=== PATIENT | female | born 1965 | race Caucasian/White ===

== ENCOUNTER 2020-02-19 13:17 | Outpatient (REF) | payer MEDICARE, MEDICAID, SELFPAY ==
--- NOTE | 2020-02-19 13:35 | XR_ITS ---
EXAMINATION: XR knee standing BI CLINICAL INFORMATION: Reason for Exam M17.0 - Bilateral primary osteoarthritis of knee COMPARISON: None available at the time of this dictation. TECHNIQUE: Bilateral frontal standing. FINDINGS: BONES: No fracture or dislocation is present. JOINTS: Narrowing of joint spaces and developed osteophytes from the edges of articular surfaces suggest degenerative osteoarthritis. SOFT TISSUE: Normal XR/XR knee standing BI IMPRESSION: Mild to moderate DJD medial more than lateral compartments right more than left knee.
== END 2020-02-19 13:18 | disposition home or self-care (01) ==
LOC: HO.XRAY 13:17
PROVIDERS: PCP Internal Medicine; Referring Provider Internal Medicine; Visit Provider Orthopaedic Surgery
DX: M17.0 Bilateral primary osteoarthritis of knee (principal); F17.210 Nicotine dependence, cigarettes, uncomplicated
CPT/HCPCS: 20610; 73565; 99212; J1100

== ENCOUNTER → 2020-02-24 16:02 | Outpatient (BNVA) | payer MEDICARE, MEDICAID, SELFPAY | PROVIDERS: PCP Internal Medicine; Visit Provider Surgery | DX: Z85.3 Personal history of malignant neoplasm of breast (principal); Z92.21 Personal history of antineoplastic chemotherapy; Z92.3 Personal history of irradiation | CPT/HCPCS: 99212 ==

== ENCOUNTER 2020-02-25 13:09 | Outpatient (REF) | payer MEDICARE, MEDICAID, SELFPAY ==
--- NOTE | 2020-02-25 13:15 | MM_ITS ---
EXAMINATION: MM DIAGNOSTIC DIGITAL BREAST TOMOSYNTHESIS, BILATERAL CLINICAL INFORMATION: Left lumpectomy for breast cancer 2013. Probable benign calcifications left breast 3:00 to 4:00 position mid depth for follow-up. Due for yearly. COMPARISON: Mammography: 02/19/2019, 08/15/2018, 02/13/2018 (diagnostic, BI-RADS 3), 01/11/2017 TECHNIQUE: Digital breast tomosynthesis is performed in both the craniocaudal and mediolateral oblique views along with computer-aided detection (CAD). Synthesized 2D images are generated from the tomosynthesis. Additional magnification left CC and magnification left ML views are obtained. FINDINGS: There are scattered areas of fibroglandular density (ACR BI-RADS breast composition Category b). There are post therapy changes on the left with stable scarring central inferior medial breast. There is no developing density or interval mass or architectural abnormality on either side. Biopsy clip marker again noted mid upper outer left breast. There are scattered bilateral benign round and rim calcifications. The small coalescing calcifications for follow-up left breast are unremarkable and benign. Results are provided to the patient at time of visit by the technologist. MM/MM tomosynthesis diagnostic BI IMPRESSION: 1. No mammographic evidence of malignancy. 2. Postsurgical changes left breast. Calcifications for follow-up are benign. ASSESSMENT: BI-RADS 2: Benign RECOMMENDATION: Routine annual mammography screening. This patient's information was entered into a reminder system with a target due date for their next mammogram.
== END 2020-02-25 13:10 | disposition home or self-care (01) ==
LOC: HO.MAMMO 13:09
PROVIDERS: Visit Provider Surgery Plastic and Reconstructive Surgery
DX: R92.1 Mammographic calcification found on diagnostic imaging of breast (principal)
CPT/HCPCS: 77062; 77066

== ENCOUNTER 2020-04-26 11:00 | Outpatient (REF) | payer MEDICARE, MEDICAID, SELFPAY ==
--- NOTE | 2020-04-26 11:06 | XR_ITS ---
EXAMINATION: XR BILATERAL HIPS WITH AP PELVIS CLINICAL INFORMATION: Fall, trauma, pain COMPARISON: CT abdomen and pelvis 05/07/2019. TECHNIQUE: AP view of the pelvis is performed. Each hip is imaged in AP and frog-lateral projections. There are a total of 5 views. FINDINGS: The pelvis has orthopedic hardware lateral aspect left iliac wing with plates and screws. The hardware appears intact. There is no acute or healing fracture or destructive process. The SI joints and pubis show no diastases. The right hip shows no fracture or dislocation. There is no joint narrowing or erosive change. Incidental bone island again noted in the mid posterior right femoral neck. The left hip shows no fracture or dislocation. There is no joint narrowing or erosive change. A few corticated ossicles are again noted at the posterior superior left acetabular rim possibly sequela from prior injury. XR/XR hip BI w PEL1V IMPRESSION: 1. No fracture or dislocation. 2. Old orthopedic hardware left iliac wing.
== END 2020-04-26 11:01 | disposition home or self-care (01) ==
LOC: HO.XRAY 11:00
PROVIDERS: PCP Physician Assistant; Visit Provider Internal Medicine
DX: M54.5 Low back pain (principal); Z91.81 History of falling
CPT/HCPCS: 73521

== ENCOUNTER 2020-05-02 22:41 | Emergency (ER) | payer MEDICARE, MEDICAID, SELFPAY ==
[2020-05-02 23:32] VITALS: BP 135/85; PULSE 76; RESP 16; TEMP 36.6; O2SAT 100; BMI 24.5
--- NOTE | 2020-05-02 23:33 | ED.ALLEREA ---
HPI - Allergic Reaction General Chief complaint: Skin/Abscess/Foreign Body Stated complaint: Rash Time Seen by Provider: 05/02/20 23:32 Source: patient Mode of arrival: ambulatory Limitations: no limitations History of Present Illness HPI narrative: Patient noticed burning pain on the left side of back 2 weeks ago and for last 1 week noticed erythematous rash in a dermatomal pattern with itching and pain. No history of shingles in the past no fever or cough or shortness of breath Related Data Home Medications Medication Instructions Recorded Confirmed atorvastatin 40 mg tablet mg PO 02/18/20 04/26/20 escitalopram oxalate 10 mg tablet mg PO 02/18/20 04/26/20 gabapentin 300 mg capsule mg PO DAILY cap 04/26/20 04/26/20 lorazepam 1 mg tablet 1 mg PO BID-TID PRN tab 04/26/20 omeprazole 20 mg capsule,delayed mg PO DAILY cap 04/26/20 04/26/20 release quetiapine 100 mg tablet mg PO DAILY tab 04/26/20 04/26/20 Previous Rx's Medication Instructions Recorded meclizine 25 mg tablet 25 mg PO TID 30 Days #90 tab 02/11/20 cholecalciferol (vitamin D3) 50 50 mcg PO DAILY 90 Days #90 cap 02/18/20 mcg (2,000 unit) capsule hydrocortisone 2.5 % topical cream [address] BID-QID PRN #30 g 02/18/20 with perineal applicator oxycodone 5 mg capsule 5 mg PO DAILY PRN #5 cap 04/26/20 diphenhydramine HCl [Benadryl] 25 mg PO Q6H PRN #20 cap 05/02/20 gabapentin [Neurontin] 100 mg PO TID #30 cap 05/02/20 valacyclovir [Valtrex] 1,000 mg PO TID #21 tab 05/02/20 Allergies Allergy/AdvReac Type Severity Reaction Status Date / Time No Known Allergies Allergy Verified 02/24/20 16:11 [No Known Allergies*] Review of Systems Review of Systems: Yes all other systems are reviewed and are negative [facility] Past Medical History Medical History Bilateral primary osteoarthritis of knee History of left breast cancer History of suicide attempt Surgical History History of hip surgery History of lumpectomy of left breast History of open reduction and internal fixation (ORIF) procedure History of tonsillectomy History of ventral hernia repair Family History Family History Father Diabetes Hypertension Mother Breast cancer Maternal Aunt Uterine cancer Social History Social History Alcohol intake: never Smoking Status: Current every day smoker Tobacco Type: Cigarette Cigarettes Per Day: 12 Use of substances other than those prescribed or required for medical reasons: No Advance Directives: No Advance Directives Information Provided: No Physical Exam Vital Signs: Vital Signs: Last Vital Signs Temp 97.8 F 05/02/20 23:32 Pulse 76 05/02/20 23:32 Resp 16 05/02/20 23:32 BP 135/85 05/02/20 23:32 Pulse Ox 100 05/02/20 23:32 Body Mass Index 24.5 Const: General: healthy appearing, comfortable and no acute distress HENMT: Head: Yes normal to inspection Eyes: General: appearance normal, both eyes and all related structures Neck: Neck: Yes normal visual inspection Chest: Chest palpation & inspection: normal inspection of the chest Resp: Effort & Inspection: normal respiratory effort Auscultation: clear to auscultation bilaterally Cardio: Rhythm: regular rhythm Heart sounds: S1 normal heart sound present and S2 normal heart sound present GI: Inspection: Yes normal to inspection Palpation (GI): Soft to palpation and nontender Skin: Other: Erythematous with ruptured vesicular rash noticed in dermatomal pattern on the left flank area Full body images: 1. Ruptured vesicles erythematous rash Neuro: General: patient oriented x3 Discharge Plan Discharge Clinical Impression: Shingles Qualifiers: Herpes zoster complications: without complications Qualified Code(s): B02.9 - Zoster without complications Patient Disposition: Home, Self-Care Instructions: Shingles (ED) Additional Instructions: Take medication as prescribed. Keep social distancing and do not share towels or bed with anyone until heals completely. Report to the ER/PCP if not better Prescriptions: New valacyclovir [Valtrex] 1 gram tablet 1,000 mg PO TID Qty: 21 RF: 0 gabapentin [Neurontin] 100 mg capsule 100 mg PO TID Qty: 30 RF: 0 diphenhydramine HCl [Benadryl] 25 mg capsule 25 mg PO Q6H PRN (Reason: itching) Qty: 20 RF: 0 No Action meclizine 25 mg tablet 25 mg PO TID 30 Days Qty: 90 RF: 1 escitalopram oxalate 10 mg tablet PO RF: 0 atorvastatin 40 mg tablet PO RF: 0 cholecalciferol (vitamin D3) 50 mcg (2,000 unit) capsule 50 mcg PO DAILY 90 Days Qty: 90 RF: 1 hydrocortisone [Proctosol HC] 2.5 % cream with perineal applicator [address] BID-QID PRN (Reason: hemorrhoids) Qty: 30 RF: 1 gabapentin 300 mg capsule PO DAILY RF: 0 quetiapine 100 mg tablet PO DAILY RF: 0 omeprazole 20 mg capsule,delayed release(DR/EC) PO DAILY RF: 0 lorazepam 1 mg tablet 1 mg PO BID-TID PRNRF: 0 oxycodone 5 mg capsule 5 mg PO DAILY PRN (Reason: pain) Qty: 5 RF: 0 Stand Alone Forms: Work/School Release Interventions: ED Discharge Assessment Last Done: 05/03/20 01:15 Discharge Date/Time: 05/02/20 23:55
[2020-05-03] MEDS: Gabapentin 100 MG CAPSULE PO (00:01)
[2020-05-03] MEDS: diphenhydrAMINE HCL 25 MG TABLET 50 MG PO (00:01)
== END 2020-05-02 23:55 | disposition home or self-care (01) ==
PROVIDERS: Emergency Provider Internal Medicine; PCP Physician Assistant
DX: B02.9 Zoster without complications (principal); M54.5 Low back pain; Z79.899 Other long term (current) drug therapy; F17.210 Nicotine dependence, cigarettes, uncomplicated; Z71.6 Tobacco abuse counseling
CPT/HCPCS: 99284; Q0163

== ENCOUNTER 2020-05-03 08:56 | Outpatient (REF) | payer MEDICARE, MEDICAID, SELFPAY ==
[2020-05-03 10:33] LABS: Estimated Average Glucose 103 mg/dL; Hemoglobin A1c % 5.2 %
[2020-05-03 10:46] LABS: Alanine Aminotransferase 10 U/L (0-31); Albumin Level 4.5 g/dL (3.5-5.0); Alkaline Phosphatase 64 U/L (39-117); Anion Gap 11 (12-20); Aspartate Amino Transferase 15 U/L (5-31); Bilirubin Total 0.3 mg/dL (0.0-1.0); Blood Urea Nitrogen 13 mg/dL (9-16); Calcium 9.8 mg/dL (8.4-10.2); Carbon Dioxide 29 mmol/L (22-29); Chloride 104 mmol/L (96-108); Cholesterol 230 mg/dL; Estimated Glomerular Filt Rate > 60; Glucose Fasting 91 mg/dL (60-99); HDL Cholesterol 46 mg/dL; LDL Cholesterol Calculated 160 mg/dl; Potassium 4.2 mmol/l (3.3-5.1); Sodium 140 mmol/L (135-145); Total Protein 7.1 g/dL (6.5-8.0); Triglycerides 120 mg/dL
[2020-05-03 11:10] LABS: TSH reflex Free T4 1.78 mIU/mL (0.32-4.0)
[2020-05-03 17:07] LABS: Folate 17.7 ng/mL (> or = 4.0); Vitamin B12 293 pg/mL (200-900)
== END 2020-05-03 08:57 | disposition home or self-care (01) ==
LOC: HO.LAB 08:56
PROVIDERS: PCP Physician Assistant; Visit Provider Internal Medicine
DX: F33.1 Major depressive disorder, recurrent, moderate (principal); F41.1 Generalized anxiety disorder; E78.00 Pure hypercholesterolemia, unspecified; Z13.1 Encounter for screening for diabetes mellitus; Z13.29 Encounter for screening for other suspected endocrine disorder
CPT/HCPCS: 36415; 80053; 80061; 82607; 82746; 83036; 84443

== ENCOUNTER 2020-05-05 13:30 | Outpatient (REF) | payer MEDICARE, MEDICAID, SELFPAY ==
--- NOTE | 2020-05-05 13:33 | CT_ITS ---
EXAMINATION: CT ABDOMEN AND PELVIS WITH CONTRAST CLINICAL INFORMATION: Left lower quadrant pain COMPARISON: Previous CT scan of the abdomen and pelvis most recent April 2019 TECHNIQUE: Multidetector volumetric images were obtained from the superior aspect of the liver through the pubic symphysis following administration 85 mL of Omnipaque 350 intravenous contrast. Sagittal and coronal reformatted images were obtained on the technologist's workstation. Oral contrast: Yes This CT examination was performed using dose optimization techniques as appropriate, variously including the following: *Automated exposure control *Adjustment of mA and/or kV according to patient size (this includes techniques or standardized protocols for targeted exams where dose is matched to indication/reason for exam; i.e. extremities or head) *Use of iterative reconstruction technique DLP: 482 mGy-cm FINDINGS: LUNG BASES: The visualized lung bases are unremarkable. LIVER, GALLBLADDER, AND BILIARY TREE: The liver is slightly enlarged, right lobe measuring 20 cm in length. Contour and attenuation is normal. No focal liver lesion is seen. The gallbladder is contracted. There is no biliary duct dilatation. PANCREAS: Unremarkable. SPLEEN: Unremarkable. ADRENAL GLANDS: Unremarkable. KIDNEYS AND URETERS: The kidneys are normal in size, shape, and attenuation. No hydronephrosis, hydroureter, or calculi seen. No perinephric stranding. BLADDER: Unremarkable. GASTROINTESTINAL TRACT: The small and large bowel are unremarkable. The appendix is unremarkable. ABDOMINAL WALL: No significant hernia is appreciated. LYMPH NODES: Normal. VASCULAR: There is evidence of mild atherosclerotic disease. No aneurysm is seen. PELVIC VISCERA: Unremarkable. OSSEOUS STRUCTURES: There is ORIF of old left iliac crest fracture with plate and screws. There are mild degenerative changes of the lower thoracic spine. CT/CT abdomen pelvis w con IMPRESSION: No acute findings. Slightly enlarged liver. Contracted gallbladder.
[2020-05-05] MEDS: iohexoL 350 MG/ML 100 ML INFUS..BTL IV (16:05)
[2020-05-05] MEDS: Barium Sulfate Oral (Berry) 450 ML ORAL.SUSP 900 ML PO (16:06)
== END 2020-05-05 13:31 | disposition home or self-care (01) ==
LOC: HO.CT 13:30
PROVIDERS: PCP Physician Assistant; Visit Provider Internal Medicine
DX: R10.32 Left lower quadrant pain (principal)
CPT/HCPCS: 74177; Q9967

== ENCOUNTER → 2020-08-09 12:41 | Outpatient (BNVA) | payer OTHER, MEDICARE, SELFPAY | PROVIDERS: Visit Provider Orthopaedic Surgery | DX: M17.0 Bilateral primary osteoarthritis of knee (principal) | CPT/HCPCS: 20610; 99212; J1100 ==

== ENCOUNTER → 2020-09-02 15:22 | Outpatient (BNVA) | payer OTHER, SELFPAY | PROVIDERS: PCP Physician Assistant; Visit Provider Surgery | DX: R51.9 Headache, unspecified (principal); C50.312 Malignant neoplasm of lower-inner quadrant of left female breast; Z17.1 Estrogen receptor negative status [ER-]; M17.0 Bilateral primary osteoarthritis of knee; E78.00 Pure hypercholesterolemia, unspecified; F17.210 Nicotine dependence, cigarettes, uncomplicated; Z92.21 Personal history of antineoplastic chemotherapy; Z92.3 Personal history of irradiation | CPT/HCPCS: 99212 ==

== ENCOUNTER 2020-09-29 16:36 | Outpatient (REF) | payer OTHER, SELFPAY ==
[2020-09-29 17:51] LABS: MANUAL DIFF FLAG NO
[2020-09-29 17:52] LABS: Basophils Percent Auto 0.4 % (0-2); Eosinophils Absolute Auto 0.3 X10*3/uL (0.0-0.4); Eosinophils Percent Auto 4.3 % (0-4); Hematocrit 34.5 % (37-47); Hemoglobin 11.2 g/dl (12.0-16.0); Imm Gran Abs Auto 0.01 X10*3/uL (0.00-0.03); Imm Gran Pct Auto 0.1 % (0.0-0.4); Lymphocytes Absolute Auto 3.3 X10*3/uL (1.2-4.9); Lymphocytes Percent Auto 46.5 % (20-40); Mean Corpuscular HGB Conc 32.5 g/dl (31.0-35.0); Mean Corpuscular Volume 92.5 fL (80-98); Mean Platelet Volume 11.4 fL (9.4-12.3); Monocytes Absolute Auto 0.4 X10*3/uL (0.1-1.2); Neutrophils Absolute Auto 3.1 X10*3/uL (2.0-8.3); Neutrophils Percent Auto 42.7 % (45-73); Platelet Count 270 X10*3/uL (160-400); Red Blood Count 3.73 X10*6/uL (4.20-5.50); Red Cell Distribution Width 13.8 % (11.0-16.0); White Blood Count 7.2 X10*3/uL (4.8-10.8)
[2020-09-29 18:15] LABS: Alanine Aminotransferase 9 U/L (0-31); Albumin Level 4.3 g/dL (3.5-5.0); Alkaline Phosphatase 64 U/L (39-117); Anion Gap 12 (12-20); Aspartate Amino Transferase 13 U/L (5-31); Bilirubin Total 0.2 mg/dL (0.0-1.0); Blood Urea Nitrogen 12 mg/dL (9-16); Carbon Dioxide 26 mmol/L (22-29); Chloride 105 mmol/L (96-108); Cholesterol 257 mg/dL; Estimated Glomerular Filt Rate > 60; Glucose Fasting 96 mg/dL (60-99); HDL Cholesterol 43 mg/dL; LDL Cholesterol Calculated 169 mg/dl; Potassium 4.2 mmol/L (3.3-5.1); Sodium 139 mmol/L (135-145); Total Protein 6.7 g/dL (6.5-8.0); Triglycerides 225 mg/dL
[2020-09-29 18:35] LABS: TSH reflex Free T4 0.73 uIU/mL (0.32-4.0)
== END 2020-09-29 16:37 | disposition home or self-care (01) ==
LOC: HO.LAB 16:36
PROVIDERS: Internal Medicine; PCP Physician Assistant; Visit Provider Surgery
DX: R10.32 Left lower quadrant pain (principal); K62.5 Hemorrhage of anus and rectum; E78.00 Pure hypercholesterolemia, unspecified; Z13.29 Encounter for screening for other suspected endocrine disorder
CPT/HCPCS: 36415; 80048; 80053; 80061; 84443; 84520; 85025

== ENCOUNTER 2020-09-30 14:24 | Outpatient (REF) | payer OTHER, SELFPAY ==
--- NOTE | ~2020-09-30 | CT_ITS ---
EXAMINATION: CT HEAD WITH/WITHOUT CONTRAST CLINICAL INFORMATION: Headache. COMPARISON: 07/03/[address] scan[address] TECHNIQUE: Contiguous axial imaging was performed from the skull base to vertex before and after the administration of 85 mL of Omnipaque 350 intravenous contrast. Coronal and sagittal reformatted images were obtained. This CT examination was performed using dose optimization techniques as appropriate, variously including the following: *Automated exposure control *Adjustment of mA and/or kV according to patient size (this includes techniques or standardized protocols for targeted exams where dose is matched to indication/reason for exam; i.e. extremities or head) *Use of iterative reconstruction technique DLP: 1236 mGy-cm FINDINGS: There is mild widening of the cortical sulci are seen with frontal lobe predominance without significant change. The lateral ventricles are symmetrical. The third and fourth ventricles are in their normal midline position. The basilar and prepontine cisterns are unremarkable. There is no acute intra or extracerebral abnormality. There is no mass effect or midline shift. No contrast enhancing abnormalities are identified. Sections through the bony calvarium are unremarkable. The orbits are intact. The paranasal sinuses are clear. The mastoid air cells are clear. CT/CT head/brain wo/w con IMPRESSION: No acute intracranial pathology.
[2020-09-30 11:38] LABS: Glucose Urine UA NEG (NEG); Leukocyte Esterase Urine NEG (NEG); Nitrite Urine NEG (NEG); Urine Blood NEG (NEG); Urine Ketones NEG (NEG); Urine Protein NEG (NEG-TRACE)
[2020-09-30 11:59] LABS: Appearance Urine CLEAR; Color Urine YELLOW
[2020-09-30 12:39] LABS: RBC Urine 0 /HPF (0); Squamous Epithelial Cell Urine TRACE /LPF; WBC Urine 0 /HPF (0-4)
[2020-09-30] MEDS: iohexoL 350 MG/ML 100 ML INFUS..BTL IV (15:40)
== END 2020-09-30 14:25 | disposition home or self-care (01) ==
LOC: HO.CT 14:24
PROVIDERS: Internal Medicine; Visit Provider Surgery
DX: R51.9 Headache, unspecified (principal); R10.32 Left lower quadrant pain; C50.312 Malignant neoplasm of lower-inner quadrant of left female breast
CPT/HCPCS: 70470; 81001; Q9967

== ENCOUNTER 2021-03-23 13:08 | Outpatient (REF) | payer OTHER, SELFPAY ==
[2021-03-30 06:27] LABS: HPV mRNA E6/E7 rflx Not Detected (Not Detected)
== END 2021-03-23 13:09 | disposition home or self-care (01) ==
LOC: HO.LAB 13:08
PROVIDERS: PCP Physician Assistant; Visit Provider Obstetrics & Gynecology
DX: Z01.419 Encounter for gynecological examination (general) (routine) without abnormal findings (principal); Z11.51 Encounter for screening for human papillomavirus (HPV); M17.0 Bilateral primary osteoarthritis of knee; E78.00 Pure hypercholesterolemia, unspecified; F17.210 Nicotine dependence, cigarettes, uncomplicated; F41.9 Anxiety disorder, unspecified; Z83.3 Family history of diabetes mellitus; Z80.3 Family history of malignant neoplasm of breast; Z80.49 Family history of malignant neoplasm of other genital organs; Z79.891 Long term (current) use of opiate analgesic; Z79.899 Other long term (current) drug therapy
CPT/HCPCS: 87624; 88142

== ENCOUNTER → 2021-05-05 14:13 | Outpatient (BNVA) | payer OTHER, SELFPAY | PROVIDERS: PCP Physician Assistant; Visit Provider Orthopaedic Surgery | DX: M17.0 Bilateral primary osteoarthritis of knee (principal) | CPT/HCPCS: 20610; 99212; J1100 ==

== ENCOUNTER 2021-05-12 10:29 | Outpatient (REF) | payer OTHER, SELFPAY ==
--- NOTE | ~2021-05-12 | MM_ITS ---
EXAMINATION: MM SCREENING DIGITAL BREAST TOMOSYNTHESIS, BILATERAL CLINICAL INFORMATION: Screening. Asymptomatic. Status post left lumpectomy. COMPARISON: Mammography: February 17, 2020 and studies dating back to November 26, 2013 TECHNIQUE: Digital breast tomosynthesis is performed in both the craniocaudal and mediolateral oblique views along with computer-aided detection (CAD). Synthesized 2D images are generated from the tomosynthesis. FINDINGS: There are scattered areas of fibroglandular density (ACR BI-RADS breast composition Category b). There are no new significant masses, abnormal calcifications, or other abnormalities. Stable left breast postsurgical change again seen. MM/MM tomosynthesis screening BI IMPRESSION: There are no significant changes from prior study. ASSESSMENT: BI-RADS 2: Benign RECOMMENDATION: Routine annual mammography screening. This patient's information was entered into a reminder system with a target due date for their next mammogram.
== END 2021-05-12 10:30 | disposition home or self-care (01) ==
LOC: HO.MAMMO 10:29
PROVIDERS: Visit Provider Physician Assistant
DX: Z12.31 Encounter for screening mammogram for malignant neoplasm of breast (principal)
CPT/HCPCS: 77063; 77067

== ENCOUNTER → 2021-06-09 14:32 | Outpatient (BNVA) | payer OTHER, SELFPAY | PROVIDERS: PCP Physician Assistant; Referring Provider Physician Assistant; Visit Provider Surgery | DX: C50.312 Malignant neoplasm of lower-inner quadrant of left female breast (principal) | CPT/HCPCS: 99212 ==

== ENCOUNTER 2021-07-29 13:41 | Outpatient (REF) | payer OTHER, SELFPAY ==
--- NOTE | ~2021-07-29 | CT_ITS ---
EXAMINATION: CT CHEST SCREENING CLINICAL INFORMATION: Current smoker. 41 pack year history. COMPARISON: Previous chest x-ray most recent May [address] January 2015 TECHNIQUE: Multidetector volumetric CT imaging of the chest is performed without contrast using low dose technique. Additional 2D coronal and sagittal reformatted images and axial 3D maximum intensity projection (MIP) images are generated on the CT workstation. This CT examination was performed using dose optimization techniques as appropriate, variously including the following: *Automated exposure control *Adjustment of mA and/or kV according to patient size (this includes techniques or standardized protocols for targeted exams where dose is matched to indication/reason for exam; i.e. extremities or head) *Use of iterative reconstruction technique DLP: 53 mGy-cm FINDINGS: LUNGS: There is evidence of emphysema. There is a 2 mm calcified right upper lobe nodule axial image 176 series 5. This is stable from 2015 exam. There are increased peripheral interstitial markings in the left upper lobe. This may be related to previous chest wall radiation. The lungs are otherwise clear. No endobronchial or endotracheal lesion. MEDIASTINUM: The mediastinum is normal. PLEURA: There is no pleural effusion. No pleural mass or thickening. AXILLA: No axillary adenopathy. Increased density in the inferior left breast appears decreased from 2015 exam. UPPER ABDOMEN: Unremarkable OSSEOUS STRUCTURES: There are degenerative changes of the spine. CT/CT lung screening IMPRESSION: Emphysema. Stable 2 mm calcified right upper lobe nodule. Peripheral reticular markings in the left upper lobe, question related to chest wall radiation. ASSESSMENT: Lung-RADS category 2: Benign RECOMMENDATION: Annual low-dose chest CT follow-up recommended.
== END 2021-07-29 13:42 | disposition home or self-care (01) ==
LOC: HO.CT 13:41
PROVIDERS: PCP Physician Assistant; Visit Provider Physician Assistant Medical
DX: F17.210 Nicotine dependence, cigarettes, uncomplicated (principal); Z80.1 Family history of malignant neoplasm of trachea, bronchus and lung; Z85.3 Personal history of malignant neoplasm of breast
CPT/HCPCS: 71271; G0296

== ENCOUNTER 2021-09-13 20:44 | Emergency (ER) | payer OTHER, SELFPAY ==
--- NOTE | ~2021-09-13 | CT_ITS ---
EXAMINATION: CT HEAD WITHOUT CONTRAST CT CERVICAL SPINE WITHOUT CONTRAST CLINICAL INFORMATION: Fall. Syncope. COMPARISON: CT head from 09/30/2020. TECHNIQUE: Contiguous axial imaging was performed from the skull base to vertex without intravenous administration of contrast. Contiguous axial imaging was performed from the upper chest through the skull base without intravenous administration of contrast. Coronal and sagittal reformats were obtained at the acquisition workstation. This CT examination was performed using dose optimization techniques as appropriate, variously including the following: *Automated exposure control. *Adjustment of mA and/or kV according to patient size (this includes techniques or standardized protocols for targeted exams where dose is matched to indication/reason for exam; i.e. extremities or head). *Use of iterative reconstruction technique. DLP: 1082 mGy-cm FINDINGS: Head: There is no evidence of acute intracranial hemorrhage or edematous territorial infarction. There is no abnormal attenuation within the brain parenchyma. Stahl-white matter differentiation is preserved. The ventricles are normal in size and configuration. No evidence for obstructive hydrocephalus. No abnormal mass effect or midline shift. No extra-axial fluid collections. No acute soft tissue or osseous abnormalities. Mild mucosal thickening of the paranasal sinuses. Mild rightward nasal septal deviation. The mastoid air cells and middle ear cavities are clear. Cervical Spine: The atlantooccipital and atlantoaxial articulations remain well aligned. Straightening of the normal cervical lordosis. Otherwise, there is anatomic alignment of the vertebral bodies and posterior elements. No evidence of acute fracture or subluxation. The vertebral body heights are maintained. Moderate degenerative disc disease at C3-C4. Mild degenerative disc disease at C2-C3 and C4-C5. Facet and uncovertebral joint arthropathy leads to mild osseous encroachment on the neural foramina from C2-C4. There is no prevertebral soft tissue swelling. The thyroid gland and remaining cervical soft tissues are normal in appearance. The lung apices demonstrate no abnormalities. CT/CT cervical spine wo con IMPRESSION: 1. No evidence of acute intracranial hemorrhage or edematous territorial infarction. 2. No evidence of acute fracture or traumatic subluxation of the cervical spine. Mild multilevel degenerative spondyloarthropathy of the cervical spine.
[2021-09-13 20:52] VITALS: BP 105/60; BP 124/74; PULSE 66; PULSE 70; RESP 18; TEMP 36.8; O2SAT 97; O2SAT 98; BMI 25.8
--- NOTE | 2021-09-13 20:57 | ECG_ITS ---
Test Reason : SYNCOPE Blood Pressure : / mmHG Vent. Rate : 059 BPM Atrial Rate : 059 BPM P-R Int : 174 ms QRS Dur : 078 ms QT Int : 422 ms P-R-T Axes : 064 025 051 degrees QTc Int : 417 ms Sinus bradycardia Otherwise normal ECG When compared with ECG of 15-OCT-2017 23:23, No significant change was found Referred By: Patel Rdz Electronically Signed By:ALBERT HENRY
[2021-09-13 21:27] LABS: MANUAL DIFF FLAG NO
--- NOTE | 2021-09-13 21:27 | ED_ITS ---
HPI - Syncope General Chief Complaint: Syncope Stated Complaint: hypotension Time Seen by Provider: 09/13/21 21:27 Source: patient Mode of arrival: EMS History of Present Illness HPI narrative: 56-year-old female who presents with a syncopal episode via EMS. Patient describes that she suffers from low blood pressure at baseline and states her appetite has not been well over the past few days but otherwise denies any fever, chills, GI or symptoms. Patient describes that she started to feel like her blood pressure was low went to lie down on the couch while making toast but then when she got up to begin eating the toast she states she simply fell out and does not recall anything of the preceding events. She denies feeling nauseous/cool/clammy/sweaty upon awakening but states that she was unable to move and she had to lay there for a while until her son found her and called EMS. She reports initially on awakening that she had some right-sided chest discomfort that has since resolved, denies any abdominal pain. Related Data Home Medications Medication Instructions Recorded Confirmed omeprazole 20 mg capsule,delayed 20 mg PO DAILY cap 04/26/20 06/21/21 release gabapentin 300 mg capsule 300 mg PO NEEDED 05/25/20 06/21/21 escitalopram oxalate 20 mg tablet 20 mg PO DAILY 05/25/21 06/21/21 (Lexapro) quetiapine 100 mg tablet (Seroquel) 100 mg PO BEDTIME 05/25/21 06/21/21 Previous Rx's Medication Instructions Recorded meclizine 25 mg tablet 25 mg PO TID 30 Days #90 tab 02/11/20 cholecalciferol (vitamin D3) 50 50 mcg PO DAILY 90 Days #90 cap 02/18/20 mcg (2,000 unit) capsule bupropion HCl 150 mg tablet,12 hr 150 mg PO DAILY 30 Days #30 tab 12/07/20 sustained-release (Wellbutrin SR) atorvastatin 40 mg tablet 40 mg PO DAILY #90 cap 02/06/21 lorazepam 1 mg tablet 1 mg PO BID-TID 30 Days #90 tab 06/21/21 Allergies Allergy/AdvReac Type Severity Reaction Status Date / Time No Known Allergies Allergy Verified 09/13/21 20:58 [No Known Allergies*] Review of Systems Review of Systems: Pertinent positives and negatives as stated in HPI and 10 point review of systems is otherwise negative. PMFSH Past Medical History Source: nursing notes reviewed Medical History Bilateral primary osteoarthritis of knee JASSON (generalized anxiety disorder) GERD (gastroesophageal reflux disease) History of left breast cancer (~2013) History of suicide attempt HLD (hyperlipidemia) MDD (major depressive disorder) Migraine Osteopenia (~2015) Personal history of nicotine dependence Post herpetic neuralgia (~2020) Postmenopausal Surgical History History of colonoscopy History of esophagogastroduodenoscopy (EGD) History of hip surgery (~1990) History of lumpectomy of left breast (~2013) History of right knee surgery (~2006) History of thumb surgery (~2016) History of tonsillectomy History of tubal ligation History of ventral hernia repair (~2018) Family History Family History Father Diabetes Hypertension Mother Breast cancer Maternal Aunt Uterine cancer Social History Social History Household Members: Family Housing: House Are you a primary healthcare administration internship to a significant other at home: No Do you presently have visiting nurse or other home services: No Alcohol intake: never Patient Tobacco Use Status: Current everyday Tobacco user Tobacco use type: Cigarette Cigarettes Per Day: 10 Years Smoked: (onset 15, 1/2-3/4ppd x 41yrs, 25pyh) Smoked in Last 30 Days: Yes e-Cigarette/Vaping Use: Never Used Second Hand Smoke Exposure: Yes Use of substances other than those prescribed or required for medical reasons: No Substance Use Type: Marijuana Advance Directives: No Advance Directives Information Provided: No Patient : No service: No Current occupational status: disabled 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 GENERAL: Well developed, well nourished, in no acute distress. HEAD: Normocephalic/atraumatic EYES: PERRLA, EOMI EARS: Ext canals without abnormality, TMs non-bulging and non-erythematous NOSE: Nares patent bilateral OROPHARYNX: no oral lesions noted, posterior pharynx clear NECK: Supple, no adenopathy LUNGS: Normal breath sounds. No adventitious sounds or accessory muscle use. SpO2<97> CARDIOVASCULAR: Regular rate and rhythm without noted murmurs, no JVD or lower extremity edema. ABDOMEN: Soft, non-tender, non-distended with bowel sounds. MUSCULOSKELETAL: No tenderness, deformities, or effusions noted on gross inspection. EXTREMITIES: No cyanosis, clubbing or edema. SKIN: Inspection of the skin reveals no rashes NEUROLOGIC: Alert and oriented x 4. Strength and sensation to light touch were grossly intact x 4, no facial asymmetry, no pronator drift, cranial nerves 2-12 grossly intact. Course Course Course Narrative: 56-year-old female with history and clinical presentation suggestive of possible vasovagal episode or a combination of her underlying low blood pressure with low hydration state. Patient received 2 L IV fluids and will be worked up for any evidence of infection, anemia, arrhythmia. Orthostatics are positive on sitting to standing with a 10 point drop in blood pressure. Review of all investigations without acute findings to better explain patient's syncopal episode other than describing it as vasovagal likely secondary to underlying volume depletion. MDM - Syncope Lab Data Result diagrams: 09/13/21 21:11 09/13/21 23:22 Labs: Lab Results 09/13/21 09/13/21 09/13/21 Range/Units 21:11 21:11 21:11 WBC 8.5 (4.8-10.8) X10*3/uL RBC 3.81 L (4.20-5.50) X10*6/uL Hgb 11.2 L (12.0-16.0) g/dl Hct 34.2 L (37.0-47.0) % MCV 89.8 (80.0-98.0) fL MCH 29.4 (27.0-33.0) pg MCHC 32.7 (31.0-35.0) g/dl RDW 13.7 (11.0-16.0) % Plt Count 257 (160-400) X10*3/uL MPV 11.0 (9.4-12.3) fL Immature Gran % (Auto) 0.1 (0.0-0.4) % Neut % (Auto) 52.6 (45-73) % Lymph % (Auto) 36.5 (20-40) % [place] % (Auto) 7.3 (2-11) % Eos % (Auto) 3.0 (0-4) % Baso % (Auto) 0.5 (0-2) % Lymph # (Auto) 3.1 (1.2-4.9) X10*3/uL [place] # (Auto) 0.6 (0.1-1.2) X10*3/uL Eos # (Auto) 0.3 (0.0-0.4) X10*3/uL Baso # (Auto) 0.0 (0.0-0.2) X10*3/uL Abs Immat Gran (auto) 0.01 (0.00-0.03) X10*3/uL Absolute Neuts (auto) 4.5 (2.0-8.3) x10*3/uL Absolute Nucleated RBC 0.000 (0.0-0.012) X10*3/uL Nucleated RBC % (auto) 0.0 (0.0-0.2) /100WBC PT (9.9-13.0) SEC INR (0.9-1.1) D-Dimer High Sensitivty NG/ML Sodium 138 (135-145) mmol/L Potassium 3.4 (3.3-5.1) mmol/L Chloride 105 (96-108) mmol/L Carbon Dioxide 25 (22-29) mmol/L Anion Gap 11 L (12-20) BUN 11 (9-16) mg/dL Creatinine 1.04 (0.5-1.4) mg/dL Estim Creat Clear Calc 61.5 Estimated GFR 55 Random Glucose 113 (60-115) mg/dL Calcium 10.1 (8.4-10.2) mg/dL Total Bilirubin 0.3 (0.0-1.0) mg/dL Direct Bilirubin < 0.2 (0.0-0.5) mg/dL AST 10 (5-31) U/L ALT 8 (0-31) U/L Alkaline Phosphatase 63 (39-117) U/L Troponin I High Sens < 3.5 (<3.5-17.0) ng/L B-Natriuretic Peptide < 10 (<100) pg/mL Total Protein 6.5 (6.5-8.0) g/dL Albumin 3.8 (3.5-5.0) g/dL Lipase 33 (8-78) U/L Urine Color Urine Appearance Urine pH (5.0-8.0) Ur Specific [place] (1.005-1.025) Urine Protein (NEG-TRACE) MG/DL Urine Glucose (UA) (NEG) MG/DL Urine Ketones (NEG) MG/DL Urine Blood (NEG) Urine Nitrite (NEG) Ur Leukocyte Esterase (NEG) COVID-19 (JOHANNE) (Negative) COVID-19 Clin Com Influenza Type A (LESLIE) (Negative) Influenza Type B (LESLIE) (Negative) Influenza A & B Note 09/13/21 09/13/21 09/13/21 Range/Units 21:48 21:48 23:08 WBC (4.8-10.8) X10*3/uL RBC (4.20-5.50) X10*6/uL Hgb (12.0-16.0) g/dl Hct (37.0-47.0) % MCV (80.0-98.0) fL MCH (27.0-33.0) pg MCHC (31.0-35.0) g/dl RDW (11.0-16.0) % Plt Count (160-400) X10*3/uL MPV (9.4-12.3) fL Immature Gran % (Auto) (0.0-0.4) % Neut % (Auto) (45-73) % Lymph % (Auto) (20-40) % [place] % (Auto) (2-11) % Eos % (Auto) (0-4) % Baso % (Auto) (0-2) % Lymph # (Auto) (1.2-4.9) X10*3/uL [place] # (Auto) (0.1-1.2) X10*3/uL Eos # (Auto) (0.0-0.4) X10*3/uL Baso # (Auto) (0.0-0.2) X10*3/uL Abs Immat Gran (auto) (0.00-0.03) X10*3/uL Absolute Neuts (auto) (2.0-8.3) x10*3/uL Absolute Nucleated RBC (0.0-0.012) X10*3/uL Nucleated RBC % (auto) (0.0-0.2) /100WBC PT (9.9-13.0) SEC INR (0.9-1.1) D-Dimer High Sensitivty NG/ML Sodium (135-145) mmol/L Potassium (3.3-5.1) mmol/L Chloride (96-108) mmol/L Carbon Dioxide (22-29) mmol/L Anion Gap (12-20) BUN (9-16) mg/dL Creatinine (0.5-1.4) mg/dL Estim Creat Clear Calc Estimated GFR Random Glucose (60-115) mg/dL Calcium (8.4-10.2) mg/dL Total Bilirubin (0.0-1.0) mg/dL Direct Bilirubin (0.0-0.5) mg/dL AST (5-31) U/L ALT (0-31) U/L Alkaline Phosphatase (39-117) U/L Troponin I High Sens (<3.5-17.0) ng/L B-Natriuretic Peptide (<100) pg/mL Total Protein (6.5-8.0) g/dL Albumin (3.5-5.0) g/dL Lipase (8-78) U/L Urine Color YELLOW Urine Appearance CLEAR Urine pH 5.5 (5.0-8.0) Ur Specific [place] <= 1.005 (1.005-1.025) Urine Protein NEG (NEG-TRACE) MG/DL Urine Glucose (UA) NEG (NEG) MG/DL Urine Ketones NEG (NEG) MG/DL Urine Blood NEG (NEG) Urine Nitrite NEG (NEG) Ur Leukocyte Esterase NEG (NEG) COVID-19 (JOHANNE) Negative (Negative) COVID-19 Clin Com See Note Influenza Type A (LESLIE) Negative (Negative) Influenza Type B (LESLIE) Negative (Negative) Influenza A & B Note See Note 09/13/21 09/13/21 Range/Units 23:22 23:22 WBC (4.8-10.8) X10*3/uL RBC (4.20-5.50) X10*6/uL Hgb (12.0-16.0) g/dl Hct (37.0-47.0) % MCV (80.0-98.0) fL MCH (27.0-33.0) pg MCHC (31.0-35.0) g/dl RDW (11.0-16.0) % Plt Count (160-400) X10*3/uL MPV (9.4-12.3) fL Immature Gran % (Auto) (0.0-0.4) % Neut % (Auto) (45-73) % Lymph % (Auto) (20-40) % [place] % (Auto) (2-11) % Eos % (Auto) (0-4) % Baso % (Auto) (0-2) % Lymph # (Auto) (1.2-4.9) X10*3/uL [place] # (Auto) (0.1-1.2) X10*3/uL Eos # (Auto) (0.0-0.4) X10*3/uL Baso # (Auto) (0.0-0.2) X10*3/uL Abs Immat Gran (auto) (0.00-0.03) X10*3/uL Absolute Neuts (auto) (2.0-8.3) x10*3/uL Absolute Nucleated RBC (0.0-0.012) X10*3/uL Nucleated RBC % (auto) (0.0-0.2) /100WBC PT 11.6 (9.9-13.0) SEC INR 1.0 (0.9-1.1) D-Dimer High Sensitivty < 150 NG/ML Sodium 139 (135-145) mmol/L Potassium 4.5 D (3.3-5.1) mmol/L Chloride 108 (96-108) mmol/L Carbon Dioxide 23 (22-29) mmol/L Anion Gap 13 (12-20) BUN 12 (9-16) mg/dL Creatinine 0.98 (0.5-1.4) mg/dL Estim Creat Clear Calc 65.4 Estimated GFR 59 Random Glucose 105 (60-115) mg/dL Calcium 10.2 (8.4-10.2) mg/dL Total Bilirubin 0.3 (0.0-1.0) mg/dL Direct Bilirubin (0.0-0.5) mg/dL AST 14 (5-31) U/L ALT 9 (0-31) U/L Alkaline Phosphatase 65 (39-117) U/L Troponin I High Sens (<3.5-17.0) ng/L B-Natriuretic Peptide (<100) pg/mL Total Protein 7.0 (6.5-8.0) g/dL Albumin 4.0 (3.5-5.0) g/dL Lipase (8-78) U/L Urine Color Urine Appearance Urine pH (5.0-8.0) Ur Specific [place] (1.005-1.025) Urine Protein (NEG-TRACE) MG/DL Urine Glucose (UA) (NEG) MG/DL Urine Ketones (NEG) MG/DL Urine Blood (NEG) Urine Nitrite (NEG) Ur Leukocyte Esterase (NEG) COVID-19 (JOHANNE) (Negative) COVID-19 Clin Com Influenza Type A (LESLIE) (Negative) Influenza Type B (LESLIE) (Negative) Influenza A & B Note ECG Data Attestation: I personally reviewed and interpreted this ECG as follows: Prior ECG tracings: available for review Interpretation: Sinus bradycardia, HR-59, no STEMI, DE/QRS/QTC are within normal limits. Discharge Plan Discharge Clinical Impression: Vasovagal syncope Patient Disposition: Home, Self-Care Instructions: Syncope in Older Adults (ED) Additional Instructions: 1. Resume all home medications as prescribed. 2. Please increase your fluid hydration, especially with water and limit your coffee and soda consumption. 3. Follow-up with your primary care provider in the morning by calling the office. Return to the ER for worsening symptoms. Prescriptions: No Action meclizine 25 mg tablet 25 mg PO TID 30 Days Qty: 90 1RF bupropion HCl [Wellbutrin SR] 150 mg tablet sustained-release 12 hr 150 mg PO DAILY 30 Days Qty: 30 3RF atorvastatin 40 mg tablet 40 mg PO DAILY Qty: 90 2RF gabapentin 300 mg capsule 300 mg PO NEEDED 0RF Rx Instructions: Increased dose of gabapentin to 300mg TID due to post herpetic neuralgia quetiapine [Seroquel] 100 mg tablet 100 mg PO BEDTIME 0RF escitalopram oxalate [Lexapro] 20 mg tablet 20 mg PO DAILY 0RF cholecalciferol (vitamin D3) 50 mcg (2,000 unit) capsule 50 mcg PO DAILY 90 Days Qty: 90 1RF omeprazole 20 mg capsule,delayed release(DR/EC) 20 mg PO DAILY 0RF lorazepam 1 mg tablet 1 mg PO BID-TID 30 Days Qty: 90 3RF Referrals: Patel Rdz PA-C [Primary Care Provider] -
[2021-09-13 21:28] LABS: Basophils Percent Auto 0.5 % (0-2); Eosinophils Absolute Auto 0.3 X10*3/uL (0.0-0.4); Hematocrit 34.2 % (37.0-47.0); Hemoglobin 11.2 g/dl (12.0-16.0); Imm Gran Abs Auto 0.01 X10*3/uL (0.00-0.03); Imm Gran Pct Auto 0.1 % (0.0-0.4); Lymphocytes Absolute Auto 3.1 X10*3/uL (1.2-4.9); Lymphocytes Percent Auto 36.5 % (20-40); Mean Corpuscular HGB Conc 32.7 g/dl (31.0-35.0); Mean Corpuscular Hemoglobin 29.4 pg (27.0-33.0); Mean Corpuscular Volume 89.8 fL (80.0-98.0); Monocytes Absolute Auto 0.6 X10*3/uL (0.1-1.2); Monocytes Percent Auto 7.3 % (2-11); Neutrophils Absolute Auto 4.5 x10*3/uL (2.0-8.3); Neutrophils Percent Auto 52.6 % (45-73); Platelet Count 257 X10*3/uL (160-400); Red Blood Count 3.81 X10*6/uL (4.20-5.50); Red Cell Distribution Width 13.7 % (11.0-16.0); White Blood Count 8.5 X10*3/uL (4.8-10.8)
[2021-09-13 21:42] LABS: Anion Gap 11 (12-20); Blood Urea Nitrogen 11 mg/dL (9-16); Calcium 10.1 mg/dL (8.4-10.2); Carbon Dioxide 25 mmol/L (22-29); Chloride 105 mmol/L (96-108); Creatinine Clr Calc Pharmacy 61.5; Estimated Glomerular Filt Rate 55; Glucose Random 113 mg/dL (60-115); Potassium 3.4 mmol/L (3.3-5.1); Sodium 138 mmol/L (135-145)
[2021-09-13 22:09] LABS: COVID-19 Test Negative (Negative); IDNOW Serial# 16C4AD1C; Influenza A Negative (Negative); Influenza B2 Negative (Negative)
[2021-09-13 22:49] VITALS: BP 99/48; PULSE 56
[2021-09-13 22:53] VITALS: BP 107/60; PULSE 59
[2021-09-13 22:55] VITALS: BP 93/57; PULSE 69
[2021-09-13 23:03] VITALS: BP 107/60; PULSE 59; RESP 16; O2SAT 96
[2021-09-13 23:07] LABS: Alanine Aminotransferase 8 U/L (0-31); Albumin Level 3.8 g/dL (3.5-5.0); Alkaline Phosphatase 63 U/L (39-117); Aspartate Amino Transferase 10 U/L (5-31); Bilirubin Direct < 0.2 mg/dL (0.0-0.5); Bilirubin Total 0.3 mg/dL (0.0-1.0); Lipase 33 U/L (8-78); Total Protein 6.5 g/dL (6.5-8.0)
[2021-09-13 23:20] LABS: Appearance Urine CLEAR; Color Urine YELLOW; Glucose Urine UA NEG (NEG); Leukocyte Esterase Urine NEG (NEG); Nitrite Urine NEG (NEG); PH 5.5 (5.0-8.0); Specific Gravity - Urine <= 1.005 (1.005-1.025); Urine Blood NEG (NEG); Urine Ketones NEG (NEG); Urine Protein NEG (NEG-TRACE)
[2021-09-13 23:21] LABS: B Type Natriuretic Peptide < 10 pg/mL (<100); Troponin-I High Sensitivity < 3.5 ng/L (<3.5-17.0)
[2021-09-13] MEDS: 0.9 % Sodium Chloride 1,000 ML 999 ML IV (23:22)
[2021-09-13 23:55] LABS: Alanine Aminotransferase 9 U/L (0-31); Alkaline Phosphatase 65 U/L (39-117); Anion Gap 13 (12-20); Aspartate Amino Transferase 14 U/L (5-31); Bilirubin Total 0.3 mg/dL (0.0-1.0); Blood Urea Nitrogen 12 mg/dL (9-16); Calcium 10.2 mg/dL (8.4-10.2); Carbon Dioxide 23 mmol/L (22-29); Chloride 108 mmol/L (96-108); Creatinine Clr Calc Pharmacy 65.4; Estimated Glomerular Filt Rate 59; Glucose Random 105 mg/dL (60-115); Potassium 4.5 mmol/L (3.3-5.1); Sodium 139 mmol/L (135-145)
[2021-09-13 23:58] LABS: Prothrombin Time 11.6 SEC (9.9-13.0)
[2021-09-14] VITALS: BP 109/53; PULSE 69; RESP 19; TEMP 36.7; O2SAT 97
[2021-09-14 00:33] LABS: D Dimer High Sensitivity < 150 NG/ML
[2021-09-14 00:46] VITALS: BP 126/70; PULSE 57
[2021-09-14 00:47] VITALS: BP 108/54; PULSE 66
[2021-09-14 00:48] VITALS: BP 97/54; PULSE 55
== END 2021-09-14 01:58 | disposition home or self-care (01) ==
PROVIDERS: Emergency Provider Student in an Organized Health Care Education/Training Program; PCP Physician Assistant
DX: R55 Syncope and collapse (principal); R06.02 Shortness of breath; M54.2 Cervicalgia; F17.210 Nicotine dependence, cigarettes, uncomplicated; Z71.6 Tobacco abuse counseling; Z20.822 Contact with and (suspected) exposure to COVID-19; Z79.899 Other long term (current) drug therapy
CPT/HCPCS: 36415; 70450; 72125; 80048; 80053; 80076; 81003; 82248; 83690; 83880; 84484; 85025; 85379; 85610; 87502; 87635; 93005; 96360; 99284

== ENCOUNTER → 2021-12-26 13:08 | Outpatient (BNVA) | payer OTHER, SELFPAY | PROVIDERS: PCP Physician Assistant; Visit Provider Orthopaedic Surgery | DX: M17.0 Bilateral primary osteoarthritis of knee (principal) | CPT/HCPCS: 20610; 99212; J1100 ==

== ENCOUNTER → 2022-01-05 14:44 | Outpatient (BNVA) | payer OTHER, SELFPAY | PROVIDERS: PCP Physician Assistant; Visit Provider Surgery | DX: Z85.3 Personal history of malignant neoplasm of breast (principal); Z92.21 Personal history of antineoplastic chemotherapy; Z92.3 Personal history of irradiation | CPT/HCPCS: 99212 ==

== ENCOUNTER 2022-03-17 11:33 | Outpatient (REF) | payer OTHER, SELFPAY ==
--- NOTE | ~2022-03-17 | XR_ITS ---
EXAMINATION: XR cervical spine 3V CLINICAL INFORMATION: Pain COMPARISON: Cervical spine radiographs oral 20 05/19/2015 TECHNIQUE: 3 views of the cervical spine were obtained. FINDINGS: The cervical spine is visualized to the level of C6-C7 on the lateral view. Reversal of the usual cervical spine lordosis centered at C3-C4. Vertebral body heights are maintained. Mild degenerative disc disease at multiple levels, manifested by loss of disc space height and facet arthropathy progressed from prior. Lateral masses of C1 are well aligned on C2. Visualized portion of the dens is intact. No prevertebral soft tissue swelling. Calcifications in the soft tissues of the left neck may reflect carotid calcifications. XR/XR cervical spine 3V IMPRESSION: 1. Mild spondylosis of the cervical spine, as above detailed, progressed from prior. 2. Reversal of the usual cervical spine lordosis centered at C3-C4.
== END 2022-03-17 11:34 | disposition home or self-care (01) ==
LOC: HO.XRAY 11:33
PROVIDERS: PCP Physician Assistant; Visit Provider Physical Medicine & Rehabilitation
DX: M54.2 Cervicalgia (principal)
CPT/HCPCS: 72040

== ENCOUNTER 2022-06-11 17:22 | Emergency (ER) | payer OTHER, SELFPAY ==
--- NOTE | ~2022-06-11 | CT_ITS ---
EXAMINATION: CT CHEST, ABDOMEN AND PELVIS WITHOUT CONTRAST CLINICAL INFORMATION: Reason for Exam pain s/p fall COMPARISON: No pertinent prior studies are available for comparison. TECHNIQUE: Multidetector volumetric imaging was performed from the thoracic inlet through the pubic symphysis without IV contrast. Sagittal and coronal reformatted images were obtained on the technologist's workstation. This CT examination was performed using dose optimization techniques as appropriate, variously including the following: *Automated exposure control *Adjustment of mA and/or kV according to patient size (this includes techniques or standardized protocols for targeted exams where dose is matched to indication/reason for exam; i.e. extremities or head) *Use of iterative reconstruction technique DLP: 678 mGy-cm FINDINGS: CHEST: Lung: The lungs are clear without focal opacity or nodule. Mediastinum: The mediastinum is normal. The central vascular structures are unremarkable. No hilar or mediastinal lymphadenopathy. Pericardium/Pleura: No significant effusion. No pleural mass or thickening. Chest Wall/Axilla: Unremarkable ABDOMEN/PELVIS: Peritoneal Space: No significant free air or free fluid identified. Liver, Gallbladder, Biliary Tree: The liver is enlarged measuring 20.2 cm in greatest cephalocaudad dimension. Shape and attenuation are normal. No focal hepatic lesion or biliary ductal dilatation is present. The gallbladder is unremarkable with no evidence of radiopaque gallstones, gallbladder wall thickening, or obvious pericholecystic inflammatory changes. Pancreas: Unremarkable Spleen: Unremarkable Adrenal Glands: Unremarkable Kidneys and Ureters: The kidneys are normal in size, shape, and attenuation. Some parapelvic cysts may be present but there are no worrisome solid renal masses. No hydronephrosis, hydroureter, or calculi seen. No perinephric stranding. Bladder: Unremarkable Gastrointestinal Tract: The small and large bowel are unremarkable. The appendix is unremarkable. Abdominal Wall: No significant hernia is appreciated. Lymph Nodes: No retroperitoneal lymphadenopathy. Vascular: The aorta appears normal.. The IVC appears unremarkable. PELVIC VISCERA: Unremarkable OSSEUS STRUCTURES: There is evidence of prior trauma with plate and screw device seen in the left iliac bone. Some mild degenerative changes are seen in the lower thoracic spine. No acute fractures. CT/CT abdomen pelvis wo IV con IMPRESSION: 1. No evidence of a traumatic injury in the chest, abdomen or pelvis. 2. Old trauma left hemipelvis. 3. Incidental note made of hepatomegaly. Fleischner guidelines were followed.
--- NOTE | 2022-06-11 07:41 | ECG_ITS ---
Test Reason : CHEST PAIN Blood Pressure : / mmHG Vent. Rate : 065 BPM Atrial Rate : 065 BPM P-R Int : 162 ms QRS Dur : 074 ms QT Int : 380 ms P-R-T Axes : 058 000 045 degrees QTc Int : 395 ms Normal sinus rhythm Septal infarct , age undetermined Abnormal ECG When compared with ECG of 13-SEP-2021 21:25, Septal infarct is now Present Referred By: Kathia Bergman Electronically Signed By:Ramiro Cooper
[2022-06-11 17:46] VITALS: BP 133/75; PULSE 56; RESP 18; TEMP 36.6; O2SAT 100; BMI 26.9
--- NOTE | 2022-06-11 17:48 | ED_ITS ---
HPI - General Adult General Chief complaint: Back Pain/Injury Stated complaint: BACK PAIN, NO INJUIRY PER EMS Time Seen by Provider: 06/11/22 17:47 Source: patient and EMS Mode of arrival: EMS Limitations: no limitations History of Present Illness HPI narrative: Patient is a 57 year old assigned female at with a history of breast cancer presenting to the emergency department today with generalized back pain. Patient states that she fell 2 months ago and for the last 3 weeks she has had back pain. Patient states that the pain started after she twisted and it radiates across her entire back. Patient denies any dizziness, lightheadedness, abdominal pain, nausea, vomiting, fever, chills, blurry vision, double vision, loss of vision, chest pain, difficulty breathing, shortness of breath, night sweats, pain with urination, increased urinary frequency, increased urinary urgency, blood in her urine or stool, syncope or a near syncopal episode, bowel incontinence, bladder incontinence, bowel retention, bladder retention, or any other complaints at this time. Onset (ago): week(s) (3) Location: back Severity: mild Severity scale (1-10): 3 Relieving factors: none Exacerbating factors: none Associated symptoms: denies other symptoms Treatments prior to arrival: none Related Data Home Medications Medication Instructions Recorded Confirmed omeprazole 20 mg capsule,delayed 20 mg PO DAILY 04/26/20 01/06/22 release gabapentin 300 mg capsule 300 mg PO NEEDED 05/25/20 01/06/22 escitalopram oxalate 20 mg tablet 20 mg PO DAILY 05/25/21 01/06/22 (Lexapro) quetiapine 100 mg tablet (Seroquel) 100 mg PO BEDTIME 05/25/21 01/06/22 Previous Rx's Medication Instructions Recorded meclizine 25 mg tablet 25 mg PO TID 30 days #90 tabs 02/11/20 cholecalciferol (vitamin D3) 50 50 mcg PO DAILY 90 days #90 caps 02/18/20 mcg (2,000 unit) capsule hydrocortisone 1 % topical cream 1 appl topical TID PRN skin 09/19/21 (Anti-Itch (hydrocortisone)) irritation 90 days #454 grams varenicline 0.5 mg tablet 0.5 mg PO .COMPLEX 7 days #11 tabs 09/19/21 varenicline 0.5 mg tablet 0.5 mg PO DAILY 3 days #3 tabs 09/19/21 varenicline 1 mg tablet 1 mg PO BID 28 days #56 tabs 09/19/21 lorazepam 1 mg tablet 1 mg PO BID-TID 30 days #90 tabs 02/07/22 cyclobenzaprine 5 mg tablet 5 mg PO TID PRN back pain 7 days 06/11/22 #21 tabs Allergies Allergy/AdvReac Type Severity Reaction Status Date / Time No Known Allergies Allergy Verified 12/26/21 13:22 [No Known Allergies*] Review of Systems Constitutional: Constitutional: Reports no additional constitutional complaints, Denies chills, Denies fever(s) and Denies night sweats Eyes: Eyes: Reports no additional eye complaints, Denies blurry vision, Denies change in vision, Denies diplopia, Denies eye discharge, Denies loss of vision and Denies eye pain ENT: Denies dizziness Cardiovascular: Cardiovascular: Reports no additional cardiovascular complaints, Denies chest pain, Denies lightheadedness, Denies Loss of Consciousness and Denies dyspnea Respiratory: Respiratory: Reports no additional respiratory complaints and Denies dyspnea Gastrointestinal: Gastrointestinal: Reports no additional gastrointestinal complaints, Denies abdominal pain, Denies melena, Denies hematochezia, Denies change in bowel habits and Denies change in stool character Genitourinary: Genitourinary: Denies hematuria, Denies urinary frequency, Denies dysuria, Denies urinary incontinence, Denies urinary hesitancy and Denies urinary urgency Musculoskeletal: Musculoskeletal: Reports no additional musculoskeletal complaints, Reports back pain, Denies numbness and Denies tingling Neurologic: Denies dizziness, Denies loss of vision, Denies numbness and Denies tingling Psychiatric: Psychiatric: Reports no additional psychiatric complaints Endocrine: Endocrine: Reports no additional endocrine complaints Hematologic/Lymphatic: Hematologic/Lymphatic: Reports no additional hematologic/lymphatic complaints Allergic/Immunologic: Allergic/Immunologic: Reports no additional allergic/immunologic complaints PMFSH Past Medical History Attestation statement: The following information was validated with the patient. Source: old records reviewed and nursing notes reviewed Medical History Bilateral primary osteoarthritis of knee JASSON (generalized anxiety disorder) GERD (gastroesophageal reflux disease) History of left breast cancer (~2013) History of suicide attempt HLD (hyperlipidemia) MDD (major depressive disorder) Migraine Osteopenia (~2015) Personal history of nicotine dependence Post herpetic neuralgia (~2020) Postmenopausal Surgical History History of colonoscopy History of esophagogastroduodenoscopy (EGD) History of hip surgery (~1990) History of lumpectomy of left breast (~2013) History of right knee surgery (~2006) History of thumb surgery (~2016) History of tonsillectomy History of tubal ligation History of ventral hernia repair (~2018) Family History Family History Father Diabetes Hypertension Uterine cancer Mother Breast cancer Maternal Aunt Uterine cancer Social History Social History Household Members: Family Housing: House Are you a primary childcare attendant to a significant other at home: No Do you presently have visiting nurse or other home services: No Alcohol intake: never Patient Tobacco Use Status: Current everyday Tobacco user Tobacco use type: Cigarette Cigarettes Per Day: 10 Years Smoked: (onset 15, 1/2-3/4ppd x 41yrs, 25pyh) e-Cigarette/Vaping Use: Never Used Second Hand Smoke Exposure: Yes Substance Use Type: Marijuana Advance Directives: No Advance Directives Information Provided: Yes service: No Current occupational status: disabled 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-[employer] Current occupational exposures/hazards: No Cognitive needs: No Hearing needs: No Vision needs: No Physical Exam ED Vital Signs: Vital Signs - 24 hr 06/11/22 17:46 Temperature 97.8 F Pulse Rate 56 Respiratory Rate 18 Blood Pressure 133/75 Pulse Oximetry 100 Oxygen Delivery Method Room Air BMI result Body Mass Index 26.9 Const General: cooperative, no acute distress, alert and awake Nutritional Appearance: well nourished Orientation/consciousness: patient oriented x3 Limitations: no limitations HENMT Head: Yes normal to inspection and Yes atraumatic Ears: hearing grossly normal bilaterally and external ears normal General nose exam: Normal external nose present, no nasal discharge noted and no epistaxis Face and sinus: Yes normal facial exam, No abrasion and No laceration Mouth: Normal oral and palatal mucosa present, no drooling and no muffled voice Eyes General: appearance normal, both eyes and all related structures Periorbital: periorbital findings normal Eyelids: Yes eyelids normal Conjunctivae: conjunctivae normal Pupils: Equal, round and reactive pupils present EOM: EOMs intact bilaterally Neck Neck: Yes normal visual inspection, Yes full ROM and Yes no lymphadenopathy Chest Chest palpation & inspection: normal inspection of the chest Resp Effort & Inspection: normal respiratory effort and able to speak in complete sentences Auscultation: clear to auscultation bilaterally Cardio Rate: regular rate Rhythm: regular rhythm GI Inspection: Yes normal to inspection Palpation (GI): Soft to palpation, not firm, nontender and no guarding General: Yes no CVA tenderness Back/Spine/Pelvis Back: no CVA tenderness Cervical Spine: normal cervical lordosis and cervical ROM normal Thoracic/Lumbar Spine: thoracic and lumbar spine normal to inspection and thorac o-lumbar ROM normal Neuro General: patient oriented x3 and moves all extremities Cranial nerves: Yes Equal, round and reactive pupils present Cognition (Neuro): normal cognition Motor exam (neuro): 5/5 motor strength present throughout Sensory Exam: Normal double simultaneous stimulation for sensation Coordination: [id number] test normal Extrem General: Yes normal to inspection, Yes full ROM and Yes capillary refill normal Psych Appearance: grossly normal Mental Status: mental status grossly normal Affect: normal affect Attitude: cooperative Thought process: Normal thought process present Thought content: Normal thought content present Insight: Good insight present (Psych) Medications Administered Discontinued Medications Generic Name Dose Route Start Last Admin Trade Name Josephq PRN Reason Stop Dose Admin Cyclobenzaprine HCl 5 mg 06/11/22 18:34 06/11/22 18:43 Cyclobenzaprine Hcl 5 Mg Tablet PO 06/11/22 18:35 5 mg ONCE ONE Administration Ketorolac Tromethamine 15 mg 06/11/22 18:34 06/11/22 18:43 Ketorolac Tromethamine 15 Mg/Ml Vial IM 06/11/22 18:35 15 mg ONCE ONE Administration Medical Decision Making Medical Decision Making MDM Narrative: Patient is a 57 year old assigned female at with a history of breast cancer presenting to the emergency department today with back pain. Patient's physical exam was unremarkable. Patient's EKG was unremarkable. Patient's chest and abdomen/pelvis CTs showed no acute process. I explained my physical exam findings as well as all test results to the patient. I answered all questions asked by the patient. Patient received PO Flexeril and IM Toradol which she stated helped her pain significantly. I stressed the importance of the patient taking her medication as prescribed. I stressed the importance of the patient following up with her primary care provider. I stressed the importance of the patient returning to the emergency department immediately if her symptoms were to worsen or if she were to develop any dizziness, shortness of breath, difficulty breathing, chest pain, blurry vision, loss of vision, nausea, vomiting, abdominal pain, fever, chills, back pain, or any other complaints. Patient verbalized agreement and understanding with this treatment plan and discharge. Differential Diagnosis Differential Diagnoses: The differential diagnosis associated with the p resentation includes back pain Independent Interpretation I performed an independent interpretation of an: EKG Interpretation: Vent rate: 65bpm NM interval: 162ms QRS duration: 74ms QT/QTc-Baz: 380/395 P-R-T axes: 58 0 45 Normal sinus rhythm Septal infarct, age undetermined Abnormal ECG 06/11/2022 17:35:23 Radiology Impression Radiologist Impression: My interpretation is in agreement with the radiologist's impression of these imaging studies. EXAMINATION: CT CHEST, ABDOMEN AND PELVIS WITHOUT CONTRAST CLINICAL INFORMATION: Reason for Exam pain s/p fall COMPARISON: No pertinent prior studies are available for comparison. TECHNIQUE: Multidetector volumetric imaging was performed from the thoracic inlet through the pubic symphysis without IV contrast. Sagittal and coronal reformatted images were obtained on the technologist's workstation. This CT examination was performed using dose optimization techniques as appropriate, variously including the following: *Automated exposure control *Adjustment of mA and/or kV according to patient size (this includes techniques or standardized protocols for targeted exams where dose is matched to indication/reason for exam; i.e. extremities or head) *Use of iterative reconstruction technique DLP: 678 mGy-cm FINDINGS: CHEST: Lung: The lungs are clear without focal opacity or nodule. Mediastinum: The mediastinum is normal. The central vascular structures are unremarkable. No hilar or mediastinal lymphadenopathy. Pericardium/Pleura: No significant effusion. No pleural mass or thickening. Chest Wall/Axilla: Unremarkable ABDOMEN/PELVIS: Peritoneal Space: No significant free air or free fluid identified. Liver, Gallbladder, Biliary Tree: The liver is enlarged measuring 20.2 cm in greatest cephalocaudad dimension. Shape and attenuation are normal. No focal hepatic lesion or biliary ductal dilatation is present. The gallbladder is unremarkable with no evidence of radiopaque gallstones, gallbladder wall thickening, or obvious pericholecystic inflammatory changes. Pancreas: Unremarkable Spleen: Unremarkable Adrenal Glands: Unremarkable Kidneys and Ureters: The kidneys are normal in size, shape, and attenuation. Some parapelvic cysts may be present but there are no worrisome solid renal masses. No hydronephrosis, hydroureter, or calculi seen. No perinephric stranding. Bladder: Unremarkable Gastrointestinal Tract: The small and large bowel are unremarkable. The appendix is unremarkable. Abdominal Wall: No significant hernia is appreciated. Lymph Nodes: No retroperitoneal lymphadenopathy. Vascular: The aorta appears normal.. The IVC appears unremarkable. PELVIC VISCERA: Unremarkable OSSEUS STRUCTURES: There is evidence of prior trauma with plate and screw device seen in the left iliac bone. Some mild degenerative changes are seen in the lower thoracic spine. No acute fractures. CT/CT chest wo IV con IMPRESSION: 1.? No evidence of a traumatic injury in the chest, abdomen or pelvis. 2.? Old trauma left hemipelvis. 3.? Incidental note made of hepatomegaly. ? Fleischner guidelines were followed. Dictated By: Gabo Ureña MD Signed By: Electronically signed by Gabo Ureña MD 06/11/22 6722 Discharge Plan Discharge Clinical Impression: Back pain Patient Disposition: Home, Self-Care Instructions: Back Pain (ED) Additional Instructions: Follow up with your primary care provider. Return to the emergency department immediately if your symptoms worsen or if you develop any dizziness, shortness of breath, difficulty breathing, chest pain, blurry vision, loss of vision, nausea, vomiting, abdominal pain, fever, chills, back pain, or any other complaints. Prescriptions: New cyclobenzaprine 5 mg tablet 5 mg PO TID PRN (Reason: back pain) 7 Days Qty: 21 0RF No Action meclizine 25 mg tablet 25 mg PO TID 30 Days Qty: 90 1RF lorazepam 1 mg tablet 1 mg PO BID-TID 30 Days Qty: 90 3RF gabapentin 300 mg capsule 300 mg PO NEEDED Rx Instructions: Increased dose of gabapentin to 300mg TID due to post herpetic neuralgia quetiapine [Seroquel] 100 mg tablet 100 mg PO BEDTIME escitalopram oxalate [Lexapro] 20 mg tablet 20 mg PO DAILY cholecalciferol (vitamin D3) 50 mcg (2,000 unit) capsule 50 mcg PO DAILY 90 Days Qty: 90 1RF omeprazole 20 mg capsule,delayed release(DR/EC) 20 mg PO DAILY hydrocortisone [Anti-Itch (HC)] 1 % cream 1 appl topical TID PRN (Reason: skin irritation) 90 Days Qty: 454 0RF varenicline 0.5 mg tablet 0.5 mg PO .COMPLEX 7 Days Qty: 11 0RF Rx Instructions: 0.5 mg PO; Take 0.5 mg qd x 3 days, then 0.5 mg b.i.d. x4 days varenicline 0.5 mg tablet 0.5 mg PO DAILY 3 Days Qty: 3 0RF varenicline 1 mg tablet 1 mg PO BID 28 Days Qty: 56 3RF Referrals: Patel Rdz PA-C [Primary Care Provider] - Print Language: Japanese
[2022-06-11] MEDS: Ketorolac Tromethamine 15 MG/ML VIAL IM (18:43)
[2022-06-11] MEDS: Cyclobenzaprine HCl 5 MG TABLET PO (18:43)
== END 2022-06-11 19:08 | disposition home or self-care (01) ==
PROVIDERS: Emergency Provider Emergency Medicine; PCP Physician Assistant
DX: R07.89 Other chest pain (principal); M54.50 Low back pain, unspecified; M54.6 Pain in thoracic spine; F17.210 Nicotine dependence, cigarettes, uncomplicated; Z71.6 Tobacco abuse counseling; Z79.899 Other long term (current) drug therapy
CPT/HCPCS: 71250; 74176; 93005; 99283; J1885

== ENCOUNTER 2022-06-13 14:00 | Outpatient (REF) | payer OTHER, SELFPAY ==
--- NOTE | ~2022-06-13 | MM_ITS ---
EXAMINATION: MM SCREENING DIGITAL BREAST TOMOSYNTHESIS, BILATERAL CLINICAL INFORMATION: Screening. Asymptomatic. Left IDC status post lumpectomy 2013. COMPARISON: Mammography: 05/12/2021, 02/25/2020, 02/19/2019 TECHNIQUE: Digital breast tomosynthesis is performed in both the craniocaudal and mediolateral oblique views along with computer-aided detection (CAD). Synthesized 2D images are generated from the tomosynthesis. FINDINGS: There are scattered areas of fibroglandular density (ACR BI-RADS breast composition Category b). Post therapy changes left breast are similar to prior studies with mild reduced breast size and stable scarring lower inner quadrant. There is a biopsy clip marker outer left breast. Neither breast shows interval mass or architectural abnormality or abnormal calcifications. The axilla are unremarkable. No significant changes. MM/MM tomosynthesis screening BI IMPRESSION: -No mammographic evidence of malignancy. -Post therapy changes left breast. ASSESSMENT: BI-RADS 2: Benign RECOMMENDATION: Routine annual mammography screening. This patient's information was entered into a reminder system with a target due date for their next mammogram.
== END 2022-06-13 14:01 | disposition home or self-care (01) ==
LOC: HO.MAMMO 14:00
PROVIDERS: Visit Provider Physician Assistant
DX: Z12.31 Encounter for screening mammogram for malignant neoplasm of breast (principal)
CPT/HCPCS: 77063; 77067

== ENCOUNTER 2022-07-25 06:47 | Outpatient (REF) | payer OTHER, SELFPAY ==
--- NOTE | ~2022-07-25 | MR_ITS ---
EXAMINATION: MR THORACIC SPINE WITHOUT CONTRAST CLINICAL INFORMATION: Evaluate disc herniation. Right-sided nerve impingement. COMPARISON: CT chest abdomen and pelvis 04/10/2023. TECHNIQUE: MRI of the thoracic spine was obtained using routine sequences without contrast. FINDINGS: Alignment is normal. Vertebral body heights are preserved. No acute bone marrow signal changes. There is slight loss of intervertebral disc height and T2 signal intensity at multiple levels related to disc degeneration. There are a few shallow protrusions and/or bulging discs causing minimal indentation of the thecal sac. No canal or neuroforaminal compromise. No cord compression or abnormal intramedullary signal changes. Limited visualization of the intrathoracic anatomy reveals no abnormal finding. Specifically no paraspinal soft tissue mass or collection. MR/MR thoracic spine wo con IMPRESSION: There is disc degeneration at multiple levels within the thoracic spine. No canal or neuroforaminal compromise. No cord compression or abnormal intramedullary signal changes.
[2022-07-25 08:07] LABS: Hematocrit 40.5 % (37.0-47.0); Mean Corpuscular HGB Conc 32.1 g/dl (31.0-35.0); Mean Corpuscular Hemoglobin 29.3 pg (27.0-33.0); Mean Corpuscular Volume 91.2 fL (80.0-98.0); Mean Platelet Volume 11.2 fL (9.4-12.3); Platelet Count 295 X10*3/uL (160-400); Red Blood Count 4.44 X10*6/uL (4.20-5.50); Red Cell Distribution Width 13.8 % (11.0-16.0); White Blood Count 8.3 X10*3/uL (4.8-10.8)
[2022-07-25 09:35] LABS: Alanine Aminotransferase 6 U/L (0-31); Albumin Level 4.4 g/dL (3.5-5.0); Alkaline Phosphatase 65 U/L (39-117); Anion Gap 12 (12-20); Aspartate Amino Transferase 12 U/L (5-31); Bilirubin Total 0.4 mg/dL (0.0-1.0); Blood Urea Nitrogen 18 mg/dL (9-16); Calcium 10.6 mg/dL (8.4-10.2); Carbon Dioxide 28 mmol/L (22-29); Chloride 107 mmol/L (96-108); Cholesterol 307 mg/dL; Estimated Glomerular Filt Rate > 60; Glucose Fasting 95 mg/dL (60-99); HDL Cholesterol 51 mg/dL; LDL Cholesterol Calculated 239 mg/dl; Potassium 4.7 mmol/L (3.3-5.1); Sodium 142 mmol/L (135-145); Total Protein 6.9 g/dL (6.5-8.0); Triglycerides 88 mg/dL
== END 2022-07-25 06:48 | disposition home or self-care (01) ==
LOC: HO.MRI 06:47
PROVIDERS: Absent Provider Physician Assistant; PCP Physician Assistant; Visit Provider Physical Medicine & Rehabilitation
DX: E78.00 Pure hypercholesterolemia, unspecified (principal); M51.24 Other intervertebral disc displacement, thoracic region
CPT/HCPCS: 36415; 72146; 80053; 80061; 85027

== ENCOUNTER 2022-08-10 15:02 | Outpatient (REF) | payer OTHER, SELFPAY ==
--- NOTE | ~2022-08-10 | US_ITS ---
EXAMINATION: US EXTRACRANIAL CAROTID DUPLEX, BILATERAL CLINICAL INFORMATION: Left carotid bruit COMPARISON: None available. TECHNIQUE: Real-time ultrasound and Doppler techniques (integrating B-mode 2-D vascular images, Doppler spectral analysis and color-flow Doppler imaging) were utilized to interrogate the extracranial carotid arteries, the vertebral arteries and proximal subclavian arteries bilaterally. The degree of stenosis is determined by criteria similar to NASCET. FINDINGS: Right Side: 1. There is mild atherosclerotic plaque seen in the bifurcation/proximal ICA region. 2. The common carotid artery PSV proximally is 104 cm/s and distally 30 cm/s. 3. The proximal internal carotid artery velocities are 111 cm/s systolic and 30 cm/s diastolic. 4. The proximal external carotid artery PSV is 138 cm/s. 5. The vertebral artery shows antegrade flow. 6. The subclavian artery waveforms are normal. Left Side: 1. There is no atherosclerotic plaque seen in the bifurcation/proximal ICA region. 2. The common carotid artery PSV proximally is 97 cm/s and distally 134 cm/s. 3. The proximal internal carotid artery velocities are 109 cm/s systolic and 24 cm/s diastolic. 4. The proximal external carotid artery PSV is 86 cm/s. 5. The vertebral artery shows antegrade flow with biphasic morphology and sharp deceleration during peak systole. 6. The subclavian artery waveforms are normal. US/US carotid duplex BI IMPRESSION: 1. RIGHT: Minimal, non-hemodynamically significant stenosis of the proximal right internal carotid artery corresponding to a 0-49% stenosis by velocity criteria. 2. LEFT: Normal left internal carotid artery without atherosclerotic plaque or hemodynamically significant stenosis. 3. Left vertebral artery shows antegrade flow with biphasic morphology (bunny waveform sign), which can be seen in the setting of early subclavian steal phenomenon.
== END 2022-08-10 15:03 | disposition home or self-care (01) ==
LOC: HO.US 15:02
PROVIDERS: PCP Physician Assistant; Visit Provider Physician Assistant
DX: R09.89 Other specified symptoms and signs involving the circulatory and respiratory systems (principal)
CPT/HCPCS: 93880

== ENCOUNTER → 2022-09-28 13:36 | Outpatient (BNVA) | payer OTHER, SELFPAY | PROVIDERS: PCP Physician Assistant; Visit Provider Obstetrics & Gynecology ==

== ENCOUNTER 2022-10-30 10:40 | Emergency (ER) | payer MEDICARE, MEDICAID, SELFPAY ==
[2022-10-30 10:44] VITALS: BP 141/69; PULSE 78; RESP 18; TEMP 36.4; O2SAT 98; BMI 25.5
--- NOTE | 2022-10-30 14:09 | ED.GENADULT ---
HPI - General Adult General Chief complaint: General Medical Stated complaint: Sharp pain L shoulder Time Seen by Provider: 10/30/22 11:23 Source: patient and RN notes reviewed Mode of arrival: ambulatory Limitations: no limitations History of Present Illness HPI narrative: This is a 57-year-old female, with a past medical history of breast cancer, presenting to the emergency department with complaints of left shoulder pain x1 week. Patient denies any recent trauma, injury, heavy lifting or falls. Patient reports that the pain is left-sided and radiates into her left back. She states that she has a history of similar symptoms in the past. Denies any fevers, chills, dizziness, chest pain, palpitations, shortness of breath, abdominal pain, nausea, vomiting, or diarrhea. Denies any other complaints or concerns at this time. MD complaint: Left shoulder pain Onset (ago): week(s) Treatments prior to arrival: none Related Data Home Medications Medication Instructions Recorded Confirmed omeprazole 20 mg capsule,delayed 20 mg PO DAILY 04/26/20 08/16/22 release pregabalin 75 mg capsule 75 mg PO BID 07/19/22 08/16/22 Previous Rx's Medication Instructions Recorded cholecalciferol (vitamin D3) 50 50 mcg PO DAILY 90 days #90 caps 02/18/20 mcg (2,000 unit) capsule hydrocortisone 1 % topical cream 1 appl topical TID PRN skin 09/19/21 (Anti-Itch (hydrocortisone)) irritation 90 days #454 grams albuterol sulfate 90 mcg/actuation 1 inh inhalation QID shortness of 07/19/22 aerosol inhaler breath or wheezing 30 days #6.7 grams gabapentin 300 mg capsule 300 mg PO NEEDED 30 days #30 07/19/22 caps meclizine 25 mg tablet 25 mg PO TID 30 days #90 tabs 07/19/22 nicotine (polacrilex) 2 mg buccal 2 mg buccal Q8H PRN nicotine 07/19/22 lozenge cravings 15 days #81 ea atorvastatin 40 mg tablet 40 mg PO DAILY 90 days #90 tabs 07/25/22 aspirin 81 mg tablet,delayed 81 mg PO DAILY #90 tabs 08/15/22 release (Adult Aspirin Regimen) lorazepam 1 mg tablet 1 mg PO BID-TID 30 days #90 tabs 09/18/22 acetaminophen 325 mg capsule 650 mg PO Q6H PRN pain #30 caps 10/30/22 (Tylenol) cyclobenzaprine 5 mg tablet 5 mg PO TID PRN muscle spasm #20 10/30/22 tabs ibuprofen 600 mg tablet 600 mg PO TID PRN pain #30 tabs 10/30/22 quetiapine 100 mg tablet (Seroquel) 100 mg PO BEDTIME #90 tabs 10/30/22 Allergies Allergy/AdvReac Type Severity Reaction Status Date / Time No Known Allergies Allergy Verified 09/28/22 13:47 [No Known Allergies*] Review of Systems Review of Systems: Yes all other systems are reviewed and are negative Constitutional: Constitutional: Reports as per [facility] Past Medical History Medical History Bilateral primary osteoarthritis of knee JASSON (generalized anxiety disorder) GERD (gastroesophageal reflux disease) History of left breast cancer (~2013) History of suicide attempt HLD (hyperlipidemia) MDD (major depressive disorder) Migraine Osteopenia (~2015) Personal history of nicotine dependence Post herpetic neuralgia (~2020) Postmenopausal Surgical History History of colonoscopy History of esophagogastroduodenoscopy (EGD) History of hip surgery (~1990) History of lumpectomy of left breast (~2013) History of right knee surgery (~2006) History of thumb surgery (~2016) History of tonsillectomy History of tubal ligation History of ventral hernia repair (~2018) Family History Family History Father Diabetes Hypertension Uterine cancer Prostate cancer Mother Breast cancer Maternal Aunt Uterine cancer Family/Other Substance use disorder Social History Social History Household Members: Family Housing: House Are you a primary adult live in caregiver to a significant other at home: No Do you presently have visiting nurse or other home services: No Alcohol intake: never Patient Tobacco Use Status: Current everyday Tobacco user Tobacco use type: Cigarette Cigarettes Per Day: 12 Years Smoked: (onset 15, 1/2-3/4ppd x 41yrs, 25pyh) e-Cigarette/Vaping Use: Never Used Second Hand Smoke Exposure: Yes Substance Use Type: Marijuana Advance Directives: No Advance Directives Information Provided: No service: No Current occupational status: disabled 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 Current occupational exposures/hazards: No Cognitive needs: No Hearing needs: Yes Vision needs: Yes Physical Exam ED Vital Signs: Vital Signs - 24 hr 10/30/22 10:44 Temperature 97.6 F Pulse Rate 78 Respiratory Rate 18 Blood Pressure 141/69 H Pulse Oximetry 98 Oxygen Delivery Method Room Air BMI result Body Mass Index 25.5 Const General: cooperative, comfortable and no acute distress Orientation/consciousness: patient oriented x3 Limitations: no limitations HENMT Head: Yes normal to inspection, Yes normocephalic and Yes atraumatic Ears: hearing grossly normal bilaterally General nose exam: Normal external nose present Face and sinus: Yes normal facial exam Mouth: Normal oral and palatal mucosa present, oropharynx normal and moist mucous membranes Throat: Yes posterior oropharynx normal Eyes General: appearance normal, both eyes and all related structures Eyelids: Yes eyelids normal Conjunctivae: conjunctivae normal Sclerae: sclerae normal Pupils: Equal, round and reactive pupils present EOM: EOMs intact bilaterally Neck Neck: Yes normal visual inspection, Yes full ROM and Yes no lymphadenopathy Lymphatic: no lymphadenopathy noted Chest Chest palpation & inspection: normal inspection of the chest Resp Effort & Inspection: normal respiratory effort and able to speak in complete sentences Auscultation: clear to auscultation bilaterally, no crackles, no rales, no rhonchi and no wheezes Cardio Rate: regular rate Rhythm: regular rhythm Heart sounds: S1 normal heart sound present and S2 normal heart sound present GI Inspection: Yes normal to inspection Back/Spine/Pelvis Other: Tenderness to palpation along the left trapezius with palpable spasm Skin General skin exam: no rashes or lesions noted Trauma: no lacerations or abrasions Wounds: no wounds Neuro General: patient oriented x3 and moves all extremities Cranial nerves: Yes Equal, round and reactive pupils present Extrem Other: Left shoulder with no obvious bony deformity or swelling. Patient has tenderness palpation diffusely throughout left shoulder, worse over left AC joint. Patient is able to abduct left arm to about 100?. Negative lift-off test. Negative empty can General: Yes normal to inspection Right upper extremity: normal to inspection Left upper extremity: normal to inspection Right lower extremity: normal to inspection Left lower extremity: normal to inspection Medical Decision Making Medical Decision Making MDM Narrative: This is a 57-year-old female presenting to the emergency department with complaints of left shoulder pain x1 week. Patient reports that the pain worsens with moving her left shoulder. On examination, patient has tenderness palpation diffusely throughout left shoulder, pain with range of motion, as well as palpable left trapezius muscle spasm noted. Patient's symptoms consistent with musculoskeletal as well as arthritic changes which is seen on x-ray. Given prescription for muscle relaxants and ibuprofen Tylenol. Advised to follow-up with primary care physician as they may want to refer her to physical therapy. Patient understands and agrees with plan. Patient stable for discharge. Differential Diagnosis Differential Diagnoses: The differential diagnosis associated with the presentation includes Malignancy, left shoulder arthritis, dislocation, fracture Admission/Observation Consideration of admission/observation: Escalation of care including admission/observation considered Lab Data [facility] Lab Attestation statement: I reviewed the patient's lab results. Labs: Lab Results 10/30/22 10/30/22 Range/Units 12:22 12:23 Influenza Type A (PCR) NEGATIVE (Negative) Influenza Type B (PCR) NEGATIVE (Negative) RSV RNA Qual (PCR) NEGATIVE (Negative) SARS-CoV-2 RNA (RT-PCR) NEGATIVE (Negative) S. pyogenes GrpA LESLIE Negative (Negative) Independent Interpretation I performed an independent interpretation of an: Plain X-Ray Interpretation: EXAMINATION: XR SHOULDER, LEFT CLINICAL INFORMATION: Left shoulder pain.? COMPARISON: None available.? TECHNIQUE: Three views of the left shoulder. FINDINGS: Mild left acromioclavicular degenerative joint changes are seen. There is no acute fracture or dislocation. The left glenohumeral joint is unremarkable. The visualized left ribs are intact. The soft tissues are unremarkable.? XR/XR shoulder LT min 2V IMPRESSION: Mild left acromioclavicular degenerative joint changes. No acute fracture. ? Dictated By: Carlton Anderson MD Radiology Impression Discussion of test interpretation with radiology: I have reviewed the radiologist's reading. External Record Review External record reviewed: Inpatient record, Office record, Outpatient record, Prior outpatient labs, Prior outpatient radiology, Primary care record and Outside ED record Discharge Plan Discharge Clinical Impression: Acute pain of left shoulder, Trapezius muscle spasm Patient Disposition: Home, Self-Care Instructions: Muscle Spasm (ED), Shoulder Pain (ED) Additional Instructions: Your shoulder x-ray showed degenerative joint changes. This happens often over time as we age. Please take prescribed medication as directed. Please be aware that muscle relaxants can cause drowsiness, do not drink alcohol or drive while taking these medications. Alternate between Tylenol and Motrin as needed for pain. Please follow-up with your primary care physician as they may refer you to physical therapy. If any new or worsening symptoms occur please return for re-evaluation. Prescriptions: New cyclobenzaprine 5 mg tablet 5 mg PO TID PRN (Reason: muscle spasm) Qty: 20 0RF ibuprofen 600 mg tablet 600 mg PO TID PRN (Reason: pain) Qty: 30 0RF acetaminophen [Tylenol] 325 mg capsule 650 mg PO Q6H PRN (Reason: pain) Qty: 30 0RF No Action atorvastatin 40 mg tablet 40 mg PO DAILY 90 Days Qty: 90 1RF aspirin [Adult Aspirin Regimen] 81 mg tablet,delayed release (DR/EC) 81 mg PO DAILY Qty: 90 1RF lorazepam 1 mg tablet 1 mg PO BID-TID 30 Days Qty: 90 3RF quetiapine [Seroquel] 100 mg tablet 100 mg PO BEDTIME Qty: 90 0RF cholecalciferol (vitamin D3) 50 mcg (2,000 unit) capsule 50 mcg PO DAILY 90 Days Qty: 90 1RF omeprazole 20 mg capsule,delayed release(DR/EC) 20 mg PO DAILY hydrocortisone [Anti-Itch (HC)] 1 % cream 1 appl topical TID PRN (Reason: skin irritation) 90 Days Qty: 454 0RF pregabalin 75 mg capsule 75 mg PO BID albuterol sulfate 90 mcg/actuation HFA aerosol inhaler 1 inh inhalation QID 30 Days Qty: 6.7 3RF meclizine 25 mg tablet 25 mg PO TID 30 Days Qty: 90 1RF gabapentin 300 mg capsule 300 mg PO NEEDED 30 Days Qty: 30 0RF nicotine (polacrilex) 2 mg lozenge 2 mg buccal Q8H PRN (Reason: nicotine cravings) 15 Days Qty: 81 0RF Interventions: ED Discharge Assessment Last Done: 10/30/22 14:23 Discharge Date/Time: 10/30/22 14:24
== END 2022-10-30 14:24 | disposition home or self-care (01) ==
PROVIDERS: Emergency Provider Emergency Medicine Emergency Medical Services; PCP Physician Assistant
DX: M25.512 Pain in left shoulder (principal); M62.838 Other muscle spasm; Z20.822 Contact with and (suspected) exposure to COVID-19; Z20.828 Contact with and (suspected) exposure to other viral communicable diseases; E78.5 Hyperlipidemia, unspecified; F17.210 Nicotine dependence, cigarettes, uncomplicated; F12.90 Cannabis use, unspecified, uncomplicated; Z85.3 Personal history of malignant neoplasm of breast; Z79.899 Other long term (current) drug therapy
CPT/HCPCS: 0241U; 73030; 87651; 99282; 99283

== ENCOUNTER 2023-01-11 15:04 | Outpatient (AMB) | payer OTHER, SELFPAY ==
--- NOTE | 2023-01-11 15:11 | MHC.OFFVIS ---
Intake Vital Signs 01/11/23 15:18 Height 5 ft 6 in Weight 163 lb 4 oz BMI 26.3 BP 126/58 L Blood Pressure Location Lt brachial Position Sitting Pulse 91 Intake Visit Reasons: yearly breast exam Intake Note: Patient is seen in office for yearly breast exam. Patient c/o: denies any concerns regarding the breast Twisting Department End Finder Required: No Outer Diameter Grinder Tool: Outer Diameter Grinder Tool Present Accompanied by: Self / Same As Patient Allergies No Known Allergies [No Known Allergies*] Allergy (Verified 01/11/23 15:11) Medication List - Last Reconciled 01/11/23 by Dane Vila MD acetaminophen (Tylenol) 650 mg (2 x 325 mg) PO Q6H PRN albuterol sulfate 90 mcg/actuation 1 inh inhalation QID 30 days aspirin (Adult Aspirin Regimen) 81 mg PO DAILY atorvastatin 40 mg PO DAILY 90 days cholecalciferol (vitamin D3) 50 mcg PO DAILY 90 days cyclobenzaprine 5 mg PO TID PRN gabapentin 300 mg PO NEEDED 30 days hydrocortisone 1% (Anti-Itch (hydrocortisone)) 1 appl topical TID PRN 90 days ibuprofen 600 mg PO TID PRN lorazepam 1 mg PO BID-TID 30 days meclizine 25 mg PO TID 30 days omeprazole 20 mg PO DAILY pregabalin 75 mg PO BID HPI HPI Comments History of Present Illness Details 57-year-old female patient, former patient of Dr. Wheatley and Dr. Stahl, returning for follow-up breast cancer examination. She underwent left breast lumpectomy with axillary sentinel node biopsy on 12/17/2013 for a 1.5 cm poorly differentiated infiltrating ductal carcinoma, ER/[place] negative, HER2 [place] negative. [place] nodes were negative for metastatic disease. BRCA testing was negative for mutations and updated my risk genetic testing performed in September 2018 revealed no deleterious mutations. 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 She was evaluated by Dr. Arechiga and started on chemotherapy on 05/04/2014. She completed radiation therapy by 07/10/2014. Screening mammography on 07/11/2022 revealed no mammographic evidence of malignancy (BI-RADS 2). Routine annual screening mammography is recommended. She generally feels well and denies any new breast symptoms on either side. [facility] Medical History Personal history of nicotine dependence Osteopenia (~2015) Migraine Post herpetic neuralgia (~2020) GERD (gastroesophageal reflux disease) History of left breast cancer (~2013) Bilateral primary osteoarthritis of knee History of suicide attempt HLD (hyperlipidemia) Postmenopausal MDD (major depressive disorder) JASSON (generalized anxiety disorder) Surgical History History of esophagogastroduodenoscopy (EGD) History of colonoscopy History of thumb surgery (~2016) History of right knee surgery (~2006) History of tubal ligation History of ventral hernia repair (~2018) History of lumpectomy of left breast (~2013) History of hip surgery (~1990) History of tonsillectomy Family History Father Diabetes Hypertension Uterine cancer Prostate cancer Mother Breast cancer Maternal Aunt Uterine cancer Family/Other Substance use disorder Social History Household Members: Family Housing: House Are you a primary client care representative to a significant other at home: No Do you presently have visiting nurse or other home services: No Alcohol intake: never Patient Tobacco Use Status: Current everyday Tobacco user Tobacco use type: Cigarette Cigarettes Per Day: 12 Years Smoked: (onset 15, 1/2-3/4ppd x 41yrs, 25pyh) e-Cigarette/Vaping Use: Never Used Second Hand Smoke Exposure: Yes Substance Use Type: Marijuana service: No Current occupational status: disabled 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 Denies dizziness and Reports headache(s) Card Denies chest pain, Denies rapid heart rate, Denies palpitations and Denies slow heart rate Resp Denies chest congestion, Denies cough, Denies pain on inspiration and Denies wheezing GI Denies abdominal pain, Denies bloating, Denies change in stool character, Denies constipation, Denies diarrhea, Denies nausea, Denies vomiting and Denies hematemesis Denies nipple discharge Musc Denies back pain, Denies arthralgias, Denies joint swelling and Denies numbness Skin/Breast Denies breast swelling, Denies breast skin changes, Reports breast pain, Denies breast mass, Denies change in breast shape, Denies change in pigmentation, Denies nipple discharge, Denies erythema and Denies rash Neuro Denies dizziness, Reports headache(s) and Denies numbness Psych Denies anxiety and Denies depression Endo Denies palpitations Angel/Lymph Denies easy bleeding, Denies easy bruising and Denies lymphadenopathy Aller/Immun Denies wheezing Physical Exam Vital Signs: Last Vital Signs Pulse 91 01/11/23 15:18 BP 126/58 L 01/11/23 15:18 BMI result Body Mass Index 26.3 Const General: cooperative, comfortable and well developed Nutritional Appearance: well nourished Orientation/consciousness: patient oriented x3 Eyes Sclerae: sclerae normal EOM: EOMs intact bilaterally Neck Neck: Yes normal visual inspection Chest Other: Left breast: No skin change, no nipple retraction, no nipple discharge, no palpable mass, no enlarged lymph nodes. Right breast: No skin change, no nipple retraction, no nipple discharge, no palpable mass, no enlarged lymph nodes Resp Effort & Inspection: normal respiratory effort, no cough, no respiratory distress and no stridor Cardio Jugular venous distension: no JVD Skin General skin exam: dry skin Rashes: no rashes Neuro General: patient oriented x3 and no focal motor deficits Extrem General: Yes full ROM and Yes no clubbing, cyanosis or edema Assessment & Plan Assessment & Plan (1) Breast cancer of lower-inner quadrant of left female breast: Onset Date: ~2013 Comment: (Invasive Ductal Carcinoma -stage pT1cN0, ER/[place] & HER-2 neg - dx 2014 - s/p lumpectomy, chemo & radiation) Code(s): C50.312 - Malignant neoplasm of lower-inner quadrant of left female breast Plan: 57-year-old female patient returning for a follow-up breast examination after left breast lumpectomy and sentinel node biopsy for invasive ductal carcinoma diagnosed in 2013. Examination today reveals no suspicious findings in either breast. Her last mammogram of 06/13/2022 revealed no mammographic evidence of malignancy (BI-RADS 2). She will return in 12 months for follow-up breast examination. She is welcome to call sooner for any new concerns. Coding Level of Care Code Est Pt Level 3 (64816) Diagnoses Breast cancer of lower-inner quadrant of left female breast C50.312
[2023-01-11 15:18] VITALS: BP 126/58; PULSE 91; BMI 26.3
== END 2023-01-11 15:30 | disposition home or self-care (01) ==
PROVIDERS: Visit Provider Surgery
DX: Z85.3 Personal history of malignant neoplasm of breast (principal)
CPT/HCPCS: 99213

== ENCOUNTER → 2023-01-11 15:04 | Outpatient (BNVA) | payer OTHER, SELFPAY | PROVIDERS: Visit Provider Surgery | DX: C50.312 Malignant neoplasm of lower-inner quadrant of left female breast (principal); Z17.1 Estrogen receptor negative status [ER-] | CPT/HCPCS: 99212 ==

== ENCOUNTER 2023-01-12 07:16 | Outpatient (REF) | payer OTHER, SELFPAY ==
[2023-01-12 08:13] LABS: Hematocrit 36.6 % (37.0-47.0); Hemoglobin 11.8 g/dl (12.0-16.0); Mean Corpuscular HGB Conc 32.2 g/dl (31.0-35.0); Mean Corpuscular Hemoglobin 29.9 pg (27.0-33.0); Mean Corpuscular Volume 92.9 fL (80.0-98.0); Mean Platelet Volume 10.9 fL (9.4-12.3); Platelet Count 290 X10*3/uL (160-400); Red Blood Count 3.94 X10*6/uL (4.20-5.50); Red Cell Distribution Width 13.9 % (11.0-16.0); White Blood Count 8.9 X10*3/uL (4.8-10.8)
[2023-01-12 08:46] LABS: Alanine Aminotransferase 8 U/L (0-31); Albumin Level 4.3 g/dL (3.5-5.0); Alkaline Phosphatase 71 U/L (39-117); Anion Gap 11 (12-20); Aspartate Amino Transferase 12 U/L (5-31); Bilirubin Total 0.3 mg/dL (0.0-1.0); Blood Urea Nitrogen 12 mg/dL (9-16); Calcium 10.6 mg/dL (8.4-10.2); Carbon Dioxide 27 mmol/L (22-29); Chloride 107 mmol/L (96-108); Cholesterol 277 mg/dL (<200); Estimated Glomerular Filt Rate > 60; Glucose Fasting 100 mg/dL (60-99); HDL Cholesterol 44 mg/dL (>40); Iron 63 mcg/dL (30-160); LDL Cholesterol Calculated 205 mg/dL (<100); Percent Iron Saturation 22 % (15-50); Potassium 4.4 mmol/L (3.3-5.1); Sodium 141 mmol/L (135-145); Total Iron Binding Capacity 281 mcg/dL (228-428); Total Protein 7.2 g/dL (6.5-8.0); Triglycerides 142 mg/dL (<150); Unsaturated Iron Binding 218 ug/dL
== END 2023-01-12 07:17 | disposition home or self-care (01) ==
LOC: HO.LAB 07:16
PROVIDERS: PCP Physician Assistant; Visit Provider Physician Assistant
DX: D50.0 Iron deficiency anemia secondary to blood loss (chronic) (principal); E78.00 Pure hypercholesterolemia, unspecified
CPT/HCPCS: 36415; 80053; 80061; 83540; 85027

== ENCOUNTER 2023-01-23 10:06 | Outpatient (AMB) | payer OTHER, SELFPAY ==
[2023-01-23 10:09] VITALS: BP 110/70; BMI 26.3
--- NOTE | 2023-01-23 10:09 | MHC.PC.OV ---
Vital Signs 01/23/23 10:09 Height 5 ft 6 in Weight 163 lb 4 oz BMI 26.3 BP 110/70 Blood Pressure Location Rt brachial Position Sitting Intake Visit Reasons: 6 month f/u Intake Note: Pt is here for 6 months routine F/U. 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 Required: No Accompanied by: Self / Same As Patient Allergies nicotine lozenges Adverse Reaction (Mild, Uncoded 01/23/23 10:35) hiccups Medication List - Last Reconciled 01/23/23 by Patel Rdz PA-C acetaminophen (Tylenol) 650 mg (2 x 325 mg) PO Q6H PRN albuterol sulfate 90 mcg/actuation 1 inh inhalation QID 30 days aspirin (Adult Aspirin Regimen) 81 mg PO DAILY atorvastatin 80 mg PO DAILY cholecalciferol (vitamin D3) 50 mcg PO DAILY 90 days gabapentin 300 mg PO NEEDED 30 days hydrocortisone 1% (Anti-Itch (hydrocortisone)) 1 appl topical TID PRN 90 days ibuprofen 600 mg PO TID PRN lorazepam 1 mg PO BID-TID 30 days meclizine 25 mg PO TID 30 days omeprazole 20 mg PO DAILY pregabalin 75 mg PO BID Tobacco use date assessed: 07/19/22 Dental Screening Dental Screen Date: 01/23/23 Did you have a dental visit in the last 12 months?: No Did you have a dental problem in the last 6 months where you did not have access to dental care?: Yes Was dental information given to patient?: Yes HPI 6 month f/u HPI Details atient is a 57-year-old female here today for a follow-up visit.? Patient has a past medical history significant generalized anxiety disorder , hyperlipidemia , major depressive disorder GERD. Concerns--> reports having vericose viens she would like evaluated and removed. Also has been dealing with an issue with her balance. She reports whenever she walks she feels that she is leaning to 1 side. Of note has had CT of head and 2020 to without any intracranial pathology. She also reports at random times having. In the setting of having high cholesterol and being a smoker will send for cardiac stress test to evaluate cardiac ischemia on exertion. .. Anxiety : She reports she has been under lot of stress due to family issues, currently taking care of her father whom has dementia. She continues with the use of lorazepam t.i.d. p.r.n. and Lexapro.? She continues to decline my offers to his be referred to mental health therapy. .. Smoker:? Unfortunately started smoking again due to stress.. She reports she continues to smoke and has been smoking a little bit more due to her increased anxiety.? She has been on Wellbutrin though has not seemed to help her quit smoking. Has tried nicotine lozenges though gave her hiccups. Has gotten low-dose CT scan of chest showing a stable 2 mm pulmonary nodule.? Of note was found to have emphysema and informed patient of this.? . .. Hyperlipidemia:? Most recent fasting lipid panel showing elevated total cholesterol and LDL. We have recently increased her statin potency and will recheck lipid panel in the next 4 months. [facility] Medical History Personal history of nicotine dependence Osteopenia (~2015) Migraine Post herpetic neuralgia (~2020) GERD (gastroesophageal reflux disease) History of left breast cancer (~2013) Bilateral primary osteoarthritis of knee History of suicide attempt HLD (hyperlipidemia) Postmenopausal MDD (major depressive disorder) JASSON (generalized anxiety disorder) Surgical History History of esophagogastroduodenoscopy (EGD) History of colonoscopy History of thumb surgery (~2016) History of right knee surgery (~2006) History of tubal ligation History of ventral hernia repair (~2018) History of lumpectomy of left breast (~2013) History of hip surgery (~1990) History of tonsillectomy Family History Father Diabetes Hypertension Uterine cancer Prostate cancer Mother Breast cancer Maternal Aunt Uterine cancer Family/Other Substance use disorder Social History Household Members: Family Housing: House Are you a primary clinical care coordinator to a significant other at home: No Do you presently have visiting nurse or other home services: No Alcohol intake: never Patient Tobacco Use Status: Current everyday Tobacco user Tobacco use type: Cigarette Cigarettes Per Day: 12 Years Smoked: (onset 15, 1/2-3/4ppd x 41yrs, 25pyh) e-Cigarette/Vaping Use: Never Used Second Hand Smoke Exposure: Yes Substance Use Type: Marijuana service: No Current occupational status: disabled 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 Vickey Catalan, Gina Dawson, Henrique Curran and colleagues, with an educational shiv from [employer]. Review of Systems Const Denies headache(s) Eyes Denies loss of vision ENT Denies vertigo, Denies dizziness, Denies headache(s) and Denies sore throat Card Denies chest pain, Denies leg edema and Denies lightheadedness Resp Denies cough, Denies hemoptysis and Denies wheezing GI Denies abdominal pain, Denies melena, Denies constipation, Denies diarrhea and Denies vomiting Denies urinary frequency, Denies dysuria and Denies urinary urgency Musc Denies arthralgias, Denies joint swelling, Denies numbness and Denies tingling Neuro Denies Abnormal speech present, Denies behavioral changes, Denies vertigo, Denies dizziness, Denies headache(s), Denies loss of vision, Denies memory loss, Denies numbness and Denies tingling Psych Denies anxiety, Denies behavioral changes, Denies depression, Denies memory loss and Denies panic attacks Angel/Lymph Denies easy bleeding and Denies easy bruising Aller/Immun Denies wheezing Physical exam (Primary Care) Vital Signs: Last Vital Signs BP 110/70 01/23/23 10:09 BMI result Body Mass Index 26.3 Tobacco/Smoking Status: Tobacco use Status Tobacco use date assessed 07/19/22 01/23/23 10:09 Patient Tobacco Use Status Current everyday Tobacco 01/23/23 10:09 Tobacco use type Cigarette 01/23/23 10:09 e-Cigarette/Vaping Use Never Used 01/23/23 10:09 Thrive Assessment: Date of Thrive Assessment Date Thrive assessed 07/19/22 01/23/23 10:09 Const General: healthy appearing, no acute distress, alert and awake Nutritional Appearance: well nourished Orientation/consciousness: oriented to person, oriented to place and oriented to time HENMT Ears: TM's normal bilaterally General nose exam: Normal nasal mucous membranes and turbinates present Eyes Conjunctivae: conjunctivae normal Sclerae: sclerae normal Pupils: Equal, round and reactive pupils present Neck Neck: Yes no lymphadenopathy and Yes no JVD Thyroid: Thyroid normal Carotids: no bruits Resp Effort & Inspection: normal respiratory effort and not tachypneic Auscultation: no crackles, no rales, no rhonchi and no wheezes Cardio Rate: regular rate Rhythm: regular rhythm Heart sounds: no murmurs and normal S1 and S2 GI Palpation (GI): Soft to palpation, nontender, no hepatomegaly and no splenomegaly Auscultation: normal bowel sounds Skin General skin exam: no rashes or lesions noted and dry skin Neuro General: oriented to person, oriented to place and oriented to time Cranial nerves: Yes Equal, round and reactive pupils present Speech: No Abnormal speech present Gait exam (Neuro): Normal gait present Motor exam (neuro): no tremor noted Extrem Right upper extremity: full ROM Left upper extremity: full ROM Right lower extremity: full ROM; no edema Left lower extremity: full ROM; no edema Psych Mental Status: mental status grossly normal Speech and movement: Normal speech and movement present Affect: normal affect Attitude: cooperative Thought process: Normal thought process present Assessment and Plan Assessment & Plan (1) Tobacco dependency: Code(s): F17.200 - Nicotine dependence, unspecified, uncomplicated Plan: Patient does understand she needs to quit smoking , started smoking again due to stress. Has tried nicotine lozenges and Wellbutrin though were not effective in gave her side effects. She did have recent CT chest without any concerning nodules. A (2) JASSON (generalized anxiety disorder): Code(s): F41.1 - Generalized anxiety disorder Plan: Continues to suffer with increase anxiety due to family issues, taking care for father whom has dementia. She uses lorazepam on a daily basis. She is not interested in starting any SSRI therapy at this time. Offered cognitive behavioral therapy though she declines at this time. She is a mandaen woman and would like to work on getting closer to God. (3) HLD (hyperlipidemia): Code(s): E78.5 - Hyperlipidemia, unspecified Qualifiers: Hyperlipidemia type: pure hypercholesterolemia Qualified Code(s): E78.00 - Pure hypercholesterolemia, unspecified Plan: Patient's most recent lipid panel showing very elevated total cholesterol and LDL. Her statin therapy has been increased in potency will recheck lipid panel in 3 months. (4) Symptomatic varicose veins of both lower extremities: Code(s): I83.893 - Varicose veins of bilateral lower extremities with other complications (5) Chest pain at rest: Code(s): R07.9 - Chest pain, unspecified Plan: Reports having chest pain at random times and at rest. She recently started smoking due to stress/ (6) Balance disorder: Code(s): R26.89 - Other abnormalities of gait and mobility Plan: As per HPI patient reports feeling off balance while walking. Will likely benefit from vestibular therapy Orders: Orders TSH reflex Free T4 Today E78.00 - Pure hypercholesterolemia, unspecified PT Evaluation and Treatment Today R26.89 - Other abnormalities of gait and mobility CA stress test Today R07.9 - Chest pain, unspecified Lipid Panel Today E78.00 - Pure hypercholesterolemia, unspecified Comprehensive [place]. Panel Fast Today E78.00 - Pure hypercholesterolemia, unspecified Complete Blood Count no Diff Today E78.00 - Pure hypercholesterolemia, unspecified Referrals Vascular Surgery Referral I83.893 - Varicose veins of bilateral lower extremities with other complications Medications: Refilled albuterol sulfate 90 mcg/actuation 1 inh inhalation QID 30 days 6.7 grams 3RF shortness of breath or wheezing J43.2 - Centrilobular emphysema cholecalciferol (vitamin D3) 50 mcg PO DAILY 90 days 90 caps 1RF Z78.0 - Asymptomatic menopausal state gabapentin 300 mg PO NEEDED 30 days 30 caps 3RF M54.14 - Radiculopathy, thoracic region hydrocortisone 1% (Anti-Itch (hydrocortisone)) 1 appl topical TID 90 days PRN 454 grams 0RF skin irritation L20.84 - Intrinsic (allergic) eczema Coding Level of Care Code Est Pt Level 4 (47963) Diagnoses Tobacco dependency F17.200 JASSON (generalized anxiety disorder) F41.1 Pure hypercholesterolemia E78.00 Hyperlipidemia type: pure hypercholesterolemia Symptomatic varicose veins of both lower extremities I83.893 Chest pain at rest R07.9 Balance disorder R26.89
== END 2023-01-23 10:59 | disposition home or self-care (01) ==
PROVIDERS: Visit Provider Physician Assistant
DX: F17.200 Nicotine dependence, unspecified, uncomplicated (principal); F41.1 Generalized anxiety disorder; E78.00 Pure hypercholesterolemia, unspecified; I83.893 Varicose veins of bilateral lower extremities with other complications; R07.9 Chest pain, unspecified; R26.89 Other abnormalities of gait and mobility
CPT/HCPCS: 99214

== ENCOUNTER 2023-01-26 14:18 | Outpatient (REF) | payer OTHER, SELFPAY ==
--- NOTE | ~2023-01-26 | CT_ITS ---
EXAMINATION: CT CHEST SCREENING CLINICAL INFORMATION: Current smoker with 40 pack-year history of smoking COMPARISON: Previous CTs, most recent, TECHNIQUE: Multidetector volumetric CT imaging of the chest is performed without contrast using low dose technique. Additional 2D coronal and sagittal reformatted images and axial 3D maximum intensity projection (MIP) images are generated on the CT workstation. This CT examination was performed using dose optimization techniques as appropriate, variously including the following: *Automated exposure control *Adjustment of mA and/or kV according to patient size (this includes techniques or standardized protocols for targeted exams where dose is matched to indication/reason for exam; i.e. extremities or head) *Use of iterative reconstruction technique DLP: 678 mGy-cm FINDINGS: VP DIRECTOR OF CREATIVE STRATEGY: Clear lungs. Left iliac surgical hardware. LUNGS: Trachea and bronchi are patent. Mild paraseptal emphysema. Mild dependent atelectasis. Mild anterior subpleural reticular markings in the left upper lobe again seen, possibly related to previous chest wall radiation. No change 2 mm medial right upper lobe nodule, 6:164. MEDIASTINUM: Unremarkable thyroid. Nonspecific lymph nodes. No pathologic lymphadenopathy. Nonenlarged heart. No pericardial effusion. Atherosclerotic calcifications nonaneurysmal aorta. Nonenlarged pulmonary arteries. CORONARY ARTERY CALCIFICATION: None visualized on this study. PLEURA: There is no pleural effusion. No pleural mass or thickening. CHEST WALL/AXILLA: No lymphadenopathy. Stable left inferior breast density. UPPER ABDOMEN: Distended debris-filled stomach. Prominent liver with global hypodensity. OSSEOUS STRUCTURES: Degenerative changes. Likely benign right humeral bone island. No suspicious osseous lesions. CT/CT lung screening IMPRESSION: Stable 2 mm right upper lobe nodule. ASSESSMENT: Lung-RADS category 2: Benign RECOMMENDATION: Routine annual low-dose CT screening in 12 months.
== END 2023-01-26 14:19 | disposition home or self-care (01) ==
LOC: HO.CT 14:18
PROVIDERS: PCP Physician Assistant; Visit Provider Physician Assistant Medical
DX: Z12.2 Encounter for screening for malignant neoplasm of respiratory organs (principal); F17.210 Nicotine dependence, cigarettes, uncomplicated
CPT/HCPCS: 71271

== ENCOUNTER 2023-02-09 11:55 | Outpatient (REF) | payer OTHER, SELFPAY ==
--- NOTE | ~2023-02-09 | XR_ITS ---
EXAMINATION: XR BILATERAL KNEES CLINICAL INFORMATION: Bilateral knee pain. COMPARISON: 02/19/2020. TECHNIQUE: AP standing view of bilateral knees. AP and sunrise views of bilateral knees. FINDINGS: RIGHT KNEE: Mild medial joint space narrowing with small medial marginal osteophytes. No significant joint effusion. Tiny posterior patellar osteophytes. LEFT KNEE: Mild medial joint space narrowing with small medial marginal osteophytes. No significant joint effusion. Tiny posterior patellar osteophytes. XR/XR knee RT 2V IMPRESSION: Mild degenerative changes in the bilateral knees, right greater than left.
--- NOTE | ~2023-02-09 | XR_ITS ---
EXAMINATION: XR BILATERAL KNEES CLINICAL INFORMATION: Bilateral knee pain. COMPARISON: 02/19/2020. TECHNIQUE: AP standing view of bilateral knees. AP and sunrise views of bilateral knees. FINDINGS: RIGHT KNEE: Mild medial joint space narrowing with small medial marginal osteophytes. No significant joint effusion. Tiny posterior patellar osteophytes. LEFT KNEE: Mild medial joint space narrowing with small medial marginal osteophytes. No significant joint effusion. Tiny posterior patellar osteophytes. XR/XR knee standing BI IMPRESSION: Mild degenerative changes in the bilateral knees, right greater than left.
--- NOTE | ~2023-02-09 | XR_ITS ---
EXAMINATION: XR BILATERAL KNEES CLINICAL INFORMATION: Bilateral knee pain. COMPARISON: 02/19/2020. TECHNIQUE: AP standing view of bilateral knees. AP and sunrise views of bilateral knees. FINDINGS: RIGHT KNEE: Mild medial joint space narrowing with small medial marginal osteophytes. No significant joint effusion. Tiny posterior patellar osteophytes. LEFT KNEE: Mild medial joint space narrowing with small medial marginal osteophytes. No significant joint effusion. Tiny posterior patellar osteophytes. XR/XR knee LT 2V IMPRESSION: Mild degenerative changes in the bilateral knees, right greater than left.
== END 2023-02-09 11:56 | disposition home or self-care (01) ==
LOC: HO.HOSX 11:55
PROVIDERS: PCP Physician Assistant; Visit Provider Orthopaedic Surgery
DX: M17.0 Bilateral primary osteoarthritis of knee (principal)
CPT/HCPCS: 20610; 73560; 73565; 99212; J1100

== ENCOUNTER 2023-02-09 11:55 | Outpatient (AMB) | payer OTHER, SELFPAY ==
--- NOTE | 2023-02-09 12:14 | MHC.OFFVIS ---
Intake Intake Visit Reasons: ov-Bilateral primary osteoarthritis of knee Intake Note: Germaine is a 56 year old female who presents today with complaints of bilateral knee pain. Last Injections done bilaterally on 12/26/21. Patient reports that these injections have been helpful but she complains of severe pain Allergies nicotine lozenges Adverse Reaction (Mild, Uncoded 01/23/23 10:35) hiccups HPI ov-Bilateral primary osteoarthritis of knee HPI Details Germaine is a 58 year old woman with bilateral knee OA. She complains of pain with daily activity, primarily with use of stairs. She feels her pain localized to the front of her knees. She has a hx of good relief from steroid injections in the past. She is unsure if she wants to continue with injections or discuss surgery. [facility] Medical History Personal history of nicotine dependence Osteopenia (~2015) Migraine Post herpetic neuralgia (~2020) GERD (gastroesophageal reflux disease) History of left breast cancer (~2013) Bilateral primary osteoarthritis of knee History of suicide attempt HLD (hyperlipidemia) Postmenopausal MDD (major depressive disorder) JASSON (generalized anxiety disorder) Surgical History History of esophagogastroduodenoscopy (EGD) History of colonoscopy History of thumb surgery (~2016) History of right knee surgery (~2006) History of tubal ligation History of ventral hernia repair (~2018) History of lumpectomy of left breast (~2013) History of hip surgery (~1990) History of tonsillectomy Family History Father Diabetes Hypertension Uterine cancer Prostate cancer Mother Breast cancer Maternal Aunt Uterine cancer Family/Other Substance use disorder Social History Household Members: Family Housing: House Are you a primary director long term care to a significant other at home: No Do you presently have visiting nurse or other home services: No Alcohol intake: never Patient Tobacco Use Status: Current everyday Tobacco user Tobacco use type: Cigarette Cigarettes Per Day: 12 Years Smoked: (onset 15, 1/2-3/4ppd x 41yrs, 25pyh) e-Cigarette/Vaping Use: Never Used Second Hand Smoke Exposure: Yes Substance Use Type: Marijuana service: No Current occupational status: disabled 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 Current occupational exposures/hazards: No Cognitive needs: No Hearing needs: Yes Vision needs: Yes Female Reproductive History Menstrual Age of Menarche: 12 Review of Systems Const All systems reviewed & are unremarkable except as noted in HPI and below Physical Exam Const General: no acute distress, alert and awake Orientation/consciousness: patient oriented x3 HEENT Head: Yes normocephalic and Yes atraumatic Eyes EOM: EOMs intact bilaterally Resp Effort & Inspection: normal respiratory effort and able to speak in complete sentences Cardio Jugular venous distension: no JVD Skin General skin exam: turgor normal Rashes: no rashes Neuro General: patient oriented x3 Extrem Other: Bilateral Knees: TTP medial compartment bilateral knees Psych Appearance: grossly normal Affect: normal affect Attitude: cooperative Office Procedures Joint Injection/Drain Joint Injection/Drain Details: Injected 1 mL of Decadron and 3 mL 1% lidocaine and 3 mL of 0.25% Marcaine. Site was prepped using aseptic technique. Patient tolerated the procedure well. Primary Site: right knee Secondary Site: left knee Approach Used: anterolateral Coding - Large joint - Glenohumeral/Tronchanteric Bursa/Intraarticular Procedure code (CPT) selection complete Results Reviewed Results Reviewed: 02/09/23 12:30 BUPivacaine MPF 0.25 % [Sensorcaine-MPF 0.25% 10 ML] 10 ml .ROUTE .STK-MED ONE Lidocaine HCl 1 % [Xylocaine 1 %] 2 ml .ROUTE .STK-MED ONE Lidocaine HCl 2 % MPF [Xylocaine 2 % MPF] 5 ml .ROUTE .STK-MED ONE dexAMETHasone sod phosphate [Decadron] 4 mg .ROUTE .STK-MED ONE I personally reviewed relevant radiographs. Assessment & Plan Assessment & Plan (1) Bilateral primary osteoarthritis of knee: Comment: (s/p b/l injections 05/05/21) Code(s): M17.0 - Bilateral primary osteoarthritis of knee Plan: This is a 58 year old woman with known bilateral PF OA. She complains of pain primarily with using stairs, and has a hx of good relief of her symptoms from steroid injections. I discussed her diagnosis and treatment options, I think surgery is not warranted at this time as she is not particularly limited by pain except for using stairs, though she may benefit from a TKA in the future. I injected her bilateral knees today, which she tolerated well. She can follow up prn. Plan Scribed for Juaquin Plummer MD by Nikhil Lynch, manager of medical, on 02/09/23 at 12:35 PM, EST. Orders: Orders XR knee RT 2V 02/09/23 M25.569 - Pain in unspecified knee XR knee LT 2V 02/09/23 M25.562 - Pain in left knee XR knee standing BI 02/09/23 M25.561 - Pain in right knee, M25.562 - Pain in left knee Coding Level of Care Code Est Pt Level 3 (17897) Diagnoses Bilateral primary osteoarthritis of knee M17.0 CPT Codes Coding - 96817 Large joint: 65821 - Large joint ([id number]) Coding - Joint 7: 59580 - Glenohumeral/Tronchanteric Bursa/Intraarticular ([id number])
== END 2023-02-09 12:48 | disposition home or self-care (01) ==
PROVIDERS: PCP Physician Assistant; Visit Provider Orthopaedic Surgery
DX: M17.0 Bilateral primary osteoarthritis of knee (principal)
CPT/HCPCS: 20610; 99213

== ENCOUNTER → 2023-02-12 09:59 | Outpatient (REF) | payer OTHER, SELFPAY ==
--- NOTE | 2023-02-12 10:02 | CA_ITS ---
Acquisition Time: 2023-02-12 10:29:10 Total Exercise Time: 00:07:27 Test Indications: CP Medications: SEE H Protocol: KOJO Max HR: 148 BPM 91% of Pred: 162 BPM Max BP: 200/050 mmHG Max Work Load: 9.2 METS Exercise stress test exercise 7 min 27 sec of Kojo protocol achieving 92% MPHR, with 1/10 mid chest pressure at baseline, 3/10 mid chest pressure at peak, with moderate to severe SOB, with isolated PVCs, with max BP 200/50, without EKG changes. Chest pain returned to baseline , blood pressure, and breathing resolved with rest. Test reviewed with Dr. Mccartney. Referred By: Patel Rdz Overread By: Erinn Hollis
== END ==
LOC: HO.CARD 09:59
PROVIDERS: PCP Physician Assistant; Visit Provider Physician Assistant
DX: R07.9 Chest pain, unspecified (principal)
CPT/HCPCS: 93017

== ENCOUNTER → 2023-02-12 10:02 | Outpatient (BNV) | payer OTHER, SELFPAY | PROVIDERS: PCP Physician Assistant; Visit Provider Nurse Practitioner | DX: R07.89 Other chest pain (principal); R06.02 Shortness of breath | CPT/HCPCS: 93016; 93018 ==

== ENCOUNTER 2023-03-26 13:45 | Outpatient (RCR) | payer OTHER, SELFPAY ==
[2023-03-27 07:39] VITALS: BP 133/70
== END 2023-05-09 12:56 | disposition home or self-care (01) ==
LOC: HO.PT 13:45
PROVIDERS: PCP Physician Assistant; Visit Provider Orthopaedic Surgery
DX: R26.89 Other abnormalities of gait and mobility (principal)
CPT/HCPCS: 97161

== ENCOUNTER 2023-04-26 09:13 | Outpatient (REF) | payer OTHER, SELFPAY ==
[2023-04-26 09:35] LABS: Hematocrit 36.7 % (37.0-47.0); Hemoglobin 12.1 g/dl (12.0-16.0); Mean Corpuscular Hemoglobin 29.6 pg (27.0-33.0); Mean Corpuscular Volume 89.7 fL (80.0-98.0); Mean Platelet Volume 10.2 fL (9.4-12.3); Platelet Count 313 X10*3/uL (160-400); Red Blood Count 4.09 X10*6/uL (4.20-5.50); Red Cell Distribution Width 14.1 % (11.0-16.0); White Blood Count 9.9 X10*3/uL (4.8-10.8)
[2023-04-26 10:21] LABS: Alanine Aminotransferase 17 U/L (0-31); Albumin Level 4.3 g/dL (3.5-5.0); Alkaline Phosphatase 80 U/L (39-117); Anion Gap 13 (12-20); Aspartate Amino Transferase 15 U/L (5-31); Bilirubin Total 0.2 mg/dL (0.0-1.0); Blood Urea Nitrogen 12 mg/dL (9-16); Calcium 10.7 mg/dL (8.4-10.2); Carbon Dioxide 26 mmol/L (22-29); Chloride 106 mmol/L (96-108); Cholesterol 187 mg/dL (<200); Estimated Glomerular Filt Rate > 60; Glucose Fasting 103 mg/dL (60-99); HDL Cholesterol 38 mg/dL (>40); LDL Cholesterol Calculated 108 mg/dL (<100); Potassium 4.2 mmol/L (3.3-5.1); Sodium 141 mmol/L (135-145); Total Protein 7.3 g/dL (6.5-8.0); Triglycerides 205 mg/dL (<150)
== END 2023-04-26 09:14 | disposition home or self-care (01) ==
LOC: HO.LAB 09:13
PROVIDERS: PCP Physician Assistant; Visit Provider Physician Assistant
DX: E78.00 Pure hypercholesterolemia, unspecified (principal); M54.50 Low back pain, unspecified; Z91.81 History of falling
CPT/HCPCS: 36415; 73521; 80053; 80061; 84443; 85027

== ENCOUNTER 2023-04-26 09:43 | Outpatient (AMB) | payer OTHER, SELFPAY ==
[2023-04-26 09:46] VITALS: BP 98/60; PULSE 77; O2SAT 98; BMI 26.8
--- NOTE | 2023-04-26 09:46 | A.OFFPC_ITS ---
Vital Signs 04/26/23 09:46 Height 5 ft 6 in Weight 166 lb BMI 26.8 BP 98/60 Blood Pressure Location Rt brachial Position Sitting Pulse 77 Pulse Source Pulse Oximeter Pulse Oximetry (%) 98 Oxygen Delivery Method Room Air Intake Visit Reasons: 3 mth f/u Delivery Nurse Required: No Platen Builder Up: Not Required per policy Accompanied by: Self / Same As Patient Allergies nicotine lozenges Adverse Reaction (Mild, Uncoded 04/26/23 09:54) hiccups Medication List - Last Reconciled 04/26/23 by Patel Rdz PA-C acetaminophen (Tylenol) 650 mg (2 x 325 mg) PO Q6H PRN albuterol sulfate 90 mcg/actuation 1 inh inhalation QID 30 days aspirin (Adult Aspirin Regimen) 81 mg PO DAILY atorvastatin 80 mg PO DAILY betamethasone dipropionate 0.05% 1 appl topical DAILY PRN 30 days cholecalciferol (vitamin D3) 50 mcg PO DAILY 90 days hydrocortisone 1% (Anti-Itch (hydrocortisone)) 1 appl topical TID PRN 90 days ibuprofen 600 mg PO TID PRN lorazepam 1 mg PO BID-TID 30 days meclizine 25 mg PO TID 30 days omeprazole 20 mg PO DAILY pregabalin 50 mg PO BID Tobacco use date assessed: 07/19/22 Dental Screening Dental Screen Date: 04/26/23 Did you have a dental visit in the last 12 months?: No Did you have a dental problem in the last 6 months where you did not have access to dental care?: No Was dental information given to patient?: Patient has dentist HPI 3 mth f/u HPI Details Patient is a 58-year-old female here today for a follow-up visit.? Patient has a past medical history significant generalized anxiety disorder , hyperlipidemia , major depressive disorder GERD. Concerns--> has been followed by [facility] [place] for her thoracic spine pain. Has been started on Lyrica which has been helpful to reduce her pain. She also reports recently having bilateral hip and knee pain. She concerned about hardware in her left hip that was placed in 1989. Will send for x-rays to evaluate for worsening arthritis. She will follow-up with her orthopedic surgeon. .. Anxiety : She reports she has been under lot of stress due to family issues, currently taking care of her father whom has dementia. A son who gets caught up with drugs. She is very synagogue woman and prays a lot. She continues with the use of lorazepam t.i.d. p.r.n. and Lexapro.? She continues to decline my offers to his be referred to mental health therapy. .. Smoker:? Unfortunately started smoking again due to stress.. She reports she continues to smoke and has been smoking a little bit more due to her increased anxiety.? She has been on Wellbutrin though has not seemed to help her quit smoking. Has tried nicotine lozenges though gave her hiccups. Has gotten low-dose CT scan of chest showing a stable 2 mm pulmonary nodule.? Of note was found to have emphysema and informed patient of this.? . .. Hyperlipidemia:? Most recent fasting lipid panel showing elevated total cholesterol and LDL. We have recently increased her statin potency and will recheck lipid panel in the next 4 months. [facility] Medical History Personal history of nicotine dependence Osteopenia (~2015) Migraine Post herpetic neuralgia (~2020) GERD (gastroesophageal reflux disease) History of left breast cancer (~2013) Bilateral primary osteoarthritis of knee History of suicide attempt HLD (hyperlipidemia) Postmenopausal MDD (major depressive disorder) JASSON (generalized anxiety disorder) Surgical History History of esophagogastroduodenoscopy (EGD) History of colonoscopy History of thumb surgery (~2016) History of right knee surgery (~2006) History of tubal ligation History of ventral hernia repair (~2018) History of lumpectomy of left breast (~2013) History of hip surgery (~1990) History of tonsillectomy Family History Father Diabetes Hypertension Uterine cancer Prostate cancer Mother Breast cancer Maternal Aunt Uterine cancer Family/Other Substance use disorder Social History Household Members: Family Housing: House Are you a primary vp care management to a significant other at home: No Do you presently have visiting nurse or other home services: No Alcohol intake: never Patient Tobacco Use Status: Current everyday Tobacco user Tobacco use type: Cigarette Cigarettes Per Day: 12 Years Smoked: (onset 15, 1/2-3/4ppd x 41yrs, 25pyh) e-Cigarette/Vaping Use: Never Used Second Hand Smoke Exposure: Yes Substance Use Type: Marijuana service: No Current occupational status: disabled 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 Vickey Catalan, Gina Dawson, Henrique Curran and colleagues, with an educational shiv from [employer]. Review of Systems Const Denies headache(s) Eyes Denies loss of vision ENT Denies vertigo, Denies dizziness, Denies headache(s) and Denies sore throat Card Denies chest pain, Denies leg edema and Denies lightheadedness Resp Denies cough, Denies hemoptysis and Denies wheezing GI Denies abdominal pain, Denies melena, Denies constipation, Denies diarrhea and Denies vomiting Denies urinary frequency, Denies dysuria and Denies urinary urgency Musc Details: + bilateral hip in knee pain Reports back pain, Reports arthralgias, Denies joint swelling, Denies numbness and Denies tingling Neuro Denies Abnormal speech present, Denies behavioral changes, Denies vertigo, Denies dizziness, Denies headache(s), Denies loss of vision, Denies memory loss, Denies numbness and Denies tingling Psych Denies anxiety, Denies behavioral changes, Denies depression, Denies memory loss and Denies panic attacks Angel/Lymph Denies easy bleeding and Denies easy bruising Aller/Immun Denies wheezing Physical exam (Primary Care) Vital Signs: Last Vital Signs Pulse 77 04/26/23 09:46 BP 98/60 04/26/23 09:46 Pulse Ox 98 04/26/23 09:46 Oxygen Delivery Method Room Air 04/26/23 09:46 BMI result Body Mass Index 26.8 Tobacco/Smoking Status: Tobacco use Status Tobacco use date assessed 07/19/22 04/26/23 09:47 Patient Tobacco Use Status Current everyday Tobacco 04/26/23 09:47 Tobacco use type Cigarette 12/28/23 09:47 e-Cigarette/Vaping Use Never Used 04/26/23 09:47 Are you ready to quit: No Tobacco cessation counseling provided: Yes Items discussed: Nicotine replacement and QuitWorks Relapse Prevention: discussed the importance of a supportive environment, discussed negative mood or depression after quitting, weight gain after smoking is common and discussed dietary, exercise and/or lifestyle changes Number of minutes spent counselin CPT code: 62619 - 4-10 Minutes Thrive Assessment: Date of Thrive Assessment Date Thrive assessed 07/19/22 04/26/23 09:47 Const General: healthy appearing, no acute distress, alert and awake Nutritional Appearance: well nourished Orientation/consciousness: oriented to person, oriented to place and oriented to time HENMT Ears: TM's normal bilaterally General nose exam: Normal nasal mucous membranes and turbinates present Eyes Conjunctivae: conjunctivae normal Sclerae: sclerae normal Pupils: Equal, round and reactive pupils present Neck Neck: Yes no lymphadenopathy and Yes no JVD Thyroid: Thyroid normal Carotids: no bruits Resp Effort & Inspection: normal respiratory effort and not tachypneic Auscultation: no crackles, no rales, no rhonchi and no wheezes Cardio Rate: regular rate Rhythm: regular rhythm Heart sounds: no murmurs and normal S1 and S2 GI Palpation (GI): Soft to palpation, nontender, no hepatomegaly and no splenomegaly Auscultation: normal bowel sounds Skin General skin exam: no rashes or lesions noted and dry skin Neuro General: oriented to person, oriented to place and oriented to time Cranial nerves: Yes Equal, round and reactive pupils present Speech: No Abnormal speech present Gait exam (Neuro): Normal gait present Motor exam (neuro): no tremor noted Extrem Right upper extremity: full ROM Left upper extremity: full ROM Right lower extremity: full ROM; no edema Left lower extremity: full ROM; no edema Psych Mental Status: mental status grossly normal Speech and movement: Normal speech and movement present Affect: normal affect Attitude: cooperative Thought process: Normal thought process present Assessment and Plan Assessment & Plan (1) Tobacco dependency: Code(s): F17.200 - Nicotine dependence, unspecified, uncomplicated Plan: Patient does understand she needs to quit smoking , started smoking again due to stress. Has tried nicotine lozenges and Wellbutrin though were not effective in gave her side effects. She is willing to try nicotine patches She did have recent CT chest without with 2 mm right nodules. Will continue yearly follow-up (2) JASSON (generalized anxiety disorder): Code(s): F41.1 - Generalized anxiety disorder Plan: Continues to suffer with increase anxiety due to family issues, taking care for father whom has dementia. She uses lorazepam on a daily basis. She is not i nterested in starting any SSRI therapy at this time. Offered cognitive behavioral therapy though she declines at this time. She is a synagogue woman and would like to work on getting closer to God. (3) HLD (hyperlipidemia): Code(s): E78.5 - Hyperlipidemia, unspecified Qualifiers: Hyperlipidemia type: pure hypercholesterolemia Qualified Code(s): E78.00 - Pure hypercholesterolemia, unspecified Plan: She continues on high potency statin. Most recent lipid panel much improved. Will continue high potency statin at this time. Goal LDL to remain below 130 (4) Bilateral hip pain: Code(s): M25.551 - Pain in right hip; M25.552 - Pain in left hip Plan: Reports bilateral hip pain. Does have a left hip hardware repair in 1989. Will send for bilateral hip x-rays. She will follow-up with her orthopedic. Orders: Orders XR hip BI w [id number] Today M17.0 - Bilateral primary osteoarthritis of knee Medications: New nicotine 1 patch transdermal DAILY 14 days 14 ea 1RF F17.200 - Nicotine dependence, unspecified, uncomplicated nicotine 1 patch transdermal Q24H 14 days 14 ea 0RF F17.200 - Nicotine dependence, unspecified, uncomplicated Coding Level of Care Code Est Pt Level 4 (77212) Diagnoses Tobacco dependency F17.200 JASSON (generalized anxiety disorder) F41.1 Pure hypercholesterolemia E78.00 Hyperlipidemia type: pure hypercholesterolemia Bilateral hip pain M25.551; M25.552 Additional Codes Vital Signs *Quality* - CPT code: 58448 - 4-10 Minutes ([id number])
== END 2023-04-26 10:14 | disposition home or self-care (01) ==
PROVIDERS: PCP Physician Assistant; Visit Provider Physician Assistant
DX: F17.200 Nicotine dependence, unspecified, uncomplicated (principal); F41.1 Generalized anxiety disorder; E78.00 Pure hypercholesterolemia, unspecified; M25.551 Pain in right hip; M25.552 Pain in left hip
CPT/HCPCS: 99214; 99406

== ENCOUNTER 2023-07-09 13:48 | Outpatient (AMB) | payer OTHER, SELFPAY ==
--- NOTE | 2023-07-09 14:20 | A.OFFVIS_ITS ---
Intake Intake Visit Reasons: NewProb-Left hip pain Intake Note: Germaine is a 58 year old female who presents today for a new problem visit with complaints of left hip pain. Patient reports that she had a hip reconstruction in 1989, she has multiple screws in the hip . Surgery was done in [place]. She explains that her pain has started about 2 years ago and it has increased over time. She develops a limp afer walking for about 5-10 minutes due to pain. The leg does occasionally feel weak, but she denies any numbness. Allergies nicotine lozenges Adverse Reaction (Mild, Uncoded 04/26/23 09:54) hiccups HPI NewProb-Left hip pain HPI Details This is a 58 yo F who has a complaint of left hip pain. The pain is superior to the hip joint and lateral along the iliac spine and into the wing of the ilium. She denies groin pain. She is walking with a limp however and complains of pain and difficulty with daily activities. [facility] Medical History Personal history of nicotine dependence Osteopenia (~2015) Migraine Post herpetic neuralgia (~2020) GERD (gastroesophageal reflux disease) History of left breast cancer (~2013) Bilateral primary osteoarthritis of knee History of suicide attempt HLD (hyperlipidemia) Postmenopausal MDD (major depressive disorder) JASSON (generalized anxiety disorder) Surgical History History of esophagogastroduodenoscopy (EGD) History of colonoscopy History of thumb surgery (~2016) History of right knee surgery (~2006) History of tubal ligation History of ventral hernia repair (~2018) History of lumpectomy of left breast (~2013) History of hip surgery (~1990) History of tonsillectomy Family History Father Diabetes Hypertension Uterine cancer Prostate cancer Mother Breast cancer Maternal Aunt Uterine cancer Family/Other Substance use disorder Social History Household Members: Family Housing: House Are you a primary caretaker resort to a significant other at home: No Do you presently have visiting nurse or other home services: No Alcohol intake: never Patient Tobacco Use Status: Current everyday Tobacco user Tobacco use type: Cigarette Cigarettes Per Day: 12 Years Smoked: (onset 15, 1/2-3/4ppd x 41yrs, 25pyh) e-Cigarette/Vaping Use: Never Used Second Hand Smoke Exposure: Yes Substance Use Type: Marijuana service: No Current occupational status: disabled 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 Resp Other: No audible wheezing Effort & Inspection: normal respiratory effort Back/Spine/Pelvis Cervical Spine: normal cervical lordosis Skin General skin exam: no rashes or lesions noted Neuro General: no focal motor deficits Extrem Other: Left hip with full motion neg impingement ttp aloing the iliac wing Psych Appearance: grossly normal and well kempt Mental Status: mental status grossly normal Speech and movement: Normal speech and movement present Affect: normal affect Attitude: cooperative Results Reviewed Results Reviewed: I personally reviewed relevant radiographs. S/p ORIF iliac wing with no hardware complications. No hip OA Assessment & Plan Assessment & Plan (1) Fracture of iliac wing: Code(s): S32.309A - Unspecified fracture of unspecified ilium, initial encounter for closed fracture Plan: Iliac wing fracture s/p ORIF 20 years ago. No hip pathology I discussed PT with her with the goal of normalizing her gait mechanics. Not interested in formal PT at this time. Coding Level of Care Code Est Pt Level 3 (72444) Diagnoses Fracture of iliac wing S32.309A
== END 2023-07-09 15:11 | disposition home or self-care (01) ==
PROVIDERS: PCP Physician Assistant; Visit Provider Orthopaedic Surgery
DX: S32.302A Unspecified fracture of left ilium, initial encounter for closed fracture (principal)
CPT/HCPCS: 99213

== ENCOUNTER → 2023-07-09 13:48 | Outpatient (BNVA) | payer OTHER, SELFPAY | PROVIDERS: PCP Physician Assistant; Visit Provider Orthopaedic Surgery | DX: S32.309A Unspecified fracture of unspecified ilium, initial encounter for closed fracture (principal) | CPT/HCPCS: 99212 ==

== ENCOUNTER 2023-07-10 09:08 | Outpatient (REF) | payer OTHER, SELFPAY ==
--- NOTE | ~2023-07-10 | MM_ITS ---
EXAMINATION: MM SCREENING DIGITAL BREAST TOMOSYNTHESIS, BILATERAL CLINICAL INFORMATION: Screening. Asymptomatic. This patient is status post left breast cancer surgery in 2014. COMPARISON: Mammography: This study is compared with prior exams dating back to 2019. TECHNIQUE: Digital breast tomosynthesis is performed in both the craniocaudal and mediolateral oblique views along with computer-aided detection (CAD). Synthesized 2D images are generated from the tomosynthesis. FINDINGS: There are scattered areas of fibroglandular density (ACR BI-RADS breast composition Category b). There are no significant masses, abnormal calcifications, or other abnormalities. There are postsurgical changes at the inferior aspect of the left breast. There are few, benign, unchanged calcifications. There is a tissue marker in the upper outer quadrant of the left breast from prior benign percutaneous biopsy. MM/MM tomosynthesis screening BI IMPRESSION: No mammographic evidence of malignancy. ASSESSMENT: BI-RADS BI-RADS 2 - Benign Findings RECOMMENDATION: Routine annual mammography screening. 1 year F/U This examination should not preclude the clinical evaluation of a suspicious palpable abnormality. This patient's information was entered into a reminder system with a target due date for their next mammogram.
== END 2023-07-10 09:09 | disposition home or self-care (01) ==
LOC: HO.MAMMO 09:08
PROVIDERS: PCP Physician Assistant; Visit Provider Physician Assistant
DX: Z12.31 Encounter for screening mammogram for malignant neoplasm of breast (principal)
CPT/HCPCS: 77063; 77067

== ENCOUNTER → 2023-07-10 09:30 | Outpatient (BNV) | payer OTHER, SELFPAY | PROVIDERS: PCP Physician Assistant; Visit Provider Radiology Diagnostic Radiology | DX: Z12.31 Encounter for screening mammogram for malignant neoplasm of breast (principal) | CPT/HCPCS: 77063; 77067 ==

== ENCOUNTER 2023-07-23 14:07 | Outpatient (AMB) | payer OTHER, SELFPAY ==
--- NOTE | 2023-07-23 14:14 | MHC.OFFVIS ---
Intake Vital Signs 07/23/23 14:15 Height 5 ft 6 in Weight 166 lb BMI 26.8 Intake Visit Reasons: ov-Bilateral primary osteoarthritis of knee Intake Note: Germaine is a 58 year old female who presents today for a follow up of her bilateral knee OA. LAst injections done 02/09/23. Lsat visit note states think surgery is not warranted at this time as she is not particularly limited by pain except for using stairs, though she may benefit from a TKA in the future. The right knee is worse than the left. Last injections were only helpful for about 1.5 months. She explains that the pain in her knees is increasing but she still does not want to proceed with surgery. Allergies nicotine lozenges Adverse Reaction (Mild, Uncoded 07/23/23 14:14) hiccups HPI ov-Bilateral primary osteoarthritis of knee HPI Details Germaine is a 58 year old female who presents today for a follow up of her bilateral knee OA. Last injections done 02/09/23. She still has difficulty with stairs and with extended ambulation. She is trying to avoid surgery. Prior injections have been minimally helpful. [facility] Medical History Personal history of nicotine dependence Osteopenia (~2015) Migraine Post herpetic neuralgia (~2020) GERD (gastroesophageal reflux disease) History of left breast cancer (~2013) Bilateral primary osteoarthritis of knee History of suicide attempt HLD (hyperlipidemia) Postmenopausal MDD (major depressive disorder) JASSON (generalized anxiety disorder) Surgical History History of esophagogastroduodenoscopy (EGD) History of colonoscopy History of thumb surgery (~2016) History of right knee surgery (~2006) History of tubal ligation History of ventral hernia repair (~2018) History of lumpectomy of left breast (~2013) History of hip surgery (~1990) History of tonsillectomy Family History Father Diabetes Hypertension Uterine cancer Prostate cancer Mother Breast cancer Maternal Aunt Uterine cancer Family/Other Substance use disorder Social History Household Members: Family Housing: House Are you a primary administrator health care facility to a significant other at home: No Do you presently have visiting nurse or other home services: No Alcohol intake: never Patient Tobacco Use Status: Current everyday Tobacco user Tobacco use type: Cigarette Cigarettes Per Day: 12 Years Smoked: (onset 15, 1/2-3/4ppd x 41yrs, 25pyh) e-Cigarette/Vaping Use: Never Used Second Hand Smoke Exposure: Yes Substance Use Type: Marijuana service: No Current occupational status: disabled 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 Steroid injections have not been helpful. I recommend gel injections, Coding Level of Care Code Est Pt Level 3 (57660) Diagnoses Bilateral primary osteoarthritis of knee M17.0
[2023-07-23 14:15] VITALS: BMI 26.8
== END 2023-07-23 15:28 | disposition home or self-care (01) ==
PROVIDERS: PCP Physician Assistant; Visit Provider Orthopaedic Surgery
DX: M17.0 Bilateral primary osteoarthritis of knee (principal)
CPT/HCPCS: 99212

== ENCOUNTER → 2023-07-23 14:07 | Outpatient (BNVA) | payer OTHER, SELFPAY | PROVIDERS: PCP Physician Assistant; Visit Provider Orthopaedic Surgery | DX: M17.0 Bilateral primary osteoarthritis of knee (principal) | CPT/HCPCS: 99212 ==

== ENCOUNTER 2023-08-13 08:54 | Outpatient (AMB) | payer OTHER, SELFPAY ==
--- NOTE | 2023-08-13 08:57 | A.OFFPC_ITS ---
Vital Signs 08/13/23 08:59 Height 5 ft 6 in Weight 163 lb 6 oz BMI 26.4 BP 100/62 Blood Pressure Location Rt brachial Position Sitting Pulse 69 Pulse Source Pulse Oximeter Pulse Oximetry (%) 98 Oxygen Delivery Method Room Air Intake Visit Reasons: PE Intake Note: Patient is here today for a physical. 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 University Dean: Not Required per policy Accompanied by: Self / Same As Patient Allergies nicotine lozenges Adverse Reaction (Mild, Uncoded 08/13/23 09:18) hiccups Medication List - Last Reconciled 08/13/23 by Patel Rdz PA-C acetaminophen (Tylenol) 650 mg (2 x 325 mg) PO Q6H PRN albuterol sulfate 90 mcg/actuation 1 inh inhalation QID 30 days aspirin (Adult Aspirin Regimen) 81 mg PO DAILY atorvastatin 80 mg PO DAILY betamethasone dipropionate 0.05% 1 appl topical DAILY PRN 30 days cholecalciferol (vitamin D3) 50 mcg PO DAILY 90 days hydrocortisone 1% (Anti-Itch (hydrocortisone)) 1 appl topical TID PRN 90 days ibuprofen 600 mg PO TID PRN lorazepam 1 mg PO BID-TID 30 days meclizine 25 mg PO TID 30 days omeprazole 20 mg PO DAILY pregabalin 50 mg PO BID quetiapine (Seroquel) 100 mg PO DAILY 90 days Tobacco use date assessed: 08/13/23 Dental Screening Dental Screen Date: 08/13/23 Did you have a dental visit in the last 12 months?: No Did you have a dental problem in the last 6 months where you did not have access to dental care?: No Was dental information given to patient?: No HPI PE HPI Details Patient is a 59-year-old female here today for an annual physical.? Patient has a past medical history significant generalized anxiety disorder , hyperlipidemia , major depressive disorder GERD. Concerns--> Reports having intermittent episodes of nausea and vomiting. She reports the abdominal pain is generalized. She does report some left lower quadrant abdominal pain. She has had endoscopy/colonoscopy in 2016 which were normal. She continues to use omeprazole on a daily basis She is interested in getting another endoscopy and colonoscopy. Also she reports she has been having concerns about her short-term memory loss over the last 3 years. She attributes this to getting the COVID vaccine. She does not have any family history of Alzheimer's.. She would like MRI imaging of her brain evaluate for any intracranial pathology that could be causing her memory issues. .. Anxiety : She reports she has been under lot of stress due to family issues, having difficulty with sleep, currently taking care of her father whom has dementia. A son who gets caught up with drugs. She is very baptism woman and prays a lot. She continues with the use of lorazepam t.i.d. p.r.n. and Lexapro.? She continues to decline my offers to his be referred to mental health therapy. .. Smoker:? Unfortunately continues to smoke though much less. Reports having a few cigarettes per week.. She reports she continues to smoke and has been smoking a little bit more due to her increased anxiety.? She has been on Wellbutrin though has not seemed to help her quit smoking. Has tried nicotine lozenges though gave her hiccups. Of note was found to have emphysema and informed patient of this.? . .. Hyperlipidemia:? Most recent fasting lipid panel showing much improved total ch olesterol and LDL. We have recently increased her statin potency and will recheck lipid panel in the next 4 months. Mammogram: Done in June of 2023, BI-RADS 2 Colonoscopy: UTD with Colonoscopy 2015- Dr Horner gets done q 10 years Vaccines: Up-to-date with COVID vaccine, pneumonia vaccine and tetanus vaccine, Considering shingles vaccine Laboratory Tests 07/25/22 01/12/23 04/26/23 07:04 07:28 09:25 RBC 3.94 L 4.09 L Hgb 11.8 L 12.1 Fasting Glucose 103 H Cholesterol 307 277 H 187 LDL Cholesterol, C alc 239 205 H 108 H TSH 2.30 PFSH Medical History Personal history of nicotine dependence Osteopenia (~2015) Migraine Post herpetic neuralgia (~2020) GERD (gastroesophageal reflux disease) History of left breast cancer (~2013) Bilateral primary osteoarthritis of knee History of suicide attempt HLD (hyperlipidemia) Postmenopausal MDD (major depressive disorder) JASSON (generalized anxiety disorder) Surgical History History of esophagogastroduodenoscopy (EGD) History of colonoscopy History of thumb surgery (~2016) History of right knee surgery (~2006) History of tubal ligation History of ventral hernia repair (~2018) History of lumpectomy of left breast (~2013) History of hip surgery (~1990) History of tonsillectomy Family History Father Diabetes Hypertension Uterine cancer Prostate cancer Mother Breast cancer Maternal Aunt Uterine cancer Lung cancer Family/Other Substance use disorder Sister Uterine cancer Social History Household Members: Family Housing: House Are you a primary healthcare applications analyst to a significant other at home: No Do you presently have visiting nurse or other home services: No Alcohol intake: never Patient Tobacco Use Status: Current everyday Tobacco user Tobacco use type: Cigarette Cigarette Packs Per Day: 0.5 Cigarettes Per Day: 3 Years Smoked: (onset 15, 1/2-3/4ppd x 41yrs, 25pyh) e-Cigarette/Vaping Use: Never Used Second Hand Smoke Exposure: Yes Substance Use Type: Marijuana service: No Current occupational status: disabled 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 1. Little interest or pleasure in doing things: not at all 2. Feeling down, depressed, or hopeless: not at all 3. Trouble falling or staying asleep, or sleeping too much: not at all 4. Feeling tired or having little energy: not at all 5. Poor appetite or overeating: not at all 6. Feeling bad about yourself - or that you are a failure or have let yourself or your family down: not at all 7. Trouble concentrating on things, such as reading the newspaper or watching television: not at all 8. Moving or speaking so slowly that other people could have noticed. Or the opposite - being so fidgety or restless that you have been moving around a lot more than usual: not at all 9. Thoughts that you would be better off or of hurting yourself in some way: not at all Total score: 0 Depression Screening Interpretation: Negative Depression Screening Done: Yes 59152 - PHQ-9 Billing: Yes Source: Developed by Drs. Vickey Catalan, Henrique Pena and colleagues, with an educational shiv from [employer]. Thrive Questionnaire Date Thrive assessed: 08/13/23 I am a: Patient What is your living situation today?: I have a steady place to live Within the past 12 months, did the food you bought not last and you didn't have the money to get more?: Never true Within the past 12 months, did you worry whether your food would run out before you got money to buy more?: Never true Do you have trouble paying for medicines?: No Do you have trouble getting transportation to medical appointments?: No Do you have trouble paying your heating and electricity bill?: No Do you have trouble taking care of your child, family member or friend?: No Do you have trouble with day-to-day activities such as bathing, preparing meals, shopping, managing finances, etc.?: No Are you currently unemployed and looking for a job?: No Are you interested in more education?: No Currently or been in a relationship where the following occur: no concerns reported THRIVE Score: 0 AUDIT C Alcohol Use Questionnaire (AUDIT-C) 1. How often do you have a drink containing alcohol?: Never Total Score: 0 JASSON-7 AMB Questionnaire JASSON-7 Date JASSON - 7 assessed: 08/13/23 Feeling nervous, anxious, or on edge: 1 = Several days Not being able to stop or control worryin = Several days Worrying too much about different things: 1 = Several days Trouble relaxin = Several days Being so restless that it is hard to sit still: 0 = Not at all Becoming easily annoyed or irritable: 0 = Not at all Feeling afraid as if something awful might happen: 0 = Not at all Total JASSON-7 score (0-4 normal; 5-9 mild; 10-14 moderate; 15-21 severe): 4 Source: Developed by Gina Casanova Kurt Kroenke and colleagues, with an educational shiv from [employer]. JASSON-7 Assessment Billing JASSON-7 Assessment Tool: JASSON-7 Assessment 96860 Review of Systems Const Denies body aches, Denies chills, Denies excessive sweating, Denies fatigue, Denies fever(s) and Denies headache(s) Eyes Denies blurry vision ENT Denies dysphagia, Denies vertigo, Denies dizziness, Denies headache(s), Denies hearing loss and Denies tinnitus Card Denies chest pain, Denies chest pain with activity, Denies syncope, Denies irregular heart rhythm and Denies dyspnea Resp Denies chest congestion, Denies cough, Denies hemoptysis, Denies dyspnea and Denies wheezing GI Denies abdominal pain, Denies melena, Denies hematochezia, Denies coffee ground emesis, Denies dysphagia, Denies diarrhea, Denies nausea and Denies vomiting Denies urinary frequency, Denies dysuria, Denies urinary hesitancy and Denies urinary urgency Musc Denies arthralgias, Denies limited range of motion, Denies muscle cramps and Denies muscle weakness Skin/Breast Denies rash and Denies skin ulcer Neuro Denies Abnormal speech present, Denies confusion, Denies vertigo, Denies dizziness, Denies syncope, Denies headache(s), Denies memory loss and Denies seizure-like activity Psych Denies anxiety, Denies confusion, Denies depression, Denies memory loss, Denies panic attacks and Denies paranoia Endo Denies excessive sweating, Denies fatigue, Denies flushing, Denies polydipsia and Denies polyuria Aller/Immun Denies wheezing Physical exam (Primary Care) Vital Signs: Last Vital Signs Pulse 69 08/13/23 08:59 BP 100/62 08/13/23 08:59 Pulse Ox 98 08/13/23 08:59 Oxygen Delivery Method Room Air 08/13/23 08:59 BMI result Body Mass Index 26.4 Tobacco/Smoking Status: Tobacco use Status Tobacco use date assessed 08/13/23 08/13/23 09:04 Patient Tobacco Use Status Current everyday Tobacco 08/13/23 09:04 Tobacco use type Cigarette 08/13/23 09:04 e-Cigarette/Vaping Use Never Used 08/13/23 09:04 Are you ready to quit: Yes Tobacco cessation counseling provided: Yes Items discussed: Nicotine replacement and QuitWorks Relapse Prevention: discussed the importance of a supportive environment, discussed negative mood or depression after quitting, weight gain after smoking is common and discussed dietary, exercise and/or lifestyle changes Number of minutes spent counselin PHQ-9: PHQ-9 Score PHQ-9: Total score 0 08/13/23 13:57 Depression Screening Interpretation: Negative Thrive Assessment: Date of Thrive Assessment Date Thrive assessed 08/13/23 08/13/23 09:04 Currently or been in a relationship where the following occur: no concerns reported Const General: cooperative, comfortable, no acute distress, alert and awake; No confusion Orientation/consciousness: oriented to person, oriented to place, patient oriented x3 and No confusion HENMT Head: Yes normocephalic Ears: external ears normal and TM's normal bilaterally Face and sinus: No sinus tenderness Mouth: Normal oral and palatal mucosa present and tongue normal Teeth and gingiva: dentition normal and gingiva normal Throat: Yes posterior oropharynx normal, Yes tonsils normal and Yes uvula midline Eyes Conjunctivae: conjunctivae normal Sclerae: sclerae normal Pupils: Equal, round and reactive pupils present EOM: EOMs intact bilaterally Direct Ophthalmoscopy: No no photophobia Neck Neck: Yes no lymphadenopathy, No tender and Yes no JVD Thyroid: Thyroid normal Carotids: no bruits Chest Chest palpation & inspection: no tenderness Resp Effort & Inspection: normal respiratory effort, no audible wheezes, not labored and no stridor Auscultation: no crackles, no rales, no rhonchi and no wheezes Cardio Jugular venous distension: no JVD Rate: regular rate, not bradycardic and not tachycardic Rhythm: regular rhythm Bruits: no carotid bruits Peripheral pulses: Peripheral pulses 2+ throughout GI Inspection: Yes normal to inspection, No abdominal wall ecchymosis and No visible herniation Palpation (GI): Soft to palpation, nontender, no guarding, not rigid and No hepatosplenomegaly present Auscultation: normoactive bowel sounds General: Yes no CVA tenderness Back/Spine/Pelvis Back: no CVA tenderness and No back tenderness Cervical Spine: cervical ROM normal Thoracic/Lumbar Spine: thoracic and lumbar spine normal to inspection, straight leg raise negative bilaterally, No thoraco-lumbar ROM limited and No lumbar spinal tenderness Skin Lesions: no lesions Rashes: no rashes Wounds: no wounds Neuro General: oriented to person, oriented to place, patient oriented x3, CN's II-XI intact bilaterally and No confusion Cranial nerves: Yes Equal, round and reactive pupils present and Yes Normal accommodation reflex present Cognition (Neuro): normal cognition Speech: No Abnormal speech present Gait exam (Neuro): Normal gait present Motor exam (neuro): 5/5 motor strength present throughout Extrem Right upper extremity: full ROM; no cyanosis Left upper extremity: full ROM; no cyanosis Right lower extremity: no edema Left lower extremity: no edema Psych Appearance: grossly normal Mental Status: mental status grossly normal Affect: normal affect Attitude: cooperative Thought process: Normal thought process present Assessment and Plan Assessment & Plan (1) Annual physical exam: Code(s): Z00.00 - Encounter for general adult medical examination without abnormal findings (2) Tobacco dependency: Code(s): F17.200 - Nicotine dependence, unspecified, uncomplicated Plan: Patient does understand she needs to quit smoking , she has smoking a lot less. . Has tried nicotine lozenges and Wellbutrin though were not effective in gave her side effects. She did have recent CT chest without with 2 mm right nodules. Will continue yearly follow-up (3) JASSON (generalized anxiety disorder): Code(s): F41.1 - Generalized anxiety disorder Plan: Continues to suffer with increase anxiety due to family issues, taking care for father whom has dementia. She uses lorazepam on a daily basis. She is not interested in starting any SSRI therapy at this time. Offered cognitive behavioral therapy though she declines at this time. She is a baptism woman and would like to work on getting closer to God. (4) HLD (hyperlipidemia): Code(s): E78.5 - Hyperlipidemia, unspecified Qualifiers: Hyperlipidemia type: pure hypercholesterolemia Qualified Code(s): E78.00 - Pure hypercholesterolemia, unspecified Plan: She continues on high potency statin. Most recent lipid panel much improved. Will continue high potency statin at this time. Goal LDL to remain below 130 (5) Abdominal pain: Code(s): R10.9 - Unspecified abdominal pain Qualifiers: Abdominal location: generalized Qualified Code(s): R10.84 - Generalized abdominal pain Plan: Unclear what is causing patient's intermittent abdominal pain and episodes of emesis. Will send for ultrasound of abdomen (6) Breast cancer of lower-inner quadrant of left female breast: Onset Date: ~2013 Comment: (Invasive Ductal Carcinoma -stage pT1cN0, ER/TX & HER-2 neg - dx 2014 - s/p lumpectomy, chemo & radiation) Code(s): C50.312 - Malignant neoplasm of lower-inner quadrant of left female breast Qualifiers: Estrogen receptor status: unspecified Qualified Code(s): C50.312 - Malignant neoplasm of lower-inner quadrant of left female breast Plan: in remission for many years now. Most recent mammogram normal. Was Followed by Oncologist. (7) Spider veins of both lower extremities: Code(s): I83.93 - Asymptomatic varicose veins of bilateral lower extremities Plan: She reports she is bothered by spider veins in her lower extremities She would like to see a vascular surgeon for evaluation of possible removal of the spider angiomas. (8) Memory impairment: Code(s): R41.3 - Other amnesia Plan: Reports having memory issues since the COVID vaccine. She attributes this to getting COVID vaccines. Of note she does take benzodiazepines on a daily basis though feels it is not due to this as a side effect Orders: Orders Lipid Panel 08/13/23 E78.00 - Pure hypercholesterolemia, unspecified Complete Blood Count no Diff 08/13/23 E78.00 - Pure hypercholesterolemia, unspecified US abdomen complete 08/13/23 R10.84 - Generalized abdominal pain MR head/brain wo con 08/13/23 R41.3 - Other amnesia Comprehensive [place]. Panel Fast 08/13/23 E78.00 - Pure hypercholesterolemia, unspecified Referrals Vascular Surgery Referral I83.93 - Asymptomatic varicose veins of bilateral lower extremities Patient Instructions: Goals: Continue to control hyperlipidemia, LDL below 130, controlling anxiety,stop smoking Barriers: Continues to speak with mental health therapist, cigarette availability and uncontrolled anxiety Coding Level of Care Code Est Pt Prev Care 40-64y(22922) Diagnoses Annual physical exam Z00.00 Tobacco dependency F17.200 JASSON (generalized anxiety disorder) F41.1 Pure hypercholesterolemia E78.00 Hyperlipidemia type: pure hypercholesterolemia Generalized abdominal pain R10.84 Abdominal location: generalized Malignant neoplasm of lower-inner quadrant of left female breast, unspecified estrogen receptor status C50.312 Estrogen receptor status: unspecified Spider veins of both lower extremities I83.93 Memory impairment R41.3 Additional Codes JASSON-7 Assessment Billing - JASSON-7 Assessment Tool: JASSON-7 Assessment 23391 ([id number])
[2023-08-13 08:59] VITALS: BP 100/62; PULSE 69; O2SAT 98; BMI 26.4
== END 2023-08-13 09:45 | disposition home or self-care (01) ==
PROVIDERS: PCP Physician Assistant; Visit Provider Physician Assistant
DX: Z00.00 Encounter for general adult medical examination without abnormal findings (principal); C50.312 Malignant neoplasm of lower-inner quadrant of left female breast; F41.1 Generalized anxiety disorder; E78.00 Pure hypercholesterolemia, unspecified; R10.84 Generalized abdominal pain; I83.93 Asymptomatic varicose veins of bilateral lower extremities; R41.3 Other amnesia
CPT/HCPCS: 99396

== ENCOUNTER 2023-08-22 08:02 | Outpatient (REF) | payer OTHER, SELFPAY ==
--- NOTE | ~2023-08-22 | US_ITS ---
EXAMINATION: US ABDOMEN COMPLETE CLINICAL INFORMATION: Generalized abdominal pain. COMPARISON: CT abdomen and pelvis 07/09/2022. X-ray abdomen 12/24/2019. X-ray KUB 03/11/2019. TECHNIQUE: Real-time imaging of the abdominal viscera. FINDINGS: PANCREAS: The visualized portions of the pancreas are unremarkable but a large portion of the gland is obscured by bowel gas. ABDOMINAL AORTA: The proximal, mid, and distal segments are normal in caliber. INFERIOR VENA CAVA: Visualized portions are normal. LIVER: The liver is mildly enlarged measuring over 17 cm in greatest length. On the prior CT scan, more accurate measurements could be obtained, and the liver measured 20.7 cm at that point in time. The liver contour is normal. There is diffuse increased liver parenchymal echogenicity, consistent with hepatic steatosis. No focal hepatic lesion. There is no intrahepatic biliary duct dilatation seen. GALLBLADDER: Normal. The gallbladder is physiologically distended without evidence of stones, sludge, polyps, wall thickening or pericholecystic fluid. COMMON BILE DUCT: Normal in caliber measuring 0.4 cm in diameter. RIGHT KIDNEY: Normal. No hydronephrosis. No renal calculi or focal parenchymal lesions. The kidney measures 10.4 cm in maximum dimension. LEFT KIDNEY: Normal. No hydronephrosis. No renal calculi or focal parenchymal lesions. The kidney measures 10.8 cm in maximum dimension. SPLEEN: Normal. The spleen measures 8.8 cm in maximum dimension. FREE FLUID: None. US/US abdomen complete IMPRESSION: Enlarged fatty liver.
== END 2023-08-22 08:03 | disposition home or self-care (01) ==
LOC: HO.US 08:02
PROVIDERS: PCP Physician Assistant; Visit Provider Physician Assistant
DX: R10.84 Generalized abdominal pain (principal)
CPT/HCPCS: 76700

== ENCOUNTER 2023-08-30 14:10 | Outpatient (REF) | payer OTHER, SELFPAY ==
--- NOTE | ~2023-08-30 | XR_ITS ---
EXAMINATION: XR LUMBOSACRAL SPINE WITH OBLIQUES CLINICAL INFORMATION: Left low back pain. COMPARISON: Hip and pelvis 04/26/2023. TECHNIQUE: 5 views of the lumbar spine. FINDINGS: Mild levoscoliosis of the lumbar spine. Mild degenerative changes of the bilateral sacroiliac joints. Facet arthritis in the flb-bh-atoat lumbar spine. Degenerative changes in the imaged lower thoracic spine. Inferior endplate concavity along the anterior aspect of the lower thoracic vertebral body. Moderate multilevel lumbar spondylosis with multilevel loss of disc space height. Redemonstration of surgical hardware incompletely imaged overlying the left iliac wing, better characterized on prior exam. XR/XR lumbar spine 4V min IMPRESSION: 1. Moderate multilevel lumbar spondylosis with multilevel loss of disc space height. 2. Facet arthritis in the [id number]-jn-frimv lumbar spine.
== END 2023-08-30 14:11 | disposition home or self-care (01) ==
LOC: HO.XRAY 14:10
PROVIDERS: PCP Physician Assistant; Visit Provider Nurse Practitioner Family
DX: M47.812 Spondylosis without myelopathy or radiculopathy, cervical region (principal)
CPT/HCPCS: 72110

== ENCOUNTER 2023-09-14 10:20 | Outpatient (AMB) | payer OTHER, SELFPAY ==
[2023-09-14 10:28] VITALS: BMI 26.3
--- NOTE | 2023-09-14 10:28 | MHC.OFFVIS ---
Vital Signs 09/14/23 10:28 Height 5 ft 6 in Weight 163 lb BMI 26.3 Intake Visit Reasons: Bilateral Knee Durolane Intake Note: Germaine is a 58 year old female who presents today for bilateral knee Durolane Allergies nicotine lozenges Adverse Reaction (Mild, Uncoded 08/13/23 09:18) hiccups HPI HPI Bilateral Knee Durolane: Details: Germaine is a 58 year old female who presents today for bilateral knee Durolane PFSH Medical History Personal history of nicotine dependence Osteopenia (~2015) Migraine Post herpetic neuralgia (~2020) GERD (gastroesophageal reflux disease) History of left breast cancer (~2013) Bilateral primary osteoarthritis of knee History of suicide attempt HLD (hyperlipidemia) Postmenopausal MDD (major depressive disorder) JASSON (generalized anxiety disorder) Surgical History History of esophagogastroduodenoscopy (EGD) History of colonoscopy History of thumb surgery (~2016) History of right knee surgery (~2006) History of tubal ligation History of ventral hernia repair (~2018) History of lumpectomy of left breast (~2013) History of hip surgery (~1990) History of tonsillectomy Family History Father Diabetes Hypertension Uterine cancer Prostate cancer Mother Breast cancer Maternal Aunt Uterine cancer Lung cancer Family/Other Substance use disorder Sister Uterine cancer Social History Household Members: Family Housing: House Are you a primary manager primary care to a significant other at home: No Do you presently have visiting nurse or other home services: No Alcohol intake: never Patient Tobacco Use Status: Current everyday Tobacco user Tobacco use type: Cigarette Cigarette Packs Per Day: 0.5 Cigarettes Per Day: 3 Years Smoked: (onset 15, 1/2-3/4ppd x 41yrs, 25pyh) e-Cigarette/Vaping Use: Never Used Second Hand Smoke Exposure: Yes Substance Use Type: Marijuana service: No Current occupational status: disabled 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 Site was prepped using aseptic technique. Patient tolerated the procedure well. Primary Site: right knee Secondary Site: left knee Approach Used: anterolateral Coding - Large joint - Glenohumeral/Tronchanteric Bursa/Intraarticular Procedure code (CPT) selection complete Assessment & Plan Assessment & Plan (1) Bilateral primary osteoarthritis of knee: Comment: (s/p b/l injections 05/05/21) Code(s): M17.0 - Bilateral primary osteoarthritis of knee Category: Medical Plan: Durolane injections performed without difficulty. May follow-up in 3 months. Plan I injected bilateral knees with Durolane Orders: Referrals Pain Management Referral M25.551 - Pain in right hip, M25.552 - Pain in left hip Coding Level of Care Code Est Pt Level 2 (29028) Diagnoses Bilateral primary osteoarthritis of knee M17.0 CPT Codes Coding - Large joint: 36741 - Large joint ([id number]) Coding - Joint 7: 15498 - Glenohumeral/Tronchanteric Bursa/Intraarticular ([id number])
== END 2023-09-14 10:54 | disposition home or self-care (01) ==
PROVIDERS: PCP Physician Assistant; Visit Provider Orthopaedic Surgery
DX: M17.0 Bilateral primary osteoarthritis of knee (principal)
CPT/HCPCS: 20610

== ENCOUNTER → 2023-09-14 10:20 | Outpatient (BNVA) | payer OTHER, SELFPAY | PROVIDERS: PCP Physician Assistant; Visit Provider Orthopaedic Surgery | DX: M17.0 Bilateral primary osteoarthritis of knee (principal) | CPT/HCPCS: 20610; J7318 ==

== ENCOUNTER 2023-09-28 10:03 | Outpatient (AMB) | payer OTHER, SELFPAY ==
--- NOTE | 2023-09-28 10:11 | MHC.OFFVIS ---
Vital Signs 09/28/23 10:15 Height 5 ft 6 in Weight 162 lb 8 oz BMI 26.2 BP 117/66 Blood Pressure Location Rt brachial Position Sitting Pulse 77 Pulse Source Pulse Oximeter Pulse Oximetry (%) 99 Oxygen Delivery Method Room Air Intake Visit Reasons: bilateral hip pain Intake Note: Pain today 0/10 Analytics Consultant Required: No Accompanied by: Self / Same As Patient Allergies nicotine lozenges Adverse Reaction (Mild, Uncoded 08/13/23 09:18) hiccups HPI HPI bilateral hip pain: Details: Patient is a pleasant 58 years old with prior history of iliac wing fracture with h/o ORIF with hip reconstruction and multiple screws in 1989 in [place], presents today to discuss treatments for left hip pain and low back pain. Denies any recent trauma, injury or falls. She is currently undergoing physical therapy for back pain which was initiated at [facility]. Reports history of back injections in 2011 and left hip cortisone injections with good results. Left lateral hip pain is reproduced with walking or weight bearing. Reports limping after walking more than 15 minutes. Patient reports groin pain with internal and external hip rotations and also mild left sacroiliac joint pain. Pain affects her daily functioning and mobility. She denies any significant pain with sitting or resting. Denies any fever, abdominal pain, weakness, foot drop, numbness, bladder or bowel dysfunction or saddle anesthesia. Location: Left hip radiates down left leg Duration: Chronic pain for many years Characteristics of symptom or complaint: Sharp, aching, shooting, stabbing, tingling, sore Aggravating or associated factors: Walking, weight bearing, movements Relieving factors: Laying down, rest, pregabalin, NSAIDs, activity modifications Treatment: Injections, PT, h/o left hip reconstruction in 1989 [facility] Medical History (Updated 09/28/23 @ 15:23 by GREYSON Phillips) Personal history of nicotine dependence Osteopenia (~2015) Migraine Post herpetic neuralgia (~2020) GERD (gastroesophageal reflux disease) History of left breast cancer (~2013) Bilateral primary osteoarthritis of knee History of suicide attempt HLD (hyperlipidemia) Postmenopausal MDD (major depressive disorder) JASSON (generalized anxiety disorder) Surgical History (Updated 09/28/23 @ 10:36 by GREYSON Phillips) History of esophagogastroduodenoscopy (EGD) History of colonoscopy History of thumb surgery (~2016) History of right knee surgery (~2006) History of tubal ligation History of ventral hernia repair (~2018) History of lumpectomy of left breast (~2013) History of hip surgery (~1990) History of tonsillectomy Family History Father Diabetes Hypertension Uterine cancer Prostate cancer Mother Breast cancer Maternal Aunt Uterine cancer Lung cancer Family/Other Substance use disorder Sister Uterine cancer Social History Household Members: Family Housing: House Are you a primary healthcare receptionist to a significant other at home: No Do you presently have visiting nurse or other home services: No Alcohol intake: never Patient Tobacco Use Status: Current everyday Tobacco user Tobacco use type: Cigarette Cigarette Packs Per Day: 0.5 Cigarettes Per Day: 3 Years Smoked: (onset 15, 1/2-3/4ppd x 41yrs, 25pyh) e-Cigarette/Vaping Use: Never Used Second Hand Smoke Exposure: Yes Substance Use Type: Marijuana service: No Current occupational status: disabled 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 Alert and oriented. Mood and affect appropriate. Follows and participates in conversation appropriately. Respiratory effort is unlabored. No cough. Able to transition from sit to stand unassisted. Ambulates with bilaterally normal heel strike and toe off, occasionally feels LLE weakness w/o numbness. Back/Spine/Pelvis Other: Partially limited lumbar ROM due to pain, worse with extension. Facet loading positive bilaterally. Straight leg raise negative bilaterally. ?Strength 5/5 right and 4/5 left hip flexion bilaterally. EDUARD test reproduces left lateral hip and lower back pain. Mild TTP in the projection left SIJ and left lateral iliac spine. DTR intact and symmetric, no clonus. Left groin pain with I/E hip rotations. Cervical Spine: cervical ROM normal, No cervical muscular tenderness and No Cervical spine tenderness Thoracic/Lumbar Spine: thoracic and lumbar spine normal to inspection, No Thoracic/lumbar spine scar(s), Lasegue's sign negative, straight leg raise negative bilaterally, pain with thoraco-lumbar ROM, paraspinal muscle tenderness, thoraco-lumbar ROM limited, No thoracic spinal tenderness and lumbar spinal tenderness (L3-S1) Pelvis: buttock tenderness on the left Sacroiliac joints: on the right nontender and on the left tender to palpation Results Reviewed Results Reviewed: XR BILATERAL HIPS WITH AP PELVIS 04/26/23 CLINICAL INFORMATION: Reason for Exam M17.0 - Bilateral primary osteoarthritis of hip COMPARISON: Hip and pelvis radiographs 04/26/2020 TECHNIQUE: 2 views of each hip and one view of the pelvis. FINDINGS: No acute fracture or dislocation. Status post plate and screw fixation of the left iliac wing. No evidence of hardware fracture or complication. Mild osteoarthritis of the bilateral hips with small osteophytes. Ossific foci adjacent to the left hip and iliac bone unchanged from prior may reflect sequelae of heterotopic ossification or remote prior trauma. Sacroiliac joint spaces are maintained. Findings are overall unchanged from prior. Calcified phleboliths in the pelvis. IMPRESSION: 1. Status post plate and screw fixation of the left iliac wing. No evidence of hardware fracture or complication. 2. Mild osteoarthritis of the bilateral hips with small osteophytes. 3. Ossific foci adjacent to the left hip and iliac bone unchanged from prior may reflect sequelae of heterotopic ossification or remote prior trauma. XR LUMBOSACRAL SPINE WITH OBLIQUES 08/30/23 CLINICAL INFORMATION: Left low back pain. COMPARISON: Hip and pelvis 04/26/2023. FINDINGS: Mild levoscoliosis of the lumbar spine. Mild degenerative changes of the bilateral sacroiliac joints. Facet arthritis in the [id number] lumbar spine. Degenerative changes in the imaged lower thoracic spine. Inferior endplate concavity along the anterior aspect of the lower thoracic vertebral body. Moderate multilevel lumbar spondylosis with multilevel loss of disc space height. Redemonstration of surgical hardware incompletely imaged overlying the left iliac wing, better characterized on prior exam. IMPRESSION: 1. Moderate multilevel lumbar spondylosis with multilevel loss of disc space height. 2. Facet arthritis in the [id number] lumbar spine. Assessment & Plan Assessment & Plan (1) History of hip surgery: Onset Date: ~1990 Comment: (Left Hip ORIF/reconstruction [jumped from 3rd story] - 1990) Code(s): Z98.890 - Other specified postprocedural states Category: Surgical (2) History of hip surgery: Onset Date: ~1990 Comment: (Left Hip ORIF/reconstruction [jumped from 3rd story] - 1990) Code(s): Z98.890 - Other specified postprocedural states Category: Surgical (3) Left hip pain: Code(s): M25.552 - Pain in left hip Category: Medical (4) Sacroiliac joint pain: Code(s): M53.3 - Sacrococcygeal disorders, not elsewhere classified Category: Medical (5) Lumbosacral spondylosis: Code(s): M47.817 - Spondylosis without myelopathy or radiculopathy, lumbosacral region Category: Medical Plan Schedule Left intra-articular hip steroid injection with local and fluoroscopy. Expectations, risks and benefits were reviewed. Patient is aware she will be contacted to schedule this procedure. Continue physical therapy for lower back pain, will start PT for left hip subsequently after therapeutic injection. All questions were answered and the patient is in agreement of plan. Follow-up after injections and sooner as needed. Orders: Orders PT Evaluation and Treatment 09/28/23 M25.552 - Pain in left hip, M47.817 - Spondylosis without myelopathy or radiculopathy, lumbosacral region, M53.3 - Sacrococcygeal disorders, not elsewhere classified, Z98.890 - Other specified postprocedural states Coding Level of Care Code New Pt Level 4 (50150) Diagnoses History of hip surgery Z98.890 Left hip pain M25.552 Sacroiliac joint pain M53.3 Lumbosacral spondylosis M47.817
[2023-09-28 10:15] VITALS: BP 117/66; PULSE 77; O2SAT 99; BMI 26.2
== END 2023-09-28 10:43 | disposition home or self-care (01) ==
PROVIDERS: PCP Physician Assistant; Visit Provider Nurse Practitioner Family
DX: Z98.890 Other specified postprocedural states (principal); M25.552 Pain in left hip; M53.3 Sacrococcygeal disorders, not elsewhere classified; M47.817 Spondylosis without myelopathy or radiculopathy, lumbosacral region
CPT/HCPCS: 99204

== ENCOUNTER → 2023-09-28 10:03 | Outpatient (BNVA) | payer OTHER, SELFPAY | PROVIDERS: PCP Physician Assistant; Visit Provider Nurse Practitioner Family | DX: M25.552 Pain in left hip (principal); M53.3 Sacrococcygeal disorders, not elsewhere classified; M47.817 Spondylosis without myelopathy or radiculopathy, lumbosacral region; Z98.890 Other specified postprocedural states | CPT/HCPCS: 99202 ==

== ENCOUNTER 2023-10-02 09:38 | Outpatient (AMB) | payer OTHER, SELFPAY ==
[2023-10-02 09:46] VITALS: BP 124/76; BMI 26.0
--- NOTE | 2023-10-02 09:46 | A.OFFVIS_ITS ---
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 No complaints. Last Pap/HPV was negative in 03/20 Last Mammogram was BI-RADS 2 in 07/21 Last Colonoscopy was in 2015, the recommendation was to repeat in 10 years [facility] Medical History Personal history of nicotine dependence Osteopenia (~2015) Migraine Post herpetic neuralgia (~2020) GERD (gastroesophageal reflux disease) History of left breast cancer (~2013) Bilateral primary osteoarthritis of knee History of suicide attempt HLD (hyperlipidemia) Postmenopausal MDD (major depressive disorder) JASSON (generalized anxiety disorder) Surgical History History of esophagogastroduodenoscopy (EGD) History of colonoscopy History of thumb surgery (~2016) History of right knee surgery (~2006) History of tubal ligation History of ventral hernia repair (~2018) History of lumpectomy of left breast (~2013) History of hip surgery (~1990) History of tonsillectomy Family History Father Diabetes Hypertension Uterine cancer Prostate cancer Mother Breast cancer Maternal Aunt Uterine cancer Lung cancer Family/Other Substance use disorder Sister Uterine cancer Social History Household Members: Family Housing: House Are you a primary insurance healthcare consultant to a significant other at home: No Do you presently have visiting nurse or other home services: No Alcohol intake: never Patient Tobacco Use Status: Current everyday Tobacco user Tobacco use type: Cigarette Cigarette Packs Per Day: 0.5 Cigarettes Per Day: 3 Years Smoked: (onset 15, 1/2-3/4ppd x 41yrs, 25pyh) e-Cigarette/Vaping Use: Never Used Second Hand Smoke Exposure: Yes Substance Use Type: Marijuana service: No Current occupational status: disabled 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 Current occupational exposures/hazards: No Cognitive needs: No Hearing needs: Yes Vision needs: Yes Female Reproductive History Menstrual Age of Menarche: 12 control method: permanent sterilization Total pregnancies: 8 Full term: 4 Number of Living Children: 4 Ab induced: 3 Ab spontaneous: 1 Date of last pap smear: 03/28/21 Date of Mammogram: 07/10/23 Review of Systems Const All systems reviewed & are unremarkable except as noted in HPI and below Card Reports as per HPI Resp Reports as per HPI GI Reports as per HPI and Reports no additional complaints Reports as per HPI Physical Exam Vital Signs: BMI result Body Mass Index 26.0 Const General: cooperative, healthy appearing and comfortable Chest Chest palpation & inspection: normal inspection of the chest and normal palpation of entire chest wall Breast/axilla inspection: normal inspection of the breasts and normal inspection of the axillae Breast/axilla palpation: normal palpation of the breasts, normal palpation of the axillae and no axillary lymphadenopathy Resp Effort & Inspection: normal respiratory effort Auscultation: clear to auscultation bilaterally Percussion: percussion normal Cardio Palpation: normal PMI Rate: regular rate Rhythm: regular rhythm Heart sounds: no murmurs and no rubs Peripheral pulses: Peripheral pulses 2+ throughout GI Inspection: Yes normal to inspection Palpation (GI): Soft to palpation, nontender, no guarding, not rigid and No hepatosplenomegaly present Percussion: Yes normal to percussion Auscultation: normal bowel sounds Rectal Exam - Female: deferred General: Yes bladder normal to palpation External Female Exam: No lesion Speculum Exam - Vagina: normal appearance of the vagina, normal palpation, normal vaginal discharge and not erythematous Speculum Exam - Cervix: normal appearance of the cervix and normal palpation Bimanual exam- vagina & uterus: normal bimanual exam, normal palpation, uterine size normal, bladder normal to palpation, consistency normal and normal palpation Bimanual Exam- Adnexa, other: normal adnexae, no masses and no tenderness Assessment & Plan Assessment & Plan (1) Well woman exam: Code(s): Z01.419 - Encounter for gynecological examination (general) (routine) without abnormal findings Category: Medical Plan: Co testing not indicated the see. Counseled the patient about the recommended dietary allowance of 1200 mg of Calcium & 600 IU of vitamin D. Instructions given the patient to schedule next screen Mammogram in 07/22. The patient was instructed to perform monthly self-breast exams and schedule annual exam in a year. All questions answered and the patient verbalized understanding. Coding Level of Care Code Est Pt Prev Care 40-64y(44442) Diagnoses Well woman exam Z01.419
== END 2023-10-02 10:09 | disposition home or self-care (01) ==
PROVIDERS: PCP Physician Assistant; Visit Provider Obstetrics & Gynecology
DX: Z01.419 Encounter for gynecological examination (general) (routine) without abnormal findings (principal)
CPT/HCPCS: 99396

== ENCOUNTER → 2023-10-02 09:38 | Outpatient (BNVA) | payer OTHER, SELFPAY | PROVIDERS: PCP Physician Assistant; Visit Provider Obstetrics & Gynecology ==

== ENCOUNTER 2023-10-17 10:00 | Outpatient (RCR) | payer OTHER, SELFPAY | END 2023-10-26 09:38 | disposition home or self-care (01) | LOC: HO.PT 10:00 | PROVIDERS: PCP Physician Assistant; Visit Provider Nurse Practitioner Family | DX: M47.812 Spondylosis without myelopathy or radiculopathy, cervical region (principal) | CPT/HCPCS: 97110; 97162 ==

== ENCOUNTER 2023-11-06 06:16 | Outpatient (REF) | payer OTHER, SELFPAY ==
--- NOTE | ~2023-11-06 | FL_ITS ---
EXAMINATION: XR FLUOROSCOPY WITH IMAGES CLINICAL INFORMATION: Left hip pain. COMPARISON: None available. TECHNIQUE: Fluoroscopy Supervised By: Dr. Jakub Escalante. Fluoroscopy Time: 0.2 minutes. Cumulative Dose: 5.18 mGy. DAP: 0.0824 Gycm2. Images: 3. FINDINGS: Intraoperative fluoroscopy and spot films were performed during a procedure in the OR. Spinal needle seen overlying the left hip joint with intra-articular contrast present. Please correlate with Dr. Escalante's report for complete details. FL/FL guidance in treatment room IMPRESSION: Intraoperative fluoroscopy and spot films were obtained. Please see Dr. Escalante's report for complete details.
== END 2023-11-06 06:17 | disposition home or self-care (01) ==
LOC: CF 06:16
PROVIDERS: Visit Provider Anesthesiology
DX: M25.552 Pain in left hip (principal); M53.3 Sacrococcygeal disorders, not elsewhere classified; M47.817 Spondylosis without myelopathy or radiculopathy, lumbosacral region; Z98.890 Other specified postprocedural states
CPT/HCPCS: 20610; J2795; J3301; Q9967

== ENCOUNTER 2023-11-06 13:35 | Outpatient (AMB) | payer OTHER, SELFPAY ==
--- NOTE | 2023-11-06 14:08 | MHC.OFFVIS ---
Vital Signs 11/06/23 14:17 11/06/23 14:18 Height 5 ft 6 in 5 ft 6 in Weight 160 lb 160 lb BMI 25.8 25.8 BP 108/62 119/67 Blood Pressure Location Lt brachial Lt brachial Position Sitting Sitting Respiration 16 16 Pulse 61 59 Pulse Source Pulse Oximeter Pulse Oximeter Pulse Oximetry (%) 97 100 Oxygen Delivery Method Room Air Room Air Comment pre-op post-op Intake Visit Reasons: LEFT INTRA-ARTICULAR HIP INJECTION Allergies nicotine lozenges Adverse Reaction (Mild, Uncoded 10/02/23 09:54) hiccups PFSH Medical History Personal history of nicotine dependence Osteopenia (~2015) Migraine Post herpetic neuralgia (~2020) GERD (gastroesophageal reflux disease) History of left breast cancer (~2013) Bilateral primary osteoarthritis of knee History of suicide attempt HLD (hyperlipidemia) Postmenopausal MDD (major depressive disorder) JASSON (generalized anxiety disorder) Surgical History History of esophagogastroduodenoscopy (EGD) History of colonoscopy History of thumb surgery (~2016) History of right knee surgery (~2006) History of tubal ligation History of ventral hernia repair (~2018) History of lumpectomy of left breast (~2013) History of hip surgery (~1990) History of tonsillectomy Family History Father Diabetes Hypertension Uterine cancer Prostate cancer Mother Breast cancer Maternal Aunt Uterine cancer Lung cancer Family/Other Substance use disorder Sister Uterine cancer Social History Household Members: Family Housing: House Are you a primary customer care professional to a significant other at home: No Do you presently have visiting nurse or other home services: No Alcohol intake: never Patient Tobacco Use Status: Current everyday Tobacco user Tobacco use type: Cigarette Cigarette Packs Per Day: 0.5 Cigarettes Per Day: 3 Years Smoked: (onset 15, 1/2-3/4ppd x 41yrs, 25pyh) e-Cigarette/Vaping Use: Never Used Second Hand Smoke Exposure: Yes Substance Use Type: Marijuana service: No Current occupational status: disabled 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 Current occupational exposures/hazards: No Cognitive needs: No Hearing needs: Yes Vision needs: Yes Female Reproductive History Menstrual Age of Menarche: 12 Physical Exam Vital Signs: Last Vital Signs Pulse 59 11/06/23 14:18 Resp 16 11/06/23 14:18 BP 119/67 11/06/23 14:18 Pulse Ox 100 11/06/23 14:18 Oxygen Delivery Method Room Air 11/06/23 14:18 BMI result Body Mass Index 25.8 Assessment & Plan Assessment & Plan (1) History of hip surgery: Onset Date: ~1990 Comment: (Left Hip ORIF/reconstruction [jumped from 3rd story] - 1990) Code(s): Z98.890 - Other specified postprocedural states Category: Surgical (2) History of hip surgery: Onset Date: Comment: (Left Hip ORIF/reconstruction [jumped from 3rd story] - 1990) Code(s): Z98.890 - Other specified postprocedural states Category: Surgical (3) Left hip pain: Code(s): M25.552 - Pain in left hip Category: Medical (4) Sacroiliac joint pain: Code(s): M53.3 - Sacrococcygeal disorders, not elsewhere classified Category: Medical (5) Lumbosacral spondylosis: Code(s): M47.817 - Spondylosis without myelopathy or radiculopathy, lumbosacral region Category: Medical Plan Left intra-articular hip steroid injection. Informed consent was explained to the patient. All questions were explained and? answered.? The patient was taken inside the operating room where she was positioned RIGHT lateral decubitus on the operating table.? Time-out was performed delineating correct site, side, the nature of the procedure, patient's allergy, preoperative antibiotic if needed.? All operating room staff was participating in OR time-out procedure.? The patient stated her name. Non dependent LEFT hip was prepped with ChloraPrep and draped with sterile towels.? The C-arm was brought over the operating field and the picture of bilateral hip joints were obtained on the screen. The hardware in the left pelvic iliac wing was noted, there were no obvious connections in the hardware and the left hip joint.? The left hip joint was chosen as the target for the injection.? The trochanter position was noted on the screen.? The projection of the trochanter to the skin was noted, the direction of the femoral neck was noted.? The skin was anesthetized using 2% lidocaine at the trochanter area.? 22 gauge 5 in needle was inserted through the skin and advanced to the hip joint silhouette on anterior posterior view.? When needle entered the joint the injection of the contrast was performed demonstrating intra-articular spread of the contrast.? After that 5 cc of ropivacaine 0.5% mixed with 40 mg of Kenalog was injected into the area.? The needle was removed sterile dressing was applied. The patient tolerated procedure well. Orders: Orders FL guidance in treatment room 11/06/23 M25.552 - Pain in left hip Coding Level of Care Code Procedure Only Diagnoses History of hip surgery Z98.890 Left hip pain M25.552 Sacroiliac joint pain M53.3 Lumbosacral spondylosis M47.817
[2023-11-06 14:17] VITALS: BP 108/62; PULSE 61; RESP 16; O2SAT 97; BMI 25.8
[2023-11-06 14:18] VITALS: BP 119/67; PULSE 59; RESP 16; O2SAT 100; BMI 25.8
== END 2023-11-06 14:25 | disposition home or self-care (01) ==
LOC: HO.PMCPRC 13:35
PROVIDERS: PCP Physician Assistant; Visit Provider Anesthesiology
DX: M25.552 Pain in left hip (principal); Z98.890 Other specified postprocedural states; M53.3 Sacrococcygeal disorders, not elsewhere classified; M47.817 Spondylosis without myelopathy or radiculopathy, lumbosacral region
CPT/HCPCS: 20610; 77002

== ENCOUNTER 2023-11-14 12:29 | Outpatient (REF) | payer OTHER, SELFPAY ==
--- NOTE | ~2023-11-14 | MR_ITS ---
EXAMINATION: MR BRAIN WITHOUT CONTRAST CLINICAL INFORMATION: Amnesia, worsening memory deficits COMPARISON: MRI brain 09/06/2015 TECHNIQUE: MRI of the brain was obtained using routine sequences without contrast. FINDINGS: Mildly motion degraded examination, particularly the coronal T2-weighted FLAIR sequence. No acute infarct. No acute intracranial hemorrhage or extra-axial fluid collection. The ventricles and sulci are normal in size and configuration without significant volume loss or hydrocephalus. Stable nonspecific 6 mm ovoid T2 FLAIR hyperintense focus in the left juarez radiata oriented orthogonally to the left lateral ventricle. No new signal abnormality. No mass lesion, mass effect, or herniation pattern. Normal intracranial arterial and dural venous sinus flow voids. Normal appearance of the midline structures. The orbits are grossly unremarkable. The paranasal sinuses and mastoids are well aerated. Normal marrow signal. MR/MR head/brain wo con IMPRESSION: No acute intracranial abnormality. No significant parenchymal volume loss. Stable nonspecific 6 mm ovoid T2 FLAIR hyperintense focus in the left juarez radiata oriented orthogonally to the left lateral ventricle.
== END 2023-11-14 12:30 | disposition home or self-care (01) ==
LOC: HO.MRI 12:29
PROVIDERS: PCP Physician Assistant; Visit Provider Physician Assistant
DX: R41.3 Other amnesia (principal)
CPT/HCPCS: 70551

== ENCOUNTER 2023-12-06 11:36 | Outpatient (AMB) | payer OTHER, SELFPAY ==
--- NOTE | 2023-12-06 11:38 | A.OFFVIS_ITS ---
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 Escalante. Patient reports 100% ongoing left hip pain relief since procedure with significant improvement in her daily activities and functioning, mobility and better sleep. Patient denies any untoward effects status post steroidal injection. She continues to endorse pain in the left lateral aspect of iliac spine and into the wing of the ilium with 10-15 minutes of walking. Denies any groin pain today. She also reports axial low back pain which has been minimal at this time but would like to address it in the near future. Denies any recent cough, cold, infection, fever, any significant changes in her medical history, medications or recent hospitalizations. Past Procedures: 11/06/23: Left intra-articular hip steroid injection-100% ongoing pain relief PRIOR: Patient is a pleasant 58 years old with prior history of iliac wing fracture with h/o ORIF with hip reconstruction and multiple screws [place] 1989 [place], presents today to discuss treatments for left hip pain and low back pain. Denies any recent trauma, injury or falls. She is currently undergoing physical therapy for back pain which was initiated at [facility]. Reports history of back injections in 2011 and left hip cortisone injections with good results. Left lateral hip pain is reproduced with walking or weight bearing. Reports limping after walking more than 15 minutes. Patient reports groin pain with internal and external hip rotations and also mild left sacroiliac joint pain. Pain affects her daily functioning and mobility. She denies any significant pain with sitting or resting. Denies any fever, abdominal pain, weakness, foot drop, numbness, bladder or bowel dysfunction or saddle anesthesia. Location: Left hip radiates down left leg Duration: Chronic pain for many years Characteristics of symptom or complaint: Sharp, aching, shooting, stabbing, tingling, sore Aggravating or associated factors: Walking, weight bearing, movements Relieving factors: Laying down, rest, pregabalin, NSAIDs, activity modifications Treatment: Injections, PT, h/o left hip reconstruction in 1989 [facility] Medical History History of left breast cancer (~2013) HLD (hyperlipidemia) GERD (gastroesophageal reflux disease) Nicotine dependence, cigarettes, uncomplicated Osteopenia (~2015) Postmenopausal Migraine Post herpetic neuralgia (~2020) Bilateral primary osteoarthritis of knee History of suicide attempt MDD (major depressive disorder) JASSON (generalized anxiety disorder) Surgical History History of lumpectomy of left breast (~2013) History of hip surgery (~1990) History of right knee surgery (~2006) History of ventral hernia repair (~2018) History of thumb surgery (~2016) History of tubal ligation History of tonsillectomy History of colonoscopy History of esophagogastroduodenoscopy (EGD) Family History Father Diabetes Hypertension Uterine cancer Prostate cancer Mother Breast cancer Maternal Aunt Uterine cancer Lung cancer Family/Other Substance use disorder Sister Uterine cancer Social History Household Members: Family Housing: House Are you a primary child care to a significant other at home: No Do you presently have visiting nurse or other home services: No Alcohol intake: never Patient Tobacco Use Status: Current everyday Tobacco user Tobacco use type: Cigarette Cigarette Packs Per Day: 0.5 Cigarettes Per Day: 3 Years Smoked: (onset 15, 1/2-3/4ppd x 41yrs, 25pyh) e-Cigarette/Vaping Use: Never Used Second Hand Smoke Exposure: Yes Substance Use Type: Marijuana service: No Current occupational status: disabled 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 Alert and oriented. Mood and affect appropriate. Follows and participates in conversation appropriately. Respiratory effort is unlabored. No cough. Able to transition from sit to stand unassisted. Ambulates with bilaterally normal heel strike and toe off. General: Yes no CVA tenderness Back/Spine/Pelvis Other: TTP lateral aspect of iliac spine and into the wing of the ilium Back: no CVA tenderness Cervical Spine: cervical ROM normal and No Cervical spine tenderness Thoracic/Lumbar Spine: thoracic and lumbar spine normal to inspection, Lasegue's sign negative, straight leg raise negative bilaterally, pain with thoraco-lumbar ROM (+facet loading bilaterally, right>left), No thoracic spinal tenderness and lumbar spinal tenderness (L4-S1) Sacroiliac joints: bilaterally tender to palpation (right>left) Results Reviewed Results Reviewed: XR BILATERAL HIPS WITH AP PELVIS 04/26/23 CLINICAL INFORMATION: Reason for Exam M17.0 - Bilateral primary osteoarthritis of hip COMPARISON: Hip and pelvis radiographs 04/26/2020 TECHNIQUE: 2 views of each hip and one view of the pelvis. FINDINGS: No acute fracture or dislocation. Status post plate and screw fixation of the left iliac wing. No evidence of hardware fracture or complication. Mild osteoarthritis of the bilateral hips with small osteophytes. Ossific foci adjacent to the left hip and iliac bone unchanged from prior may reflect sequelae of heterotopic ossification or remote prior trauma. Sacroiliac joint spaces are maintained. Findings are overall unchanged from prior. Calcified phleboliths in the pelvis. IMPRESSION: 1. Status post plate and screw fixation of the left iliac wing. No evidence of hardware fracture or complication. 2. Mild osteoarthritis of the bilateral hips with small osteophytes. 3. Ossific foci adjacent to the left hip and iliac bone unchanged from prior may reflect sequelae of heterotopic ossification or remote prior trauma. XR LUMBOSACRAL SPINE WITH OBLIQUES 08/30/23 CLINICAL INFORMATION: Left low back pain. COMPARISON: Hip and pelvis 04/26/2023. FINDINGS: Mild levoscoliosis of the lumbar spine. Mild degenerative changes of the bilateral sacroiliac joints. Facet arthritis in the [id number] lumbar spine. Degenerative changes in the imaged lower thoracic spine. Inferior endplate concavity along the anterior aspect of the lower thoracic vertebral body. Moderate multilevel lumbar spondylosis with multilevel loss of disc space height. Redemonstration of surgical hardware incompletely imaged overlying the left iliac wing, better characterized on prior exam. IMPRESSION: 1. Moderate multilevel lumbar spondylosis with multilevel loss of disc space height. 2. Facet arthritis in the [id number] lumbar spine. Assessment & Plan Assessment & Plan (1) History of hip surgery: Onset Date: ~1990 Comment: (Left Hip ORIF/reconstruction [jumped from 3rd story] - 1990) Code(s): Z98.890 - Other specified postprocedural states Category: Surgical (2) History of hip surgery: Onset Date: ~1990 Comment: (Left Hip ORIF/reconstruction [jumped from 3rd story] - 1990) Code(s): Z98.890 - Other specified postprocedural states Category: Surgical (3) Left hip pain: Code(s): M25.552 - Pain in left hip Category: Medical (4) Sacroiliac joint pain: Code(s): M53.3 - Sacrococcygeal disorders, not elsewhere classified Category: Medical (5) Lumbosacral spondylosis: Code(s): M47.817 - Spondylosis without myelopathy or radiculopathy, lumbosacral region Category: Medical Plan Patient is one month status post left intra-articular steroid hip injection with 100% pain relief in the lateral left hip and groin with improvement in her ADLs, functioning, sleep and social interactions. She will inform our office when her pain returns to baseline. Patient continues to endorse mild TTP and aching pain with ambulation in the left ilium wing and projection of hardware. Most recent hip imaging showed no evidence of hardware fracture or complication. We also reviewed interventional treatments for axial low back pain. Patient is currently in physical therapy for lower back pain and will start PT for left hip subsequently. She would like to address low back pain after PT. All questions were answered and the patient is in agreement of plan. Follow-up as needed. Coding Level of Care Code Est Pt Level 3 (47249) Diagnoses History of hip surgery Z98.890 Left hip pain M25.552 Sacroiliac joint pain M53.3 Lumbosacral spondylosis M47.817
[2023-12-06 11:42] VITALS: BP 134/75; PULSE 69; O2SAT 100; BMI 25.8
== END 2023-12-06 12:00 | disposition home or self-care (01) ==
PROVIDERS: PCP Physician Assistant; Visit Provider Nurse Practitioner Family
DX: Z98.890 Other specified postprocedural states (principal); M25.552 Pain in left hip; M53.3 Sacrococcygeal disorders, not elsewhere classified; M47.817 Spondylosis without myelopathy or radiculopathy, lumbosacral region
CPT/HCPCS: 99213

== ENCOUNTER → 2023-12-06 11:36 | Outpatient (BNVA) | payer OTHER, SELFPAY | PROVIDERS: PCP Physician Assistant; Visit Provider Nurse Practitioner Family | DX: M25.552 Pain in left hip (principal); M53.3 Sacrococcygeal disorders, not elsewhere classified; M47.817 Spondylosis without myelopathy or radiculopathy, lumbosacral region; Z98.890 Other specified postprocedural states | CPT/HCPCS: 99212 ==

== ENCOUNTER 2024-01-08 10:02 | Outpatient (AMB) | payer OTHER, SELFPAY ==
--- NOTE | 2024-01-08 10:15 | MHC.PC.OV ---
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 Accompanied by: Grand Child Allergies nicotine lozenges Adverse Reaction (Mild, Uncoded 01/08/24 10:46) hiccups Medication List - Last Reconciled 01/08/24 by Patel Rdz PA-C acetaminophen (Tylenol) 650 mg (2 x 325 mg) PO Q6H PRN albuterol sulfate 90 mcg/actuation 1 inh inhalation QID 30 days aspirin (Adult Aspirin Regimen) 81 mg PO DAILY atorvastatin 80 mg PO DAILY betamethasone dipropionate 0.05% 1 appl topical DAILY PRN 30 days cholecalciferol (vitamin D3) 50 mcg PO DAILY 90 days hydrocortisone 1% (Anti-Itch (hydrocortisone)) 1 appl topical TID PRN 90 days ibuprofen 600 mg PO TID PRN lorazepam 1 mg PO BID-TID 30 days meclizine 25 mg PO TID 30 days omeprazole 20 mg PO DAILY pregabalin 50 mg PO BID quetiapine (Seroquel) 100 mg PO DAILY 90 days Tobacco use date assessed: 08/13/23 Dental Screening Dental Screen Date: 08/13/23 HPI Rsch from 01/29/24 /[facility] HPI Details Patient is a 58-year-old female here today for an annual physical.? Patient has a past medical history significant generalized anxiety disorder , hyperlipidemia , major depressive disorder GERD. Concerns--> patient reports getting COVID a few weeks ago when does long-term side effects from the infection. She reports 1 of the side effects his right upper trapezius/shoulder blade pain that becomes severe at times especially while lying down in bed.. She denies any acute trauma to her right shoulder. Also Reports having intermittent episodes of nausea and vomiting. She reports the abdominal pain is generalized. She does report some left lower quadrant abdominal pain. She has had endoscopy/colonoscopy in 2016 which were normal. She continues to use omeprazole on a daily basis She is interested in getting another endoscopy and colonoscopy and will reach out to her mine car mechanic. . Memory impairment: Has undergone a brain MRI without any significant intracranial pathology. We did discuss possibility of her memory issues being secondary to medications as he takes his Lyrica and chronic use lorazepam daily. .. Anxiety : She reports she has been under lot of stress due to family issues, having difficulty with sleep, currently taking care of her father whom has dementia. A son who gets caught up with drugs. She is very protestant woman and prays a lot. She continues with the use of lorazepam t.i.d. p.r.n. and Lexapro.? She continues to decline my offers to his be referred to mental health therapy. .. Smoker:? Unfortunately continues to smoke though much less. Reports having a few cigarettes per week.. She reports she continues to smoke and has been smoking a little bit more due to her increased anxiety.? She has been on Wellbutrin though has not seemed to help her quit smoking. Has tried nicotine lozenges though gave her hiccups. Of note was found to have emphysema and informed patient of this.? . .. Hyperlipidemia:? Most recent fasting lipid panel showing much improved total cholesterol and LDL. We have recently increased her statin potency and will recheck lipid panel in the next 4 months. [facility] Medical History History of left breast cancer (~2013) HLD (hyperlipidemia) GERD (gastroesophageal reflux disease) Nicotine dependence, cigarettes, uncomplicated Osteopenia (~2015) Postmenopausal Migraine Post herpetic neuralgia (~2020) Bilateral primary osteoarthritis of knee History of suicide attempt MDD (major depressive disorder) JASSON (generalized anxiety disorder) Surgical History History of lumpectomy of left breast (~2013) History of hip surgery (~1990) History of right knee surgery (~2006) History of ventral hernia repair (~2018) History of thumb surgery (~2016) History of tubal ligation History of tonsillectomy History of colonoscopy History of esophagogastroduodenoscopy (EGD) Family History Father Diabetes Hypertension Uterine cancer Prostate cancer Mother Breast cancer Maternal Aunt Uterine cancer Lung cancer Family/Other Substance use disorder Sister Uterine cancer Social History Household Members: Family Housing: House Are you a primary dog daycare provider to a significant other at home: No Do you presently have visiting nurse or other home services: No Alcohol intake: never Patient Tobacco Use Status: Current everyday Tobacco user Tobacco use type: Cigarette Cigarette Packs Per Day: 0.5 Cigarettes Per Day: 3 Years Smoked: (onset 15, 1/2-3/4ppd x 41yrs, 25pyh) Packs Per Year: 0 Packs per year/per ci.00 e-Cigarette/Vaping Use: Never Used Second Hand Smoke Exposure: Yes Substance Use Type: Marijuana service: No Current occupational status: disabled 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 Vickey Catalan, Gina Dawson, Henrique Curran and colleagues, with an educational shiv from [employer]. Review of Systems Const Denies headache(s) Eyes Denies loss of vision ENT Denies vertigo, Denies dizziness, Denies headache(s) and Denies sore throat Card Denies chest pain, Denies leg edema and Denies lightheadedness Resp Denies cough, Denies hemoptysis and Denies wheezing GI Denies abdominal pain, Denies melena, Denies constipation, Denies diarrhea and Denies vomiting Denies urinary frequency, Denies dysuria and Denies urinary urgency Musc Denies arthralgias, Denies joint swelling, Denies numbness and Denies tingling Neuro Denies Abnormal speech present, Denies behavioral changes, Denies vertigo, Denies dizziness, Denies headache(s), Denies loss of vision, Denies memory loss, Denies numbness and Denies tingling Psych Denies anxiety, Denies behavioral changes, Denies depression, Denies memory loss and Denies panic attacks Angel/Lymph Denies easy bleeding and Denies easy bruising Aller/Immun Denies wheezing Physical exam (Primary Care) Vital Signs: Last Vital Signs Pulse 80 01/08/24 10:31 BP 118/70 01/08/24 10:31 Pulse Ox 97 01/08/24 10:31 Oxygen Delivery Method Room Air 01/08/24 10:31 BMI result Body Mass Index 24.7 Tobacco/Smoking Status: Tobacco use Status Tobacco use date assessed 08/13/23 01/08/24 10:15 Patient Tobacco Use Status Current everyday Tobacco 01/08/24 10:15 Tobacco use type Cigarette 01/08/24 10:15 e-Cigarette/Vaping Use Never Used 01/08/24 10:15 Thrive Assessment: Date of Thrive Assessment Date Thrive assessed 08/13/23 01/08/24 10:15 Const General: healthy appearing, no acute distress, alert and awake Nutritional Appearance: well nourished Orientation/consciousness: oriented to person, oriented to place and oriented to time HENMT Ears: TM's normal bilaterally General nose exam: Normal nasal mucous membranes and turbinates present Eyes Conjunctivae: conjunctivae normal Sclerae: sclerae normal Pupils: Equal, round and reactive pupils present Neck Neck: Yes no lymphadenopathy and Yes no JVD Thyroid: Thyroid normal Carotids: no bruits Resp Effort & Inspection: normal respiratory effort and not tachypneic Auscultation: no crackles, no rales, no rhonchi and no wheezes Cardio Rate: regular rate Rhythm: regular rhythm Heart sounds: no murmurs and normal S1 and S2 GI Palpation (GI): Soft to palpation, nontender, no hepatomegaly and no splenomegaly Auscultation: normal bowel sounds Skin General skin exam: no rashes or lesions noted and dry skin Neuro General: oriented to person, oriented to place and oriented to time Cranial nerves: Yes Equal, round and reactive pupils present Speech: No Abnormal speech present Gait exam (Neuro): Normal gait present Motor exam (neuro): no tremor noted Extrem Right upper extremity: full ROM Left upper extremity: full ROM Right lower extremity: full ROM; no edema Left lower extremity: full ROM; no edema Psych Mental Status: mental status grossly normal Speech and movement: Normal speech and movement present Affect: normal affect Attitude: cooperative Thought process: Normal thought process present Assessment and Plan Assessment & Plan (1) Pain of right scapula: Code(s): M89.8X1 - Other specified disorders of bone, shoulder Plan: Patient reports a few week history of right trapezius/shoulder blade pain since she has had COVID. Will send for x-ray of the area. Will supply patient with lidocaine patch and short-term script the pain medication as she reports the pain is severe at times. (2) Tobacco dependency: Code(s): F17.200 - Nicotine dependence, unspecified, uncomplicated Plan: Patient does understand she needs to quit smoking , she has smoking a lot less. . Has tried nicotine lozenges and Wellbutrin though were not effective in gave her side effects. She did have recent CT chest without with 2 mm right nodules. Will continue yearly follow-up (3) JASSON (generalized anxiety disorder): Code(s): F41.1 - Generalized anxiety disorder Plan: Continues to suffer with increase anxiety due to family issues, taking care for father whom has dementia. She uses lorazepam on a daily basis. She is not interested in starting any SSRI therapy at this time. Offered cognitive behavioral therapy though she declines at this time. She is a protestant woman and would like to work on getting closer to God. (4) HLD (hyperlipidemia): Code(s): E78.5 - Hyperlipidemia, unspecified Qualifiers: Hyperlipidemia type: pure hypercholesterolemia Qualified Code(s): E78.00 - Pure hypercholesterolemia, unspecified Plan: She continues on high potency statin. Most recent lipid panel much improved. Will continue high potency statin at this time. Goal LDL to remain below 130 (5) Memory impairment: Code(s): R41.3 - Other amnesia Plan: Recent MRI brain without any acute abnormalities. Of note she does take benzodiazepines on a daily basis though feels it is not due to this as a side effect (6) SOB (shortness of breath): Code(s): R06.02 - Shortness of breath Plan: Will send for chest x-ray Orders: Orders XR scapula RT Today M89.8X1 - Other specified disorders of bone, shoulder XR chest 2V Today R06.02 - Shortness of breath Medications: New oxycodone Partial Fill upon patient request. 5 mg PO BID PRN 6 tabs 0RF pain 3 days M89.8X1 - Other specified disorders of bone, shoulder lidocaine 5% leave on most painful area for up to 12 hrs 1 patch topical DAILY 30 ea 0RF 30 days M89.8X1 - Other specified disorders of bone, shoulder Coding Level of Care Code Est Pt Level 4 (30432) Diagnoses Pain of right scapula M89.8X1 Tobacco dependency F17.200 JASSON (generalized anxiety disorder) F41.1 Pure hypercholesterolemia E78.00 Hyperlipidemia type: pure hypercholesterolemia Memory impairment R41.3 SOB (shortness of breath) R06.02
[2024-01-08 10:31] VITALS: BP 118/70; PULSE 80; O2SAT 97; BMI 24.7
== END 2024-01-08 11:07 | disposition home or self-care (01) ==
PROVIDERS: PCP Physician Assistant; Visit Provider Physician Assistant
DX: M89.8X1 Other specified disorders of bone, shoulder (principal); F17.200 Nicotine dependence, unspecified, uncomplicated; F41.1 Generalized anxiety disorder; E78.00 Pure hypercholesterolemia, unspecified; R41.3 Other amnesia; R06.02 Shortness of breath
CPT/HCPCS: 99214

== ENCOUNTER 2024-01-08 15:56 | Outpatient (REF) | payer OTHER, SELFPAY ==
--- NOTE | ~2024-01-08 | XR_ITS ---
EXAMINATION: XR SCAPULA, RIGHT CLINICAL INFORMATION: Pain in the right shoulder times multiple days. COMPARISON: None available. TECHNIQUE: AP and scapular Y views of the right scapula. FINDINGS: Scapula is intact. No fractures. Alignment is normal. There is mild acromioclavicular osteoarthritis. Soft tissues are normal. Glenohumeral joint is unremarkable. XR/XR scapula RT IMPRESSION: No acute fracture or malalignment. Mild acromioclavicular osteoarthritis. Electronically signed by: Jose Franks MD 01/22/2024 06:28 PM EDT
--- NOTE | ~2024-01-08 | XR_ITS ---
EXAMINATION: XR CHEST, 2 VIEWS CLINICAL INFORMATION: Shortness of breath. COMPARISON: 06/16/2018 TECHNIQUE: PA and lateral views of the chest were obtained. FINDINGS: Patchy opacities are present in the left lower lobe, favored to correspond to atelectasis. No pneumothorax or pleural effusion. Cardiac and mediastinal contours are normal. Pulmonary vasculature is unremarkable. Bones are osteopenic. Degenerative disc disease in the thoracolumbar spine. XR/XR chest 2V IMPRESSION: Patchy left lower lobe opacities, favored to correspond to atelectasis. Aspiration or early pneumonia are also possible. Electronically signed by: Jose Franks MD 01/22/2024 06:27 PM EDT RP
== END 2024-01-08 15:57 | disposition home or self-care (01) ==
LOC: HO.XRAY 15:56
PROVIDERS: PCP Physician Assistant; Visit Provider Physician Assistant
DX: R06.02 Shortness of breath (principal); M89.8X1 Other specified disorders of bone, shoulder
CPT/HCPCS: 71046; 73010

== ENCOUNTER 2024-01-10 08:51 | Outpatient (REF) | payer OTHER, SELFPAY ==
[2024-01-10 09:19] LABS: Hematocrit 37.1 % (37.0-47.0); Hemoglobin 12.2 g/dl (12.0-16.0); Mean Corpuscular HGB Conc 32.9 g/dl (31.0-35.0); Mean Corpuscular Hemoglobin 29.5 pg (27.0-33.0); Mean Corpuscular Volume 89.6 fL (80.0-98.0); Mean Platelet Volume 9.9 fL (9.4-12.3); Platelet Count 330 X10*3/uL (160-400); Red Blood Count 4.14 X10*6/uL (4.20-5.50); Red Cell Distribution Width 13.7 % (11.0-16.0); White Blood Count 5.4 X10*3/uL (4.8-10.8)
[2024-01-10 09:49] LABS: Alanine Aminotransferase 9 U/L (0-31); Albumin Level 4.4 g/dL (3.5-5.0); Alkaline Phosphatase 66 U/L (39-117); Anion Gap 11 (12-20); Aspartate Amino Transferase 13 U/L (5-31); Bilirubin Total 0.5 mg/dL (0.0-1.0); Blood Urea Nitrogen 13 mg/dL (9-16); Carbon Dioxide 28 mmol/L (22-29); Chloride 105 mmol/L (96-108); Cholesterol 280 mg/dL (<200); Estimated Glomerular Filt Rate > 60; Glucose Fasting 92 mg/dL (60-99); HDL Cholesterol 43 mg/dL (>40); LDL Cholesterol Calculated 212 mg/dL (<100); Potassium 4.4 mmol/L (3.3-5.1); Sodium 140 mmol/L (135-145); Total Protein 7.3 g/dL (6.5-8.0); Triglycerides 129 mg/dL (<150)
== END 2024-01-10 08:52 | disposition home or self-care (01) ==
LOC: HO.LAB 08:51
PROVIDERS: PCP Physician Assistant; Visit Provider Physician Assistant
DX: E78.00 Pure hypercholesterolemia, unspecified (principal)
CPT/HCPCS: 36415; 80053; 80061; 85027

== ENCOUNTER 2024-01-29 10:48 | Outpatient (REF) | payer OTHER, SELFPAY ==
--- NOTE | ~2024-01-29 | CT_ITS ---
EXAMINATION: CT LOW-DOSE SCREENING CHEST WITHOUT CONTRAST CLINICAL INFORMATION: Nicotine dependence, cigarettes, uncomplicated. The patient is a current smoker with a 43 pack-year history of smoking. COMPARISON: Multiple prior CT scans of the chest, the most recent of which is dated 01/26/2023 and the most remote of which is dated 02/07/2015. TECHNIQUE: Multidetector volumetric CT imaging of the chest is performed on a Siemens SOMATOM Definition scanner without contrast using low dose technique. Additional 2D coronal and sagittal reformatted images and axial 3D maximum intensity projection (MIP) images are generated on the CT workstation. This CT examination was performed using dose optimization techniques as appropriate, variously including the following: *Automated exposure control *Adjustment of mA and/or kV according to patient size (this includes techniques or standardized protocols for targeted exams where dose is matched to indication/reason for exam; i.e. extremities or head) *Use of iterative reconstruction technique TOTAL EXAM DLP: 42 mGy-cm. CTDIvol: 1.37 mGy. FINDINGS: PULMONARY NODULES: No suspicious pulmonary nodules.The right upper lobe medial 2 mm nodule is a calcified granuloma (5:155). LUNGS: Lungs bilaterally symmetrically expanded. Mild emphysematous changes are present along with bronchial thickening. No effusion or pneumothorax. Central airways patent. MEDIASTINUM: No mediastinal, hilar or axillary adenopathy or free fluid collection. CORONARY ARTERY CALCIFICATION: None visualized on this study. THYROID GLAND: Unremarkable to the extent seen. CARDIOVASCULAR STRUCTURES: Aortic and heart size normal. No pericardial effusion. CHEST WALL/AXILLA: Unremarkable. UPPER ABDOMEN: Included portions of the solid organs in the upper abdomen unremarkable on noncontrast imaging. OSSEOUS STRUCTURES: No suspicious focal findings. CT/CT lung screening IMPRESSION: No findings seen to suggest malignancy. ASSESSMENT: 1. Lung-RADS Category 1: Negative. There are no nodules or there are definitely benign nodules. N/A 2. Lung-RADS Category S: Negative. There are no clinically significant or potentially clinically significant findings not related to the lungs requiring urgent additional evaluation. RECOMMENDATION: Continued routine annual low-dose CT lung screening in 1 year is recommended. An order for CT CHEST LOW DOSE CANCER SCREENING ([id number]) can be placed. Electronically signed by: Gabo Ureña MD 03/15/2024 07:12 PM JANU[facility] ROLLINS
== END 2024-01-29 10:49 | disposition home or self-care (01) ==
LOC: HO.CT 10:48
PROVIDERS: PCP Physician Assistant; Visit Provider Physician Assistant Medical
DX: Z12.2 Encounter for screening for malignant neoplasm of respiratory organs (principal); F17.210 Nicotine dependence, cigarettes, uncomplicated
CPT/HCPCS: 71271

== ENCOUNTER 2024-02-01 11:33 | Outpatient (AMB) | payer OTHER, SELFPAY ==
--- NOTE | 2024-02-01 11:35 | MHC.OFFVIS ---
Vital Signs 02/01/24 11:41 Height 5 ft 6 in Weight 159 lb 4 oz BMI 25.7 BP 133/65 Blood Pressure Location Lt brachial Pulse 72 Intake Visit Reasons: yearly breast exam Intake Note: Patient is seen in office for yearly breast exam. 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: No Allergies nicotine lozenges Adverse Reaction (Mild, Uncoded 02/01/24 11:40) hiccups Medication List - Last Reconciled 02/01/24 by Dane Vila MD acetaminophen (Tylenol) 650 mg (2 x 325 mg) PO Q6H PRN albuterol sulfate 90 mcg/actuation 1 inh inhalation QID 30 days amoxicillin-pot clavulanate 875-125 mg 1 tab PO BID 7 days aspirin (Adult Aspirin Regimen) 81 mg PO DAILY atorvastatin 80 mg PO DAILY betamethasone dipropionate 0.05% 1 appl topical DAILY PRN 30 days cholecalciferol (vitamin D3) 50 mcg PO DAILY 90 days hydrocortisone 1% (Anti-Itch (hydrocortisone)) 1 appl topical TID PRN 90 days ibuprofen 600 mg PO TID PRN lidocaine 5% 1 patch topical DAILY 30 days lorazepam 1 mg PO BID-TID 30 days meclizine 25 mg PO TID 30 days omeprazole 20 mg PO DAILY oxycodone 5 mg PO BID PRN 3 days pregabalin 50 mg PO BID quetiapine (Seroquel) 100 mg PO DAILY 90 days HPI Comments Details: 58-year-old female patient, former patient of Dr. Wheatley and Dr. Stahl, returning for follow-up breast cancer examination. She underwent left breast lumpectomy with axillary sentinel node biopsy on 12/17/2013 for a 1.5 cm poorly differentiated infiltrating ductal carcinoma, ER/NM negative, HER2 Onel negative. [place] nodes were negative for metastatic disease. BRCA testing was negative for mutations and updated my risk genetic testing performed in September 2018 revealed no deleterious mutations. 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 She was evaluated by Dr. Arechiga and started on chemotherapy on 05/04/2014. She completed radiation therapy by 07/10/2014. Her most recent mammogram dated 07/10/2023 revealed no mammographic evidence of malignancy (BI-RADS 2). Routine annual screening mammography is recommended. She generally feels well and denies any new breast symptoms on either side. [facility] Medical History History of left breast cancer (~2013) HLD (hyperlipidemia) GERD (gastroesophageal reflux disease) Nicotine dependence, cigarettes, uncomplicated Osteopenia (~2015) Postmenopausal Migraine Post herpetic neuralgia (~2020) Bilateral primary osteoarthritis of knee History of suicide attempt MDD (major depressive disorder) JASSON (generalized anxiety disorder) Surgical History History of lumpectomy of left breast (~2013) History of hip surgery (~1990) History of right knee surgery (~2006) History of ventral hernia repair (~2018) History of thumb surgery (~2016) History of tubal ligation History of tonsillectomy History of colonoscopy History of esophagogastroduodenoscopy (EGD) Family History Father Diabetes Hypertension Uterine cancer Prostate cancer Mother Breast cancer Maternal Aunt Uterine cancer Lung cancer Family/Other Substance use disorder Sister Uterine cancer Social History Household Members: Family Housing: House Are you a primary child care associate teacher to a significant other at home: No Do you presently have visiting nurse or other home services: No Alcohol intake: never Patient Tobacco Use Status: Current everyday Tobacco user Tobacco use type: Cigarette Cigarette Packs Per Day: 0.5 Cigarettes Per Day: 3 Years Smoked: (onset 15, 1/2-3/4ppd x 41yrs, 25pyh) e-Cigarette/Vaping Use: Never Used Second Hand Smoke Exposure: Yes Substance Use Type: Marijuana service: No Current occupational status: disabled 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 Denies dizziness and Reports headache(s) Card Denies chest pain, Denies rapid heart rate, Denies palpitations and Denies slow heart rate Resp Denies chest congestion, Denies cough, Denies pain on inspiration and Denies wheezing GI Denies abdominal pain, Denies nausea and Denies vomiting Denies nipple discharge Musc Denies back pain, Denies arthralgias, Denies joint swelling and Denies numbness Skin/Breast Denies breast swelling, Denies breast skin changes, Denies breast pain, Denies breast mass, Denies change in breast shape, Denies change in pigmentation, Denies nipple discharge, Denies erythema and Denies rash Neuro Denies dizziness, Reports headache(s) and Denies numbness Psych Denies anxiety and Denies depression Endo Denies palpitations Angel/Lymph Denies easy bleeding, Denies easy bruising and Denies lymphadenopathy Aller/Immun Denies wheezing Physical Exam Neuro Other: Mobility Assessment: 1. 3 meter assessment time (seconds) 6 2. Gait observations: Normal balance and gait Assessment & Plan Assessment & Plan (1) Breast cancer of lower-inner quadrant of left female breast: Onset Date: ~2013 Comment: (Invasive Ductal Carcinoma -stage pT1cN0, ER/NM & HER-2 neg - dx 2014 - s/p lumpectomy, chemo & radiation) Code(s): C50.312 - Malignant neoplasm of lower-inner quadrant of left female breast Category: Medical Qualifiers: Estrogen receptor status: unspecified Qualified Code(s): C50.312 - Malignant neoplasm of lower-inner quadrant of left female breast Plan: 58-year-old female patient returning for a follow-up breast examination after left breast lumpectomy and sentinel node biopsy for invasive ductal carcinoma diagnosed in 2013. Examination today reveals no suspicious findings in either breast with no evidence of recurrent disease.. Her last mammogram of 07/10/2023 revealed no mammographic evidence of malignancy (BI-RADS 2). Annual screening is recommended. Patient was given the option of continued annual follow-up verses follow-up p.r.n.. She will follow-up as needed and is encouraged to call for any new concerns. Coding Level of Care Code Est Pt Level 3 (75748) Complex EM visit Add On G2211 Diagnoses Malignant neoplasm of lower-inner quadrant of left female breast, unspecified estrogen receptor status C50.312 Estrogen receptor status: unspecified
[2024-02-01 11:41] VITALS: BP 133/65; PULSE 72; BMI 25.7
== END 2024-02-01 11:51 | disposition home or self-care (01) ==
PROVIDERS: PCP Physician Assistant; Visit Provider Surgery
DX: C50.312 Malignant neoplasm of lower-inner quadrant of left female breast (principal)
CPT/HCPCS: 99213; G2211

== ENCOUNTER → 2024-02-01 11:33 | Outpatient (BNVA) | payer OTHER, SELFPAY | PROVIDERS: PCP Physician Assistant; Visit Provider Surgery | DX: C50.312 Malignant neoplasm of lower-inner quadrant of left female breast (principal) | CPT/HCPCS: 99212 ==

== ENCOUNTER 2024-02-21 14:27 | Outpatient (AMB) | payer OTHER, SELFPAY ==
[2024-02-21 14:28] VITALS: BMI 25.7
--- NOTE | 2024-02-21 14:28 | A.OFFVIS_ITS ---
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 Pt states both legs are equal. Pt states veins are itchy and sometimes cause pain. Worse when on her feet all day. Accompanied by: Self / Same As Patient Allergies nicotine lozenges Adverse Reaction (Mild, Uncoded 02/21/24 14:33) hiccups HPI HPI VV of BLE: Details: Very pleasant 59-year-old female patient presents for painful varicose veins. Complaints include pain over varicosities, swelling of lower extremities, cramping, fatigue, and heaviness of the lower extremities. 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 It is noted more so in right leg. Patient denies any previous venous surgery or injections. Patient denies any history of DVT/ PE. Patient denies any history of phlebitis. Trial of compression includes - [id number] They now present for vascular evaluation regarding their varicose veins. [facility] Medical History History of left breast cancer (~2013) HLD (hyperlipidemia) GERD (gastroesophageal reflux disease) Nicotine dependence, cigarettes, uncomplicated Osteopenia (~2015) Postmenopausal Migraine Post herpetic neuralgia (~2020) Bilateral primary osteoarthritis of knee History of suicide attempt MDD (major depressive disorder) JASSON (generalized anxiety disorder) Surgical History History of lumpectomy of left breast (~2013) History of hip surgery (~1990) History of right knee surgery (~2006) History of ventral hernia repair (~2018) History of thumb surgery (~2016) History of tubal ligation History of tonsillectomy History of colonoscopy History of esophagogastroduodenoscopy (EGD) Family History Father Diabetes Hypertension Uterine cancer Prostate cancer Mother Breast cancer Maternal Aunt Uterine cancer Lung cancer Family/Other Substance use disorder Sister Uterine cancer Social History Household Members: Family Housing: House Are you a primary resident care manager to a significant other at home: No Do you presently have visiting nurse or other home services: No Alcohol intake: never Patient Tobacco Use Status: Current everyday Tobacco user Tobacco use type: Cigarette Cigarette Packs Per Day: 0.5 Cigarettes Per Day: 3 Years Smoked: (onset 15, 1/2-3/4ppd x 41yrs, 25pyh) e-Cigarette/Vaping Use: Never Used Second Hand Smoke Exposure: Yes Substance Use Type: Marijuana service: No Current occupational status: disabled 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 Current occupational exposures/hazards: No Cognitive needs: No Hearing needs: Yes Vision needs: Yes Female Reproductive History Menstrual Age of Menarche: 12 Review of Systems Const Reports as per HPI ENT Reports no additional complaints Card Denies chest pain, Denies chest pain at rest and Denies chest pain with activity Resp Denies chest congestion and Denies cough GI Reports no additional complaints Musc Details: pain over varicosities, aching of lower extremities, swelling, cramping, heaviness and tiredness, itching Denies abnormal gait Skin/Breast Reports pruritus and Denies wounds Neuro Reports no additional complaints and Denies abnormal gait Psych Denies no additional complaints Physical Exam Vital Signs: BMI result Body Mass Index 25.7 Const General: cooperative, healthy appearing and comfortable Orientation/consciousness: oriented to person, oriented to place and oriented to time Neck Carotids: no bruits Chest Chest palpation & inspection: normal inspection of the chest and normal palpation of entire chest wall Resp Effort & Inspection: normal respiratory effort and able to speak in complete sentences Cardio Rate: regular rate Heart sounds: S1 normal heart sound present and S2 normal heart sound present Peripheral pulses: Peripheral pulses 2+ throughout GI Inspection: Yes normal to inspection Skin Other: +2 edema, multiple spider telangiectasias CEAP Classification C3 - edema Ep - Etiology Primary As - superficial veins P - reflux General skin exam: dry skin Neuro General: oriented to person, oriented to place and oriented to time Extrem Right lower extremity: full ROM, normal capillary refill and edema Left lower extremity: full ROM, normal capillary refill and edema Psych Mental Status: mental status grossly normal Assessment & Plan Assessment & Plan (1) Varicose veins of right lower extremity with inflammation: Code(s): I83.11 - Varicose veins of right lower extremity with inflammation Category: Medical Plan: In short, the patient has evidence of venous insufficiency. I have discussed the pathophysiology with the patient. In addition I have provided information al material regarding venous disease to the patient. We have discussed conservative measures including compression, elevation, and exercise. I have also provided a handout regarding appropriate use of compression stockings and where to purchase good compression stockings as well. I have taken the liberty of ordering venous insufficiency testing with the patient. They will follow up with me after testing. The patient had an opportunity to ask questions regarding the treatment plan. All questions were answered. Imaging studies, laboratory studies and physical exam results were discussed and reviewed in detail. No major barriers to understanding were identified. The patient expressed understanding and agreement with the above treatment plan. The patient is aware they should contact our office by phone for worsening of the current condition or the appearance of new symptoms. Thank you for allowing me to participate in the vascular care of this patient. If you have any questions or concerns regarding the treatment for the above condition please do not hesitate to contact me. The office telephone contact is [phone]. This note is constructed using voice recognition software. While every effort has been made to ensure accuracy, international recruiter errors may have been included. Thank you for allowing me to participate in the care of your patient. Yours sincerely, Marvin Hunter MD, FACS, R.P.V.I. Orders: Orders US venous duplex LE BI 1 Week I83.11 - Varicose veins of right lower extremity with inflammation Coding Level of Care Code New Pt Level 4 (03259) Diagnoses Varicose veins of right lower extremity with inflammation I83.11
== END 2024-02-21 14:56 | disposition home or self-care (01) ==
PROVIDERS: PCP Physician Assistant; Visit Provider Surgery Vascular Surgery
DX: I83.11 Varicose veins of right lower extremity with inflammation (principal)
CPT/HCPCS: 99204

== ENCOUNTER → 2024-02-21 14:27 | Outpatient (BNVA) | payer OTHER, SELFPAY | PROVIDERS: PCP Physician Assistant; Visit Provider Surgery Vascular Surgery | DX: I83.11 Varicose veins of right lower extremity with inflammation (principal); I83.811 Varicose veins of right lower extremity with pain; F17.210 Nicotine dependence, cigarettes, uncomplicated | CPT/HCPCS: 99202 ==

== ENCOUNTER 2024-03-05 13:03 | Outpatient (REF) | payer OTHER, SELFPAY ==
--- NOTE | ~2024-03-05 | US_ITS ---
EXAMINATION: US LOWER EXTREMITY VENOUS (REFLUX EXAM), BILATERAL CLINICAL INDICATION: Chronic venous insufficiency with lower extremity varicose veins with inflammation COMPARISON: None. TECHNIQUE: Color flow triplex imaging and compression Doppler was performed to evaluate both the deep and the superficial systems bilaterally. To evaluate the superficial system, the examination was performed in the upright position. Color-flow Doppler ultrasound and compression ultrasound were utilized. In addition, maneuvers were utilized to demonstrate reflux. FINDINGS: 1. DEEP VENOUS ULTRASOUND OF THE RIGHT LOWER EXTREMITY: Common Femoral Vein: Compressible, normal respiratory variation and augmented flow. Femoral Vein: Compressible, normal color flow and augmentation. Popliteal Vein: Compressible, normal augmentation. Deep Reflux: There is no evidence of reflux in the deep system in either the common femoral vein, superficial femoral or the popliteal vein. There is no evidence of a Hancock's cyst. 2. SUPERFICIAL ULTRASOUND WITH DOPPLER OF RIGHT LOWER EXTREMITY: GREAT SAPHENOUS VEIN: Saphenofemoral Junction: 0.8 cm; Reflux: 0 ms Proximal Thigh: 0.4 cm; Reflux: 0 ms Mid Thigh: 0.3 cm; Reflux: 0 ms Above Knee: 0.2 cm; Reflux: 0 ms At Knee: 0.2 cm; Reflux: 0 ms Below Knee: 0.2 cm; Reflux: 0 ms Mid Calf: 0.2 cm; Reflux: 0 ms Ankle: 0.2 cm; Reflux: 0 ms DUPLICATED MEDIAL GREAT SAPHENOUS VEIN: Diameter: 0.3 cm Reflux: None DUPLICATED LATERAL GREAT SAPHENOUS VEIN: Diameter: None imaged Reflux: NA SMALL SAPHENOUS VEIN: Saphenopopliteal Junction: 0.2 cm; Reflux: 0 ms Mid: 0.1 cm; Reflux: 1632 ms Distal: 0.1 cm; Reflux: 0 ms VEIN OF GIACOMINI: Size: NA Reflux: NA PERFORATORS: Location: None imaged Size: NA Reflux: NA VARICOSITIES: Location: None imaged Size: NA Reflux: NA 3. DEEP VENOUS ULTRASOUND OF THE LEFT LOWER EXTREMITY: Common Femoral Vein: Compressible, normal respiratory variation and augmented flow. Femoral Vein: Compressible, normal color flow and augmentation. Popliteal Vein: Compressible, normal augmentation. Deep Reflux: There is no evidence of reflux in the deep system in either the common femoral vein, superficial femoral or the popliteal vein. There is no evidence of a Hancock's cyst. 4. SUPERFICIAL ULTRASOUND WITH DOPPLER OF LEFT LOWER EXTREMITY: GREAT SAPHENOUS VEIN: Saphenofemoral Junction: 0.7 cm; Reflux: 0 ms Proximal Thigh: 0.5 cm; Reflux: 0 ms Mid Thigh: 0.2 cm; Reflux: 0 ms Above Knee: 0.2 cm; Reflux: 0 ms At Knee: 0.2 cm; Reflux: 0 ms Below Knee: 0.3 cm; Reflux: 0 ms Mid Calf: 0.1 cm; Reflux: 0 ms Ankle: 0.1 cm; Reflux: 0 ms DUPLICATED MEDIAL GREAT SAPHENOUS VEIN: Diameter: None imaged Reflux: NA DUPLICATED LATERAL GREAT SAPHENOUS VEIN: Diameter: 0.2 cm Reflux: None SMALL SAPHENOUS VEIN: Saphenopopliteal Junction: 0.4 cm; Reflux: 0 ms Mid: 0.1 cm; Reflux: 0 ms Distal: 0.1 cm; Reflux: 0 ms VEIN OF GIACOMINI: Size: NA Reflux: NA PERFORATORS: Location: None imaged Size: NA Reflux: NA VARICOSITIES: Location: None Imaged Size: NA Reflux: NA US/US venous duplex LE BI IMPRESSION: 1. Right: No significant venous insufficiency or reflux in the great saphenous vein. Focal reflux in the mid small saphenous vein. 2. Left: No significant venous insufficiency or reflux in the great saphenous vein. Electronically signed by: Salvador Lino MD 03/31/2024 02:44 PM [facility]
== END 2024-03-05 13:04 | disposition home or self-care (01) ==
LOC: HO.US 13:03
PROVIDERS: PCP Physician Assistant; Visit Provider Surgery Vascular Surgery
DX: I83.11 Varicose veins of right lower extremity with inflammation (principal)
CPT/HCPCS: 93970

== ENCOUNTER 2024-03-21 17:55 | Emergency (ER) | payer OTHER, SELFPAY ==
[2024-03-21 18:27] VITALS: BP 104/53; PULSE 66; RESP 16; TEMP 36.4; O2SAT 98; BMI 26.8
--- NOTE | 2024-03-21 18:33 | ED.GENADULT ---
HPI - General Adult General Chief complaint: Ear Problems Stated complaint: ?Ear infection Time Seen by Provider: 03/21/24 18:33 Source: patient and RN notes reviewed Mode of arrival: ambulatory Limitations: no limitations History of Present Illness ED Provider: Kate HPI narrative: 59-year-old female presents for evaluation of right ear pain. Patient reports pain for the last 4 days She reports that she initially had some itching to the area and then swelling. She thinks that this started because she wears her blue tooth in that ear frequently She reports that the ear is somewhat less swollen than it was but still has pain to the area Related Data Home Medications ?Medication ?Instructions ?Recorded ?Confirmed omeprazole 20 mg capsule,delayed 20 mg PO DAILY 04/26/20 02/01/24 release pregabalin 50 mg capsule 50 mg PO BID 04/26/23 02/01/24 Previous Rx's ?Medication ?Instructions ?Recorded meclizine 25 mg tablet 25 mg PO TID 30 days #90 tabs 07/19/22 aspirin 81 mg tablet,delayed 81 mg PO DAILY #90 tabs 08/15/22 release (Adult Aspirin Regimen) acetaminophen 325 mg capsule 650 mg (2 x 325 mg) PO Q6H PRN 10/30/22 (Tylenol) pain #30 caps ibuprofen 600 mg tablet 600 mg PO TID PRN pain #30 tabs 10/30/22 atorvastatin 80 mg tablet 80 mg PO DAILY #90 tabs 01/16/23 albuterol sulfate 90 mcg/actuation 1 inh inhalation QID shortness of 01/23/23 aerosol inhaler breath or wheezing 30 days #6.7 grams cholecalciferol (vitamin D3) 50 50 mcg PO DAILY 90 days #90 caps 01/23/23 mcg (2,000 unit) capsule hydrocortisone 1 % topical cream 1 appl topical TID PRN skin 01/23/23 (Anti-Itch (hydrocortisone)) irritation 90 days #454 grams quetiapine 100 mg tablet (Seroquel) 100 mg PO DAILY 90 days #90 tabs 07/04/23 lorazepam 1 mg tablet 1 mg PO BID-TID 30 days #90 tabs 11/07/23 lidocaine 5 % topical patch 1 patch topical DAILY 30 days #30 01/08/24 ea oxycodone 5 mg tablet 5 mg PO BID PRN pain 3 days #6 tabs 01/08/24 amoxicillin 875 mg-potassium 1 tab PO BID 7 days #14 tabs 01/23/24 clavulanate 125 mg tablet betamethasone dipropionate 0.05 % 1 appl topical DAILY PRN skin 03/14/24 topical cream irritation 30 days #45 grams ciprofloxacin HCl 0.2 % ear drops 5 drp otic (ears) Q12H 7 days #14 03/21/24 in a dropperette ea Allergies Allergy/AdvReac Type Severity Reaction Status Date / Time No Known Allergies Allergy Verified 03/21/24 18:34 Review of Systems Constitutional: Constitutional: Denies body ache(s), Denies chills and Denies headache(s) ENT: Reports ear discharge, Reports otalgia and Denies headache(s) Cardiovascular: Cardiovascular: Denies chest pain Musculoskeletal: Musculoskeletal: Denies back pain Neurologic: Denies headache(s) [facility] Past Medical History Medical History History of left breast cancer (~2013) HLD (hyperlipidemia) GERD (gastroesophageal reflux disease) Nicotine dependence, cigarettes, uncomplicated Osteopenia (~2015) Postmenopausal Migraine Post herpetic neuralgia (~2020) Bilateral primary osteoarthritis of knee History of suicide attempt MDD (major depressive disorder) JASSON (generalized anxiety disorder) Surgical History History of lumpectomy of left breast (~2013) History of hip surgery (~1990) History of right knee surgery (~2006) History of ventral hernia repair (~2018) History of thumb surgery (~2016) History of tubal ligation History of tonsillectomy History of colonoscopy History of esophagogastroduodenoscopy (EGD) Family History Family History Father Diabetes Hypertension Uterine cancer Prostate cancer Mother Breast cancer Maternal Aunt Uterine cancer Lung cancer Family/Other Substance use disorder Sister Uterine cancer Social History Social History Household Members: Family Housing: House Are you a primary complex care nurse practitioner to a significant other at home: No Do you presently have visiting nurse or other home services: No Alcohol intake: never Patient Tobacco Use Status: Current everyday Tobacco user Tobacco use type: Cigarette Cigarette Packs Per Day: 0.5 Cigarettes Per Day: 3 Years Smoked: (onset 15, 1/2-3/4ppd x 41yrs, 25pyh) e-Cigarette/Vaping Use: Never Used Second Hand Smoke Exposure: Yes Substance Use Type: Marijuana Advance Directives: No Advance Directives Information Provided: No Do you have a plan to hurt others: No Plan service: No Current occupational status: disabled 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[employer] Current occupational exposures/hazards: No Cognitive needs: No Hearing needs: Yes Vision needs: Yes Physical Exam ED Vital Signs: Vital Signs - 24 hr 03/21/24 18:27 Temperature 97.6 F Pulse Rate 66 Respiratory Rate 16 Blood Pressure 104/53 L Pulse Oximetry 98 Oxygen Delivery Method Room Air BMI result Body Mass Index 26.8 Const General: healthy appearing, comfortable, no acute distress, alert and awake Nutritional Appearance: well nourished Orientation/consciousness: patient oriented x3 HENMT Head: Yes normocephalic and Yes atraumatic Ears: TM's normal bilaterally, EAC's not normal, mastoids normal and Abnormal EAC present (On right side) erythema, edema, EAC tenderness and otic discharge; no foreign body Eyes Eyelids: Yes eyelids normal Conjunctivae: conjunctivae normal Sclerae: sclerae normal Corneas: corneas normal Pupils: Equal, round and reactive pupils present EOM: EOMs intact bilaterally Neck Neck: Yes full ROM Resp Effort & Inspection: normal respiratory effort, able to speak in complete sentences and not labored Skin General skin exam: elasticity normal Neuro General: patient oriented x3 Cranial nerves: Yes Equal, round and reactive pupils present and Yes Bilaterally intact EOM present Cognition (Neuro): normal cognition Extrem Other: Moving all extremities well without any obvious deformities Medical Decision Making Medical Decision Making MDM Narrative: Patient will be treated for acute right otitis externa with ciprofloxacin. There was no evidence of mastoiditis media. Differential Diagnosis Differential Diagnoses: The differential diagnosis associated with the presentation includes Otitis externa Otitis media Mastoiditis Malignant otitis externa Middle ear effusion Discharge Plan Discharge Clinical Impression: Otitis externa Patient Disposition: Home, Self-Care Instructions: Otitis Externa (ED) Additional Instructions: Use the ear drops twice daily for the next 7 days as prescribed. Try not to stick anything else in your ear You may use ibuprofen or Tylenol for pain. Follow-up with your primary doctor, return for new or worsening symptoms Prescriptions: New ciprofloxacin HCl 0.2 % dropperette 5 drp otic (ears) Q12H 7 Days Qty: 14 0RF No Action aspirin [Adult Aspirin Regimen] 81 mg tablet,delayed release (DR/EC) 81 mg PO DAILY Qty: 90 1RF atorvastatin 80 mg tablet 80 mg PO DAILY Qty: 90 1RF quetiapine [Seroquel] 100 mg tablet 100 mg PO DAILY 90 Days Qty: 90 1RF lorazepam 1 mg tablet 1 mg PO BID-TID 30 Days Qty: 90 1RF amoxicillin-pot clavulanate 875-125 mg tablet 1 tab PO BID 7 Days Qty: 14 0RF betamethasone dipropionate 0.05 % cream 1 appl topical DAILY PRN (Reason: skin irritation) 30 Days Qty: 45 2RF ibuprofen 600 mg tablet 600 mg PO TID PRN (Reason: pain) Qty: 30 0RF acetaminophen [Tylenol] 325 mg capsule 650 mg PO Q6H PRN (Reason: pain) Qty: 30 0RF omeprazole 20 mg capsule,delayed release(DR/EC) 20 mg PO DAILY lidocaine 5 % adhesive patch,medicated 1 patch topical DAILY 30 Days Qty: 30 0RF Rx Instructions: leave on most painful area for up to 12 hrs oxycodone 5 mg tablet 5 mg PO BID PRN (Reason: pain) 3 Days Qty: 6 0RF Rx Instructions: Partial Fill upon patient request. meclizine 25 mg tablet 25 mg PO TID 30 Days Qty: 90 1RF albuterol sulfate 90 mcg/actuation HFA aerosol inhaler 1 inh inhalation QID 30 Days Qty: 6.7 3RF cholecalciferol (vitamin D3) 50 mcg (2,000 unit) capsule 50 mcg PO DAILY 90 Days Qty: 90 1RF hydrocortisone [Anti-Itch (HC)] 1 % cream 1 appl topical TID PRN (Reason: skin irritation) 90 Days Qty: 454 0RF pregabalin 50 mg capsule 50 mg PO BID Print Language: Hebrew
== END 2024-03-21 18:54 | disposition home or self-care (01) ==
PROVIDERS: Emergency Provider Internal Medicine; PCP Physician Assistant
DX: H60.91 Unspecified otitis externa, right ear (principal); H92.01 Otalgia, right ear; F17.210 Nicotine dependence, cigarettes, uncomplicated
CPT/HCPCS: 99281; 99283

== ENCOUNTER 2024-03-31 12:19 | Emergency (ER) | payer OTHER, SELFPAY ==
[2024-03-31 12:59] VITALS: BP 104/46; PULSE 82; RESP 16; TEMP 36.8; O2SAT 98; BMI 26.8
--- NOTE | 2024-03-31 13:04 | ED.GENADULT ---
HPI - General Adult General Chief complaint: Ear Problems Stated complaint: ear pain Time Seen by Provider: 03/31/24 13:07 Source: patient Mode of arrival: ambulatory Limitations: no limitations History of Present Illness ED Provider: Randall Duncan PA-C HPI narrative: 59-year-old female history of otitis externa, varicose vein, bronchitis presents to ED for right ear pain. Patient was diagnosed with ear infection since March 21 but was informed antibiotic that was prescribed could not be found at any pharmacy. The patient was using alternative methods instead of using antibiotic for the ear. Patient came to the ED to be re-evaluated Related Data Home Medications ?Medication ?Instructions ?Recorded ?Confirmed omeprazole 20 mg capsule,delayed 20 mg PO DAILY 04/26/20 02/01/24 release pregabalin 50 mg capsule 50 mg PO BID 04/26/23 02/01/24 Previous Rx's ?Medication ?Instructions ?Recorded meclizine 25 mg tablet 25 mg PO TID 30 days #90 tabs 07/19/22 aspirin 81 mg tablet,delayed 81 mg PO DAILY #90 tabs 08/15/22 release (Adult Aspirin Regimen) acetaminophen 325 mg capsule 650 mg (2 x 325 mg) PO Q6H PRN 10/30/22 (Tylenol) pain #30 caps ibuprofen 600 mg tablet 600 mg PO TID PRN pain #30 tabs 10/30/22 atorvastatin 80 mg tablet 80 mg PO DAILY #90 tabs 01/16/23 albuterol sulfate 90 mcg/actuation 1 inh inhalation QID shortness of 01/23/23 aerosol inhaler breath or wheezing 30 days #6.7 grams cholecalciferol (vitamin D3) 50 50 mcg PO DAILY 90 days #90 caps 01/23/23 mcg (2,000 unit) capsule hydrocortisone 1 % topical cream 1 appl topical TID PRN skin 01/23/23 (Anti-Itch (hydrocortisone)) irritation 90 days #454 grams quetiapine 100 mg tablet (Seroquel) 100 mg PO DAILY 90 days #90 tabs 07/04/23 lorazepam 1 mg tablet 1 mg PO BID-TID 30 days #90 tabs 11/07/23 lidocaine 5 % topical patch 1 patch topical DAILY 30 days #30 01/08/24 ea oxycodone 5 mg tablet 5 mg PO BID PRN pain 3 days #6 tabs 01/08/24 amoxicillin 875 mg-potassium 1 tab PO BID 7 days #14 tabs 01/23/24 clavulanate 125 mg tablet betamethasone dipropionate 0.05 % 1 appl topical DAILY PRN skin 03/14/24 topical cream irritation 30 days #45 grams ciprofloxacin HCl 0.2 % ear drops 5 drp otic (ears) Q12H 7 days #14 03/21/24 in a dropperette ea amoxicillin 875 mg-potassium 1 tab PO Q12H 10 days #20 tabs 03/31/24 clavulanate 125 mg tablet naproxen 500 mg tablet 500 mg PO BID PRN pain 7 days #14 03/31/24 tabs [id number] 3.3 4 drp otic (ear) right QID 7 days 03/31/24 mg-3 mg-10 mg-0.5 mg/mL ear #10 mL drops,susp (Cortisporin-TC) Allergies Allergy/AdvReac Type Severity Reaction Status Date / Time No Known Allergies Allergy Verified 03/31/24 13:01 Review of Systems Review of Systems: Right ear pain Yes all other systems are reviewed and are negative [facility] Past Medical History Medical History History of left breast cancer (~2013) HLD (hyperlipidemia) GERD (gastroesophageal reflux disease) Nicotine dependence, cigarettes, uncomplicated Osteopenia (~2015) Postmenopausal Migraine Post herpetic neuralgia (~2020) Bilateral primary osteoarthritis of knee History of suicide attempt MDD (major depressive disorder) JASSON (generalized anxiety disorder) Surgical History History of lumpectomy of left breast (~2013) History of hip surgery (~1990) History of right knee surgery (~2006) History of ventral hernia repair (~2018) History of thumb surgery (~2016) History of tubal ligation History of tonsillectomy History of colonoscopy History of esophagogastroduodenoscopy (EGD) Family History Family History Father Diabetes Hypertension Uterine cancer Prostate cancer Mother Breast cancer Maternal Aunt Uterine cancer Lung cancer Family/Other Substance use disorder Sister Uterine cancer Social History Social History Household Members: Family Housing: House Are you a primary specialist wound care to a significant other at home: No Do you presently have visiting nurse or other home services: No Alcohol intake: never Patient Tobacco Use Status: Current everyday Tobacco user Tobacco use type: Cigarette Cigarette Packs Per Day: 0.5 Cigarettes Per Day: 3 Years Smoked: (onset 15, 1/2-3/4ppd x 41yrs, 25pyh) e-Cigarette/Vaping Use: Never Used Second Hand Smoke Exposure: Yes Substance Use Type: Marijuana Advance Directives: No Advance Directives Information Provided: Yes service: No Current occupational status: disabled 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[employer] Current occupational exposures/hazards: No Cognitive needs: No Hearing needs: Yes Vision needs: Yes Physical Exam ED Vital Signs: Vital Signs - 24 hr 03/31/24 12:59 03/31/24 13:18 Temperature 98.3 F 98.3 F Pulse Rate 82 82 Respiratory Rate 16 16 Blood Pressure 104/46 L 104/46 L Pulse Oximetry 98 98 Oxygen Delivery Method Room Air Room Air BMI result Body Mass Index 26.8 Const General: cooperative, healthy appearing, comfortable, no acute distress, well developed, alert, awake and Physically active Orientation/consciousness: patient oriented x3 HENMT Head: Yes normal to inspection, Yes No palpable skull fracture present, Yes normocephalic and Yes atraumatic Ears: hearing grossly normal bilaterally, external ears normal, TM normal on the left, mastoids normal, no periauricular adenopathy and Abnormal EAC present (right) edema and otic discharge Throat: Yes posterior oropharynx normal, Yes tonsils normal and Yes uvula midline Eyes General: appearance normal, both eyes and all related structures Neck Neck: Yes normal visual inspection, Yes full ROM, Yes no lymphadenopathy, Yes no meningeal signs, Yes trachea midline, Yes supple, No anterior neck swelling and No tender Chest Chest palpation & inspection: normal inspection of the chest Resp Effort & Inspection: normal respiratory effort and able to speak in complete sentences Auscultation: clear to auscultation bilaterally Cardio Jugular venous distension: no JVD Heart sounds: S1 normal heart sound present and S2 normal heart sound present GI Inspection: Yes normal to inspection Palpation (GI): Soft to palpation, not firm, nontender, no guarding and not rigid General: No CVA tenderness and Yes no CVA tenderness Back/Spine/Pelvis Back: no CVA tenderness, No CVA tenderness and No back tenderness Skin General skin exam: no rashes or lesions noted, elasticity normal and turgor normal Neuro General: patient oriented x3, gait normal, tone normal, moves all extremities, Normal light touch and pain sensation, no meningeal signs, no focal motor deficits, CN's II-XI intact bilaterally and normal sensation to monofilament Extrem General: Yes normal to inspection, Yes full ROM and Yes capillary refill normal Psych Appearance: grossly normal, well kempt and not disheveled Medical Decision Making Medical Decision Making MDM Narrative: 59-year-old female presents to ED for right ear pain. Patient was diagnosed with otitis externa on 03/21 and was prescribed Cipro ear drops but she states none of the pharmacy she went to had the medication so she never used any antibiotics for infection. Patient states using alternative methods such as vinegar, hydrogen peroxide and Vicks for her ear. Physical exam positive for signs of otitis externa. Ear canal swollen with some discharge. Patient will be discharged with Cortisporin ear drops and pain meds. Patient also will be given oral antibiotics. Patient informed to follow-up with primary care provider and return to the ED immediately for any worrisome signs she was explained. Not suspecting osteomyelitis, mastoiditis, cellulitis, abscess, or barotrauma bleeding. Not suspecting any life-threatening etiologies. Differential Diagnosis Differential Diagnoses: The differential diagnosis associated with the presentation includes (Ear infection) Admission/Observation Consideration of admission/observation: Escalation of care including admission/observation considered Independent Historian Clinical information obtained from an independent historian. History obtained from or confirmed by: Other (Patient) External Record Review External record reviewed: Other (Prior visits) Prescription Management I considered prescription management with: Pain Medication and Antibiotic Discharge Plan Discharge Clinical Impression: Otitis externa Patient Disposition: Home, Self-Care Instructions: Otitis Externa (ED) Additional Instructions: Recommend follow-up with primary care provider and ENT. Return to the ED for worsening ear pain, swelling, profuse discharge, fever, chills, headache, nausea, vomiting, red rash, or any other concerning symptoms. Prescriptions: New Cortisporin-TC 3.3-3-10-0.5 mg/mL drops,suspension 4 drp otic (ear) right QID 7 Days Qty: 10 0RF naproxen 500 mg tablet 500 mg PO BID PRN (Reason: pain) 7 Days Qty: 14 0RF amoxicillin-pot clavulanate 875-125 mg tablet 1 tab PO Q12H 10 Days Qty: 20 0RF No Action aspirin [Adult Aspirin Regimen] 81 mg tablet,delayed release (DR/EC) 81 mg PO DAILY Qty: 90 1RF atorvastatin 80 mg tablet 80 mg PO DAILY Qty: 90 1RF quetiapine [Seroquel] 100 mg tablet 100 mg PO DAILY 90 Days Qty: 90 1RF lorazepam 1 mg tablet 1 mg PO BID-TID 30 Days Qty: 90 1RF amoxicillin-pot clavulanate 875-125 mg tablet 1 tab PO BID 7 Days Qty: 14 0RF betamethasone dipropionate 0.05 % cream 1 appl topical DAILY PRN (Reason: skin irritation) 30 Days Qty: 45 2RF ibuprofen 600 mg tablet 600 mg PO TID PRN (Reason: pain) Qty: 30 0RF acetaminophen [Tylenol] 325 mg capsule 650 mg PO Q6H PRN (Reason: pain) Qty: 30 0RF ciprofloxacin HCl 0.2 % dropperette 5 drp otic (ears) Q12H 7 Days Qty: 14 0RF omeprazole 20 mg capsule,delayed release(DR/EC) 20 mg PO DAILY lidocaine 5 % adhesive patch,medicated 1 patch topical DAILY 30 Days Qty: 30 0RF Rx Instructions: leave on most painful area for up to 12 hrs oxycodone 5 mg tablet 5 mg PO BID PRN (Reason: pain) 3 Days Qty: 6 0RF Rx Instructions: Partial Fill upon patient request. meclizine 25 mg tablet 25 mg PO TID 30 Days Qty: 90 1RF albuterol sulfate 90 mcg/actuation HFA aerosol inhaler 1 inh inhalation QID 30 Days Qty: 6.7 3RF cholecalciferol (vitamin D3) 50 mcg (2,000 unit) capsule 50 mcg PO DAILY 90 Days Qty: 90 1RF hydrocortisone [Anti-Itch (HC)] 1 % cream 1 appl topical TID PRN (Reason: skin irritation) 90 Days Qty: 454 0RF pregabalin 50 mg capsule 50 mg PO BID Referrals: Yaron Beaulieu [Physician] - (Otitis externa) Stand Alone Forms: Work/School Release Interventions: ED Discharge Assessment Last Done: 03/31/24 13:18 Discharge Date/Time: 03/31/24 13:19 Print Language: Greek
[2024-03-31 13:18] VITALS: BP 104/46; PULSE 82; RESP 16; TEMP 36.8; O2SAT 98
== END 2024-03-31 13:19 | disposition home or self-care (01) ==
PROVIDERS: Emergency Provider Emergency Medicine; PCP Physician Assistant
DX: H60.91 Unspecified otitis externa, right ear (principal); F17.210 Nicotine dependence, cigarettes, uncomplicated
CPT/HCPCS: 99282; 99283

== ENCOUNTER 2024-04-17 11:37 | Outpatient (AMB) | payer OTHER, SELFPAY ==
--- OUTSIDE RECORDS SUMMARY | 2024-04-17 11:40 | XMS_ITS ---
Author Organization [facility] Address [address] [place] [id number] Care Team Providers Care Air Traffic Control Equipment Repairer Name Role Phone Patel Rdz Primary Care Provider Unavailab Chris Wakefield Jr Unavailable ALLERGIES No Known Allergies REASON FOR VISIT Patient presents today for abdominal pain MEDICATIONS Medication SIG (Take, Route, Frequency, Duration) Notes Start Date End Date Status Albuterol Sulfate HFA 108 (90 Base) MCG/ACT INHALE 1 PUFF FOUR TIMES A DAY FOR SHORTNESS OF BREATH OR WHEEZING Inhalation for 50 Active D3 Super Strength 50 MCG (2000 UT) TAKE 1 CAPSULE BY MOUTH DAILY Oral for 90 Active Gabapentin 300 MG Oral for 30 Active Aspirin Low Dose 81 MG TAKE ONE TABLET B Y MOUTH EVERY DAY Oral for 90 Active Hydrocortisone 1 % APPLY TOPICALLY THRE E TIMES A DAY NEEDED FOR SKIN IRRITATION External for 90 Active Atorvastatin Calcium 80 MG TAKE ONE TABL ET BY MOUTH EVERY DAY Oral for 90 Active Simethicone 125 MG 1 tablet after meals and at bedtime as needed Orally Four times a day 02/14/2023 Active SEROquel 100 MG 1 tablet at bedtime Orally Once a day for 30 day(s) Active LORazepam 1 MG 1 tablet as needed Orally Once a day Active Lexapro 10 MG 1 tablet Orally Once a day for 30 day(s) Active Omeprazole 40 MG 1 capsule 30 minutes before morning meal Orally Once a day for 30 days 02/17/2022 Active IMMUNIZATIONS Vaccine Route Administration Date Status Comme nts Influenza Unknown 02/14/2023 Refused SOCIAL HISTORY Tobacco Use: Social History Observation Description Date Details (start date - stop date) Current Smoker NA - NA Sex Assigned At : Social History Observation Description Sex Assigned At Unknown Tobacco Use/Smoking Question Answer Notes Patient is a current smoker How often do you smoke cigarettes? every day How many cigarettes a day do you smoke? 6-10 How soon after you wake up do you smoke your fir st cigarette? 6-30 minutes Are you interested in quitting? Ready to quit PROBLEMS Problem Type ICD Code Onset Dates Problem Status W/U Status Risk SNOMED Code Notes Problem Gastroesophageal reflux disease with esophagitis, unspecified whether hemorrhage (K21.00) Active confirmed Gastroes ophageal reflux disease with esophagitis (disorder) (352596764) VITAL SIGNS BMI 25.56 kg/m2 02/14/2023 Blood pressure systolic 000 mm Hg 02/15/20 23 Blood pressure diastolic 00 mm Hg 023 Height 66.75 in 02/14/2023 Temperature 97.1 degrees Fahrenheit 02/15/20 23 Weight 162 lbs 02/14/2023 Encounters Encounter Location Date Provider Diagnosis [facility] [address] [place] [phone] 02/14/2023 Chris Horner Jr Gastro-esophageal reflux disease with esophagitis K21.0 and Irritable bowel syndrome with constipation K58.1 ASSESSMENTS Encounter Date Diagnosis Assessment Notes Treatment Notes Treatment Clinical Notes 02/14/2023 Gastro-esophageal reflux disease with esophagitis (ICD-10 - K21.0) Gastroesophageal reflux disease material was printed 02/14/2023 Irritable bowel syndrome with constipation (ICD-10 - K58.1) PLAN OF TREATMENT Medication Medication Name Sig Start Date Stop Date Notes Simethicone 125 MG 1 tablet after meals and at bedtime as needed Orally Four times a day 02/14/2023 Omeprazole 40 MG 1 capsule 30 minutes before morning meal Orally Once a day for 30 days 02/17/2022 Treatment Notes Assessment Notes Gastro-esophageal reflux dis ease with esophagitis Gastroesophageal reflux disease material was printed Next Appt Details Follow Up: 1 Year, Reason:
--- OUTSIDE RECORDS SUMMARY | 2024-04-17 11:40 | XMS_ITS ---
Author Organization [facility] Address [address] [place] [address] Care Team Providers Care Supportability Engineer Name Role Phone Patel Rdz Primary Care Provider Unavailab Chris Wakefield Jr Unavailable REASON FOR VISIT ov recall Encounters Encounter Location Date Provider Diagnosis [facility] [address] [place] [phone] 02/14/2023 Chris Horner Jr PLAN OF TREATMENT No Information
--- OUTSIDE RECORDS SUMMARY | 2024-04-17 11:40 | XMS_ITS | Patient Health Record ---
Author Organization [facility] Address [address] [place] [address] Care Team Providers Care Fire Alarm Dispatcher Name Role Phone Patel Rdz Primary Care Provider Chris Ray Jr Unavailable ALLERGIES No Known Allergies REASON FOR REFERRAL No Information MEDICATIONS Medication SIG (Take, Route, Frequency, Duration) Notes Start Date End Date Status Albuterol Sulfate HFA 108 (90 Base) MCG/ACT INHALE 1 PUFF FOUR TIMES A DAY FOR SHORTNESS OF BREATH OR WHEEZING Inhalation for 50 Active D3 Super Strength 50 MCG (2000 UT) TAKE 1 CAPSULE BY MOUTH DAILY Oral for 90 Active Gabapentin 300 MG Oral for 30 Active Atorvastatin Calcium 80 MG TAKE ONE TABL ET BY MOUTH EVERY DAY Oral for 90 Active Aspirin Low Dose 81 MG TAKE [...] as needed Orally Once a day Active Omeprazole 40 MG 1 capsule 30 minutes before morning meal Orally Once a day for 30 days 02/17/2022 Active Lexapro 10 MG 1 tablet Orally Once a day for 30 day(s) Active Hydrocortisone 1 % APPLY TOPICALLY THRE E TIMES A DAY NEEDED FOR SKIN IRRITATION External for 90 Active IMMUNIZATIONS Vaccine Route Administration Date Status Comme nts Influenza Unknown 01/01/2019 Refused Influenza Unknown 02/17/2022 Refused Influenza Unknown 02/14/2023 Refused SOCIAL HISTORY Tobacco [...] W/U Status Risk SNOMED Code Notes Problem Rectal bleeding (K62.5) Active confirmed 31618608 Problem Gastro-esophageal reflux disease with esophagitis (K21.0) Active confirmed 539556642 Problem Irritable bowel syndrome with constipation (K58.1) Active confirmed 036847730 Problem Gastroesophageal reflux disease with esophagitis, unspecified whether hemorrhage (K21.00) Active confirmed Gastroes ophageal reflux disease with esophagitis (disorder) (199783071) PLAN OF TREATMENT Future Test Test Name Order Date UPPER GI ENDOSCOPY 08/09/2011 COLONOSCOPY 08/09/2011 UPPER GI ENDOSCOPY 04/01/2015 COLONOSCOPY 04/01/2015 Insurance Providers Payer Name Payer Address Payer Phone Subscriber Number Group Number Insured Name Patient Relationship to Insured Coverage Start Date Coverage End Date [facility] [address] Attn Claims RAFFY Matos [id number] COLONINDIRA Self - patient is the insured MEDICAID OF [facility] [address] [place] [address] [id number] INDIRA DERAS Self - patient is the insured MEDICARE OF [place] [address] [place] [address] [id number] COLONINDIRA Self - patient is the insured MEDICAL (GENERAL) HISTORY Medical History History ICD Code anxiety depression hiatal hernia H. pylori infection EGD/colonoscopy in 07/28/15, no Foster's, no history of adenomas, ten-year colon followup 2025 breast cancer Surgical History Surgery Date(Month/Year) hip surgery knee surgery tonsillectomy tubal ligation hernia repair 07/2018 lumpectomy, left breast
--- NOTE | 2024-04-17 11:43 | A.OFFVIS_ITS ---
Intake Visit Reasons: Follow up US Intake Note: Patient presents for follow up US. No complaints. Allergies No Known Allergies Allergy (Verified 04/17/24 11:44) [facility] Follow up US: Details: Germaine is presenting today for a follow up to her US, performed on 03/05. She continues to endorse intermittent aching/varicose veins. She also has some itchiness of the veins. The pain/itchiness gets worse when she is on her feet for extended periods of time. She denies any new concerns today. [facility] Medical History History of left breast cancer (~2013) HLD (hyperlipidemia) GERD (gastroesophageal reflux disease) Nicotine dependence, cigarettes, uncomplicated Osteopenia (~2015) Postmenopausal Migraine Post herpetic neuralgia (~2020) Bilateral primary osteoarthritis of knee History of suicide attempt MDD (major depressive disorder) JASSON (generalized anxiety disorder) Surgical History History of lumpectomy of left breast (~2013) History of hip surgery (~1990) History of right knee surgery (~2006) History of ventral hernia repair (~2018) History of thumb surgery (~2016) History of tubal ligation History of tonsillectomy History of colonoscopy History of esophagogastroduodenoscopy (EGD) Family History Father Diabetes Hypertension Uterine cancer Prostate cancer Mother Breast cancer Maternal Aunt Uterine cancer Lung cancer Family/Other Substance use disorder Sister Uterine cancer Social History Household Members: Family Housing: House Are you a primary aged or disabled care worker to a significant other at home: No Do you presently have visiting nurse or other home services: No Alcohol intake: never Patient Tobacco Use Status: Current everyday Tobacco user Tobacco use type: Cigarette Cigarette Packs Per Day: 0.5 Cigarettes Per Day: 3 Years Smoked: (onset 15, 1/2-3/4ppd x 41yrs, 25pyh) e-Cigarette/Vaping Use: Never Used Second Hand Smoke Exposure: Yes Substance Use Type: Marijuana service: No Current occupational status: disabled 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 Current occupational exposures/hazards: No Cognitive needs: No Hearing needs: Yes Vision needs: Yes Female Reproductive History Menstrual Age of Menarche: 12 Review of Systems Const Reports as per HPI and Denies weakness ENT Reports Normal hearing present and Denies dizziness Card Reports as per HPI, Denies chest pain, Denies chest pain at rest, Denies chest pain with activity, Denies dyspnea and Denies dyspnea on exertion Resp Reports as per HPI, Denies cough, Denies dyspnea and Denies dyspnea on exertion GI Reports as per HPI, Denies abdominal pain, Denies nausea and Denies vomiting Musc Denies numbness Skin/Breast Reports as per HPI, Denies erythema and Denies wounds Neuro Reports Normal hearing present, Denies dizziness, Denies numbness, Denies Sensory deficit (Neuro) and Denies weakness Psych Reports no additional complaints Endo Reports no additional complaints Physical Exam Const General: healthy appearing and no acute distress Orientation/consciousness: patient oriented x3 HEENT Head: Yes normal to inspection Ears: hearing grossly normal bilaterally Mouth: Normal oral and palatal mucosa present Resp Effort & Inspection: normal respiratory effort and able to speak in complete sentences Auscultation: clear to auscultation bilaterally Cardio Jugular venous distension: no JVD Rate: regular rate Rhythm: regular rhythm Heart sounds: S1 normal heart sound present and S2 normal heart sound present Bruits: no abdominal aortic bruits, no carotid bruits, no femoral bruits and no renal bruits Peripheral pulses: Peripheral pulses 2+ throughout GI Inspection: Yes normal to inspection Palpation (GI): No Abdominal aortic bruit present Skin General skin exam: no rashes or lesions noted Wounds: no wounds Hair: normal Neuro General: patient oriented x3 Cranial nerves: Yes Normal hearing present Cognition (Neuro): normal cognition Gait exam (Neuro): Normal gait present Motor exam (neuro): 5/5 motor strength present throughout Sensory Exam: No Sensory deficit (Neuro) Extrem Other: Multiple spider telangiectases, trace bilateral peripheral edema noted. General: Yes normal to inspection, Yes full ROM, Yes capillary refill normal and Yes normal gait Results Reviewed Results Reviewed: Brief summary of venous insufficiency testing is as follows: right great saphenous vein: negative right small saphenous vein: negative right accessory vein: none present left great saphenous vein: negative left small saphenous vein: negative left accessory vein: none present Please note there is no evidence of any venous aneurysms or significant tortuosity Assessment & Plan Assessment & Plan (1) Symptomatic varicose veins of both lower extremities: Code(s): I83.893 - Varicose veins of bilateral lower extremities with other complications Category: Medical Plan: Germaine is presenting today for a follow up to US, performed on 03/05. The US was negative for venous insufficiency. We discussed continuing with elevation, compression stockings, and physical activity. We discussed the importance of quitting cigarette smoking as well and how it can contribute to vascular disease. We discussed that if the pain worsens/anything changes she can reach back out to us; but at this point there is no intervention to be done. If there are any questions or concerns, please do not hesitate to reach out to us. Coding Level of Care Code Est Pt Level 4 (21075) Diagnoses Symptomatic varicose veins of both lower extremities I83.893 Comment review of US
== END 2024-04-17 11:54 | disposition home or self-care (01) ==
PROVIDERS: PCP Physician Assistant; Visit Provider Physician Assistant Surgical
DX: I83.893 Varicose veins of bilateral lower extremities with other complications (principal)
CPT/HCPCS: 99214

== ENCOUNTER → 2024-04-17 11:37 | Outpatient (BNVA) | payer OTHER, SELFPAY | PROVIDERS: PCP Physician Assistant; Visit Provider Physician Assistant Surgical | DX: I83.893 Varicose veins of bilateral lower extremities with other complications (principal) | CPT/HCPCS: 99212 ==

== ENCOUNTER 2024-04-29 15:03 | Outpatient (AMB) | payer OTHER, SELFPAY ==
--- OUTSIDE RECORDS SUMMARY | 2024-04-29 15:05 | XMS_ITS ---
Author Organization [facility] Address [address] [place] [id number] Care Team Providers Care Wind Tunnel Technician Name Role Phone Patel Rdz Primary Care [...] Gastroes ophageal reflux disease with esophagitis (disorder) (450253331) VITAL SIGNS BMI 25.56 kg/m2 02/14/2023 Blood pressure systolic 000 mm Hg 02/15/20 23 Blood pressure diastolic 00 mm Hg 023 Height 66.75 in 02/14/2023 Temperature 97.1 degrees Fahrenheit 02/15/20 23 Weight 162 lbs 02/14/2023 Encounters Encounter Location Date Provider Diagnosis [facility] [address] [place] [phone] 02/14/2023 Chris Horner Jr Gastro-esophageal reflux disease [...]
--- OUTSIDE RECORDS SUMMARY | 2024-04-29 15:05 | XMS_ITS | Patient Health Record ---
Author Organization [facility] Address [address] [place] [address] Care Team Providers Care Zipper Machine Operator Name Role Phone Patel Rdz Primary Care [...] Notes Problem Rectal bleeding (K62.5) Active confirmed 11258362 Problem Gastro-esophageal reflux disease with esophagitis (K21.0) Active confirmed 381416838 Problem Irritable bowel syndrome with constipation (K58.1) Active confirmed 247150615 Problem Gastroesophageal reflux disease with esophagitis, unspecified whether hemorrhage (K21.00) Active confirmed Gastroes ophageal reflux disease with esophagitis (disorder) (429927640) PLAN OF TREATMENT Future Test Test Name Order Date UPPER GI ENDOSCOPY 08/09/2011 COLONOSCOPY 08/09/2011 UPPER GI ENDOSCOPY 04/01/2015 COLONOSCOPY 04/01/2015 Insurance Providers Payer Name Payer Address Payer Phone Subscriber Number Group Number Insured Name Patient Relationship to Insured Coverage Start Date Coverage End Date [facility] [address] Attn Claims RAFFY Matos [id number] COLONINDIRA Self - patient is the insured MEDICAID OF [facility] [address] [place] [address] [id number] INDIRA DERAS Self - patient is the insured MEDICARE OF [place] [address] [place] [address] [id number] COLONINDIRA Self - patient is the insured MEDICAL (GENERAL) HISTORY Medical History History ICD Code anxiety depression hiatal hernia H. pylori infection EGD/colonoscopy in 07/28/15, no Foster's, no history of adenomas, ten-year colon followup 2025 breast cancer Surgical History Surgery Date(Month/Year) hip surgery knee surgery tonsillectomy tubal ligation hernia repair 07/2018 lumpectomy, left breast
[2024-04-29 15:08] VITALS: BP 120/60; PULSE 76; O2SAT 99; BMI 26.2
--- NOTE | 2024-04-29 15:08 | A.OFFPC_ITS ---
Vital Signs 3 04/29/24 15:08 Height 5 ft 6 in Weight 162 lb 6 oz BMI 26.2 BP 120/60 Blood Pressure Location Lt brachial Position Sitting Pulse 76 Pulse Source Pulse Oximeter Pulse Oximetry (%) 99 Oxygen Delivery Method Room Air Intake Visit Reasons: f/u hip Putty Tinter Maker Required: No Accompanied by: Self / Same As Patient Allergies tramadol Adverse Reaction (Intermediate, Verified 04/29/24 15:17) dry mouth trazodone Adverse Reaction (Intermediate, Verified 04/29/24 15:17) Falls Tobacco use date assessed: 08/13/23 Dental Screening Dental Screen Date: 08/13/23 HPI f/u hip 2 HPI0 Details The patient is a 59-year-old female presenting with left hip pain. She reports the pain as severe and exacerbated with stair climbing, leading to significant functional impairment, including difficulty breathing while laying down after using stairs. The pain began after a cortisone injection during the summer, around September or October, and has become progressively worse. It radiates down the leg, creating a limp. She has a history of osteoarthritis in the hip, confirmed by previous imaging, and has had plates and screws placed in the left iliac region. Periodic cortisone injections had previously managed the discomfort effectively until recently. The patient also has a history of receiving pain management care and was prescribed medications like trazodone and tramadol, which she cannot tolerate due to severe adverse effects, including a significant drop in blood pressure and loss of motor control. The patient is concerned about cold weather exacerbating the pain but notes persistent discomfort despite warm conditions [facility] Medical History History of left breast cancer (~2013) HLD (hyperlipidemia) GERD (gastroesophageal reflux disease) Nicotine dependence, cigarettes, uncomplicated Osteopenia (~2015) Postmenopausal Migraine Post herpetic neuralgia (~2020) Bilateral primary osteoarthritis of knee History of suicide attempt MDD (major depressive disorder) JASSON (generalized anxiety disorder) Surgical History History of lumpectomy of left breast (~2013) History of hip surgery (~1990) History of right knee surgery (~2006) History of ventral hernia repair (~2018) History of thumb surgery (~2016) History of tubal ligation History of tonsillectomy History of colonoscopy History of esophagogastroduodenoscopy (EGD) Family History Father Diabetes Hypertension Uterine cancer Prostate cancer Mother Breast cancer Maternal Aunt Uterine cancer Lung cancer Family/Other Substance use disorder Sister Uterine cancer Social History Household Members: Family Housing: House Are you a primary health care legal assistant to a significant other at home: No Do you presently have visiting nurse or other home services: No Alcohol intake: never Patient Tobacco Use Status: Current everyday Tobacco user Tobacco use type: Cigarette Cigarette Packs Per Day: 0.5 Cigarettes Per Day: 3 Years Smoked: (onset 15, 1/2-3/4ppd x 41yrs, 25pyh) e-Cigarette/Vaping Use: Never Used Second Hand Smoke Exposure: Yes Substance Use Type: Marijuana service: No Current occupational status: disabled 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 Vickey Catalan, Gina Dawson, Henrique Curran and colleagues, with an educational shiv from [email or web address]. Review of Systems Const Denies headache(s) Eyes Denies loss of vision ENT Denies vertigo, Denies dizziness, Denies headache(s) and Denies sore throat Card Denies chest pain, Denies leg edema and Denies lightheadedness Resp Denies cough, Denies hemoptysis and Denies wheezing GI Denies abdominal pain, Denies melena, Denies constipation, Denies diarrhea and Denies vomiting Denies urinary frequency, Denies dysuria and Denies urinary urgency Musc Denies arthralgias, Denies joint swelling, Denies numbness and Denies tingling Neuro Denies Abnormal speech present, Denies behavioral changes, Denies vertigo, Denies dizziness, Denies headache(s), Denies loss of vision, Denies memory loss, Denies numbness and Denies tingling Psych Denies anxiety, Denies behavioral changes, Denies depression, Denies memory loss and Denies panic attacks Angel/Lymph Denies easy bleeding and Denies easy bruising Aller/Immun Denies wheezing Physical exam (Primary Care) Vital Signs: Last Vital Signs Pulse 76 04/29/24 15:08 BP 120/60 04/29/24 15:08 Pulse Ox 99 04/29/24 15:08 Oxygen Delivery Method Room Air 04/29/24 15:08 BMI result Body Mass Index 26.2 Tobacco/Smoking Status: Tobacco use Status Tobacco use date assessed 08/13/23 04/29/24 15:08 Patient Tobacco Use Status Current everyday Tobacco 04/29/24 15:08 Tobacco use type Cigarette 04/29/24 15:08 e-Cigarette/Vaping Use Never Used 04/29/24 15:08 Thrive Assessment: Date of Thrive Assessment Date Thrive assessed 08/13/23 04/29/24 15:08 Const General: healthy appearing, no acute distress, alert and awake Nutritional Appearance: well nourished Orientation/consciousness: oriented to person, oriented to place and oriented to time HENMT Ears: TM's normal bilaterally General nose exam: Normal nasal mucous membranes and turbinates present Eyes Conjunctivae: conjunctivae normal Sclerae: sclerae normal Pupils: Equal, round and reactive pupils present Neck Neck: Yes no lymphadenopathy and Yes no JVD Thyroid: Thyroid normal Carotids: no bruits Resp Effort & Inspection: normal respiratory effort and not tachypneic Auscultation: no crackles, no rales, no rhonchi and no wheezes Cardio Rate: regular rate Rhythm: regular rhythm Heart sounds: no murmurs and normal S1 and S2 GI Palpation (GI): Soft to palpation, nontender, no hepatomegaly and no splenomegaly Auscultation: normal bowel sounds Skin General skin exam: no rashes or lesions noted and dry skin Neuro General: oriented to person, oriented to place and oriented to time Cranial nerves: Yes Equal, round and reactive pupils present Speech: No Abnormal speech present Gait exam (Neuro): Normal gait present Motor exam (neuro): no tremor noted Extrem Other: LEFT HIP WITH SOME LIMITED RANGE OF MOTION DUE TO PAIN AND STIFFNESS Right upper extremity: full ROM Left upper extremity: full ROM Right lower extremity: full ROM; no edema Left lower extremity: abnormal ROM and no edema Upper/lower leg/hip images: 2 1. PAIN NOTED IN THE AREA OUTLINED Psych Mental Status: mental status grossly normal Speech and movement: Normal speech and movement present Affect: normal affect Attitude: cooperative Thought process: Normal thought process present Coding Level of Care Code Est Pt Level 3 (41095) Diagnoses Primary osteoarthritis of left hip M16.12 Osteoarthritis type: primary Assessment & Plan Assessment & Plan (1) Osteoarthritis of left hip: Code(s): M16.12 - Unilateral primary osteoarthritis, left hip Category: Medical Qualifiers: Osteoarthritis type: primary Qualified Code(s): M16.12 - Unilateral primary osteoarthritis, left hip Plan: Take oxycodone 5mg as prescribed for acute pain, up to 14 tablets, only as needed for severe pain episodes. - Follow up with orthopedic and pain management specialists for further evaluation and management of hip pain. I discussed the management of hip pain with a strong emphasis on balanced use of oxycodone to prevent dependency, reinforcing that this is a short-term strategy. I advised the patient on the need for coordinated care with orthopedic and pain management specialists, highlighting the potential benefit of repeat cortisone injections, which had previously provided significant relief. Orders: Orders 2 XR hip LT min 2V w/wo pel Today M16.12 - Unilateral primary osteoarthritis, left hip Lipid Panel Today E78.00 - Pure hypercholesterolemia, unspecified Comprehensive [place]. Panel Fast Today E78.00 - Pure hypercholesterolemia, unspecified Complete Blood Count no Diff Today E78.00 - Pure hypercholesterolemia, unspecified IRON PROFILE Today D50.0 - Iron deficiency anemia secondary to blood loss (chronic), D50.9 - Iron deficiency anemia, unspecified Medications: New 2 oxycodone Partial Fill upon patient request. 5 mg PO BID 7 days PRN 14 tabs 0RF pain M16.12 - Unilateral primary osteoarthritis, left hip gabapentin 100 mg PO BID 30 days 60 caps 0RF M16.12 - Unilateral primary osteoarthritis, left hip Changed 2 From meclizine 25 mg PO TID 30 days 90 tabs 1RF H81.10 - Benign paroxysmal vertigo, unspecified ear To meclizine 25 mg PO TID 7 days 21 tabs 1RF H81.10 - Benign paroxysmal vertigo, unspecified ear
== END 2024-04-29 15:40 | disposition home or self-care (01) ==
PROVIDERS: PCP Physician Assistant; Visit Provider Physician Assistant
DX: M16.12 Unilateral primary osteoarthritis, left hip (principal)

== ENCOUNTER 2024-04-29 15:03 | Outpatient (REF) | payer OTHER, SELFPAY ==
--- NOTE | ~2024-04-29 | XR_ITS ---
. EXAMINATION: X-ray hip, left side. X-ray pelvis. CLINICAL INFORMATION: Unilateral primary osteoarthritis, left hip. COMPARISON: Bilateral hip x-ray dated April 26, 2023. TECHNIQUE: 2 views of the left hip. AP view pelvis. FINDINGS: Bony pelvis is intact. Old traumatic deformity left iliac crest with metallic hardware plate, intact. Asymmetric joint space narrowing, left coxofemoral joint. No acute cortical disruption or malalignment. Well-corticated calcification just lateral to the superior lateral aspect of the left acetabulum. XR/XR hip LT min 2V w/wo pel IMPRESSION: Osteoarthritis, mild to moderate left coxofemoral joint. Status post open reduction internal fixation, left iliac bone. Electronically signed by: Espinoza Silveira MD 05/07/2024 08:18 AM JANUARY ROLLINS
== END 2024-04-29 15:04 | disposition home or self-care (01) ==
LOC: HO.XRAY 15:03
PROVIDERS: PCP Physician Assistant; Visit Provider Physician Assistant
DX: M16.12 Unilateral primary osteoarthritis, left hip (principal)
CPT/HCPCS: 73502; 99212

== ENCOUNTER → 2024-04-29 15:51 | Outpatient (BNV) | payer OTHER, SELFPAY | PROVIDERS: PCP Physician Assistant; Visit Provider Radiology Diagnostic Radiology | DX: M16.12 Unilateral primary osteoarthritis, left hip (principal) | CPT/HCPCS: 73502 ==

== ENCOUNTER 2024-06-27 09:40 | Outpatient (AMB) | payer OTHER, SELFPAY ==
--- NOTE | 2024-06-27 09:44 | A.OFFVIS_ITS ---
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 Required: No Accompanied by: Self / Same As Patient Allergies tramadol Adverse Reaction (Intermediate, Verified 06/27/24 11:08) dry mouth trazodone Adverse Reaction (Intermediate, Verified 06/27/24 11:08) Falls Medication List - Last Reconciled 06/27/24 by GREYSON Phillips acetaminophen (Tylenol) 650 mg (2 x 325 mg) PO Q6H PRN albuterol sulfate 90 mcg/actuation 1 inh inhalation QID 30 days aspirin (Adult Aspirin Regimen) 81 mg PO DAILY atorvastatin 80 mg PO DAILY betamethasone dipropionate 0.05% 1 appl topical DAILY PRN 30 days cholecalciferol (vitamin D3) 50 mcg PO DAILY 90 days gabapentin 100 mg PO BID 30 days hydrocortisone 1% (Anti-Itch (hydrocortisone)) 1 appl topical TID PRN 90 days lidocaine 5% 1 patch topical DAILY 30 days lorazepam 1 mg PO BID-TID 30 days meclizine 25 mg PO TID 7 days naloxone 4 mg/actuation (Narcan) 4 mg intranasal Q2M PRN naproxen 500 mg PO BID PRN 7 days omeprazole 20 mg PO DAILY oxycodone 5 mg PO BID PRN 7 days quetiapine (Seroquel) 100 mg PO DAILY 90 days HPI Comments Details: Patient presents today for follow up for low back pain. Denies any recent trauma, injury or falls. She was last seen in our office in November 2023. Back pain is predominantly axial and is worse on the right side with positive sacroiliac joint pain bilaterally, right worse than left. Reports minimal left ship pain. Patient also suffers from chronic left lateral aspect of iliac spine and into the wing of the ilium with walking. Denies any groin pain today. Pain affects her daily activities and functioning, mobility, sleep and social activities. Denies any recent cough, cold, infection, fever, any significant changes in her medical history, medications or recent hospitalizations. Past Procedures: 11/06/23: Left intra-articular hip steroid injection-100% ongoing pain relief PRIOR: Patient is a pleasant 58 years old with prior history of iliac wing fracture with h/o ORIF with hip reconstruction and multiple screws in 1989 in [place], presents today to discuss treatments for left hip pain and low back pain. Denies any recent trauma, injury or falls. She is currently undergoing physical therapy for back pain which was initiated at [facility]. Reports history of back injections in 2011 and left hip cortisone injections with good results. Left lateral hip pain is reproduced with walking or weight bearing. Reports limping after walking more than 15 minutes. Patient reports groin pain with internal and external hip r otations and also mild left sacroiliac joint pain. Pain affects her daily functioning and mobility. She denies any significant pain with sitting or resting. Denies any fever, abdominal pain, weakness, foot drop, numbness, bladder or bowel dysfunction or saddle anesthesia. Location: Left hip radiates down left leg Duration: Chronic pain for many years Characteristics of symptom or complaint: Sharp, aching, shooting, stabbing, tingling, sore Aggravating or associated factors: Walking, weight bearing, movements Relieving factors: Laying down, rest, pregabalin, NSAIDs, activity modifications Treatment: Injections, PT, h/o left hip reconstruction in 1989 [facility] Medical History (Updated 06/29/24 @ 19:26 by GREYSON Phillips) Chronic pain syndrome History of left breast cancer (~2013) HLD (hyperlipidemia) GERD (gastroesophageal reflux disease) Nicotine dependence, cigarettes, uncomplicated Osteopenia (~2015) Postmenopausal Migraine Post herpetic neuralgia (~2020) Bilateral primary osteoarthritis of knee History of suicide attempt MDD (major depressive disorder) JASSON (generalized anxiety disorder) Surgical History History of lumpectomy of left breast (~2013) History of hip surgery (~1990) History of right knee surgery (~2006) History of ventral hernia repair (~2018) History of thumb surgery (~2016) History of tubal ligation History of tonsillectomy History of colonoscopy History of esophagogastroduodenoscopy (EGD) Family History Father Diabetes Hypertension Uterine cancer Prostate cancer Mother Breast cancer Maternal Aunt Uterine cancer Lung cancer Family/Other Substance use disorder Sister Uterine cancer Social History Household Members: Family Housing: House Are you a primary adult care manager to a significant other at home: No Do you presently have visiting nurse or other home services: No Alcohol intake: never Patient Tobacco Use Status: Current everyday Tobacco user Tobacco use type: Cigarette Cigarette Packs Per Day: 0.5 Cigarettes Per Day: 3 Years Smoked: (onset 15, 1/2-3/4ppd x 41yrs, 25pyh) e-Cigarette/Vaping Use: Never Used Second Hand Smoke Exposure: Yes Substance Use Type: Marijuana Advance Directives: No Advance Directives Information Provided: No Do you have a plan to hurt others: No Plan service: No Current occupational status: disabled 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 Alert and oriented. Mood and affect appropriate. Follows and participates in conversation appropriately. Respiratory effort is unlabored. No cough. Able to transition from sit to stand unassisted. Ambulates with bilaterally normal heel strike and toe off. General: Yes no CVA tenderness Back/Spine/Pelvis Other: Limited lumbar ROM due to pain. TTP lateral aspect of iliac spine and into the wing of the ilium. Moderate TTP in the projection of bilateral SIJ areas, right>left. Lumbar extension and flexion reproduce moderate pain. SI dist raction, Camilo?s test, and Stinchfield tests reproduce lateral right hip pain and lower back pain. Mild groin pain with I/E hip rotations on the left. Back: no CVA tenderness Cervical Spine: cervical ROM normal and No Cervical spine tenderness Thoracic/Lumbar Spine: thoracic and lumbar spine normal to inspection, Lasegue's sign negative, straight leg raise negative bilaterally, pain with thoraco-lumbar ROM (+facet loading bilaterally, right>left), No thoracic spinal tenderness and lumbar spinal tenderness (L4-S1) Pelvis: no buttock tenderness Sacroiliac joints: bilaterally tender to palpation (right>left) Extrem General: Yes capillary refill normal, Yes no clubbing, cyanosis or edema and Yes no calf tenderness Results Reviewed Results Reviewed: XR BILATERAL HIPS WITH AP PELVIS 04/26/23 CLINICAL INFORMATION: Reason for Exam M17.0 - Bilateral primary osteoarthritis of hip COMPARISON: Hip and pelvis radiographs 04/26/2020 TECHNIQUE: 2 views of each hip and one view of the pelvis. FINDINGS: No acute fracture or dislocation. Status post plate and screw fixation of the left iliac wing. No evidence of hardware fracture or complication. Mild osteoarthritis of the bilateral hips with small osteophytes. Ossific foci adjacent to the left hip and iliac bone unchanged from prior may reflect sequelae of heterotopic ossification or remote prior trauma. Sacroiliac joint spaces are maintained. Findings are overall unchanged from prior. Calcified phleboliths in the pelvis. IMPRESSION: 1. Status post plate and screw fixation of the left iliac wing. No evidence of hardware fracture or complication. 2. Mild osteoarthritis of the bilateral hips with small osteophytes. 3. Ossific foci adjacent to the left hip and iliac bone unchanged from prior may reflect sequelae of heterotopic ossification or remote prior trauma. XR LUMBOSACRAL SPINE WITH OBLIQUES 08/30/23 CLINICAL INFORMATION: Left low back pain. COMPARISON: Hip and pelvis 04/26/2023. FINDINGS: Mild levoscoliosis of the lumbar spine. Mild degenerative changes of the bilateral sacroiliac joints. Facet arthritis in the [id number] lumbar spine. Degenerative changes in the imaged lower thoracic spine. Inferior endplate concavity along the anterior aspect of the lower thoracic vertebral body. Moderate multilevel lumbar spondylosis with multilevel loss of disc space height. Redemonstration of surgical hardware incompletely imaged overlying the left iliac wing, better characterized on prior exam. IMPRESSION: 1. Moderate multilevel lumbar spondylosis with multilevel loss of disc space height. 2. Facet arthritis in the [id number] lumbar spine. Assessment & Plan Assessment & Plan (1) Sacroiliac joint pain: Code(s): M53.3 - Sacrococcygeal disorders, not elsewhere classified Category: Medical (2) Lumbosacral spondylosis: Code(s): M47.817 - Spondylosis without myelopathy or radiculopathy, lumbosacral region Category: Medical (3) Chronic pain syndrome: Code(s): G89.4 - Chronic pain syndrome Category: Medical Plan Discussed interventional treatments for axial low back pain. Patient completed physical therapy for lower back pain with minimal improvement. Schedule Bilateral Diagnostic L3-L4-DR L5 MBB with local and fluoroscopy. Expectations, risks and benefits were reviewed. Patient is aware she will be contacted to schedule this procedure. If she has significant relief from the diagnostic blocks for his axial low back pain, will consider either therapeutic injections, Sprint PNS or RFA depending on her preference. If no pain relief, will consider sacroiliac joint injection on the right. All questions were answered and the patient is in agreement of plan. Follow-up as needed. Coding Level of Care Code Est Pt Level 4 (52954) Complex EM visit Add On G2211 Diagnoses Sacroiliac joint pain M53.3 Lumbosacral spondylosis M47.817 Chronic pain syndrome G89.4
[2024-06-27 09:48] VITALS: BP 129/62; PULSE 62; O2SAT 97; BMI 27.0
--- OUTSIDE RECORDS SUMMARY | 2024-06-27 10:26 | XMS_ITS ---
Author Organization [facility] Address [address] [place] [address] Care Team Providers Care Junior Accountant Bookkeeper Name Role Phone Patel Rdz Primary Care Provider Unavailab Chris Wakefield Jr Unavailable REASON FOR VISIT ov recall Encounters Encounter Location Date Provider Diagnosis [facility] [address] [place] [facility] [address] [place] [address] 02/14/2023 Chris Horner Jr PLAN OF TREATMENT Next Appt Details Provider Name:Chris tapia Jr, 08/11/2024 01:55:00 PM, [address] [facility], [address], [place], [address],
--- OUTSIDE RECORDS SUMMARY | 2024-06-27 10:26 | XMS_ITS | Clinical Summary ---
Author Organization [facility] Address [address] [place] [address] Care Team Providers Care Net C Developer Name Role Phone Unavailable Primary Care Provider Unavailabl e Allergies No known active allergies Medications No known medications Social History Tobacco Use Types Packs/Day Years Used Date Smoking Tobacco: Every Day Alcohol Use Standard Drinks/Week Comments Yes 0 (1 standard drink = 0.6 oz pur e alcohol) Sex and Gender Information Value Date Recorded Sex Assigned at Not on file Gender Identity Not on file Sexual Orientation Not on file Last Filed Vital Signs Vital Sign Reading Time Taken Comments Blood Pressure 138/78 12/18/2015 3:56 PM EDT Pulse 69 12/18/2015 3:56 PM EDT Temperature 36.3 ??C (97.3 ??F) 12/18/2015 3:56 PM ED T Respiratory Rate 17 12/18/2015 3:56 PM EDT Oxygen Saturation 98% 12/18/2015 3:56 PM EDT Inhaled Oxygen Concentration - - Weight 79.4 kg (175 lb) 12/17/2015 7:25 PM EDT Height 170.2 cm (5' 7 ) 12/17/2015 7:25 PM EDT Body Mass Index 27.41 12/17/2015 7:25 PM EDT Plan of Treatment Not on file
--- OUTSIDE RECORDS SUMMARY | 2024-06-27 10:26 | XMS_ITS | Patient Health Record ---
Author Organization [facility] Address [address] [place] [address] Care Team Providers Care Purse Seining Hand Name Role Phone Patel Rdz Primary Care Provider Chris Ray Jr Unavailable [phone] ALLERGIES No Known Allergies REASON FOR REFERRAL [...] Notes Problem Rectal bleeding (K62.5) Active confirmed 08820315 Problem Gastro-esophageal reflux disease with esophagitis (K21.0) Active confirmed 499844429 Problem Irritable bowel syndrome with constipation (K58.1) Active confirmed [id number] Problem Gastroesophageal reflux disease with esophagitis, unspecified whether hemorrhage (K21.00) Active confirmed Gastroes ophageal reflux disease with esophagitis (disorder) (626765698) PLAN OF TREATMENT Future Test Test Name Order Date UPPER GI ENDOSCOPY 08/09/2011 COLONOSCOPY 08/09/2011 UPPER GI ENDOSCOPY 04/01/2015 COLONOSCOPY 04/01/2015 Next Appt Details Provider Name:Chris tapia Jr, 08/11/2024 01:55:00 PM, [address] [place] [address], [address], [place], [address], Insurance Providers Payer Name Payer Address Payer Phone Subscriber Number Group Number Insured Name Patient Relationship to Insured Coverage Start Date [facility]age End Date [facility] [address] Att[facility] Claims ARFFY Matos [id number] INDIRA DERAS Self - patient is the insured MEDICAID OF [facility] [address] [place] [address] [id number] COLONINDIRA Self - patient is the insured MEDICARE OF [place] [address] [place] [address] [id number] COLONINDIRA Self - patient is the insured MEDICAL (GENERAL) HISTORY Medical History History ICD Code anxiety depression hiatal hernia H. pylori infection EGD/colonoscopy in 07/28/15, no Foster's, no history of adenomas, ten-year colon followup 2025 breast cancer Surgical History Surgery Date(Month/Year) hip surgery knee surgery tonsillectomy tubal ligation hernia repair 07/2018 lumpectomy, left breast
--- OUTSIDE RECORDS SUMMARY | 2024-06-27 10:26 | XMS_ITS ---
Author Organization [facility] Address [address] [place] [address] Care Team Providers Care Chick Room Supervisor Name Role Phone Patel Rdz Primary Care Provider Unavailab Chris Wakefield Jr Unavailable [phone] ALLERGIES No Known Allergies REASON FOR VISIT [...] Gastroes ophageal reflux disease with esophagitis (disorder) (410545186) VITAL SIGNS Temperature 97.1 degrees Fahrenheit 02/15/20 23 Blood pressure systolic 000 mm Hg 02/15/20 23 Blood pressure diastolic 00 mm Hg 023 Height 66.75 in 02/14/2023 Weight 162 lbs 02/14/2023 BMI 25.56 kg/m2 02/14/2023 Encounters Encounter Location Date Provider Diagnosis [facility] [address] [facility] [address] [place] [address] 02/14/2023 Chris Horner Jr Gastro-esophageal reflux disease [...] Appt Details Follow Up: 1 Year, Reason: Provider Name:Chris tapia Jr, 08/11/2024 01:55:00 PM, [address] [facility] [address], [address], [place], [address],
== END 2024-06-27 10:19 | disposition home or self-care (01) ==
PROVIDERS: PCP Physician Assistant; Visit Provider Nurse Practitioner Family
DX: M53.3 Sacrococcygeal disorders, not elsewhere classified (principal); M47.817 Spondylosis without myelopathy or radiculopathy, lumbosacral region; G89.4 Chronic pain syndrome
CPT/HCPCS: 99214; G2211

== ENCOUNTER 2024-06-27 10:52 | Emergency (ER) | payer OTHER, SELFPAY ==
[2024-06-27 11:05] VITALS: BP 117/56; PULSE 63; RESP 20; TEMP 36.5; O2SAT 100; BMI 27.0
--- NOTE | 2024-06-27 11:06 | ED.GIBLEED ---
HPI - GI Bleed General Chief complaint: GI Bleed Stated complaint: rectal bleeding Related Data Home Medications ?Medication ?Instructions ?Recorded ?Confirmed omeprazole 20 mg capsule,delayed 20 mg PO DAILY 04/26/20 02/01/24 release Previous Rx's ?Medication ?Instructions ?Recorded aspirin 81 mg tablet,delayed 81 mg PO DAILY #90 tabs 08/15/22 release (Adult Aspirin Regimen) acetaminophen 325 mg capsule 650 mg (2 x 325 mg) PO Q6H PRN 10/30/22 (Tylenol) pain #30 caps atorvastatin 80 mg tablet 80 mg PO DAILY #90 tabs 01/16/23 albuterol sulfate 90 mcg/actuation 1 inh inhalation QID shortness of 01/23/23 aerosol inhaler breath or wheezing 30 days #6.7 grams hydrocortisone 1 % topical cream 1 appl topical TID PRN skin 01/23/23 (Anti-Itch (hydrocortisone)) irritation 90 days #454 grams quetiapine 100 mg tablet (Seroquel) 100 mg PO DAILY 90 days #90 tabs 07/04/23 lidocaine 5 % topical patch 1 patch topical DAILY 30 days #30 01/08/24 ea betamethasone dipropionate 0.05 % 1 appl topical DAILY PRN skin 03/14/24 topical cream irritation 30 days #45 grams naproxen 500 mg tablet 500 mg PO BID PRN pain 7 days #14 03/31/24 tabs lorazepam 1 mg tablet 1 mg PO BID-TID 30 days #90 tabs 04/07/24 naloxone 4 mg/actuation nasal 4 mg intranasal Q2M PRN opioid 04/17/24 spray (Narcan) overdose #2 ea gabapentin 100 mg capsule 100 mg PO BID 30 days #60 caps 04/29/24 meclizine 25 mg tablet 25 mg PO TID 7 days #21 tabs 04/29/24 oxycodone 5 mg tablet 5 mg PO BID PRN pain 7 days #14 04/29/24 tabs cholecalciferol (vitamin D3) 50 50 mcg PO DAILY 90 days #90 caps 05/12/24 mcg (2,000 unit) capsule Allergies Allergy/AdvReac Type Severity Reaction Status Date / Time tramadol AdvReac Intermediate dry mouth Verified 06/27/24 11:08 trazodone AdvReac Intermediate Falls Verified 06/27/24 11:08 [facility] Past Medical History Medical History History of left breast cancer (~2013) HLD (hyperlipidemia) GERD (gastroesophageal reflux disease) Nicotine dependence, cigarettes, uncomplicated Osteopenia (~2015) Postmenopausal Migraine Post herpetic neuralgia (~2020) Bilateral primary osteoarthritis of knee History of suicide attempt MDD (major depressive disorder) JASSON (generalized anxiety disorder) Surgical History History of lumpectomy of left breast (~2013) History of hip surgery (~1990) History of right knee surgery (~2006) History of ventral hernia repair (~2018) History of thumb surgery (~2016) History of tubal ligation History of tonsillectomy History of colonoscopy History of esophagogastroduodenoscopy (EGD) Family History Family History Father Diabetes Hypertension Uterine cancer Prostate cancer Mother Breast cancer Maternal Aunt Uterine cancer Lung cancer Family/Other Substance use disorder Sister Uterine cancer Social History Social History Household Members: Family Housing: House Are you a primary inspector health care facilities to a significant other at home: No Do you presently have visiting nurse or other home services: No Alcohol intake: never Patient Tobacco Use Status: Current everyday Tobacco user Tobacco use type: Cigarette Cigarette Packs Per Day: 0.5 Cigarettes Per Day: 3 Years Smoked: (onset 15, 1/2-3/4ppd x 41yrs, 25pyh) e-Cigarette/Vaping Use: Never Used Second Hand Smoke Exposure: Yes Substance Use Type: Marijuana Advance Directives: No Advance Directives Information Provided: No Do you have a plan to hurt others: No Plan service: No Current occupational status: disabled 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 Full HPI, ROS and PE to be performed by primary ED provider. 59 yo w/PMHx LD, GERD, Breast CA (in remission) presenting to the ED c/o brbpr x 5 days w/assoc fatigue, lightheadedness & lower abdominal pain. Denies anticoagulation use PE: abdomen soft w/lower ttp, no rebound or guarding Plan: labs, UA, occult stool Medical Decision Making Lab Data 06/27/24 11:44 06/27/24 11:44 Labs: Lab Results 06/27/24 06/27/24 Range/Units 11:44 11:45 WBC 5.8 (4.8-10.8) X10*3/uL RBC 3.39 L (4.20-5.50) X10*6/uL Hgb 10.2 L (12.0-16.0) g/dl Hct 30.7 L (37.0-47.0) % MCV 90.6 (80.0-98.0) fL MCH 30.1 (27.0-33.0) pg MCHC 33.2 (31.0-35.0) g/dl RDW 13.5 (11.0-16.0) % Plt Count 292 (160-400) X10*3/uL MPV 11.1 (9.4-12.3) fL Immature Gran % (Auto) 0.3 (0.0-0.4) % Neut % (Auto) 48.2 (45-73) % Lymph % (Auto) 38.9 (20-40) % Alpine % (Auto) 7.3 (2-11) % Eos % (Auto) 4.8 H (0-4) % Baso % (Auto) 0.5 (0-2) % Lymph # (Auto) 2.3 (1.2-4.9) X10*3/uL Alpine # (Auto) 0.4 (0.1-1.2) X10*3/uL Eos # (Auto) 0.3 (0.0-0.4) X10*3/uL Baso # (Auto) 0.0 (0.0-0.2) X10*3/uL Abs Immat Gran (auto) 0.02 (0.00-0.03) X10*3/uL Absolute Neuts (auto) 2.8 (2.0-8.3) x10*3/uL Absolute Nucleated RBC 0.000 (0.0-0.012) X10*3/uL Nucleated RBC % (auto) 0.0 (0.0-0.2) /100WBC PT 10.7 L (10.9-12.4) SEC INR 0.9 (0.9-1.1) Sodium 141 (135-145) mmol/L Potassium 4.1 (3.3-5.1) mmol/L Chloride 108 (96-108) mmol/L Carbon Dioxide 27 (22-29) mmol/L Anion Gap 10 L (12-20) BUN 10 (9-16) mg/dL Creatinine 0.73 (0.5-1.4) mg/dL Estim Creat Clear Calc 86.4 Estimated GFR > 60 Random Glucose 96 (60-115) mg/dL Calcium 10.1 D (8.4-10.2) mg/dL Magnesium 2.3 (1.6-2.6) mg/dL Total Bilirubin 0.3 (0.0-1.0) mg/dL Direct Bilirubin 0.1 (0.0-0.5) mg/dL AST 23 (5-31) U/L ALT 28 (0-31) U/L Alkaline Phosphatase 81 (39-117) U/L Total Protein 7.6 (6.5-8.0) g/dL Albumin 4.1 (3.5-5.0) g/dL Lipase 22 (8-78) U/L Urine Color Yellow Urine Appearance Clear Urine pH 5.0 (5.0-9.0) Ur Specific Perry 1.020 (1.005-1.025) Urine Protein Negative (Neg-Trace) mg/dL Urine Glucose (UA) Negative (Negative) mg/dL Urine Ketones Negative (Negative) mg/dL Urine Blood Negative (Negative) Urine Nitrite Negative (Negative) Ur Leukocyte Esterase Negative (Negative) Discharge Plan Discharge Clinical Impression: Rectal bleed Patient Disposition: Left W/O Completing Treatment Prescriptions: No Action aspirin [Adult Aspirin Regimen] 81 mg tablet,delayed release (DR/EC) 81 mg PO DAILY Qty: 90 1RF atorvastatin 80 mg tablet 80 mg PO DAILY Qty: 90 1RF quetiapine [Seroquel] 100 mg tablet 100 mg PO DAILY 90 Days Qty: 90 1RF betamethasone dipropionate 0.05 % cream 1 appl topical DAILY PRN (Reason: skin irritation) 30 Days Qty: 45 2RF lorazepam 1 mg tablet 1 mg PO BID-TID 30 Days Qty: 90 3RF naloxone [Narcan] 4 mg/actuation spray,non-aerosol 4 mg intranasal Q2M PRN (Reason: opioid overdose) Qty: 2 0RF Rx Instructions: spray 1 dose into ONE nostril; alternate nostrils w each dose until help arrives cholecalciferol (vitamin D3) 50 mcg (2,000 unit) capsule 50 mcg PO DAILY 90 Days Qty: 90 1RF acetaminophen [Tylenol] 325 mg capsule 650 mg PO Q6H PRN (Reason: pain) Qty: 30 0RF naproxen 500 mg tablet 500 mg PO BID PRN (Reason: pain) 7 Days Qty: 14 0RF omeprazole 20 mg capsule,delayed release(DR/EC) 20 mg PO DAILY lidocaine 5 % adhesive patch,medicated 1 patch topical DAILY 30 Days Qty: 30 0RF Rx Instructions: leave on most painful area for up to 12 hrs albuterol sulfate 90 mcg/actuation HFA aerosol inhaler 1 inh inhalation QID 30 Days Qty: 6.7 3RF hydrocortisone [Anti-Itch (HC)] 1 % cream 1 appl topical TID PRN (Reason: skin irritation) 90 Days Qty: 454 0RF oxycodone 5 mg tablet 5 mg PO BID PRN (Reason: pain) 7 Days Qty: 14 0RF Rx Instructions: Partial Fill upon patient request. gabapentin 100 mg capsule 100 mg PO BID 30 Days Qty: 60 0RF meclizine 25 mg tablet 25 mg PO TID 7 Days Qty: 21 1RF Discharge Date/Time: 06/27/24 16:49
--- NOTE | 2024-06-27 11:08 | ECG_ITS ---
Test Reason : GI BLEED Blood Pressure : */* mmHG Vent. Rate : 63 BPM Atrial Rate : 63 BPM P-R Int : 150 ms QRS Dur : 76 ms QT Int : 396 ms P-R-T Axes : 64 8 36 degrees QTcB Int : 405 ms Normal sinus rhythm with sinus arrhythmia Normal ECG When compared with ECG of 11-Jun-2022 17:35, Criteria for Septal infarct are no longer Present Referred By: Miriam Estrella Electronically Signed By: Ramiro Cooper
[2024-06-27 12:09] LABS: MANUAL DIFF FLAG NO
[2024-06-27 12:12] LABS: Basophils Percent Auto 0.5 % (0-2); Eosinophils Absolute Auto 0.3 X10*3/uL (0.0-0.4); Eosinophils Percent Auto 4.8 % (0-4); Hematocrit 30.7 % (37.0-47.0); Hemoglobin 10.2 g/dl (12.0-16.0); Imm Gran Abs Auto 0.02 X10*3/uL (0.00-0.03); Imm Gran Pct Auto 0.3 % (0.0-0.4); Lymphocytes Absolute Auto 2.3 X10*3/uL (1.2-4.9); Lymphocytes Percent Auto 38.9 % (20-40); Mean Corpuscular HGB Conc 33.2 g/dl (31.0-35.0); Mean Corpuscular Hemoglobin 30.1 pg (27.0-33.0); Mean Corpuscular Volume 90.6 fL (80.0-98.0); Mean Platelet Volume 11.1 fL (9.4-12.3); Monocytes Absolute Auto 0.4 X10*3/uL (0.1-1.2); Monocytes Percent Auto 7.3 % (2-11); Neutrophils Absolute Auto 2.8 x10*3/uL (2.0-8.3); Neutrophils Percent Auto 48.2 % (45-73); Platelet Count 292 X10*3/uL (160-400); Red Blood Count 3.39 X10*6/uL (4.20-5.50); Red Cell Distribution Width 13.5 % (11.0-16.0); White Blood Count 5.8 X10*3/uL (4.8-10.8)
[2024-06-27 12:13] LABS: Appearance Urine Clear; Color Urine Yellow; Glucose Urine UA Negative (Negative); Leukocyte Esterase Urine Negative (Negative); Nitrite Urine Negative (Negative); Urine Blood Negative (Negative); Urine Ketones Negative (Negative); Urine Protein Negative (Neg-Trace)
[2024-06-27 12:17] LABS: INTERNATIONAL NORM RATIO 0.9 (0.9-1.1); Prothrombin Time 10.7 SEC (10.9-12.4)
[2024-06-27 12:37] LABS: Alanine Aminotransferase 28 U/L (0-31); Albumin Level 4.1 g/dL (3.5-5.0); Alkaline Phosphatase 81 U/L (39-117); Anion Gap 10 (12-20); Aspartate Amino Transferase 23 U/L (5-31); Bilirubin Direct 0.1 mg/dL (0.0-0.5); Bilirubin Total 0.3 mg/dL (0.0-1.0); Blood Urea Nitrogen 10 mg/dL (9-16); Calcium 10.1 mg/dL (8.4-10.2); Carbon Dioxide 27 mmol/L (22-29); Chloride 108 mmol/L (96-108); Creatinine Clr Calc Pharmacy 86.4; Estimated Glomerular Filt Rate > 60; Glucose Random 96 mg/dL (60-115); Lipase 22 U/L (8-78); Magnesium 2.3 mg/dL (1.6-2.6); Potassium 4.1 mmol/L (3.3-5.1); Sodium 141 mmol/L (135-145); Total Protein 7.6 g/dL (6.5-8.0)
--- OUTSIDE RECORDS SUMMARY | 2024-06-27 18:10 | XMS_ITS | Clinical Summary ---
Author Organization [facility] Address [address] [place] [address] Care Team Providers Care Retail Sales Representative Name Role Phone Unavailable Primary Care Provider [...]
== END 2024-06-27 16:49 | disposition left against medical advice (07) ==
PROVIDERS: Physician Assistant; Emergency Provider Emergency Medicine; PCP Physician Assistant
DX: K62.5 Hemorrhage of anus and rectum (principal); I49.9 Cardiac arrhythmia, unspecified; R42 Dizziness and giddiness; R10.30 Lower abdominal pain, unspecified; F17.210 Nicotine dependence, cigarettes, uncomplicated; Z79.899 Other long term (current) drug therapy
CPT/HCPCS: 36415; 80048; 80076; 81003; 83690; 83735; 85025; 85610; 93005; 99212; 99283

== ENCOUNTER → 2024-06-27 11:08 | Outpatient (BNV) | payer OTHER, SELFPAY | PROVIDERS: Emergency Provider Emergency Medicine; PCP Physician Assistant; Visit Provider Internal Medicine Cardiovascular Disease | DX: I49.9 Cardiac arrhythmia, unspecified (principal); K92.2 Gastrointestinal hemorrhage, unspecified | CPT/HCPCS: 93010 ==

== ENCOUNTER 2024-07-14 09:22 | Outpatient (AMB) | payer OTHER, SELFPAY ==
--- NOTE | 2024-07-14 09:31 | MHC.PC.OV ---
Vital Signs 07/14/24 09:32 Height 5 ft 6 in Weight 168 lb 2 oz BMI 27.1 BP 98/54 L Blood Pressure Location Rt brachial Position Sitting Pulse 67 Pulse Source Pulse Oximeter Temp 97.3 F Temp Source Temporal Artery Scan Pulse Oximetry (%) 97 Oxygen Delivery Method Room Air Intake Visit Reasons: [facility] 06/27 rectal bleeding Transit Department Clerk Required: No Accompanied by: Self / Same As Patient Allergies tramadol Adverse Reaction (Intermediate, Verified 07/14/24 09:42) dry mouth trazodone Adverse Reaction (Intermediate, Verified 07/14/24 09:42) Falls Medication List - Last Reconciled 07/14/24 by Patel Rdz PA-C acetaminophen (Tylenol) 650 mg (2 x 325 mg) PO Q6H PRN albuterol sulfate 90 mcg/actuation 1 inh inhalation QID 30 days aspirin (Adult Aspirin Regimen) 81 mg PO DAILY atorvastatin 80 mg PO DAILY betamethasone dipropionate 0.05% 1 appl topical DAILY PRN 30 days cholecalciferol (vitamin D3) 50 mcg PO DAILY 90 days gabapentin 100 mg PO BID 30 days hydrocortisone 1% (Anti-Itch (hydrocortisone)) 1 appl topical TID PRN 90 days lidocaine 5% 1 patch topical DAILY 30 days lorazepam 1 mg PO BID-TID 30 days meclizine 25 mg PO TID 7 days naloxone 4 mg/actuation (Narcan) 4 mg intranasal Q2M PRN naproxen 500 mg PO BID PRN 7 days omeprazole 20 mg PO DAILY oxycodone 5 mg PO BID PRN 7 days quetiapine (Seroquel) 100 mg PO DAILY 90 days Tobacco use date assessed: 07/14/24 Dental Screening Dental Screen Date: 07/14/24 Did you have a dental visit in the last 12 months?: No Did you have a dental problem in the last 6 months where you did not have access to dental care?: No Was dental information given to patient?: Patient has dentist HPI [facility] 06/27 rectal bleeding HPI Details Patient is a 59-year-old female here today for an ER follow-up visit. Patient was seen for acute bright red blood per rectal and was also feeling bit lightheaded and dizzy at the time. She did get labs and an EKG done which are fairly stable, was found to have slight anemia. Will recheck her labs prior to her upcoming annual physical. She has upcoming appointment with her director electrical engineering in his requesting colonoscopy. We also did discuss patient's intermittent chronic pain syndrome which is most consistent with a fibromyalgia. She does speak with a mental health therapist. PLAN : We discuss increasing gabapentin to 300 b.i.d. for better coverage of her fibromyalgia pain. Laboratory Tests 06/27/24 11:44 RBC 3.39 L Hgb 10.2 L PFSH Medical History (Updated 07/14/24 @ 10:01 by Patel Rdz PA-C) Chronic pain syndrome History of left breast cancer (~2013) HLD (hyperlipidemia) GERD (gastroesophageal reflux disease) Nicotine dependence, cigarettes, uncomplicated Osteopenia (~2015) Postmenopausal Migraine Post herpetic neuralgia (~2020) Bilateral primary osteoarthritis of knee History of suicide attempt MDD (major depressive disorder) JASSON (generalized anxiety disorder) Surgical History History of lumpectomy of left breast (~2013) History of hip surgery (~1990) History of right knee surgery (~2006) History of ventral hernia repair (~2018) History of thumb surgery (~2016) History of tubal ligation History of tonsillectomy History of colonoscopy History of esophagogastroduodenoscopy (EGD) Family History Father Diabetes Hypertension Uterine cancer Prostate cancer Mother Breast cancer Maternal Aunt Uterine cancer Lung cancer Family/Other Substance use disorder Sister Uterine cancer Social History Household Members: Family Housing: House Are you a primary healthcare science specialist to a significant other at home: No Do you presently have visiting nurse or other home services: No Alcohol intake: never Patient Tobacco Use Status: Former Tobacco user (quit 8-9 months ago) Tobacco use type: Cigarette Cigarette Packs Per Day: 0.5 Cigarettes Per Day: 3 Years Smoked: (onset 15, 1/2-3/4ppd x 41yrs, 25pyh) Packs Per Year: 0 Packs per year/per ci.00 e-Cigarette/Vaping Use: Never Used Second Hand Smoke Exposure: Yes Substance Use Type: Marijuana service: No Current occupational status: disabled 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 1. Little interest or pleasure in doing things: not at all 2. Feeling down, depressed, or hopeless: not at all 3. Trouble falling or staying asleep, or sleeping too much: not at all 4. Feeling tired or having little energy: not at all 5. Poor appetite or overeating: not at all 6. Feeling bad about yourself - or that you are a failure or have let yourself or your family down: not at all 7. Trouble concentrating on things, such as reading the newspaper or watching television: not at all 8. Moving or speaking so slowly that other people could have noticed. Or the opposite - being so fidgety or restless that you have been moving around a lot more than usual: not at all 9. Thoughts that you would be better off or of hurting yourself in some way: not at all Total score: 0 Depression Screening Interpretation: Negative Depression Screening Done: Yes 79897 - PHQ-9 Billing: Yes Source: Developed by Drs. Vickey Catalan, Gina Dawson, Henrique Curran and colleagues, with an educational shiv from [employer]. Thrive Questionnaire Date Thrive assessed: 07/14/24 I am a: Patient What is your living situation today?: I have a steady place to live Within the past 12 months, did the food you bought not last and you didn't have the money to get more?: Never true Within the past 12 months, did you worry whether your food would run out before you got money to buy more?: Never true Do you have trouble paying for medicines?: No Do you have trouble getting transportation to medical appointments?: No Do you have trouble paying your heating and electricity bill?: No Do you have trouble taking care of your child, family member or friend?: No Do you have trouble with day-to-day activities such as bathing, preparing meals, shopping, managing finances, etc.?: No Are you currently unemployed and looking for a job?: No Are you interested in more education?: No Please select the resources that you would like help with: None Currently or been in a relationship where the following occur: No concerns reported THRIVE Score: 0 AUDIT C Alcohol Use Questionnaire (AUDIT-C) 1. How often do you have a drink containing alcohol?: Never 3. How often do you have six or more drinks on one occasion?: Never Total Score: 0 JASSON-7 AMB Questionnaire JASSON-7 Date JASSON - 7 assessed: 07/14/24 (Patient states they are being treated for anxiety and depression, which are well controlled.) Feeling nervous, anxious, or on edge: 0 = Not at all Not being able to stop or control worryin = Not at all Worrying too much about different things: 0 = Not at all Trouble relaxin = Not at all Being so restless that it is hard to sit still: 0 = Not at all Becoming easily annoyed or irritable: 0 = Not at all Feeling afraid as if something awful might happen: 0 = Not at all Total JASSON-7 score (0-4 normal; 5-9 mild; 10-14 moderate; 15-21 severe): 0 Source: Developed by Drs. Vickey Catalan, Gina Dawson, Henrique Curran and colleagues, with an educational shiv from [employer]. JASSON-7 Assessment Billing JASSON-7 Assessment Tool: JASSON-7 Assessment 41668 Review of Systems Const Denies headache(s) Eyes Denies loss of vision ENT Denies vertigo, Denies dizziness, Denies headache(s) and Denies sore throat Card Denies chest pain, Denies leg edema and Denies lightheadedness Resp Denies cough, Denies hemoptysis and Denies wheezing GI Denies abdominal pain, Denies melena, Denies constipation, Denies diarrhea and Denies vomiting Denies urinary frequency, Denies dysuria and Denies urinary urgency Musc Denies arthralgias, Denies joint swelling, Denies numbness and Denies tingling Neuro Denies Abnormal speech present, Denies behavioral changes, Denies vertigo, Denies dizziness, Denies headache(s), Denies loss of vision, Denies memory loss, Denies numbness and Denies tingling Psych Denies anxiety, Denies behavioral changes, Denies depression, Denies memory loss and Denies panic attacks Angel/Lymph Denies easy bleeding and Denies easy bruising Aller/Immun Denies wheezing Physical exam (Primary Care) Vital Signs: Last Vital Signs Temp 97.3 F 07/14/24 09:32 Pulse 67 07/14/24 09:32 BP 98/54 L 07/14/24 09:32 Pulse Ox 97 07/14/24 09:32 Oxygen Delivery Method Room Air 07/14/24 09:32 BMI result Body Mass Index 27.1 Tobacco/Smoking Status: Tobacco use Status Tobacco use date assessed 07/14/24 07/14/24 09:39 Patient Tobacco Use Status Former Tobacco user (quit 8- 07/14/24 09:39 9 months ago) Tobacco use type Cigarette 07/14/24 09:39 e-Cigarette/Vaping Use Never Used 07/14/24 09:39 PHQ-9: PHQ-9 Score PHQ-9: Total score 0 07/14/24 09:39 Depression Screening Interpretation: Negative Thrive Assessment: Date of Thrive Assessment Date Thrive assessed 07/14/24 07/14/24 09:39 Currently or been in a relationship where the following occur: No concerns reported Const General: healthy appearing, no acute distress, alert and awake Nutritional Appearance: well nourished Orientation/consciousness: oriented to person, oriented to place and oriented to time HENMT Ears: TM's normal bilaterally General nose exam: Normal nasal mucous membranes and turbinates present Eyes Conjunctivae: conjunctivae normal Sclerae: sclerae normal Pupils: Equal, round and reactive pupils present Neck Neck: Yes no lymphadenopathy and Yes no JVD Thyroid: Thyroid normal Carotids: no bruits Resp Effort & Inspection: normal respiratory effort and not tachypneic Auscultation: no crackles, no rales, no rhonchi and no wheezes Cardio Rate: regular rate Rhythm: regular rhythm Heart sounds: no murmurs and normal S1 and S2 GI Palpation (GI): Soft to palpation, nontender, no hepatomegaly and no splenomegaly Auscultation: normal bowel sounds Skin General skin exam: no rashes or lesions noted and dry skin Neuro General: oriented to person, oriented to place and oriented to time Cranial nerves: Yes Equal, round and reactive pupils present Speech: No Abnormal speech present Gait exam (Neuro): Normal gait present Motor exam (neuro): no tremor noted Extrem Right upper extremity: full ROM Left upper extremity: full ROM Right lower extremity: full ROM; no edema Left lower extremity: full ROM; no edema Psych Mental Status: mental status grossly normal Speech and movement: Normal speech and movement present Affect: normal affect Attitude: cooperative Thought process: Normal thought process present Coding Level of Care Code Est Pt Level 4 (09112) Diagnoses Rectal bleed K62.5 Fibromyalgia M79.7 Additional Codes JASSON-7 Assessment Billing - JASSON-7 Assessment Tool: JASSON-7 Assessment 99301 ([id number]) PHQ-9 - 18926 - PHQ-9 Billing: Yes ([id number]) Assessment & Plan Assessment & Plan (1) Rectal bleed: Code(s): K62.5 - Hemorrhage of anus and rectum Category: Medical Plan: Patient's rectal bleeding seems to resolve. She has not appointment with her director electrical engineering in his requesting colonoscopy. Did discuss conservative treatments for internal hemorrhoid bleeding. (2) Fibromyalgia: Code(s): M79.7 - Fibromyalgia Category: Medical Plan: Patient's signs and symptoms most consistent with a diagnosis of fibromyalgia. Will increase her gabapentin dose to 300 b.i.d.. Advised to continue to be physically active Medications: New gabapentin 300 mg PO BID 30 days 60 caps 3RF M47.817 - Spondylosis without myelopathy or radiculopathy, lumbosacral region Refilled oxycodone Partial Fill upon patient request. 5 mg PO BID 7 days PRN 14 tabs 0RF pain M16.12 - Unilateral primary osteoarthritis, left hip Discontinued gabapentin Discontinued Reason: Doctor's Order 100 mg PO BID 30 days 60 caps 0RF M16.12 - Unilateral primary osteoarthritis, left hip
[2024-07-14 09:32] VITALS: BP 98/54; PULSE 67; TEMP 36.3; O2SAT 97; BMI 27.1
--- OUTSIDE RECORDS SUMMARY | 2024-07-14 10:09 | XMS_ITS | Clinical Summary ---
Author Organization [facility] Address [address] [place] [address] Care Team Providers Care Video Game Producer Name Role Phone Unavailable Primary Care Provider [...]
--- OUTSIDE RECORDS SUMMARY | 2024-07-14 10:09 | XMS_ITS ---
Author Organization [facility] Address [address] [place] [address] Care Team Providers Care Transcription Typist Name Role Phone Patel Rdz Primary Care Provider Unavailab Chris Wakefield Jr Unavailable [phone] REASON FOR VISIT ov recall Encounters Encounter Location Date Provider Diagnosis [facility] [address] [place] [address] 02/14/2023 Chris Horner Jr Plan Of Treatment Next Appt Details Provider Name:Chris tapia Jr, 08/11/2024 01:55:00 PM, [address], [address], [place], [address], Progress Notes * INDIRA DERASDOB:[birth year] (58 yo F)Acc No.[id number]:02/14/2023 Patient:?INDIRA DERAS :1965???Age:58 Y???Sex:Female Address:[address] [place] [id number] * true * Date:? Generated for Felizi cassius/Danial/eTransmitting on:?07/14/2024 10:09 AM EDT
--- OUTSIDE RECORDS SUMMARY | 2024-07-14 10:09 | XMS_ITS ---
Author Organization [facility] Address [address] [place] [address] Care Team Providers Care Inbound Sales Advisor Name Role Phone Patel Rdz Primary Care Provider Unavailab Chris Wakefield Jr Unavailable [phone] Allergies No Known Allergies REASON FOR VISIT Patient presents today for abdominal pain Medications Medication SIG (Take, Route, Frequency, Duration) Notes [...] a day for 30 days 02/17/2022 Active Immunizations Vaccine Route Administration Date Status Comme nts Influenza Unknown 02/14/2023 Refused Social History Tobacco Use: Social History Observation Description Date Details (start date - stop date) Current Smoker NA - NA Tobacco Use/Smoking Question Answer Notes Patient is a current smoker How often do you smoke cigarettes? every day How many cigarettes a day do you smoke? 6-10 How soon after you wake up do you smoke your fir st cigarette? 6-30 minutes Are you interested in quitting? Ready to quit Problems Problem Type SNOMED Code ICD Code Onset Dates Problem Status W/U Status Risk Notes Problem Gastroesophageal reflux disease with esophagitis (disorder) (026570515) Gastroesophageal reflux disease with esophagitis, unspecified whether hemorrhage (K21.00) Active confirmed Vital Signs Temperature 97.1 degrees Fahrenheit 02/15/20 23 Blood pressure systolic 000 mm Hg 02/15/20 23 Blood pressure diastolic 00 mm Hg 023 Height 66.75 in 02/14/2023 Weight 162 lbs 02/14/2023 BMI 25.56 kg/m2 02/14/2023 Encounters Encounter Location Date Provider Diagnosis [facility] [address] [facility] [address] [place] [id number] 02/14/2023 Chris Horner Jr Gastro-esophageal reflux disease with esophagitis K21.0 and Irritable bowel syndrome with constipation K58.1 Assessments Encounter Date Diagnosis (ICD Code) Assessment Notes Treatment Notes Treatment Clinical Notes Section Notes 02/14/2023 Gastro-esophage al reflux disease with esophagitis (ICD-10 - K21.0) Gastroesophageal reflux disease material was printed Currently, she is doing well. We recommended she continue omeprazole 40 mg daily. She will also continue Gas-X as needed for constipation. We discussed diet, lifestyle modifications, and weight management regarding the treatment of reflux. Followup will be in one year. 02/14/2023 Irritable bowel syndrome with constipation (ICD-10 - K58.1) Currently, she is doing well. We recommended she continue omeprazole 40 mg daily. She will also continue Gas-X as needed for constipation. We discussed diet, lifestyle modifications, and weight management regarding the treatment of reflux. Followup will be in one year. Plan Of Treatment Medication Medication Name Sig Start Date Stop [...] Follow Up: 1 Year, Reason: Provider Name:Chris Sharpe tapia , 08/11/2024 01:55:00 PM, [address] [facility] [address], [address], [place], [address], Progress Notes * INDIRA DERASDOB:[birth year] (58 yo F)Acc No.[id number]:02/14/2023 Progress Notes Patient:?INDIRA DERAS Provider:?Chris Horner MD :1965???Age:58 Y???Sex:Female D ate:02/14/2023 Address:[address] [place] [address], [facility] Pcp:Patel Rdz Subjective: * Chief Complaints: * ???1. Patient presents today for abdominal pain. * HPI: ???New symptom(s):? Indira returns today for followup of gastroesophageal reflux disease and irritable bowel syndrome with constipation. Since we saw her last, she's been doing well. She reports reflux symptoms are generally under good control on omeprazole, which she's taking a dose to 40 mg daily. She has no dysphagia, hematemesis, or melena. Weight and appetite have been stable. She does use Gas-X for complaints of gas. She has had some rectal bleeding which she attributes to hemorrhoids. She is up-to-date on colorectal cancer screening and is due for followup in 2025. She continues to follow a high-fiber diet for her IBS with constipation. * Medical History:?Anxiety, De pression, Hiatal hernia, H. pylori infection, EGD/colonoscopy in 07/28/15, no Foster's, no history of adenomas, ten-year colon followup 2025, Breast cancer. * Surgical History:?hip surger y , knee surgery , tonsillectomy , tubal ligation , hernia repair 07/2018, lumpectomy, left breast . * Hospitalization/Major Diagno stic Procedure:?Denies Past Hospitalization. * Family History:?Father: parvin chowdhury, diagnosed with Diabetes.?Mother: .?Maternal aunt: 2 aunts with diabetes.? Family history is negative for colon cancer. A sister had gastritis. * Social History:?Tobacco Use:?Tobacco Use/Smoking?Patient is a?current smoker,?How often do you smoke cigarettes??every day,?How many cigarettes a day do you smoke??6-10,?How soon after you wake up do you smoke your first cigarette??6-30 minutes,?Are you interested in quitting??Ready to quit.?Drugs/Alcohol:?Alcohol Screen?Points: 0, Interpretation: Negative.?Miscellaneous:?Marital status: . 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 * Medications:?Taking LORazepa m 1 MG Tablet 1 tablet as needed Orally Once a day, Taking Lexapro 10 MG Tablet 1 tablet Orally Once a day, Taking SEROquel 100 MG Tablet 1 tablet at bedtime Orally Once a day, Taking Omeprazole 20 MG Capsule Delayed Release 1 capsule 30 minutes before morning meal Orally Once a day, Taking Atorvastatin Calcium 80 MG Tablet TAKE ONE TABLET BY MOUTH EVERY DAY Oral , Taking Aspirin Low Dose 81 MG Tablet Delayed Release TAKE ONE TABLET BY MOUTH EVERY DAY Oral , Taking Gabapentin 300 MG Capsule Oral , Taking Albuterol Sulfate HFA 108 (90 Base) MCG/ACT Aerosol Solution INHALE 1 PUFF FOUR TIMES A DAY FOR SHORTNESS OF BREATH OR WHEEZING Inhalation , Taking D3 Super Strength 50 MCG (2000 UT) Capsule TAKE 1 CAPSULE BY MOUTH DAILY Oral , Taking Hydrocortisone 1 % Cream APPLY TOPICALLY THREE TIMES A DAY NEEDED FOR SKIN IRRITATION External , Medication List reviewed and reconciled with the patient * Allergies:?N.K.D.A. Objective: * Vitals:?Wt: 162 lbs, Ht: 66. 75 in, BMI:25.56 Index, BP: 000/00 mm Hg, Temp: 97.1. * Examination: ???General Examination: ???On examination today, she appears well. Skin is anicteric. Lungs are clear. Heart shows regular rate and rhythm. Abdomen is soft without focal mass or tenderness. Extremities are without edema. Assessment: * Assessment: 1.?Gastro-esophageal reflux disease with esophagitis - K21.0 (Primary)?2.?Irritable bowel syndrome with constipation - K58.1? Currently, she is doing well . We recommended she continue omeprazole 40 mg daily. She will also continue Gas-X as needed for constipation. We discussed diet, lifestyle modifications, and weight management regarding the treatment of reflux. Followup will be in one year. Plan: * Treatment: * Immunizations:? Influenza (Not administered - Refused: Patient decision) * Procedure Codes:?3017F COLOR ECTAL CA SCREEN DOC REV, G9902 Pt scrn tbco and id as user, G9745 DOC RSN FOR NOT SCREEN/REC F/U HBP * Preventive Medicine:? ??Counseling:?Care goal follow-up plan:?Above Normal BMI Follow-up?Giving encouragement to exercise,?BMI management provided?Yes.? * Follow Up:?1 Year * * Sign off status: Completed true * Provider:?Chris Horner MD Date:?1 Generated for Andie hammonds/Danial/eTransmitting on:?07/14/2024 10:09 AM EDT History and Physical Notes * HPI (History of Present Illness) Category Sub-Category Detail Notes Category Not es New symptom(s) Indira causey urns today for followup of gastroesophageal reflux disease and irritable bowel syndrome with constipation. Since we saw her last, she's been doing well. She reports reflux symptoms are generally under good control on omeprazole, which she's taking a dose to 40 mg daily. She has no dysphagia, hematemesis, or melena. Weight and appetite have been stable. She does use Gas-X for complaints of gas. She has had some rectal bleeding which she attributes to hemorrhoids. She is up-to-date on colorectal cancer screening and is due for followup in 2025. She continues to follow a high-fiber diet for her IBS with constipation. Examination Category Sub-Category Detail Notes Category Not es General Examination On exami [facility] department today, she appears well. Skin is anicteric. Lungs are clear. Heart shows regular rate and rhythm. Abdomen is soft without focal mass or tenderness. Extremities are without edema.
--- OUTSIDE RECORDS SUMMARY | 2024-07-14 10:10 | XMS_ITS | Patient Health Record ---
Author Organization [facility] Address [address] [place] [address] Care Team Providers Care Graining Machine Operator Name Role Phone Patel dRz Primary Care Provider Chris Ray Jr Unavailable [phone] Allergies No Known Allergies Reason For Referral No Information Medications Medication SIG (Take, Route, Frequency, Duration) [...] FOR SKIN IRRITATION External for 90 Active Immunizations Vaccine Route Administration Date Status Comme nts Influenza Unknown 01/01/2019 Refused Influenza Unknown 02/17/2022 Refused Influenza Unknown 02/14/2023 Refused Social History Tobacco [...] Problem Status W/U Status Risk Notes Problem 70773868 Rectal bleeding (K62.5) Active confirmed Problem 330858815 Gastro-esophagea l reflux disease with esophagitis (K21.0) Active confirmed Problem 353827938 Irritable bowel syndrome with constipation (K58.1) Active confirmed Problem Gastroesophageal reflux disease with esophagitis (disorder) (270667216) Gastroesophageal reflux disease with esophagitis, unspecified whether hemorrhage (K21.00) Active confirmed Plan Of Treatment Future Test Test Name Order Date UPPER GI ENDOSCOPY 08/09/2011 COLONOSCOPY 08/09/2011 UPPER GI ENDOSCOPY 04/01/2015 COLONOSCOPY 04/01/2015 Next Appt Details Provider Name:Chris tapia , 08/11/2024 01:55:00 PM, [address] [facility], [address], [place], [address], Insurance Providers Payer Name Payer Address Payer Phone Subscriber Number Group Number Insured Name Patient Relationship to Insured Coverage Start Date [facility]age End Date [facility] [address] Attn Claims [place]FF[place] [id number] INDIRA DERAS Self - patient is the insured MEDICAID OF [facility] [address] [place] [address] [id number] COLONINDIRA Self - patient is the insured MEDICARE OF [place] [address] [place] [address] [id number] COLONINDIRA Self - patient is the insured Medical (General) History Medical History History ICD Code anxiety depression hiatal hernia H. pylori infection EGD/colonoscopy in 07/28/15, no Foster's, no history of adenomas, ten-year colon followup 2025 breast cancer Surgical History Surgery Date(Month/Year) hip surgery knee surgery tonsillectomy tubal ligation hernia repair 07/2018 lumpectomy, left breast
== END 2024-07-14 09:59 | disposition home or self-care (01) ==
LOC: HO.HMCH 09:22
PROVIDERS: PCP Physician Assistant; Visit Provider Physician Assistant
DX: K62.5 Hemorrhage of anus and rectum (principal); M79.7 Fibromyalgia

== ENCOUNTER → 2024-07-14 09:22 | Outpatient (BNVA) | payer OTHER, SELFPAY | PROVIDERS: PCP Physician Assistant; Visit Provider Physician Assistant | DX: K62.5 Hemorrhage of anus and rectum (principal); M79.7 Fibromyalgia | CPT/HCPCS: 96127; 99212 ==

== ENCOUNTER 2024-08-11 12:05 | Outpatient (AMB) | payer OTHER, SELFPAY ==
--- NOTE | 2024-08-11 12:14 | MHC.OFFVIS ---
Vital Signs 08/11/24 12:44 Height 5 ft 6 in Weight 168 lb BMI 27.1 Intake Visit Reasons: OV-B/L knee pain follow up Intake Note: Germaine is a 59 year old female who presents today for a follow up of her bilateral knee OA s/p Bilateral Knee Durolane injections administered on 09/14/23. Patient reports she has an exacerbation of pain with ambulation of stairs, prolonged ambulation, or prolonged standing. At rest she reports no pain. She expresses her last injections offered her adequate relief and she wuold like to repeat injections Allergies tramadol Adverse Reaction (Intermediate, Verified 07/14/24 09:42) dry mouth trazodone Adverse Reaction (Intermediate, Verified 07/14/24 09:42) Falls HPI HPI OV-B/L knee pain follow up: Details: Germaine is a 59 year old female who presents today for a follow up of her bilateral knee OA s/p Bilateral Knee Durolane injections administered on 09/14/23. Patient reports she has an exacerbation of pain with ambulation of stairs, prolonged ambulation, or prolonged standing. At rest she reports no pain. She expresses her last injections offered her adequate relief. [facility] Medical History (Updated 07/14/24 @ 10:01 by Patel Rdz PA-C) Chronic pain syndrome History of left breast cancer (~2013) HLD (hyperlipidemia) GERD (gastroesophageal reflux disease) Nicotine dependence, cigarettes, uncomplicated Osteopenia (~2015) Postmenopausal Migraine Post herpetic neuralgia (~2020) Bilateral primary osteoarthritis of knee History of suicide attempt MDD (major depressive disorder) JASSON (generalized anxiety disorder) Surgical History History of lumpectomy of left breast (~2013) History of hip surgery (~1990) History of right knee surgery (~2006) History of ventral hernia repair (~2018) History of thumb surgery (~2016) History of tubal ligation History of tonsillectomy History of colonoscopy History of esophagogastroduodenoscopy (EGD) Family History Father Diabetes Hypertension Uterine cancer Prostate cancer Mother Breast cancer Maternal Aunt Uterine cancer Lung cancer Family/Other Substance use disorder Sister Uterine cancer Social History Household Members: Family Housing: House Are you a primary anesthesiologist and critical care to a significant other at home: No Do you presently have visiting nurse or other home services: No Alcohol intake: never Patient Tobacco Use Status: Former Tobacco user (quit 8-9 months ago) Tobacco use type: Cigarette Cigarette Packs Per Day: 0.5 Cigarettes Per Day: 3 Years Smoked: (onset 15, 1/2-3/4ppd x 41yrs, 25pyh) e-Cigarette/Vaping Use: Never Used Second Hand Smoke Exposure: Yes Substance Use Type: Marijuana service: No Current occupational status: disabled 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 She has benefitted from viscosupplementation approximately 1 year ago and I recommend we repeat that. We discussed this. She agrees with the assessment plan and we will contact her when we are permitted to proceed forward Coding Level of Care Code Est Pt Level 3 (60891) Diagnoses Bilateral primary osteoarthritis of knee M17.0
[2024-08-11 12:44] VITALS: BMI 27.1
--- OUTSIDE RECORDS SUMMARY | 2024-08-11 14:07 | XMS_ITS ---
Author Organization [facility] Address [address] [place] [address] Care Team Providers Care Meteorologist Liaison Name Role Phone Patel Rdz Primary Care Provider Unavailab Chris Wakefield Jr Unavailable Allergies No Known Allergies REASON FOR VISIT [...] Problem Gastroesophageal reflux disease with esophagitis (disorder) (798216292) Gastroesophageal reflux disease with esophagitis, unspecified whether hemorrhage (K21.00) Active confirmed Vital Signs Temperature 97.1 degrees Fahrenheit 02/15/20 23 Blood pressure systolic 000 mm Hg 02/15/20 23 Blood pressure diastolic 00 mm Hg 023 Height 66.75 in 02/14/2023 Weight 162 lbs 02/14/2023 BMI 25.56 kg/m2 02/14/2023 Encounters Encounter Location Date Provider Diagnosis [facility] [address] [place] [phone] 02/14/2023 Chris Horner Jr Gastro-esophageal reflux disease [...] Appt Details Follow Up: 1 Year, Reason: Progress Notes * COLON, MARGARITADOB:[birth year] (58 yo F)Acc No.[id number]:02/14/2023 Progress Notes Patient:INDIRA CONNELLY Provider:?Chris Horner MD :1965???Age:58 Y???Sex:Female D ate:02/14/2023 Address:[address] [place], [place] [id number] Pcp:Patel Rdz Subjective: * Chief Complaints: * [...] * Provider:?Chris Horner MD Date:?1 Generated for BuyerCuriousi cassius/Danial/eTransmitting on:?08/11/2024 02:07 PM EDT History and Physical Notes * HPI [...] Category Not es General Examination On exami nation today, she appears well. Skin is anicteric. Lungs are clear. Heart shows regular rate and rhythm. Abdomen is soft without focal mass or tenderness. Extremities are without edema.
--- OUTSIDE RECORDS SUMMARY | 2024-08-11 14:07 | XMS_ITS ---
Author Organization [facility] Address [address] [place] [phone] Care Team Providers Care Advertising Columnist Name Role Phone Patel Rdz Primary Care Provider Unavailab Chris Wakefield Jr Unavailable [phone] REASON FOR VISIT ov recall Encounters Encounter Location Date Provider Diagnosis [facility] [address] [place] [phone] 02/14/2023 Chris Horner Jr Plan Of Treatment No Information Progress Notes * INDIRA DERASDOB:[birth year] (58 yo F)Acc No.[id number]:02/14/2023 Patient:?INDIRA DERAS :1965???Age:58 Y???Sex:Female Address:[address] [place] [address] * true * Date:? Generated for Andie hammonds/Danial/eTransmitting on:?08/11/2024 02:07 PM EDT
--- OUTSIDE RECORDS SUMMARY | 2024-08-11 14:07 | XMS_ITS | Clinical Summary ---
Author Organization [facility] Address [address] [place] [address] Care Team Providers Care Boat Wrapper Name Role Phone Unavailable Primary Care Provider [...]
--- OUTSIDE RECORDS SUMMARY | 2024-08-11 14:07 | XMS_ITS ---
Author Organization [facility] Address [address] [place] [address] Care Team Providers Care Buyer Liaison Name Role Phone Patel Rdz Primary Care Provider Unavailab Chris Wakefield Jr Unavailable Allergies No Known Allergies REASON FOR VISIT Patient presents today for a rectal bleeding Medications Medication SIG (Take, Route, Frequency, Duration) Notes Start Date End Date Status D3 Super Strength 50 MCG (1999) TAKE 1 CAPSULE BY MOUTH DAILY Oral for 90 Active Hydrocortisone 1 % APPLY TOPICALLY THRE E TIMES A DAY NEEDED FOR SKIN IRRITATION External for 90 Active Omeprazole 40 MG 1 capsule 30 minutes before morning meal Orally Once a day for 30 days 02/17/2022 Active Simethicone 125 MG 1 tablet after meals and at bedtime as needed Orally Four times a day 02/14/2023 Active oxyCODONE HCl 5 MG TAKE ONE TABLET BY M OUTH TWICE A DAY NEEDED FOR PAIN FOR 7 DAYS Oral for 7 Days Active Gabapentin 300 MG Oral for 30 Active Albuterol Sulfate HFA 108 (90 Base) MCG/ACT INHALE 1 PUFF FOUR TIMES A DAY FOR SHORTNESS OF BREATH OR WHEEZING Inhalation for 50 Active Atorvastatin Calcium 80 MG TAKE ONE TABL ET BY MOUTH EVERY DAY Oral for 90 Active Aspirin Low Dose 81 MG TAKE ONE TABLET B Y MOUTH EVERY DAY Oral for 90 Active SEROquel 100 MG 1 tablet at bedtime Orally Once a day for 30 day(s) Active LORazepam 1 MG 1 tablet as needed Orally Once a day Active Lexapro 10 MG 1 tablet Orally Once a day for 30 day(s) Active Immunizations Vaccine Route Administration Date Status Comme nts Influenza Unknown 08/11/2024 Refused Social History Tobacco Use: Social History Observation Description Date Details (start date - stop date) Former Smoker NA - NA Tobacco Control (Standard) Question Answer Notes Tobacco use: Former smoker Vital Signs Temperature 98.7 degrees Fahrenheit 08/12/19 25 Blood pressure systolic 001 mm Hg 08/12/19 25 Blood pressure diastolic 01 mm Hg 025 Height 66.75 in 08/11/2024 Weight 168.2 lbs 08/11/2024 BMI 26.54 kg/m2 08/11/2024 Encounters Encounter Location Date Provider Diagnosis [facility] [address] [place] [address] 08/11/2024 Chris Horner Jr Plan Of Treatment No Information Progress Notes * INDIRA DERASDOB:[birth year] (59 yo F)Acc No.[id number]:08/11/2024 Progress Notes Patient:?INDIRA DERAS Provider:?Chris Horner MD :1965???Age:59 Y???Sex:Female D ate:08/11/2024 Address:[address] [place], [place] [id number] Pcp:Patel Rdz Subjective: * Chief Complaints: * ???1. Patient presents today for a rectal bleeding. * Medical History:?Anxiety, De pression, Hiatal hernia, H. pylori infection, EGD/colonoscopy in 07/28/15, no Foster's, no history of adenomas, ten-year colon followup 2025, Breast cancer. * Surgical History:?hip surger y , knee surgery , tonsillectomy , tubal ligation , hernia repair 07/2018, lumpectomy, left breast . * Family History:?Father: parvin chowdhury, diagnosed with Diabetes.?Mother: .?Maternal aunt: 2 aunts with diabetes.? Family history is negative for colon cancer. A sister had gastritis.? No family history of liver cancer. * Social History:?Tobacco Use:?Tobacco Control (Standard)?Tobacco use:?Former smoker.?Drugs/Alcohol:?Alcohol Screen?Points: 0, Interpretation: Negative.?Miscellaneous:?Marital status: . 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 * Medications:?Taking LORazepa m 1 MG Tablet 1 tablet as needed Orally Once a day , Taking Lexapro 10 MG Tablet 1 tablet Orally Once a day , Taking SEROquel 100 MG Tablet 1 tablet at bedtime Orally Once a day , Taking Atorvastatin Calcium 80 MG Tablet TAKE [...] DAY NEEDED FOR SKIN IRRITATION External , Taking Omeprazole 40 MG Capsule Delayed Release 1 capsule 30 minutes before morning meal Orally Once a day , Taking Simethicone 125 MG Tablet Chewable 1 tablet after meals and at bedtime as needed Orally Four times a day , Taking oxyCODONE HCl 5 MG Tablet TAKE ONE TABLET BY MOUTH TWICE A DAY NEEDED FOR PAIN FOR 7 DAYS Oral , Medication List reviewed and reconciled with the patient * Allergies:?N.K.D.A. Objective: * Vitals:?Wt: 168.2 lbs, Ht: 6 6.75 in, BMI:26.54Index, BP: 001/01 mm Hg, Temp: 98.7, Wt-k.3. Assessment: Plan: * Treatment: * Immunizations:? Influenza (Not administered - Refused: Patient decision) * Preventive Medicine:? ??Counseling:?Care goal follow-up plan:?Above Normal BMI Follow-up?Dietary management education, guidance, and counseling,?BMI management provided?Yes.? * * The named appointment provid er may or may not be the originator of this progress note, and it is not deemed complete until electronically signed by the appointment provider. Sign off status: Pending * Provider:?Chris Horner MD Date:?0 08/11/2024 Generated for Andie hammonds/Danial/Penny on:?08/11/2024 02:07 PM EDT
--- OUTSIDE RECORDS SUMMARY | 2024-08-11 14:08 | XMS_ITS | Patient Health Record ---
Author Organization [facility] Address [address] [place] [address] Care Team Providers Care Cable Strander Name Role Phone Patel Rdz Primary Care Provider Unavailab Chris Wakefield Jr Unavailable [phone] Allergies No Known Allergies Reason For Referral No Information Medications Medication SIG (Take, Route, Frequency, Duration) Notes Start Date End Date Status Gabapentin 300 MG Oral for 30 Active [...] Orally Four times a day 02/14/2023 Active LORazepam 1 MG 1 tablet as needed Orally Once a day Active oxyCODONE HCl 5 MG TAKE ONE TABLET BY M OUTH TWICE A DAY NEEDED FOR PAIN FOR 7 DAYS Oral for 7 Days Active Lexapro 10 MG 1 tablet Orally Once a day for 30 day(s) Active Immunizations Vaccine Route Administration Date Status Comme nts Influenza Unknown 01/01/2019 Refused Influenza Unknown 02/17/2022 Refused Influenza Unknown 02/14/2023 Refused Influenza Unknown 08/11/2024 Refused Social History Tobacco Use: Social History Observation Description Date Details (start date - stop date) Former Smoker NA - NA Tobacco Control (Standard) Question Answer Notes Tobacco use: Former smoker Problems Problem Type SNOMED Code ICD Code Onset Dates Problem Status W/U Status Risk Notes Problem 03018276 Rectal bleeding (K62.5) Active confirmed Problem 937787934 Gastro-esophagea l reflux disease with esophagitis (K21.0) Active confirmed Problem 425466915 Irritable bowel syndrome with constipation (K58.1) Active confirmed Problem Gastroesophageal reflux disease with esophagitis (disorder) (159316198) Gastroesophageal reflux disease with esophagitis, unspecified whether hemorrhage (K21.00) Active confirmed Vital Signs Temperature 98.7 degrees Fahrenheit 08/11/2024 Blood pressure diastolic 01 mm Hg 08/11/2024 Height 66.75 in 08/11/2024 Blood pressure systolic 001 mm Hg 08/11/2024 Weight 168.2 lbs 08/11/2024 BMI 26.54 kg/m2 08/11/2024 Encounters Encounter Location Date Provider Diagnosis [facility] [address] [place] [address] 08/11/2024 Chris Horner Jr Plan Of Treatment Future Test Test Name Order Date UPPER GI ENDOSCOPY 08/09/2011 COLONOSCOPY 08/09/2011 UPPER GI ENDOSCOPY 04/01/2015 COLONOSCOPY 04/01/2015 Insurance Providers Payer Name Payer Address Payer Phone Subscriber Number Group Number Insured Name Patient Relationship to Insured Coverage Start Date Coverage End Date [facility] [address] Attn Claims RAFFY Matos [id number] INDIRA DERAS Self - patient is the insured MEDICARE OF [place] [address] [place] [address] [id number] COLONINDIRA Self - patient is the insured MEDICAID OF [facility] [address] [place] [address] [id number] INDIRA DERAS Self - patient is the insured Medical (General) History Medical History History ICD Code anxiety depression hiatal hernia H. pylori infection EGD/colonoscopy in 07/28/15, no Foster's, no history of adenomas, ten-year colon followup 2025 breast cancer Surgical History Surgery Date(Month/Year) lumpectomy, left breast hernia repair 07/2018 tubal ligation tonsillectomy knee surgery hip surgery
== END 2024-08-11 12:59 | disposition home or self-care (01) ==
LOC: HO.HOS 12:05
PROVIDERS: PCP Physician Assistant; Visit Provider Orthopaedic Surgery
DX: M17.0 Bilateral primary osteoarthritis of knee (principal)
CPT/HCPCS: 99213

== ENCOUNTER → 2024-08-11 12:05 | Outpatient (BNVA) | payer OTHER, SELFPAY | PROVIDERS: PCP Physician Assistant; Visit Provider Orthopaedic Surgery | DX: M17.0 Bilateral primary osteoarthritis of knee (principal) | CPT/HCPCS: 99212 ==

== ENCOUNTER 2024-08-13 09:02 | Outpatient (REF) | payer OTHER, SELFPAY ==
[2024-08-13 09:28] LABS: Hematocrit 36.8 % (37.0-47.0); Hemoglobin 11.8 g/dl (12.0-16.0); Mean Corpuscular HGB Conc 32.1 g/dl (31.0-35.0); Mean Corpuscular Hemoglobin 28.9 pg (27.0-33.0); Mean Corpuscular Volume 90.2 fL (80.0-98.0); Mean Platelet Volume 10.3 fL (9.4-12.3); Platelet Count 288 X10*3/uL (160-400); Red Blood Count 4.08 X10*6/uL (4.20-5.50); White Blood Count 6.2 X10*3/uL (4.8-10.8)
--- OUTSIDE RECORDS SUMMARY | 2024-08-13 09:42 | XMS_ITS ---
Author Organization [facility] Address [address] [place] [address] Care Team Providers Care Clinical Data Associate Name Role Phone Patel Rdz Primary Care Provider Unavailab Chris Wakefield Jr Unavailable REASON FOR VISIT ov recall Encounters Encounter Location Date Provider Diagnosis [facility] [address] [place] [address] 02/14/2023 Chris Horner Jr Plan Of Treatment Next Appt Details Provider Name:Chris tapia Jr, 08/26/2024 10:40:00 AM, [address] [place] [address], [phone], Progress Notes * INDIRA DERASDOB:[birth year] (58 yo F)Acc No.[id number]:02/14/2023 Patient:?INDIRA DERAS :1965???Age:58 Y???Sex:Female Address:[address] [place] [address] * true * Date:? Generated for Printi cassius/Danial/eTransmitting on:?08/13/2024 09:42 AM EDT
--- OUTSIDE RECORDS SUMMARY | 2024-08-13 09:43 | XMS_ITS ---
Author Organization [facility] Address [address] [place] [address] Care Team Providers Care Carton And Can Supply Supervisor Name Role Phone Patel Rdz Primary [...] 08/11/2024 Encounters Encounter Location Date Provider Diagnosis [facility] [address] [place] [address] 08/11/2024 Chris Horner Jr Rectal bleeding K62.5 and Gastro-esophageal reflux disease with esophagitis K21.0 Assessments Encounter Date Diagnosis (ICD Code) Assessment Notes Treatment Notes Treatment Clinical Notes Section Notes 08/11/2024 Rectal bleeding (ICD-10 - K62.5) Bleeding material was printed We discussed rectal bleeding today. We discussed the causes of this. We discussed gastroesophageal reflux disease. We discussed diet, lifestyle modifications, and weight management regarding the treatment of reflux. We will arrange colonoscopy and upper endoscopy for further evaluation of her rectal bleeding and reflux disease. She is aware of risks and benefits of the procedure and agrees to proceed. This will be scheduled at her convenience. 08/11/2024 Gastro-esophage al reflux disease with esophagitis (ICD-10 - K21.0) We discussed rec clarke bleeding today. We discussed the causes of this. We discussed gastroesophageal reflux disease. We discussed diet, lifestyle modifications, and weight management regarding the treatment of reflux. We will arrange colonoscopy and upper endoscopy for further evaluation of her rectal bleeding and reflux disease. She is aware of risks and benefits of the procedure and agrees to proceed. This will be scheduled at her convenience. Plan Of Treatment Treatment Notes Assessment Notes Rectal bleeding Bleeding material wa s printed Future Test Test Name Order Date UPPER GI ENDOSCOPY 08/11/2024 COLONOSCOPY 08/11/2024 Next Appt Details Follow Up: 1 Year, Reason: Provider Name:Chris tapia Jr, 08/26/2024 10:40:00 AM, [address] [place] [address] , [place], [place], [phone], Progress Notes * COLON, MARGARITADOB:[birth year] (59 yo F)Acc No.[id number]:08/11/2024 Progress Notes Patient:INDIRA CONNELLY Provider:?Chris Horner MD :1965???Age:59 Y???Sex:Female D ate:08/11/2024 Address:[address] [place] [address] Pcp:Patel Rdz Subjective: * Chief Complaints: * ???1. Patient presents today for a rectal bleeding. * HPI: ???New symptom(s):? The patient is a pleasant 59-year-old woman seen today in consultation. She was evaluated in the emergency department with rectal bleeding earlier this year. Laboratory studies showed a hematocrit of 30. We reviewed this today. She reports the rectal bleeding has resolved but it lasted over about a week. She has no complaints of abdominal or rectal pain. Weight and appetite have been stable. She does have some constipation and abdominal pain when this occurs. She also has some bloating. She has a longstanding history of gastroesophageal reflux disease with substernal burning precipitated by typical foods including spicy foods and fatty foods. She has no dysphagia, hematemesis, or melena. She continues on omeprazole 40 mg daily. This helps control her symptoms well. * Medical History:?Anxiety, De pression, Hiatal hernia, [...] BP: 001/01 mm Hg, Temp: 98.7, Wt-k.3. * Examination: ???General Examination: ???On examination today, she appears well. Skin is anicteric. Lungs are clear. Heart shows a regular rate and rhythm. Abdomen is soft without focal masses or tenderness. Extremities are without edema. Assessment: * Assessment: 1.?Rectal bleeding - K62.5 ( Primary)???2.?Gastro-esophageal reflux disease with esophagitis - K21.0??? We discussed rectal bleeding today. We discussed the causes of this. We discussed gastroesophageal reflux disease. We discussed diet, lifestyle modifications, and weight management regarding the treatment of reflux. We will arrange colonoscopy and upper endoscopy for further evaluation of her rectal bleeding and reflux disease. She is aware of risks and benefits of the procedure and agrees to proceed. This will be scheduled at her convenience. Plan: * Treatment: ?Procedure: COLONOSCOPY (Ordered for 08/11/2024)* sched for 08/26/24 at 10:40 a mmacmiralax Notes: Bleeding material was printed??2.?Gastro-esophageal reflux disease with esophagitis?Procedure: UPPER GI ENDOSCOPY (Ordered for 08/11/2024)* sched for 08/26/24 at 10:40 a mmac ?Procedure: COLONOSCOPY (Ordered for 08/11/2024)* sched for 08/26/24 at 10:40 a mmacmiralax * Immunizations:? Influenza (Not administered - Refused: Patient decision) * Procedure Codes:?3017F COLOR ECTAL CA SCREEN DOC REV, 1036F TOBACCO NON-USER, G8785 BP SCR NOT PRFRM REC REASON NOS * Preventive Medicine:? ??Counseling:?Care goal follow-up plan:?Above Normal BMI Follow-up?Dietary management education, guidance, and counseling,?BMI management provided?Yes.? * Follow Up:?1 Year * * Sign off status: Completed true * Provider:?Chris Horner MD Date:?0 08/11/2024 Generated for Felizi cassius/Danial/eTransmitting on:?08/13/2024 09:42 AM EDT History and Physical Notes * HPI (History of Present Illness) Category Sub-Category Detail Notes Category Not es New symptom(s) The patient is a pleasant 59-year-old woman seen today in consultation. She was evaluated in the emergency department with rectal bleeding earlier this year. Laboratory studies showed a hematocrit of 30. We reviewed this today. She reports the rectal bleeding has resolved but it lasted over about a week. She has no complaints of abdominal or rectal pain. Weight and appetite have been stable. She does have some constipation and abdominal pain when this occurs. She also has some bloating. She has a longstanding history of gastroesophageal reflux disease with substernal burning precipitated by typical foods including spicy foods and fatty foods. She has no dysphagia, hematemesis, or melena. She continues on omeprazole 40 mg daily. This helps control her symptoms well. Examination Category Sub-Category Detail Notes Category Not es General Examination On exami nation today, she appears well. Skin is anicteric. Lungs are clear. Heart shows a regular rate and rhythm. Abdomen is soft without focal masses or tenderness. Extremities are without edema.
--- OUTSIDE RECORDS SUMMARY | 2024-08-13 09:43 | XMS_ITS | Patient Health Record ---
Author Organization [facility] Address [address] [place] [address] Care Team Providers Care Battery Assembler Dry Cell Name Role Phone Patel Rdz Primary Care Provider Unavailab Chris Wakefield Jr Unavailable Allergies No Known Allergies Reason For Referral [...] Problem Status W/U Status Risk Notes Problem 01912398 Rectal bleeding (K62.5) Active confirmed Problem 447128101 Gastro-esophagea l reflux disease with esophagitis (K21.0) Active confirmed Problem 456577277 Irritable bowel syndrome with constipation (K58.1) Active confirmed Problem Gastroesophageal reflux disease with esophagitis (disorder) (791722737) Gastroesophageal reflux disease with esophagitis, unspecified whether hemorrhage (K21.00) Active confirmed Vital Signs Temperature 98.7 degrees Fahrenheit 08/11/2024 Blood pressure diastolic 01 mm Hg 08/11/2024 Height 66.75 in 08/11/2024 Blood pressure systolic 001 mm Hg 08/11/2024 Weight 168.2 lbs 08/11/2024 BMI 26.54 kg/m2 08/11/2024 Encounters Encounter Location Date Provider Diagnosis [facility] [address] [place] [phone] 08/11/2024 Chris Horner Jr Rectal bleeding K62.5 and Gastro-esophageal reflux disease with esophagitis K21.0 [facility] [address] [place] [phone] 08/11/2024 Chris Horner Jr Assessments Encounter Date Diagnosis (ICD Code) Assessment [...] scheduled at her convenience. Plan Of Treatment Future Test Test Name Order Date UPPER GI ENDOSCOPY 08/09/2011 COLONOSCOPY 08/09/2011 UPPER GI ENDOSCOPY 04/01/2015 COLONOSCOPY 04/01/2015 UPPER GI ENDOSCOPY 08/11/2024 COLONOSCOPY 08/11/2024 Next Appt Details Provider Name:Chris Tommy tapia Jr, 08/26/2024 10:40:00 AM, [address] [place] [address] , [place], [place], [phone], Insurance Providers Payer Name Payer Address Payer Phone Subscriber Number Group Number Insured Name Patient Relationship to Insured Coverage Start Date Coverage End Date [facility] [address] Attn Claims [id number] Matos [id number] COLONINDIRA Self - patient is the insured MEDICAID OF [facility] [address] [place] [address] [id number] COLONINDIRA Self - patient is the insured MEDICARE OF [place] [address] [place] [address] [id number] COLONINDIRA Self - patient is the insured Medical (General) History Medical History History ICD Code anxiety depression hiatal hernia H. pylori infection EGD/colonoscopy in 07/28/15, no Foster's, no history of adenomas, ten-year colon followup 2025 breast cancer Surgical History Surgery Date(Month/Year) lumpectomy, left breast hernia repair 07/2018 tubal ligation tonsillectomy knee surgery hip surgery
--- OUTSIDE RECORDS SUMMARY | 2024-08-13 09:43 | XMS_ITS | Clinical Summary ---
Author Organization [employer] [facility] Address [address] [place] [address] Care Team Providers Care Marine Steamfitter Name Role Phone Unavailable Primary Care Provider [...]
--- OUTSIDE RECORDS SUMMARY | 2024-08-13 09:43 | XMS_ITS ---
Author Organization [facility] Address [address] [place] [phone] Care Team Providers Care Mortgage Or Loan Underwriter Name Role Phone Patel Rdz Primary Care Provider Unavailab Chris Wakefield Jr Unavailable REASON FOR VISIT bowel prep Encounters Encounter Location Date Provider Diagnosis [facility] [address] [place] [phone] 08/11/2024 Chris Horner Jr Plan Of Treatment Next Appt Details Provider Name:Chris tapia Jr, 08/26/2024 10:40:00 AM, [address] [place] [address], [phone], Progress Notes * INDIRA DERASDOB:[birth year] (59 yo F)Acc No.[id number]:08/11/2024 Patient:?INDIRA DERAS :1965???Age:59 Y???Sex:Female Address:[address] [place] [id number] * * Date:?
[2024-08-13 10:02] LABS: Alanine Aminotransferase 22 U/L (0-31); Albumin Level 4.3 g/dL (3.5-5.0); Alkaline Phosphatase 63 U/L (39-117); Anion Gap 11 (12-20); Aspartate Amino Transferase 22 U/L (5-31); Bilirubin Total 0.3 mg/dL (0.0-1.0); Blood Urea Nitrogen 17 mg/dL (9-16); Calcium 10.7 mg/dL (8.4-10.2); Carbon Dioxide 27 mmol/L (22-29); Chloride 109 mmol/L (96-108); Cholesterol 263 mg/dL (<200); Estimated Glomerular Filt Rate > 60; Glucose Fasting 99 mg/dL (60-99); HDL Cholesterol 48 mg/dL (>40); Iron 54 mcg/dL (30-160); LDL Cholesterol Calculated 191 mg/dL (<100); Percent Iron Saturation 18 % (15-50); Potassium 4.6 mmol/L (3.3-5.1); Sodium 142 mmol/L (135-145); Total Iron Binding Capacity 297 mcg/dL (228-428); Total Protein 7.1 g/dL (6.5-8.0); Triglycerides 122 mg/dL (<150); Unsaturated Iron Binding 243 ug/dL
== END 2024-08-13 09:03 | disposition home or self-care (01) ==
LOC: HO.LAB 09:02
PROVIDERS: PCP Physician Assistant; Visit Provider Physician Assistant
DX: Z00.00 Encounter for general adult medical examination without abnormal findings (principal); F41.1 Generalized anxiety disorder; E78.00 Pure hypercholesterolemia, unspecified; K21.9 Gastro-esophageal reflux disease without esophagitis; J43.2 Centrilobular emphysema; M47.16 Other spondylosis with myelopathy, lumbar region; D50.0 Iron deficiency anemia secondary to blood loss (chronic); F17.210 Nicotine dependence, cigarettes, uncomplicated; Z85.3 Personal history of malignant neoplasm of breast; Z92.21 Personal history of antineoplastic chemotherapy; Z92.3 Personal history of irradiation
CPT/HCPCS: 36415; 80053; 80061; 83540; 85027; 96127; 99396

== ENCOUNTER 2024-08-13 13:10 | Outpatient (AMB) | payer OTHER, SELFPAY ==
[2024-08-13 13:11] VITALS: BP 122/60; PULSE 68; TEMP 36.2; O2SAT 99; BMI 26.7
--- NOTE | 2024-08-13 13:11 | A.OFFPC_ITS ---
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: No Accompanied by: Self / Same As Patient Allergies tramadol Adverse Reaction (Intermediate, Verified 08/13/24 13:33) dry mouth trazodone Adverse Reaction (Intermediate, Verified 08/13/24 13:33) Falls Medication List - Last Reconciled 08/13/24 by Patel Rdz PA-C acetaminophen (Tylenol) 650 mg (2 x 325 mg) PO Q6H PRN albuterol sulfate 90 mcg/actuation 1 inh inhalation QID 30 days aspirin (Adult Aspirin Regimen) 81 mg PO DAILY atorvastatin 80 mg PO DAILY betamethasone dipropionate 0.05% 1 appl topical DAILY PRN 30 days cholecalciferol (vitamin D3) 50 mcg PO DAILY 90 days gabapentin 300 mg PO BID 30 days hydrocortisone 1% (Anti-Itch (hydrocortisone)) 1 appl topical TID PRN 90 days lidocaine 5% 1 patch topical DAILY 30 days lorazepam 1 mg PO BID-TID 30 days meclizine 25 mg PO TID 7 days naloxone 4 mg/actuation (Narcan) 4 mg intranasal Q2M PRN naproxen 500 mg PO BID PRN 7 days omeprazole 20 mg PO DAILY oxycodone 5 mg PO BID PRN 7 days pregabalin 75 mg PO BID quetiapine (Seroquel) 100 mg PO DAILY 90 days Tobacco use date assessed: 07/14/24 Dental Screening Dental Screen Date: 07/14/24 HPI annual exam HPI Details Patient is a 58-year-old female here today for an annual physical.? Patient has a past medical history significant generalized anxiety disorder , hyperlipidemia , major depressive disorder GERD. Concerns--> continues to have chronic joint pains particularly in her lower back. She is seeing pain management here in [place] and anticipates an in jection in her back to help reduce her chronic pain. Anxiety : She reports she has been under lot of stress due to family issues, having difficulty with sleep, currently taking care of her father whom has dementia. A son who gets caught up with drugs. She is very tenriism woman and prays a lot. She continues with the use of lorazepam t.i.d. p.r.n. and Lexapro.? She continues to decline my offers to his be referred to mental health therapy. .. Smoker:? Unfortunately continues to smoke though much less. Reports having a few cigarettes per week.. She reports she continues to smoke and has been smoking a little bit more due to her increased anxiety.? She has been on Wellbutrin though has not seemed to help her quit smoking. Has tried nicotine lozenges though gave her hiccups. Of note was found to have emphysema and informed patient of this.? . .. Hyperlipidemia:? Most recent fasting lipid panel showing elevated total cholesterol and LDL. She has been apprehensive on taking atorvastatin 80 mg.. PLAN: Patient willing to take atorvastatin 3 times a week to help reduce her cardiovascular risk.. Mammogram: scheduled for mammo in August 2024 Colonoscopy: UTD with Colonoscopy 2015- Dr Horner --> GETTTINg colonoscopy this year due to recent GI concerns Vaccines: Up-to-date with COVID vaccine, pneumonia vaccine and tetanus vaccine, Considering shingles vaccine [facility] Medical History Chronic pain syndrome History of left breast cancer (~2013) HLD (hyperlipidemia) GERD (gastroesophageal reflux disease) Nicotine dependence, cigarettes, uncomplicated Osteopenia (~2015) Postmenopausal Migraine Post herpetic neuralgia (~2020) Bilateral primary osteoarthritis of knee History of suicide attempt MDD (major depressive disorder) JASSON (generalized anxiety disorder) Surgical History History of lumpectomy of left breast (~2013) History of hip surgery (~1990) History of right knee surgery (~2006) History of ventral hernia repair (~2018) History of thumb surgery (~2016) History of tubal ligation History of tonsillectomy History of colonoscopy History of esophagogastroduodenoscopy (EGD) Family History (Updated 08/13/24 @ 13:38 by Patel Rdz PA-C) Father Diabetes Hypertension Prostate cancer Mother Breast cancer Maternal Aunt Uterine cancer Lung cancer Family/Other Substance use disorder Sister Uterine cancer Social History (Updated 08/13/24 @ 13:39 by Patel Rdz PA-C) Household Members: Family Housing: House Are you a primary daytime caregiver to a significant other at home: No Do you presently have visiting nurse or other home services: No Alcohol intake: never Patient Tobacco Use Status: Current everyday Tobacco user (quit 8-9 months ago) Tobacco use type: Cigarette Cigarette Packs Per Day: 0.5 Cigarettes Per Day: 3 Years Smoked: (onset 15, 1/2-3/4ppd x 41yrs, 25pyh) e-Cigarette/Vaping Use: Never Used Second Hand Smoke Exposure: Yes Substance Use Type: Marijuana service: No Current occupational status: disabled 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 1. Little interest or pleasure in doing things: not at all 2. Feeling down, depressed, or hopeless: not at all 3. Trouble falling or staying asleep, or sleeping too much: not at all 4. Feeling tired or having little energy: several days 5. Poor appetite or overeating: several days 6. Feeling bad about yourself - or that you are a failure or have let yourself or your family down: not at all 7. Trouble concentrating on things, such as reading the newspaper or watching television: not at all 8. Moving or speaking so slowly that other people could have noticed. Or the opposite - being so fidgety or restless that you have been moving around a lot more than usual: not at all 9. Thoughts that you would be better off or of hurting yourself in some way: not at all Total score: 2 Depression Screening Interpretation: Negative Depression Screening Done: Yes 41380 - PHQ-9 Billing: Yes Source: Developed by Drs. Vickey Catalan, Gina Dawson, Henrique Curran and colleagues, with an educational shiv from [employer]. Thrive Questionnaire Date Thrive assessed: 08/13/24 I am a: Patient What is your living situation today?: I have a steady place to live Within the past 12 months, did the food you bought not last and you didn't have the money to get more?: Never true Within the past 12 months, did you worry whether your food would run out before you got money to buy more?: Never true Do you have trouble paying for medicines?: No Do you have trouble getting transportation to medical appointments?: No Do you have trouble paying your heating and electricity bill?: No Do you have trouble taking care of your child, family member or friend?: No Do you have trouble with day-to-day activities such as bathing, preparing meals, shopping, managing finances, etc.?: No Are you currently unemployed and looking for a job?: No Are you interested in more education?: No Please select the resources that you would like help with: None Currently or been in a relationship where the following occur: No concerns reported THRIVE Score: 0 AUDIT C Alcohol Use Questionnaire (AUDIT-C) 1. How often do you have a drink containing alcohol?: Never 3. How often do you have six or more drinks on one occasion?: Never Total Score: 0 JASSON-7 AMB Questionnaire JASSON-7 Date JASSON - 7 assessed: 08/13/24 (Patient states they are being treated for anxiety and depression, which are well controlled.) Feeling nervous, anxious, or on edge: 0 = Not at all Not being able to stop or control worryin = Not at all Worrying too much about different things: 0 = Not at all Trouble relaxin = Not at all Being so restless that it is hard to sit still: 0 = Not at all Becoming easily annoyed or irritable: 0 = Not at all Feeling afraid as if something awful might happen: 0 = Not at all Total JASSON-7 score (0-4 normal; 5-9 mild; 10-14 moderate; 15-21 severe): 0 Source: Developed by Drs. Vickey Catalan, Gina Dawson, Henrique Curran and colleagues, with an educational shiv from [employer]. JASSON-7 Assessment Billing JASSON-7 Assessment Tool: JASSON-7 Assessment 21261 Review of Systems Const Denies body aches, Denies chills, Denies excessive sweating, Denies fatigue, Denies fever(s) and Denies headache(s) Eyes Denies blurry vision ENT Denies dysphagia, Denies vertigo, Denies dizziness, Denies headache(s), Denies hearing loss and Denies tinnitus Card Denies chest pain, Denies chest pain with activity, Denies syncope, Denies irregular heart rhythm and Denies dyspnea Resp Denies chest congestion, Denies cough, Denies hemoptysis, Denies dyspnea and Denies wheezing GI Denies abdominal pain, Denies melena, Denies hematochezia, Denies coffee ground emesis, Denies dysphagia, Denies diarrhea, Denies nausea and Denies vomiting Denies urinary frequency, Denies dysuria, Denies urinary hesitancy and Denies urinary urgency Musc Denies arthralgias, Denies limited range of motion, Denies muscle cramps and Denies muscle weakness Skin/Breast Denies rash and Denies skin ulcer Neuro Denies Abnormal speech present, Denies confusion, Denies vertigo, Denies dizziness, Denies syncope, Denies headache(s), Denies memory loss and Denies seizure-like activity Psych Denies anxiety, Denies confusion, Denies depression, Denies memory loss, Denies panic attacks and Denies paranoia Endo Denies excessive sweating, Denies fatigue, Denies flushing, Denies polydipsia and Denies polyuria Aller/Immun Denies wheezing Physical exam (Primary Care) Vital Signs: Last Vital Signs Temp 97.1 F 08/13/24 13:11 Pulse 68 08/13/24 13:11 BP 122/60 08/13/24 13:11 Pulse Ox 99 08/13/24 13:11 Oxygen Delivery Method Room Air 08/13/24 13:11 BMI result Body Mass Index 26.7 Tobacco/Smoking Status: Tobacco use Status Tobacco use date assessed 07/14/24 08/13/24 13:12 Patient Tobacco Use Status Former Tobacco user (quit 8- 08/13/24 13:12 9 months ago) Tobacco use type Cigarette 08/13/24 13:12 e-Cigarette/Vaping Use Never Used 08/13/24 13:12 Are you ready to quit: Yes Tobacco cessation counseling provided: Yes Items discussed: Nicotine replacement and QuitWorks Relapse Prevention: discussed the importance of a supportive environment, discussed negative mood or depression after quitting, weight gain after smoking is common and discussed dietary, exercise and/or lifestyle changes Number of minutes spent counselin CPT code: 35777 - 4-10 Minutes PHQ-9: PHQ-9 Score PHQ-9: Total score 2 08/13/24 13:12 Depression Screening Interpretation: Negative Thrive Assessment: Date of Thrive Assessment Date Thrive assessed 08/13/24 08/13/24 13:12 Currently or been in a relationship where the following occur: No concerns reported Const General: cooperative, comfortable, no acute distress, alert and awake; No confusion Orientation/consciousness: oriented to person, oriented to place, patient oriented x3 and No confusion HENMT Head: Yes normocephalic Ears: external ears normal and TM's normal bilaterally Face and sinus: No sinus tenderness Mouth: Normal oral and palatal mucosa present and tongue normal Teeth and gingiva: dentition normal and gingiva normal Throat: Yes posterior oropharynx normal, Yes tonsils normal and Yes uvula midline Eyes Conjunctivae: conjunctivae normal Sclerae: sclerae normal Pupils: Equal, round and reactive pupils present EOM: EOMs intact bilaterally Direct Ophthalmoscopy: No no photophobia Neck Neck: Yes no lymphadenopathy, No tender and Yes no JVD Thyroid: Thyroid normal Carotids: no bruits Chest Chest palpation & inspection: no tenderness Resp Effort & Inspection: normal respiratory effort, no audible wheezes, not labored and no stridor Auscultation: no crackles, no rales, no rhonchi and no wheezes Cardio Jugular venous distension: no JVD Rate: regular rate, not bradycardic and not tachycardic Rhythm: regular rhythm Bruits: no carotid bruits Peripheral pulses: Peripheral pulses 2+ throughout GI Inspection: Yes normal to inspection, No abdominal wall ecchymosis and No visible herniation Palpation (GI): Soft to palpation, nontender, no guarding, not rigid and No hepatosplenomegaly present Auscultation: normoactive bowel sounds General: Yes no CVA tenderness Back/Spine/Pelvis Back: no CVA tenderness and No back tenderness Cervical Spine: cervical ROM normal Thoracic/Lumbar Spine: thoracic and lumbar spine normal to inspection, straight leg raise negative bilaterally, No thoraco-lumbar ROM limited and No lumbar spinal tenderness Skin Lesions: no lesions Rashes: no rashes Wounds: no wounds Neuro General: oriented to person, oriented to place, patient oriented x3, CN's II-XI intact bilaterally and No confusion Cranial nerves: Yes Equal, round and reactive pupils present and Yes Normal accommodation reflex present Cognition (Neuro): normal cognition Speech: No Abnormal speech present Gait exam (Neuro): Normal gait present Motor exam (neuro): 5/5 motor strength present throughout Extrem Right upper extremity: full ROM; no cyanosis Left upper extremity: full ROM; no cyanosis Right lower extremity: no edema Left lower extremity: no edema Psych Appearance: grossly normal Mental Status: mental status grossly normal Affect: normal affect Attitude: cooperative Thought process: Normal thought process present Coding Level of Care Code Est Pt Prev Care 40-64y(57771) Diagnoses Annual physical exam Z00.00 Tobacco dependency F17.200 Centrilobular emphysema J43.2 Emphysema type: centrilobular Malignant neoplasm of lower-inner quadrant of left female breast, unspecified estrogen receptor status C50.312 Estrogen receptor status: unspecified Pure hypercholesterolemia E78.00 Hyperlipidemia type: pure hypercholesterolemia Osteoarthritis of spine with myelopathy, lumbosacral region M47.16 Spinal osteoarthritis complication: with myelopathy Additional Codes JASSON-7 Assessment Billing - JASSON-7 Assessment Tool: JASSON-7 Assessment 50252 ([id number]) PHQ-9 - 44317 - PHQ-9 Billing: Yes ([id number]) Vital Signs *Quality* - CPT code: 57346 - 4-10 Minutes ([id number]) Assessment & Plan Assessment & Plan (1) Annual physical exam: Code(s): Z00.00 - Encounter for general adult medical examination without abnormal findings Category: Medical Plan: As per HPI (2) Tobacco dependency: Code(s): F17.200 - Nicotine dependence, unspecified, uncomplicated Category: Medical Plan: Emphasize cessation strategies and explore supportive programs due to smoking history and exacerbating lung conditions. (3) Emphysema of lung: Code(s): J43.9 - Emphysema, unspecified Category: Medical Qualifiers: Emphysema type: centrilobular Qualified Code(s): J43.2 - Centrilobular emphysema Plan: Patient reports no pulmonary issues. Emphysema was found on CT lung screening. Does have an albuterol inhaler available to her. (4) Breast cancer of lower-inner quadrant of left female breast: Onset Date: ~2013 Comment: (Invasive Ductal Carcinoma -stage pT1cN0, ER/OK & HER-2 neg - dx 2014 - s/p lumpectomy, chemo & radiation) Code(s): C50.312 - Malignant neoplasm of lower-inner quadrant of left female breast Category: Medical Qualifiers: Estrogen receptor status: unspecified Qualified Code(s): C50.312 - Malignant neoplasm of lower-inner quadrant of left female breast Plan: Has been in remission since 2015, she is status post lumpectomy, chemo and radiation (5) HLD (hyperlipidemia): Code(s): E78.5 - Hyperlipidemia, unspecified Category: Medical Qualifiers: Hyperlipidemia type: pure hypercholesterolemia Qualified Code(s): E78.00 - Pure hypercholesterolemia, unspecified Plan: Patient's most recent lipid panel showing very elevated total cholesterol and LDL. She is apprehensive an taking statin therapy. We did discuss the need to reduce her cholesterol she agrees to take atorvastatin 80 mg 2-3 times per week. Will recheck her lipid panel in the next 6 months LDL to be below 130 (6) Lumbosacral spondylosis: Code(s): M47.817 - Spondylosis without myelopathy or radiculopathy, lumbosacral region Category: Medical Qualifiers: Spinal osteoarthritis complication: with myelopathy Qualified Code(s): M47.16 - Other spondylosis with myelopathy, lumbar region Plan: Patient followed by [place] pain management, she is anticipating getting injections to help reduce her pain. She is using gabapentin and oxycodone on an as needed basis. She is regularly using her pregabalin Orders: Orders Comprehensive [place]. Panel Fast 6 Months E78.00 - Pure hypercholesterolemia, unspecified Complete Blood Count no Diff Today D50.0 - Iron deficiency anemia secondary to blood loss (chronic) Lipid Panel 6 Months E78.00 - Pure hypercholesterolemia, unspecified Medications: Refilled atorvastatin 80 mg PO DAILY 90 tabs 1RF E78.00 - Pure hypercholesterolemia, unspecified
--- OUTSIDE RECORDS SUMMARY | 2024-08-13 15:37 | XMS_ITS | Clinical Summary ---
Author Organization [employer] [facility] Address [address] [place] [address] Care Team Providers Care Head Track Coach Name Role Phone Unavailable Primary Care Provider [...]
== END 2024-08-13 13:58 | disposition home or self-care (01) ==
LOC: HO.HMCH 13:10
PROVIDERS: PCP Physician Assistant; Visit Provider Physician Assistant
DX: Z00.00 Encounter for general adult medical examination without abnormal findings (principal); F17.200 Nicotine dependence, unspecified, uncomplicated; J43.2 Centrilobular emphysema; C50.312 Malignant neoplasm of lower-inner quadrant of left female breast; E78.00 Pure hypercholesterolemia, unspecified; M47.16 Other spondylosis with myelopathy, lumbar region

== ENCOUNTER 2024-09-02 06:23 | Outpatient (REF) | payer OTHER, SELFPAY ==
--- NOTE | ~2024-09-02 | FL_ITS ---
EXAMINATION: FL GUIDANCE ONLY HISTORY: M47.16 - Other spondylosis with myelopathy, lumbar region COMPARISON: None available. TECHNIQUE: Fluoroscopy time: 0.5 minutes. Cumulative Dose: 4.49 mGy. DAP: 0.0780 mGym2 Images: 12. FINDINGS: Images demonstrate needles and contrast material in the regions of the bilateral L3-4, L4-5, and L5-S1 facet joints. FL/FL guidance in treatment room IMPRESSION: Fluoroscopy during procedure. Please see procedure report for additional information. Electronically signed by: Vickey Hdez MD 09/02/2024 11:53 AM EDT
== END 2024-09-02 06:24 | disposition home or self-care (01) ==
LOC: CF 06:23
PROVIDERS: Visit Provider Anesthesiology
DX: M47.816 Spondylosis without myelopathy or radiculopathy, lumbar region (principal)
CPT/HCPCS: 64493; 64494; J2003; J2795; Q9967

== ENCOUNTER 2024-09-02 10:31 | Outpatient (AMB) | payer OTHER, SELFPAY ==
[2024-09-02 10:40] VITALS: BP 119/67; PULSE 80; O2SAT 98; BMI 27.1
--- NOTE | 2024-09-02 10:40 | MHC.OFFVIS ---
Vital Signs 09/02/24 10:40 09/02/24 11:18 Height 5 ft 6 in 5 ft 6 in Weight 168 lb BMI 27.1 BP 119/67 119/67 Blood Pressure Location Rt brachial Rt brachial Position Sitting Sitting Pulse 80 80 Pulse Source Pulse Oximeter Pulse Oximeter Pulse Oximetry (%) 98 98 Oxygen Delivery Method Room Air Room Air Intake Visit Reasons: BILATERAL DX L3, L4, DRL5 MBB/ATIVAN REQ Allergies tramadol Adverse Reaction (Intermediate, Verified 09/02/24 10:41) dry mouth trazodone Adverse Reaction (Intermediate, Verified 09/02/24 10:41) Falls PFSH Medical History Chronic pain syndrome History of left breast cancer (~2013) HLD (hyperlipidemia) GERD (gastroesophageal reflux disease) Nicotine dependence, cigarettes, uncomplicated Osteopenia (~2015) Postmenopausal Migraine Post herpetic neuralgia (~2020) Bilateral primary osteoarthritis of knee History of suicide attempt MDD (major depressive disorder) JASSON (generalized anxiety disorder) Surgical History History of lumpectomy of left breast (~2013) History of hip surgery (~1990) History of right knee surgery (~2006) History of ventral hernia repair (~2018) History of thumb surgery (~2016) History of tubal ligation History of tonsillectomy History of colonoscopy History of esophagogastroduodenoscopy (EGD) Family History (Updated 08/13/24 @ 13:38 by Patel Rdz PA-C) Father Diabetes Hypertension Prostate cancer Mother Breast cancer Maternal Aunt Uterine cancer Lung cancer Family/Other Substance use disorder Sister Uterine cancer Social History (Updated 08/13/24 @ 13:39 by Patel Rdz PA-C) Household Members: Family Housing: House Are you a primary vocational childcare teacher to a significant other at home: No Do you presently have visiting nurse or other home services: No Alcohol intake: never Patient Tobacco Use Status: Current everyday Tobacco user (quit 8-9 months ago) Tobacco use type: Cigarette Cigarette Packs Per Day: 0.5 Cigarettes Per Day: 3 Years Smoked: (onset 15, 1/2-3/4ppd x 41yrs, 25pyh) e-Cigarette/Vaping Use: Never Used Second Hand Smoke Exposure: Yes Substance Use Type: Marijuana service: No Current occupational status: disabled 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 Current occupational exposures/hazards: No Cognitive needs: No Hearing needs: Yes Vision needs: Yes Female Reproductive History Menstrual Age of Menarche: 12 Physical Exam Vital Signs: Last Vital Signs Pulse 80 09/02/24 11:18 BP 119/67 09/02/24 11:18 Pulse Ox 98 09/02/24 11:18 Oxygen Delivery Method Room Air 09/02/24 11:18 BMI result Body Mass Index 27.1 Assessment & Plan Assessment & Plan (1) Spondylosis of lumbar region without myelopathy or radiculopathy: Code(s): M47.816 - Spondylosis without myelopathy or radiculopathy, lumbar region Category: Medical Plan Diagnostic medial branch block L3,L4 dorsal ramus L5 bilateral.? ? ?Informed consent was explained to the patient. All questions were explained and? answered.? The patient was taken inside the operating room where he was positioned prone on the operating table. Time-out was performed delineating correct site, side, the nature of the procedure, patient's allergy, . All operating room staff was participating in OR time-out procedure. ? ? The lower back was prepped with ChloraPrep and draped with sterile towels.? C-arm was brought over the operating field and sq picture of L4-, L5 vertebra and S1 AREA were delineated on the screen.? Point of interest were delineated as confluence of superior articular process of L4 and L5 vertebra bilaterally with corresponding transverse processes as well as confluence of the sacral alae bilaterally with superior articular process of S1.? The projection of the point of interest to the skin were injected with the small amount of local anesthetic lidocaine 2% mixed with ropivacaine 0.5% 1-1 approcimately 1.5 cc.? After that 22 gauge 3.5 inch spinal needle was driven sequentially to the points of interest in tunnel vision fashion. After needles gently contacted the bone at the point of interests the needle was injected with small amount of the contrast.? The injection of the contrast did not demonstrate any intravascular or intrathecal spread of the contrast.? After that injection of the? ropivacaine 0.5%-1cc was performed at each needle location.?after that the needles were removed and Bandaids were applied. ? Upon completion of the injections? needle was? removed and sterile Band-Aids were applied.? The patient tolerated procedure very well. Orders: Orders FL guidance in treatment room Today M47.16 - Other spondylosis with myelopathy, lumbar region Medications: New lorazepam (Ativan) Take 30 minutes prior to arrival to procedure 1 mg PO ONCE 1 tab 0RF anxiety Coding Level of Care Code Procedure Only Diagnoses Spondylosis of lumbar region without myelopathy or radiculopathy M47.816
[2024-09-02 11:18] VITALS: BP 119/67; PULSE 80; O2SAT 98
--- OUTSIDE RECORDS SUMMARY | 2024-09-02 12:07 | XMS_ITS ---
Author Organization [facility] Address [address] [place] [address] Care Team Providers Care Salesperson Hearing Aids Name Role Phone Stefan Rdzolas Primary Care Provider Unavailab Chris Wakefield Jr Unavailable REASON FOR VISIT NEEDS TO R/S EGD AND COLON Encounters Encounter Location Date Provider Diagnosis [facility] [address] [place] [address] 08/27/2024 Chris Horner Jr Plan Of Treatment No Information Progress Notes * INDIRA DERASDOB:[birth year] (59 yo F)Acc No.[id number]:08/27/2024 Patient:?INDIRA DERAS :1965???Age:59 Y???Sex:Female Address:[address] [place] [address] * true * Date:? Generated for Andie hammonds/Danial/eTransmitting on:?09/02/2024 12:06 PM EDT
--- OUTSIDE RECORDS SUMMARY | 2024-09-02 12:07 | XMS_ITS | Clinical Summary ---
Author Organization [facility] Address [address] [place] [address] Care Team Providers Care Web Weaver Name Role Phone Unavailable Primary Care Provider [...]
--- OUTSIDE RECORDS SUMMARY | 2024-09-02 12:07 | XMS_ITS ---
Author Organization [facility] Address [address] [place] [address] Care Team Providers Care Fluorescent Lighting Model Maker Name Role Phone Patel Rdz Primary Care Provider Unavailab Chris Wakefield Jr Unavailable REASON FOR VISIT gerd,rectal bleeding Encounters Encounter Location Date Provider Diagnosis [facility] [place] [address] [place] [phone] 08/26/2024 Chris Horner Jr Plan Of Treatment No Information Progress Notes * INDIRA DERASDOB:[birth year] (59 yo F)Acc No.[id number]:08/26/2024 EGD and COL/MAC Patient:?INDIRA DERAS Provider:?Chris Horner MD :1965???Age:59 Y???Sex:Female D ate:08/26/2024 Address:[address] [place], [place] [id number] Pcp:Patel Rdz Subjective: * Chief Complaints: * ???1. Gerd,rectal bleeding. * Medical History:? Objective: * Vitals:? Assessment: Plan: * Treatment: * * The named appointment provid er may or may not be the originator of this progress note, and it is not deemed complete until electronically signed by the appointment provider. Sign off status: Pending * Provider:?Chris Horner MD Date:?0 08/26/2024 Generated for Felizi ng/Faeliel/eTransmitting on:?09/02/2024 12:07 PM EDT
--- OUTSIDE RECORDS SUMMARY | 2024-09-02 12:07 | XMS_ITS | Patient Health Record ---
Author Organization [facility] Address [address] [place] [address] Care Team Providers Care Plumber'S Helper Name Role Phone Patel Rdz Primary Care [...] Problem Status W/U Status Risk Notes Problem 96759471 Rectal bleeding (K62.5) Active confirmed Problem 218142430 Gastro-esophagea l reflux disease with esophagitis (K21.0) Active confirmed Problem 376121717 Irritable bowel syndrome with constipation (K58.1) Active confirmed Problem Gastroesophageal reflux disease with esophagitis (disorder) (527984758) Gastroesophageal reflux disease with esophagitis, unspecified whether hemorrhage (K21.00) Active confirmed Vital Signs Temperature 98.7 degrees Fahrenheit 08/11/2024 Blood pressure diastolic 01 mm Hg 08/11/2024 Height 66.75 in 08/11/2024 Blood pressure systolic 001 mm Hg 08/11/2024 Weight 168.2 lbs 08/11/2024 BMI 26.54 kg/m2 08/11/2024 Encounters Encounter Location Date Provider Diagnosis [facility] [address] [place] [phone] 08/11/2024 Chris Horner Jr Rectal bleeding K62.5 and Gastro-esophageal reflux disease with esophagitis K21.0 [facility] [address] [place] [phone] 08/11/2024 Chris Horner Jr [facility] [address] [place] [phone] 08/25/2024 Chris Horner Jr [facility] [address] [place] [phone] 08/25/2024 Chris Horner Jr [facility] [address] [place] [phone] 08/27/2024 Chris Horner Jr Assessments Encounter Date Diagnosis [...] 04/01/2015 UPPER GI ENDOSCOPY 08/11/2024 COLONOSCOPY 08/11/2024 Insurance Providers Payer Name Payer Address Payer Phone Subscriber Number Group Number Insured Name Patient Relationship to Insured Coverage Start Date Coverage End Date [facility] [address] Attn Claims RAFFY Matos [id number] COLONINDIRA Self - patient is the insured MEDICAID OF [facility] [address] [place] [address] [id number] COLONINDIRA Self - patient is the insured MEDICARE OF [place] [address] [place] [address] [id number] COLONINDIRA Self - patient is the insured Medical (General) History Medical History History ICD Code anxiety depression hiatal hernia H. pylori infection EGD/colonoscopy in 07/28/15, no Foster's, no history of adenomas, ten-year colon followup 2025 breast cancer Surgical History Surgery Date(Month/Year) lumpectomy, left breast hernia repair 07/2018 tubal ligation tonsillectomy knee surgery hip surgery
--- OUTSIDE RECORDS SUMMARY | 2024-09-02 12:07 | XMS_ITS ---
Author Organization [facility] Address [address] [place] [address] Care Team Providers Care Pbx Installer Name Role Phone Stefan Rdzolas Primary Care Provider Unavailab Chris Wakefield Jr Unavailable REASON FOR VISIT procedure Encounters Encounter Location Date Provider Diagnosis [facility] [address] [place] [phone] 08/25/2024 Chris Horner Jr Plan Of Treatment No Information Progress Notes * INDIRA DERASDOB:[birth year] (59 yo F)Acc No.[id number]:08/25/2024 Patient:?INDIRA DERAS :1965???Age:59 Y???Sex:Female Address:[address] [place] [address] * true * Date:? Generated for Andie hammonds/Danial/eTransmitting on:?09/02/2024 12:07 PM EDT
== END 2024-09-02 11:57 | disposition home or self-care (01) ==
LOC: HO.PMCPRC 10:32
PROVIDERS: PCP Physician Assistant; Visit Provider Anesthesiology
DX: M47.816 Spondylosis without myelopathy or radiculopathy, lumbar region (principal)
CPT/HCPCS: 64493; 64494

== ENCOUNTER 2024-09-04 11:27 | Outpatient (REF) | payer OTHER, SELFPAY ==
--- OUTSIDE RECORDS SUMMARY | 2024-09-04 12:59 | XMS_ITS ---
Author Organization [facility] Address [address] [place] [address] Care Team Providers Care Heat Treater Helper Name Role Phone Stefan Rdzolas Primary Care Provider Unavailab Chris Wakefield Jr Unavailable [phone] REASON FOR VISIT NEEDS TO R/S EGD AND COLON Encounters Encounter Location Date Provider Diagnosis [facility] [address] [place] [address] 08/27/2024 Chris Horner Jr Plan Of Treatment No Information Progress Notes * INDIRA DERASDOB:[birth year] (59 yo F)Acc No.[id number]:08/27/2024 Patient:?INDIRA DERAS :1965???Age:59 Y???Sex:Female Address:[address] [place] [address] * true * Date:? Generated for Andie hammonds/Danial/eTransmitting on:?09/04/2024 12:58 PM EDT
--- OUTSIDE RECORDS SUMMARY | 2024-09-04 12:59 | XMS_ITS | Clinical Summary ---
Author Organization [facility] Address [address] [place] [address] Care Team Providers Care Truck Body Builder Name Role Phone Unavailable Primary Care Provider [...]
--- OUTSIDE RECORDS SUMMARY | 2024-09-04 12:59 | XMS_ITS | Patient Health Record ---
Author Organization [facility] Address [address] [place] [address] Care Team Providers Care Workers Compensation Claims Analyst Name Role Phone Patel Rdz Primary Care [...] Problem Status W/U Status Risk Notes Problem 36679055 Rectal bleeding (K62.5) Active confirmed Problem 050359159 Gastro-esophagea l reflux disease with esophagitis (K21.0) Active confirmed Problem 049635963 Irritable bowel syndrome with constipation (K58.1) Active confirmed Problem Gastroesophageal reflux disease with esophagitis (disorder) (968328133) Gastroesophageal reflux disease with esophagitis, unspecified whether hemorrhage (K21.00) Active confirmed Vital Signs Temperature 98.7 degrees Fahrenheit 08/11/2024 Blood pressure diastolic 01 mm Hg 08/11/2024 Height 66.75 in 08/11/2024 Blood pressure systolic 001 mm Hg 08/11/2024 Weight 168.2 lbs 08/11/2024 BMI 26.54 kg/m2 08/11/2024 Encounters Encounter Location Date Provider Diagnosis [facility] [address] [place] [phone] 08/11/2024 Chris Horner Jr Rectal bleeding K62.5 and Gastro-esophageal reflux disease with esophagitis K21.0 [facility] [address] [place] [address] 08/11/2024 Chris Horner Jr [facility] [address] [place] [phone] 08/25/2024 Chris Horner Jr [facility] [address] [place] [phone] 08/25/2024 Chris Horner Jr [facility] [address] [place] [phone] 08/27/2024 Chris Horner Jr Assessments Encounter Date [...] Insured Coverage Start Date Coverage End Date [facility] [address] Attn Claims RAFFY Matos [id number] COLONINDIRA Self - patient is the insured MEDICAID OF [facility] [address] [place] [address] [id number] COLONINDIRA Self - patient is the insured MEDICARE OF [place] [address] [place] [address] [id number] COLONINDIRA Self - patient is the insured Medical (General) History Medical History History ICD Code anxiety depression hiatal hernia H. pylori infection EGD/colonoscopy in 07/28/15, no Foster's, no history of adenomas, ten-year colon followup 2025 breast cancer Surgical History Surgery Date(Month/Year) lumpectomy, left breast hernia repair 07/2018 tubal ligation tonsillectomy knee surgery hip surgery
--- OUTSIDE RECORDS SUMMARY | 2024-09-04 12:59 | XMS_ITS ---
Author Organization [facility] Address [address] [place] [phone] Care Team Providers Care Folder Seamer Automatic Name Role Phone Stefan Rdzolas Primary Care Provider Unavailab Chris Wakefield Jr Unavailable [phone] REASON FOR VISIT procedure Encounters Encounter Location Date Provider Diagnosis [facility] [address] [place] [phone] 08/25/2024 Chris Horner Jr Plan Of Treatment No Information Progress Notes * INDIRA DERASDOB:[birth year] (59 yo F)Acc No.[id number]:08/25/2024 Patient:?INDIRA DERAS :1965???Age:59 Y???Sex:Female Address:[address] [place] [address] * true * Date:? Generated for Andie hammonds/Danial/eTransmitting on:?09/04/2024 12:59 PM EDT
--- OUTSIDE RECORDS SUMMARY | 2024-09-04 12:59 | XMS_ITS ---
Author Organization [facility] Address [address] [place] [address] Care Team Providers Care Associate Professor Of Theology Name Role Phone Patel Rdz Primary Care Provider Unavailab Chris Wakefield Jr Unavailable [phone] REASON FOR VISIT gerd,rectal bleeding Encounters Encounter Location Date Provider Diagnosis [facility] [place] [address] [place] [phone] 08/26/2024 Chris Horner Jr Plan Of Treatment No Information Progress Notes * INDIRA DERASDOB:[birth year] (59 yo F)Acc No.[id number]:08/26/2024 EGD and COL/MAC Patient:?INDIRA DERAS Provider:?Chris Horner MD :1965???Age:59 Y???Sex:Female D ate:08/26/2024 Address:[address] [place], [place] [address] Pcp:Patel Rdz Subjective: * Chief Complaints: * [...] Horner MD Date:?0 08/26/2024 Generated for Felizi ng/Fakayg/eTransmitting on:?09/04/2024 12:59 PM EDT
== END 2024-09-04 11:28 | disposition home or self-care (01) ==
LOC: HO.MAMMO 11:27
PROVIDERS: PCP Physician Assistant; Visit Provider Physician Assistant
DX: Z12.31 Encounter for screening mammogram for malignant neoplasm of breast (principal)
CPT/HCPCS: 77063; 77067

== ENCOUNTER → 2024-09-04 11:45 | Outpatient (BNV) | payer OTHER, SELFPAY | PROVIDERS: PCP Physician Assistant; Visit Provider Internal Medicine | DX: Z12.31 Encounter for screening mammogram for malignant neoplasm of breast (principal) | CPT/HCPCS: 77063; 77067 ==

== ENCOUNTER 2024-09-09 10:26 | Outpatient (AMB) | payer OTHER, SELFPAY ==
--- NOTE | 2024-09-09 10:37 | MHC.OFFVIS ---
Vital Signs 09/09/24 10:40 Height 5 ft 6 in Weight 169 lb 3 oz BMI 27.3 BP 128/69 Blood Pressure Location Rt brachial Position Sitting Pulse 82 Pulse Source Pulse Oximeter Pulse Oximetry (%) 99 Oxygen Delivery Method Room Air Intake Visit Reasons: BILATERAL DIAGNOSTIC L3, L4, DRL5 MBB Intake Note: Pain today 2/10 Academic Department Chair Required: No Accompanied by: Self / Same As Patient Allergies tramadol Adverse Reaction (Intermediate, Verified 09/09/24 10:41) dry mouth trazodone Adverse Reaction (Intermediate, Verified 09/09/24 10:41) Falls HPI Comments Details: The patient is a 59-year-old female presenting with chronic low back pain and left hip pain. For the low back pain, she recently received bilateral medial branch blocks at L3, L4, and L5, which reduced her pain from 8/10 to 1/10 since procedure with significant improvement in her daily activities and functioning. Currently, the pain is rated at 2/10, with primary complaints occurring upon waking and alleviating slightly with movement. She also experiences a residual pinching sensation. For her left hip pain, she reports difficulty walking for more than 5 minutes without experiencing severe hip and left groin pain. This pain interferes significantly with her daily activities. A prior left hip steroid injection last October was remarkably effective, yielding complete pain relief. She also confronts knee pain related to osteoarthritis, for which scheduled gel injections are planned. The patient has a past medical history of osteopenia but denies osteoporosis. Her recent experience discourages her from pursuing further back injections or procedures like RFA or Sprint PNS trial. Nonetheless, she is open to repeating the left hip injection based on past successful pain resolution. Past Procedures: 09/02/24: Bilateral Diagnostic L3-L4 DR L5 MBB-90% pain relief for 24 hours, ongoing 80% pain relief in low back 11/06/23: Left intra-articular hip steroid injection-100% ongoing pain relief PRIOR: Patient is a pleasant 58 years old with prior history of iliac wing fracture with h/o ORIF with hip reconstruction and multiple screws in 1989 in [place], presents today to discuss treatments for left hip pain and low back pain. Denies any recent trauma, injury or falls. She is currently undergoing physical therapy for back pain which was initiated at [facility]. Reports history of back injections in 2011 and left hip cortisone injections with good results. Left lateral hip pain is reproduced with walking or weight bearing. Reports limping after walking more than 15 minutes. Patient reports groin pain with internal and external hip rotations and also mild left sacroiliac joint pain. Pain affects her daily functioning and mobility. She denies any significant pain with sitting or resting. Denies any fever, abdominal pain, weakness, foot drop, numbness, bladder or bowel dysfunction or saddle anesthesia. Location: Left hip radiates down left leg Duration: Chronic pain for many years Characteristics of symptom or complaint: Sharp, aching, shooting, stabbing, tingling, sore Aggravating or associated factors: Walking, weight bearing, movements Relieving factors: Laying down, rest, pregabalin, NSAIDs, activity modifications Treatment: Injections, PT, h/o left hip reconstruction in 1989 [facility] Medical History Chronic pain syndrome History of left breast cancer (~2013) HLD (hyperlipidemia) GERD (gastroesophageal reflux disease) Nicotine dependence, cigarettes, uncomplicated Osteopenia (~2015) Postmenopausal Migraine Post herpetic neuralgia (~2020) Bilateral primary osteoarthritis of knee History of suicide attempt MDD (major depressive disorder) JASSON (generalized anxiety disorder) Surgical History History of lumpectomy of left breast (~2013) History of hip surgery (~1990) History of right knee surgery (~2006) History of ventral hernia repair (~2018) History of thumb surgery (~2016) History of tubal ligation History of tonsillectomy History of colonoscopy History of esophagogastroduodenoscopy (EGD) Family History Father Diabetes Hypertension Prostate cancer Mother Breast cancer Maternal Aunt Uterine cancer Lung cancer Family/Other Substance use disorder Sister Uterine cancer Social History Household Members: Family Housing: House Are you a primary care aid to a significant other at home: No Do you presently have visiting nurse or other home services: No Alcohol intake: never Patient Tobacco Use Status: Current everyday Tobacco user (quit 8-9 months ago) Tobacco use type: Cigarette Cigarette Packs Per Day: 0.5 Cigarettes Per Day: 3 Years Smoked: (onset 15, 1/2-3/4ppd x 41yrs, 25pyh) e-Cigarette/Vaping Use: Never Used Second Hand Smoke Exposure: Yes Substance Use Type: Marijuana service: No Current occupational status: disabled 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 Alert and oriented. Mood and affect appropriate. Follows and participates in conversation appropriately. Respiratory effort is unlabored. No cough. Able to transition from sit to stand unassisted. Ambulates with bilaterally normal heel strike and toe off. General: Yes no CVA tenderness Back/Spine/Pelvis Other: Limited lumbar ROM due to pain. Moderate TTP in the projection of bilateral SIJ areas, right>left. Lumbar extension reproduces mild pain and flexion reproduce moderate pain. SI distraction, Camilo?s test, and Stinchfield tests reproduce lateral bilateral hip pain and lower back pain. Moderate groin pain with I/E hip rotations on the left. Back: no CVA tenderness Cervical Spine: cervical ROM normal and No Cervical spine tenderness Thoracic/Lumbar Spine: thoracic and lumbar spine normal to inspection, No Thoracic/lumbar spine scar(s), Lasegue's sign negative, straight leg raise negative bilaterally, pain with thoraco-lumbar ROM (+facet loading bilaterally, right>left), No thoracic spinal tenderness and No lumbar spinal tenderness Pelvis: no buttock tenderness Sacroiliac joints: bilaterally tender to palpation Extrem General: Yes capillary refill normal, Yes no clubbing, cyanosis or edema and Yes no calf tenderness Results Reviewed Results Reviewed: XR BILATERAL HIPS WITH AP PELVIS 04/26/23 CLINICAL INFORMATION: Reason for Exam M17.0 - Bilateral primary osteoarthritis of hip COMPARISON: Hip and pelvis radiographs 04/26/2020 TECHNIQUE: 2 views of each hip and one view of the pelvis. FINDINGS: No acute fracture or dislocation. Status post plate and screw fixation of the left iliac wing. No evidence of hardware fracture or complication. Mild osteoarthritis of the bilateral hips with small osteophytes. Ossific foci adjacent to the left hip and iliac bone unchanged from prior may reflect sequelae of heterotopic ossification or remote prior trauma. Sacroiliac joint spaces are maintained. Findings are overall unchanged from prior. Calcified phleboliths in the pelvis. IMPRESSION: 1. Status post plate and screw fixation of the left iliac wing. No evidence of hardware fracture or complication. 2. Mild osteoarthritis of the bilateral hips with small osteophytes. 3. Ossific foci adjacent to the left hip and iliac bone unchanged from prior may reflect sequelae of heterotopic ossification or remote prior trauma. XR LUMBOSACRAL SPINE WITH OBLIQUES 08/30/23 CLINICAL INFORMATION: Left low back pain. COMPARISON: Hip and pelvis 04/26/2023. FINDINGS: Mild levoscoliosis of the lumbar spine. Mild degenerative changes of the bilateral sacroiliac joints. Facet arthritis in the aqe-dh-ofxen lumbar spine. Degenerative changes in the imaged lower thoracic spine. Inferior endplate concavity along the anterior aspect of the lower thoracic vertebral body. Moderate multilevel lumbar spondylosis with multilevel loss of disc space height. Redemonstration of surgical hardware incompletely imaged overlying the left iliac wing, better characterized on prior exam. IMPRESSION: 1. Moderate multilevel lumbar spondylosis with multilevel loss of disc space height. 2. Facet arthritis in the grj-sm-kvqca lumbar spine. Assessment & Plan Assessment & Plan (1) Sacroiliac joint pain: Code(s): M53.3 - Sacrococcygeal disorders, not elsewhere classified Category: Medical (2) Lumbosacral spondylosis: Code(s): M47.817 - Spondylosis without myelopathy or radiculopathy, lumbosacral region Category: Medical Qualifiers: Spinal osteoarthritis complication: with myelopathy Qualified Code(s): M47.16 - Other spondylosis with myelopathy, lumbar region (3) Chronic pain syndrome: Code(s): G89.4 - Chronic pain syndrome Category: Medical (4) Osteopenia: Onset Date: ~2015 Comment: (Bone Dexa Lumbar T-score -1.9 - 09/30/2015) Code(s): M85.80 - Other specified disorders of bone density and structure, unspecified site Category: Medical (5) Left hip pain: Code(s): M25.552 - Pain in left hip Category: Medical (6) Osteoarthritis of left hip: Code(s): M16.12 - Unilateral primary osteoarthritis, left hip Category: Medical Qualifiers: Osteoarthritis type: primary Qualified Code(s): M16.12 - Unilateral primary osteoarthritis, left hip (7) Bilateral primary osteoarthritis of knee: Comment: (s/p b/l injections 05/05/21) Code(s): M17.0 - Bilateral primary osteoarthritis of knee Category: Medical Plan The patient opted against further back injections or procedures, emphasizing her improved condition at 2/10 pain level following bilateral medial branch blocks. We will evaluate the feasibility of radiofrequency ablation pending insurance confirmation for sustained pain management if she is interested in the future. She declined PNS trial given her family obligations and living situation. Regarding the left hip pain, we will schedule a repeated injection due to prior success providing complete pain relief. Further interventions may be considered contingent on future symptomatology and patient preferences. Will update bone scan to rule out osteoporosis. Scheduled knee gel injections on 09/19/[address] Plummer will address osteoarthritic knee discomfort. We will continue monitoring her pain levels and functional capacity to guide suitable interventions and adjustments to her treatment plan. Schedule Left hip intra-articular steroid injection with local and fluoroscopy. Expectations, risks and benefits were reviewed. Patient is aware she will be contacted to schedule this procedure. All questions were answered and the patient is in agreement of plan. Follow-up after injections and sooner as needed. Patient was informed and verbally consented to the use of an ambient scribe for clinic note documentation during this visit. Orders: Orders XR DEXA axial skeleton Today M25.552 - Pain in left hip, M47.16 - Other spondylosis with myelopathy, lumbar region, M85.80 - Other specified disorders of bone density and structure, unspecified site Coding Level of Care Code Est Pt Level 4 (55980) Complex EM visit Add On G2211 Diagnoses Sacroiliac joint pain M53.3 Osteoarthritis of spine with myelopathy, lumbosacral region M47.16 Spinal osteoarthritis complication: with myelopathy Chronic pain syndrome G89.4 Osteopenia M85.80 Left hip pain M25.552 Primary osteoarthritis of left hip M16.12 Osteoarthritis type: primary Bilateral primary osteoarthritis of knee M17.0
[2024-09-09 10:40] VITALS: BP 128/69; PULSE 82; O2SAT 99; BMI 27.3
--- OUTSIDE RECORDS SUMMARY | 2024-09-09 11:32 | XMS_ITS | Patient Health Record ---
Author Organization [facility] Address [address] [place] [address] Care Team Providers Care Oracle Ebs Consultant Name Role Phone Patel Rdz Primary Care Provider Unavailab Chris Wakefield Jr Unavailable [phone] Allergies No Known Allergies Reason For Referral [...] Problem Status W/U Status Risk Notes Problem 95285900 Rectal bleeding (K62.5) Active confirmed Problem [id number] Gastro-esophagea l reflux disease with esophagitis (K21.0) Active confirmed Problem 708834316 Irritable bowel syndrome with constipation (K58.1) Active confirmed Problem Gastroesophageal reflux disease with esophagitis (disorder) (893865937) Gastroesophageal reflux disease with esophagitis, unspecified whether hemorrhage (K21.00) Active confirmed Vital Signs Temperature 98.7 degrees Fahrenheit 08/11/2024 Blood pressure diastolic 01 mm Hg 08/11/2024 Height 66.75 in 08/11/2024 Blood pressure systolic 001 mm Hg 08/11/2024 Weight 168.2 lbs 08/11/2024 BMI 26.54 kg/m2 08/11/2024 Encounters Encounter Location Date Provider Diagnosis [facility] [address] [place] [phone] 08/11/2024 Chris Horner Jr Rectal bleeding K62.5 and Gastro-esophageal reflux disease with esophagitis K21.0 [facility] [address] [place] [phone] 08/11/2024 Chris Horner Jr [facility] [address] [place] [phone] 08/25/2024 Chris Horner Jr [facility] [address] [place] [phone] 08/25/2024 Chris Horner Jr [facility] [address] [place] [phone] 08/27/2024 Chris Horner Jr Assessments Encounter Date [...] [address] Attn Claims RAFFY Matos [id number] COLONINDIRA Self - patient is the insured [facility]ICA[facility] [address] [place] [address] [id number] COLONINDIRA Self - patient is the insured MEDICARE OF [place] [address] [place] [address] [id number] COLONINDIRA Self - patient is the insured Medical (General) History Medical History History ICD Code anxiety depression hiatal hernia H. pylori infection EGD/colonoscopy in 07/28/15, no Foster's, no history of adenomas, ten-year colon followup 2025 breast cancer Surgical History Surgery Date(Month/Year) lumpectomy, left breast hernia repair 07/2018 tubal ligation tonsillectomy knee surgery hip surgery
--- OUTSIDE RECORDS SUMMARY | 2024-09-09 11:32 | XMS_ITS ---
Author Organization [facility] Address [address] [place] [address] Care Team Providers Care Icing Machine Operator Name Role Phone Patel Rdz Primary Care Provider Unavailab Chris Wakefield Jr Unavailable [phone] REASON FOR VISIT gerd,rectal bleeding Encounters Encounter Location Date Provider Diagnosis [facility] [address] [place] [phone] 08/26/2024 Chris Horner Jr Plan Of Treatment No Information Progress Notes * INDIRA DERASDOB:[birth year] (59 yo F)Acc No.[id number]:08/26/2024 EGD and COL/MAC Patient:?INDIRA DERAS Provider:?Chris Horner MD :1965???Age:59 Y???Sex:Female D ate:08/26/2024 Address:[address] [place], [place] [id number] Pcp:Patel Rdz Subjective: * Chief Complaints: * [...] Horner MD Date:?0 08/26/2024 Generated for Felizi cassius/Fakayg/eTransmitting on:?09/09/2024 11:32 AM EDT
--- OUTSIDE RECORDS SUMMARY | 2024-09-09 11:32 | XMS_ITS ---
Author Organization [facility] Address [address] [place] [address] Care Team Providers Care Engineer Fishing Vessel Name Role Phone Stefan Rdzolas Primary Care Provider Unavailab Chris Wakefield Jr Unavailable [phone] REASON FOR VISIT procedure Encounters Encounter Location Date Provider Diagnosis [facility] [address] [place] [address] 08/25/2024 Chris Horner Jr Plan Of Treatment No Information Progress Notes * INDIRA DERASDOB:[birth year] (59 yo F)Acc No.[id number]:08/25/2024 Patient:?INDIRA DERAS :1965???Age:59 Y???Sex:Female Address:[address] [place] [id number] * true * Date:? Generated for Andie hammonds/Danial/eTransmitting on:?09/09/2024 11:32 AM EDT
--- OUTSIDE RECORDS SUMMARY | 2024-09-09 11:32 | XMS_ITS ---
Author Organization [facility] Address [address] [place] [address] Care Team Providers Care Reagent Tender Helper Name Role Phone Stefan Rdzolas Primary Care Provider Unavailab Chris Wakefield Jr Unavailable REASON FOR VISIT NEEDS TO R/S EGD AND COLON Encounters Encounter Location Date Provider Diagnosis [facility] [address] [place] [address] 08/27/2024 Chris Hornre Jr Plan Of Treatment No Information Progress Notes * INDIRA DERASDOB:[birth year] (59 yo F)Acc No.[id number]:08/27/2024 Patient:?INDIRA DERAS :1965???Age:59 Y???Sex:Female Address:[address] [place] [id number] * true * Date:? Generated for Andie hammonds/Danial/eTransmitting on:?09/09/2024 11:32 AM EDT
--- OUTSIDE RECORDS SUMMARY | 2024-09-09 11:32 | XMS_ITS | Clinical Summary ---
Author Organization [facility] Address [address] [place] [address] Care Team Providers Care Police Manager Name Role Phone Unavailable Primary Care Provider [...]
== END 2024-09-09 11:12 | disposition home or self-care (01) ==
LOC: HO.PMC 10:27
PROVIDERS: PCP Physician Assistant; Visit Provider Nurse Practitioner Family
DX: M53.3 Sacrococcygeal disorders, not elsewhere classified (principal); M47.16 Other spondylosis with myelopathy, lumbar region; G89.4 Chronic pain syndrome; M85.80 Other specified disorders of bone density and structure, unspecified site; M25.552 Pain in left hip; M16.12 Unilateral primary osteoarthritis, left hip; M17.0 Bilateral primary osteoarthritis of knee
CPT/HCPCS: 99214; G2211

== ENCOUNTER → 2024-09-09 10:26 | Outpatient (BNVA) | payer OTHER, SELFPAY | PROVIDERS: PCP Physician Assistant; Visit Provider Nurse Practitioner Family | DX: M53.3 Sacrococcygeal disorders, not elsewhere classified (principal); M47.16 Other spondylosis with myelopathy, lumbar region; M85.80 Other specified disorders of bone density and structure, unspecified site; M25.552 Pain in left hip; M16.12 Unilateral primary osteoarthritis, left hip; M17.0 Bilateral primary osteoarthritis of knee; G89.4 Chronic pain syndrome | CPT/HCPCS: 99212 ==

== ENCOUNTER 2024-09-15 10:42 | Outpatient (RCR) | payer OTHER, SELFPAY ==
[2024-09-15 11:16] VITALS: BP 109/59; PULSE 71
--- NOTE | 2024-09-15 11:53 | MHC.PT.EP ---
[facility] [place] Office [place] Office [place] Office [address] [phone] F: [phone] F: [phone] F: [phone] F: [phone] Physical Therapy Plan of Care Date of Evaluation: 09/15/24 Date of Surgery: NA Diagnosis: BPPV Assessment: Germaine is a 59 year old female who is referred to PT for BPPV . She reports of having vertigo for 5 months. She has h/o BPPV which has been resolved with PT. On PT examination she reports of having room spinning dizziness with supine <> sit, looking up and down which lasts for 10-15 seconds. Denies any nausea or vomiting. She presented with intact saccades, smooth pursuit, visual tracking, negative DVA, negative VBI and negative for BPPV in B cota pikes and B roll test. She presented with good static and dynamic balance. She does not present with symptoms of vestibular dysfunction today. She however was advised to return to PT one more time to recheck for BPPV as her symptoms sounds like she has BPPV. She was in agreement with the plan. Frequency and Duration: The patient will be seen 2/week for 4 weeks Short Term Goals: Re-assess for BPPV in all positions Draw Machine Operator Goals: Treatment Plan: Modalities to reduce pain, spasms and effusion. Manual therapy to restore motion and function. Therapeutic exercise to improve strength and flexibility. Neuromuscular re-education for posture and balance. Therapeutic activities to return to functional activities of daily living. Electronically signed by: Janae Huerta PT DPT Please sign and return to therapist. Thank you for your referral.
--- NOTE | 2024-10-20 13:35 | MHC.PT.DC ---
[facility] [place] Office [place] Office [place] Office [address] Adrianne Guzman [address] [phone] F: [phone] F: [phone] F: [phone] F: [phone] Physical Therapy Discharge Report Diagnosis: BPPV Date of Surgery: NA Date of Evaluation: 09/15/24 Date of Discharge: 10/20/24 Treatments to Date: 1 Cancellations to Date: 0 No Shows to Date: 0 Discharge Status: Discharge Summary: Germaine has had no symptoms of vestibular dysfunction in over a month. She is therefore being d/c from PT. Electronically signed by: Janae Huerta PT DPT Please sign and return to therapist. Thank you for your referral.
== END 2024-10-20 13:36 | disposition home or self-care (01) ==
LOC: HO.PT 10:42
PROVIDERS: PCP Physician Assistant; Visit Provider Physician Assistant
DX: H81.13 Benign paroxysmal vertigo, bilateral (principal)
CPT/HCPCS: 97112; 97161

== ENCOUNTER 2024-09-19 10:15 | Outpatient (AMB) | payer OTHER, SELFPAY ==
--- OUTSIDE RECORDS SUMMARY | 2024-09-19 10:29 | XMS_ITS ---
Author Organization [facility] Address [address] [place] [address] Care Team Providers Care Chemical Treatment Operator Name Role Phone Stefan Rdzolas Primary Care Provider Unavailab Chris Wakefield Jr Unavailable [phone] REASON FOR VISIT NEEDS TO R/S EGD AND COLON Encounters Encounter Location Date Provider Diagnosis [facility] [address] [place] [address] 08/27/2024 Chris Horner Jr Plan Of Treatment No Information Progress Notes * INDIRA DERASDOB:[birth year] (59 yo F)Acc No.[id number]:08/27/2024 Patient:?INDIRA DERAS :1965???Age:59 Y???Sex:Female Address:[address] [place] [id number] * true * Date:? Generated for Andie hammonds/Danial/eTransmitting on:?09/19/2024 10:28 AM EDT
--- NOTE | 2024-09-19 10:45 | MHC.OFFVIS ---
Intake Visit Reasons: INJ bilateral knee Durolane injections Intake Note: Germaine is a 59 year old female who presents today for Bilateral Knee Durolane Injections. Allergies tramadol Adverse Reaction (Intermediate, Verified 09/09/24 10:41) dry mouth trazodone Adverse Reaction (Intermediate, Verified 09/09/24 10:41) Falls HPI HPI INJ bilateral knee Durolane injections: Details: Germaine is a 59 year old female who presents today for Bilateral Knee Durolane Injections. [facility] Medical History Chronic pain syndrome History of left breast cancer (~2013) HLD (hyperlipidemia) GERD (gastroesophageal reflux disease) Nicotine dependence, cigarettes, uncomplicated Osteopenia (~2015) Postmenopausal Migraine Post herpetic neuralgia (~2020) Bilateral primary osteoarthritis of knee History of suicide attempt MDD (major depressive disorder) JASSON (generalized anxiety disorder) Surgical History History of lumpectomy of left breast (~2013) History of hip surgery (~1990) History of right knee surgery (~2006) History of ventral hernia repair (~2018) History of thumb surgery (~2016) History of tubal ligation History of tonsillectomy History of colonoscopy History of esophagogastroduodenoscopy (EGD) Family History Father Diabetes Hypertension Prostate cancer Mother Breast cancer Maternal Aunt Uterine cancer Lung cancer Family/Other Substance use disorder Sister Uterine cancer Social History Household Members: Family Housing: House Are you a primary skin care consultant to a significant other at home: No Do you presently have visiting nurse or other home services: No Alcohol intake: never Patient Tobacco Use Status: Current everyday Tobacco user (quit 8-9 months ago) Tobacco use type: Cigarette Cigarette Packs Per Day: 0.5 Cigarettes Per Day: 3 Years Smoked: (onset 15, 1/2-3/4ppd x 41yrs, 25pyh) e-Cigarette/Vaping Use: Never Used Second Hand Smoke Exposure: Yes Substance Use Type: Marijuana service: No Current occupational status: disabled 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 Site was prepped using aseptic technique. Patient tolerated the procedure well. Shoulders, Hips, Knees, Knee Large Joint Injection : Bilateral Knee Coding Procedure code (CPT) selection complete Assessment & Plan Assessment & Plan (1) Bilateral primary osteoarthritis of knee: Comment: (s/p b/l injections 05/05/21) Code(s): M17.0 - Bilateral primary osteoarthritis of knee Category: Medical Plan: Injecte bilateral knees, Durolane. F/u 3-4 mo Coding Level of Care Code Est Pt Level 2 (59156) Diagnoses Bilateral primary osteoarthritis of knee M17.0 CPT Codes Shoulders, Hips, Knees, - Knee Large Joint Injection : Bilateral Knee ([id number])
== END 2024-09-19 10:46 | disposition home or self-care (01) ==
LOC: HO.HOS 10:16
PROVIDERS: PCP Physician Assistant; Visit Provider Orthopaedic Surgery
DX: M17.0 Bilateral primary osteoarthritis of knee (principal)
CPT/HCPCS: 20610

== ENCOUNTER → 2024-09-19 10:15 | Outpatient (BNVA) | payer OTHER, SELFPAY | PROVIDERS: PCP Physician Assistant; Visit Provider Orthopaedic Surgery | DX: M17.0 Bilateral primary osteoarthritis of knee (principal) | CPT/HCPCS: 20610; J1100; J2003; J7318 ==

== ENCOUNTER 2024-09-22 22:43 | Emergency (ER) | payer OTHER, SELFPAY ==
--- NOTE | ~2024-09-22 | XR_ITS ---
CLINICAL HISTORY: pain 3 views lumbar spine Comparison: X-rays of the lumbar spine from 08/30/2023 Findings: No significant change in heights of 5 lumbar vertebrae. L4 and L5 pars are partly obscured without definite lysis. Worsening degenerative changes include facet arthropathy , particularly in the lower lumbar spine. Degenerative disc changes include disc height losses. No significant change in mild thoracic vertebral height losses in the [id number]. Surgical hardware again noted in the [id number]-wt-[id number]. Majority of the sacrum and SI joints are obscured. Moderate to severe stool burden present. Phleboliths noted in the partially imaged pelvis. IMPRESSION: 1. No significant change in vertebral heights or vertebral alignments compared to 1 year prior. 2. Worsening degenerative changes, including facet arthropathy. This document has been electronically signed by: Nikhil Goyal MD on 09/22/2024 23:52:45
--- NOTE | ~2024-09-22 | XR_ITS ---
CLINICAL HISTORY: pain 2 view right knee Comparison: Frontal radiographs of the both knees from 02/09/2023 Findings: New and/or worsening articular surface irregularity of the medial femoral condyles nonspecific by radiographs. Gekwc-ki-[id number] effusion present. Mild worsening of the mild-moderate osteoarthritis of the right knee. No acute displaced fracture. No dislocation. No radiopaque retained foreign body. IMPRESSION: 1. Small to moderate effusion present. 2. Mild-moderate osteoarthritis of the right knee. This document has been electronically signed by: Nikhil Goyal MD on 09/22/2024 23:53:16
[2024-09-22 22:47] VITALS: BP 137/62; PULSE 61; RESP 14; TEMP 36.1; O2SAT 98; BMI 28.2
--- OUTSIDE RECORDS SUMMARY | 2024-09-22 23:45 | XMS_ITS ---
Author Organization [facility] Address [address] [place] [address] Care Team Providers Care Food Services Manager Name Role Phone Stefan Rdzolas Primary Care Provider Unavailab Chris Wakefield Jr Unavailable [phone] REASON FOR VISIT NEEDS TO R/S EGD AND COLON Encounters Encounter Location Date Provider Diagnosis [facility] [address] [place] [address] 08/27/2024 Chris Horner Jr Plan Of Treatment No Information Progress Notes * INDIRA DERASDOB:[birth year] (59 yo F)Acc No.[id number]:08/27/2024 Patient:?INDIRA DERAS :1965???Age:59 Y???Sex:Female Address:[address] [place] [id number] * true * Date:? Generated for Andie hammonds/Danial/eTransmitting on:?09/22/2024 11:45 PM EDT
--- NOTE | 2024-09-23 01:35 | ED_ITS ---
HPI - General Adult General Chief complaint: General Medical Stated complaint: back pain, both knees pain Time Seen by Provider: 09/23/24 01:28 Source: patient Limitations: no limitations History of Present Illness ED Provider: Cheyanne Rinaldi PA-C HPI narrative: 59-year-old female with a history of chronic back pain, osteoarthritis, fibromyalgia, hyperlipidemia, GERD, depression and anxiety presents with back a nd bilateral knee pain x2 days. Patient states over the weekend, she was cleaning her basement, and was lifting numerous heavy objects up and down flights of stairs. Patient now complains of widespread back pain without radiation down either extremity. Denies paresthesia, weakness of lower extremities, no urinary retention or bowel incontinence. Patient states both knees are painful as well, right greater than left. Related Data Home Medications ?Medication ?Instructions ?Recorded ?Confirmed omeprazole 20 mg capsule,delayed 20 mg PO DAILY 04/26/20 08/22/24 release pregabalin 75 mg capsule 75 mg PO BID 08/13/24 08/22/24 Previous Rx's ?Medication ?Instructions ?Recorded aspirin 81 mg tablet,delayed 81 mg PO DAILY #90 tabs 08/15/22 release (Adult Aspirin Regimen) acetaminophen 325 mg capsule 650 mg (2 x 325 mg) PO Q6H PRN 10/30/22 (Tylenol) pain #30 caps albuterol sulfate 90 mcg/actuation 1 inh inhalation QID shortness of 01/23/23 aerosol inhaler breath or wheezing 30 days #6.7 grams hydrocortisone 1 % topical cream 1 appl topical TID PRN skin 01/23/23 (Anti-Itch (hydrocortisone)) irritation 90 days #454 grams quetiapine 100 mg tablet (Seroquel) 100 mg PO DAILY 90 days #90 tabs 07/04/23 betamethasone dipropionate 0.05 % 1 appl topical DAILY PRN skin 03/14/24 topical cream irritation 30 days #45 grams naproxen 500 mg tablet 500 mg PO BID PRN pain 7 days #14 03/31/24 tabs lorazepam 1 mg tablet 1 mg PO BID-TID 30 days #90 tabs 04/07/24 naloxone 4 mg/actuation nasal 4 mg intranasal Q2M PRN opioid 04/17/24 spray (Narcan) overdose #2 ea meclizine 25 mg tablet 25 mg PO TID 7 days #21 tabs 04/29/24 cholecalciferol (vitamin D3) 50 50 mcg PO DAILY 90 days #90 caps 05/12/24 mcg (2,000 unit) capsule lidocaine 5 % topical patch 1 patch topical DAILY 30 days #30 07/04/24 ea gabapentin 300 mg capsule 300 mg PO BID 30 days #60 caps 07/14/24 oxycodone 5 mg tablet 5 mg PO BID PRN pain 7 days #14 08/05/24 tabs atorvastatin 80 mg tablet 80 mg PO DAILY #90 tabs 08/13/24 lorazepam 1 mg tablet (Ativan) 1 mg PO ONCE anxiety #1 tab 08/28/24 meloxicam 15 mg tablet 15 mg PO DAILY #7 tabs 09/23/24 methocarbamol 750 mg tablet 1,500 mg (2 x 750 mg) PO Q8H PRN 09/23/24 pain, moderate #20 tabs methylprednisolone 4 mg tablets in 4 mg PO QAM #21 ea 09/23/24 a dose pack (Medrol (Mike)) Allergies Allergy/AdvReac Type Severity Reaction Status Date / Time tramadol AdvReac Intermediate dry mouth Verified 09/22/24 22:51 trazodone AdvReac Intermediate Falls Verified 09/22/24 22:51 Review of Systems Review of Systems: Yes all other systems are reviewed and are negative Constitutional: Constitutional: Denies fatigue and Denies fever(s) Cardiovascular: Cardiovascular: Denies chest pain and Denies dyspnea Respiratory: Respiratory: Denies cough and Denies dyspnea Gastrointestinal: Gastrointestinal: Denies abdominal pain Musculoskeletal: Musculoskeletal: Reports back pain, Reports arthralgias, Denies joint swelling, Denies muscle weakness, Denies numbness, Denies radiating pain into limb and Denies tingling Neurologic: Denies numbness and Denies tingling Endocrine: Endocrine: Denies fatigue PMFSH Past Medical History Attestation statement: The following information was validated with the patient. Medical History Chronic pain syndrome History of left breast cancer (~2013) HLD (hyperlipidemia) GERD (gastroesophageal reflux disease) Nicotine dependence, cigarettes, uncomplicated Osteopenia (~2015) Postmenopausal Migraine Post herpetic neuralgia (~2020) Bilateral primary osteoarthritis of knee History of suicide attempt MDD (major depressive disorder) JASSON (generalized anxiety disorder) Surgical History History of lumpectomy of left breast (~2013) History of hip surgery (~1990) History of right knee surgery (~2006) History of ventral hernia repair (~2018) History of thumb surgery (~2016) History of tubal ligation History of tonsillectomy History of colonoscopy History of esophagogastroduodenoscopy (EGD) Family History Family History Father Diabetes Hypertension Prostate cancer Mother Breast cancer Maternal Aunt Uterine cancer Lung cancer Family/Other Substance use disorder Sister Uterine cancer Social History Social History Household Members: Family Housing: House Are you a primary technical healthcare consultant to a significant other at home: No Do you presently have visiting nurse or other home services: No Alcohol intake: never Patient Tobacco Use Status: Current everyday Tobacco user (quit 8-9 months ago) Tobacco use type: Cigarette Cigarette Packs Per Day: 0.5 Cigarettes Per Day: 3 Years Smoked: (onset 15, 1/2-3/4ppd x 41yrs, 25pyh) e-Cigarette/Vaping Use: Never Used Second Hand Smoke Exposure: Yes Substance Use Type: Marijuana Advance Directives: No Advance Directives Information Provided: Yes Do you have a plan to hurt others: No Plan service: No Current occupational status: disabled 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-[employer] Current occupational exposures/hazards: No Cognitive needs: No Hearing needs: Yes Vision needs: Yes Physical Exam ED Vital Signs: Vital Signs - 24 hr 09/22/24 22:47 Temperature 97.0 F Pulse Rate 61 Respiratory Rate 14 Blood Pressure 137/62 Pulse Oximetry 98 Oxygen Delivery Method Room Air BMI result Body Mass Index 28.2 Const Other: Alert well-appearing Orientation/consciousness: patient oriented x3 Resp Effort & Inspection: normal respiratory effort Cardio Other: Normal peripheral perfusion Skin Other: Warm dry no rash Neuro General: patient oriented x3, gait normal, no focal motor deficits and CN's II- XI intact bilaterally Psych Other: Cooperative Medical Decision Making Medical Decision Making MDM Narrative: 59-year-old female with a history of chronic back pain, osteoarthritis, fibromyalgia, hyperlipidemia, GERD, depression and anxiety presents with back and bilateral knee pain x2 days. Patient states over the weekend, she was cleaning her basement, and was lifting numerous heavy objects up and down flights of stairs. Patient now complains of widespread back pain without radiation down either extremity. Denies paresthesia, weakness of lower extremities, no urinary retention or bowel incontinence. Patient states both knees are painful as well, right greater than left. Problem: Chronic pain, fibromyalgia, arthritis History: Per patient I have considered the following differential diagnoses: Exacerbation of arthritis, septic joint, lumbar radiculopathy, compression fracture, cauda equina Plan: X-rays of the knee and back were ordered from triage, the patient has worsening arthritis in the back, and known arthritis of the knee with a small effusion. The patient is simply having exacerbation of her arthritis, given the extensive physical activity she performed over the weekend. She is not having radicular symptoms, she has no red flag signs symptoms concerning for cord compression. She is able to ambulate flex and extend the knee this is not a septic joint. We will treat accordingly. I have independently reviewed the following tests: X-ray right knee: IMPRESSION: 1. Small to moderate effusion present. 2. Mild-moderate osteoarthritis of the right knee. X-ray lumbar spine: IMPRESSION: 1. No significant change in vertebral heights or vertebral alignments compared to 1 year prior. 2. Worsening degenerative changes, including facet arthropathy. Discharge Plan Discharge Clinical Impression: Back pain, Osteoarthritis Patient Disposition: Home, Self-Care Instructions: Osteoarthritis (ED), Acute Low Back Pain (ED) Additional Instructions: There were no acute injuries noted on the x-ray of your back or the knee. See home care instructions. Use the meloxicam as directed this is an anti- inflammatory, take it with food. Take the Medrol Dosepak as directed this is an additional anti-inflammatory take it in the mornings with food. Use the methocarbamol as needed for further pain this is a muscle relaxant. To note this medication will cause drowsiness do not drive or operate machinery while taking the medication. Follow up with your primary care provider as needed. Prescriptions: New meloxicam 15 mg tablet 15 mg PO DAILY Qty: 7 0RF methocarbamol 750 mg tablet 1,500 mg PO Q8H PRN (Reason: pain, moderate) Qty: 20 0RF methylprednisolone [Medrol (Mike)] 4 mg tablets,dose pack 4 mg PO QAM Qty: 21 0RF Rx Instructions: Take per package instructions No Action aspirin [Adult Aspirin Regimen] 81 mg tablet,delayed release (DR/EC) 81 mg PO DAILY Qty: 90 1RF quetiapine [Seroquel] 100 mg tablet 100 mg PO DAILY 90 Days Qty: 90 1RF betamethasone dipropionate 0.05 % cream 1 appl topical DAILY PRN (Reason: skin irritation) 30 Days Qty: 45 2RF lorazepam 1 mg tablet 1 mg PO BID-TID 30 Days Qty: 90 3RF naloxone [Narcan] 4 mg/actuation spray,non-aerosol 4 mg intranasal Q2M PRN (Reason: opioid overdose) Qty: 2 0RF Rx Instructions: spray 1 dose into ONE nostril; alternate nostrils w each dose until help arrives cholecalciferol (vitamin D3) 50 mcg (2,000 unit) capsule 50 mcg PO DAILY 90 Days Qty: 90 1RF lidocaine 5 % adhesive patch,medicated 1 patch topical DAILY 30 Days Qty: 30 0RF Rx Instructions: leave on most painful area for up to 12 hrs oxycodone 5 mg tablet 5 mg PO BID PRN (Reason: pain) 7 Days Qty: 14 0RF Rx Instructions: Partial Fill upon patient request. acetaminophen [Tylenol] 325 mg capsule 650 mg PO Q6H PRN (Reason: pain) Qty: 30 0RF naproxen 500 mg tablet 500 mg PO BID PRN (Reason: pain) 7 Days Qty: 14 0RF omeprazole 20 mg capsule,delayed release(DR/EC) 20 mg PO DAILY albuterol sulfate 90 mcg/actuation HFA aerosol inhaler 1 inh inhalation QID 30 Days Qty: 6.7 3RF hydrocortisone [Anti-Itch (HC)] 1 % cream 1 appl topical TID PRN (Reason: skin irritation) 90 Days Qty: 454 0RF pregabalin 75 mg capsule 75 mg PO BID atorvastatin 80 mg tablet 80 mg PO DAILY Qty: 90 1RF meclizine 25 mg tablet 25 mg PO TID 7 Days Qty: 21 1RF gabapentin 300 mg capsule 300 mg PO BID 30 Days Qty: 60 3RF lorazepam [Ativan] 1 mg tablet 1 mg PO ONCE Qty: 1 0RF Rx Instructions: Take 30 minutes prior to arrival to procedure Print Language: Swedish
[2024-09-23] MEDS: methocarbamoL 750 MG TABLET 1500 MG PO (02:31)
[2024-09-23] MEDS: Ketorolac Tromethamine 15 MG/ML VIAL IM (02:31)
[2024-09-23 03:03] VITALS: BP 137/62; PULSE 61; RESP 14; TEMP 36.1; O2SAT 98
== END 2024-09-23 02:40 | disposition home or self-care (01) ==
PROVIDERS: Emergency Provider Emergency Medicine
DX: M17.11 Unilateral primary osteoarthritis, right knee (principal); M54.50 Low back pain, unspecified; M25.561 Pain in right knee; M25.461 Effusion, right knee
CPT/HCPCS: 72100; 73560; 96372; 99283; 99284; J1885

== ENCOUNTER → 2024-09-22 23:00 | Outpatient (BNV) | payer OTHER, SELFPAY | PROVIDERS: Visit Provider Radiology Neuroradiology | DX: M54.50 Low back pain, unspecified (principal); M17.11 Unilateral primary osteoarthritis, right knee | CPT/HCPCS: 72100; 73560 ==

== ENCOUNTER 2024-10-03 09:00 | Outpatient (AMB) | payer OTHER, SELFPAY ==
--- NOTE | 2024-10-03 09:02 | MHC.PC.OV ---
Vital Signs 10/03/24 09:03 Height 5 ft 6 in Weight 166 lb BMI 26.8 BP 148/70 H Blood Pressure Location Rt brachial Position Sitting Pulse 61 Pulse Source Pulse Oximeter Temp 97.1 F Temp Source Temporal Artery Scan Pulse Oximetry (%) 98 Oxygen Delivery Method Room Air Intake Visit Reasons: [facility] 09/24 back pain, both knees pain Intake Note: Patient is here to follow-up after a visit the emergency department at [facility] on 09/22/24. Youth Pastor Required: No Founder & Ceo: Not Required per policy Accompanied by: Self / Same As Patient Allergies tramadol Adverse Reaction (Intermediate, Verified 10/03/24 09:15) dry mouth trazodone Adverse Reaction (Intermediate, Verified 10/03/24 09:15) Falls Medication List - Last Reconciled 10/03/24 by Melissa Pineda PA-C acetaminophen (Tylenol) 650 mg (2 x 325 mg) PO Q6H PRN albuterol sulfate 90 mcg/actuation 1 inh inhalation QID 30 days aspirin (Adult Aspirin Regimen) 81 mg PO DAILY atorvastatin 80 mg PO DAILY betamethasone dipropionate 0.05% 1 appl topical DAILY PRN 30 days cholecalciferol (vitamin D3) 50 mcg PO DAILY 90 days gabapentin 300 mg PO BID 30 days hydrocortisone 1% (Anti-Itch (hydrocortisone)) 1 appl topical TID PRN 90 days lidocaine 5% 1 patch topical DAILY 30 days lorazepam 1 mg PO BID-TID 30 days lorazepam (Ativan) 1 mg PO ONCE meclizine 25 mg PO TID 7 days meloxicam 15 mg PO DAILY methocarbamol 1,500 mg (2 x 750 mg) PO Q8H PRN methylprednisolone (Medrol (Mike)) 4 mg PO QAM naloxone 4 mg/actuation (Narcan) 4 mg intranasal Q2M PRN naproxen 500 mg PO BID PRN 7 days omeprazole 20 mg PO DAILY oxycodone 5 mg PO BID PRN 7 days pregabalin 75 mg PO BID quetiapine (Seroquel) 100 mg PO DAILY 90 days Tobacco use date assessed: 10/03/24 Dental Screening Dental Screen Date: 07/14/24 HPI [facility] 09/24 back pain, both knees pain HPI Details 59-year-old female with past medical history of JASSON, MDD, GERD, hypercholesterolemia, fibromyalgia last seen by RAFFY 07/2024 coming in for hospital discharge follow up. Patient was seen in [facility] ED 09/22/2024 for bilateral knee pain and back pain x-rays revealed small to moderate effusion of the right knee with osteoarthritis and lumbar spine showing worsening degenerative changes. Patient was given steroids and meloxicam and discharged home. Presenting with exacerbation of chronic low back pain. Chronic lumbar pain for several years with degenerative changes noted in L2-L5 regions. Previous spinal injections with minimal current improvement. Exacerbation of pain initiated in March following an incident involving lifting. Recent back pain increase after heavy lifting knee pain improved following injection. Imaging has shown degenerative disc disease and reduced disc height with no recent change. She also mentions having left toe swelling and redness previous infection that drained. [facility] Medical History Chronic pain syndrome History of left breast cancer (~2013) HLD (hyperlipidemia) GERD (gastroesophageal reflux disease) Nicotine dependence, cigarettes, uncomplicated Osteopenia (~2015) Postmenopausal Migraine Post herpetic neuralgia (~2020) Bilateral primary osteoarthritis of knee History of suicide attempt MDD (major depressive disorder) JASSON (generalized anxiety disorder) Surgical History History of lumpectomy of left breast (~2013) History of hip surgery (~1990) History of right knee surgery (~2006) History of ventral hernia repair (~2018) History of thumb surgery (~2016) History of tubal ligation History of tonsillectomy History of colonoscopy History of esophagogastroduodenoscopy (EGD) Family History Father Diabetes Hypertension Prostate cancer Mother Breast cancer Maternal Aunt Uterine cancer Lung cancer Family/Other Substance use disorder Sister Uterine cancer Social History Household Members: Family Housing: House Are you a primary hearing care professional to a significant other at home: No Do you presently have visiting nurse or other home services: No Alcohol intake: never Patient Tobacco Use Status: Current everyday Tobacco user (quit 8-9 months ago) Tobacco use type: Cigarette Cigarette Packs Per Day: 0.5 Cigarettes Per Day: 5 Years Smoked: (onset 15, 1/2-3/4ppd x 41yrs, 25pyh) e-Cigarette/Vaping Use: Never Used Second Hand Smoke Exposure: Yes Substance Use Type: Marijuana service: No Current occupational status: disabled 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-[employer] Current occupational exposures/hazards: No Cognitive needs: No Hearing needs: Yes Vision needs: Yes Female Reproductive History Menstrual Age of Menarche: 12 Questionnaire Thrive Questionnaire Date Thrive assessed: 08/13/24 I am a: Patient What is your living situation today?: I have a steady place to live Within the past 12 months, did the food you bought not last and you didn't have the money to get more?: Never true Within the past 12 months, did you worry whether your food would run out before you got money to buy more?: Never true Do you have trouble paying for medicines?: No Do you have trouble getting transportation to medical appointments?: No Do you have trouble paying your heating and electricity bill?: No Do you have trouble taking care of your child, family member or friend?: No Do you have trouble with day-to-day activities such as bathing, preparing meals, shopping, managing finances, etc.?: No Are you currently unemployed and looking for a job?: No Are you interested in more education?: No Please select the resources that you would like help with: None Currently or been in a relationship where the following occur: No concerns reported THRIVE Score: 0 JASSON-7 AMB Questionnaire JASSON-7 Date JASSON - 7 assessed: 08/13/24 (Patient states they are being treated for anxiety and depression, which are well controlled.) Source: Developed by Drs. Vickey Catalan, Gina Dawson, Henrique Curran and colleagues, with an educational shiv from [employer]. Review of Systems Const Denies body aches, Denies chills, Denies fever(s) and Denies headache(s) Eyes Reports no additional complaints ENT Denies dizziness and Denies headache(s) Card Denies chest pain and Denies dyspnea Resp Denies dyspnea GI Denies nausea and Denies vomiting Reports no additional complaints Musc Reports abnormal gait and Reports back pain Skin/Breast Reports system reviewed and no additional complaints, except as documented and Reports as per HPI Neuro Reports abnormal gait, Denies dizziness and Denies headache(s) Psych Reports no additional complaints Physical exam (Primary Care) Vital Signs: Last Vital Signs Temp 97.1 F 10/03/24 09:03 Pulse 61 10/03/24 09:03 BP 148/70 H 10/03/24 09:03 Pulse Ox 98 10/03/24 09:03 Oxygen Delivery Method Room Air 10/03/24 09:03 BMI result Body Mass Index 26.8 Tobacco/Smoking Status: Tobacco use Status Tobacco use date assessed 10/03/24 10/03/24 09:08 Patient Tobacco Use Status Current everyday Tobacco ( 10/03/24 09:08 quit 8-9 months ago) Tobacco use type Cigarette 10/03/24 09:08 e-Cigarette/Vaping Use Never Used 10/03/24 09:08 Thrive Assessment: Date of Thrive Assessment Date Thrive assessed 08/13/24 10/03/24 09:08 Currently or been in a relationship where the following occur: No concerns reported Const General: cooperative, healthy appearing, comfortable and no acute distress Orientation/consciousness: patient oriented x3 HENMT Head: Yes normocephalic Ears: hearing grossly normal bilaterally General nose exam: Normal external nose present Eyes General: appearance normal, both eyes and all related structures Conjunctivae: conjunctivae normal Neck Neck: Yes full ROM and Yes no lymphadenopathy Resp Effort & Inspection: normal respiratory effort Auscultation: clear to auscultation bilaterally, no crackles, no rales, no rhonchi and no wheezes Cardio Rate: regular rate Rhythm: regular rhythm Back/Spine/Pelvis Other: Tenderness to palpation over lumbar spine and right paraspinal muscles Skin Other: Left great toe swelling, redness and tenderness to palpation General skin exam: no rashes or lesions noted Neuro General: patient oriented x3 Gait exam (Neuro): Normal gait present Extrem General: Yes normal to inspection, Yes full ROM and No edema Psych Affect: normal affect Attitude: cooperative Insight: Good insight present (Psych) Judgement: Good judgement present (Psych) Coding Level of Care Code Est Pt Level 4 (16358) Diagnoses Spondylosis of lumbar region without myelopathy or radiculopathy M47.816 Paronychia of great toe L03.039 Assessment & Plan Assessment & Plan (1) Spondylosis of lumbar region without myelopathy or radiculopathy: Code(s): M47.816 - Spondylosis without myelopathy or radiculopathy, lumbar region Category: Medical Plan: The patient may need further imaging with an MRI to assess potential new developments or aggravation of her degenerative disc disease following the March incident. Despite ongoing pharmacologic management with oxycodone, pregabalin, and methocarbamol, her symptoms persist. Given her residential location and preference, coordination with [facility] is suggested for further specialist evaluation. Current medication management will continue, emphasizing monitoring for potential side effects with awareness of her reluctance toward invasive procedures. (2) Paronychia of great toe: Code(s): L03.039 - Cellulitis of unspecified toe Category: Medical Plan: Left great toe paronychia plan to treat with Augmentin twice daily for 7 days. Discussed with patient she must take this medication with plenty of food and water as it can upset the stomach. Referral was also placed to configuration technician as toenail is growing and abnormally and may need to be removed trimmed. Advised patient to continue to monitor symptoms and reach out if infection does not clear. Plan This note was constructed using voice recognition software. While every effort has been made to ensure accuracy and burning plant operator, still areas may have been included sometimes these areas may affect the content or meeting of the given symptoms. Total time spent caring for the patient today was 20 minutes. This includes time spent before the visit reviewing the chart, time spent during the visit, and time spent after the visit and documentation. Patient was informed and verbally consented to the use of an ambient scribe for clinic note documentation during this visit. Orders: Referrals Orthopedics Referral M47.816 - Spondylosis without myelopathy or radiculopathy, lumbar region Podiatry Referral L03.039 - Cellulitis of unspecified toe Medications: New amoxicillin-pot clavulanate 875-125 mg 1 tab PO BID 14 tabs 0RF Refilled meloxicam 15 mg PO DAILY 30 tabs 0RF Discontinued naproxen Discontinued Reason: Patient no longer taking 500 mg PO BID 7 days PRN 14 tabs 0RF pain methylprednisolone (Medrol (Mike)) Take per package instructions Discontinued Reason: Patient Completed Course 4 mg PO QAM 21 ea 0RF
[2024-10-03 09:03] VITALS: BP 148/70; PULSE 61; TEMP 36.2; O2SAT 98; BMI 26.8
--- OUTSIDE RECORDS SUMMARY | 2024-10-03 09:21 | XMS_ITS | Patient Health Record ---
Author Organization [facility] Address [address] [place] [address] Care Team Providers Care Freight Inspector Name Role Phone Patel Rdz Primary Care [...] Problem Status W/U Status Risk Notes Problem [id number] Rectal bleeding (K62.5) Active confirmed Problem [id number] Gastro-esophagea l reflux disease with esophagitis (K21.0) Active confirmed Problem [id number] Irritable bowel syndrome with constipation (K58.1) Active confirmed Problem Gastroesophageal reflux disease with esophagitis (disorder) (810520025) Gastroesophageal reflux disease with esophagitis, unspecified whether hemorrhage (K21.00) Active confirmed Vital Signs Temperature 98.7 degrees Fahrenheit 08/11/2024 Blood pressure diastolic 01 mm Hg 08/11/2024 Height 66.75 in 08/11/2024 Blood pressure systolic 001 mm Hg 08/11/2024 Weight 168.2 lbs 08/11/2024 BMI 26.54 kg/m2 08/11/2024 Encounters Encounter Location Date Provider Diagnosis [facility] [address] [place] [phone] 08/11/2024 Chris Horner Jr Rectal bleeding K62.5 and Gastro-esophageal reflux disease with esophagitis K21.0 [facility] [address] [place] [phone] 08/11/2024 Chris Horner Jr [facility] [address] [place] [phone] 08/25/2024 Chris Horner Jr [facility] [address] [place] [phone] 08/25/2024 Chris Horner Jr [facility] [address] [place] [phone] 08/27/2024 Chris Horner Jr Assessments Encounter Date [...] Insured Coverage Start Date Coverage End Date [facility] [address] Attn Claims RAFFY Matos [id number] COLONINDIRA Self - patient is the insured MEDICAID OF [facility] [address] [place] [address] [id number] COLONINDIRA Self - patient is the insured MEDICARE OF [place] [address] [place] [address] [id number] COLONINDIRA Self - patient is the insured Medical (General) History Medical History History ICD Code anxiety depression hiatal hernia H. pylori infection EGD/colonoscopy in 07/28/15, no Foster's, no history of adenomas, ten-year colon followup 2025 breast cancer Surgical History Surgery Date(Month/Year) lumpectomy, left breast hernia repair 07/2018 tubal ligation tonsillectomy knee surgery hip surgery
== END 2024-10-03 09:41 | disposition home or self-care (01) ==
LOC: HO.HMCH 09:00
PROVIDERS: PCP Physician Assistant
DX: M47.816 Spondylosis without myelopathy or radiculopathy, lumbar region (principal); L03.039 Cellulitis of unspecified toe

== ENCOUNTER → 2024-10-03 09:00 | Outpatient (BNVA) | payer OTHER, SELFPAY | PROVIDERS: PCP Physician Assistant | DX: M25.561 Pain in right knee (principal); M25.562 Pain in left knee; F32.A Depression, unspecified; K21.9 Gastro-esophageal reflux disease without esophagitis; M47.816 Spondylosis without myelopathy or radiculopathy, lumbar region; L03.039 Cellulitis of unspecified toe | CPT/HCPCS: 99212 ==

== ENCOUNTER → 2024-10-16 10:00 | Outpatient (BNV) | payer OTHER, SELFPAY | PROVIDERS: PCP Physician Assistant; Visit Provider Radiology Diagnostic Radiology | DX: E28.39 Other primary ovarian failure (principal) | CPT/HCPCS: 77080 ==

== ENCOUNTER 2024-10-16 10:04 | Outpatient (REF) | payer OTHER, SELFPAY ==
--- OUTSIDE RECORDS SUMMARY | 2024-08-27 07:39 | XMS_ITS ---
Author Organization [facility] Address [address] [place] [address] Care Team Providers Care Wind Energy Engineer Name Role Phone Patel Rdz Primary Care Provider Unavailab Crhis Wakefield Jr Unavailable REASON FOR VISIT NEEDS TO R/S EGD AND COLON Encounters Encounter Location Date Provider Diagnosis [facility] [address] [place] [address] 08/27/2024 Chris Horner Jr Plan Of Treatment No Information Progress Notes * INDIRA DERASDOB:[birth year] (59 yo F)Acc No.[id number]:08/27/2024 Patient: INDIRA OBRIEN :1965 A ge:59 Y S ex:Female Address:[address] [place] [address] * true * Date: Generated for Andie hammonds/Danial/eTransmitting on: 0 10/16/2024 11:20 AM EDT
--- NOTE | ~2024-10-16 | MM_ITS ---
EXAMINATION: DXA BONE DENSITY AXIAL HISTORY: M25.552 - Pain in left hip TECHNIQUE: Cookisto Dual energy absorptiometry (DEXA) of the lumbar spine, total right hip, and femoral neck was performed. COMPARISON: Comparison is made with the prior examination dated 09/30/2015. FINDINGS: The bone mineral density of the lumbar spine is 0.879, corresponding to a T-score of -2.5, and a Z-score of -1.7. This is indicative of osteoporosis. This represents a BMD change of -7.4% compared to the prior exam. This is statistically significant. The bone mineral density of the right total hip is 0.822, corresponding to a T-score of -1.5, and a Z-score of -0.9. This is indicative of osteopenia. This represents a BMD change of -1.9% compared to the prior exam. This is not statistically significant. The bone mineral density of the right femoral neck is 0.783, corresponding to a T-score of -1.8, and a Z-score of -0.9. This is indicative of osteopenia. This represents a BMD change of -9.6% compared to the prior exam. MM/XR DEXA axial skeleton IMPRESSION: Based on bone mineral density, and according to World Health Organization (WHO) criteria, the diagnosis is consistent with osteoporosis. All bone density values are in grams per centimeter squared (g/cm2). Statistically, 68% of repeat scans fall within 1 SD (+/- 0.010 g/cm2 for AP spine L1-L4) and 1 SD (+/- 0.012 g/cm2 for femur total) FRAX is a trademark of the [employer]'s [place] for Metabolic Bone Disease, a World Health Organization (WHO) Collaborating Center. Electronically signed by: Vickey Hdez MD 10/20/2024 07:07 AM EDT
== END 2024-10-16 10:05 | disposition home or self-care (01) ==
LOC: HO.MAMMO 10:04
PROVIDERS: PCP Physician Assistant; Visit Provider Nurse Practitioner Family
DX: Z13.820 Encounter for screening for osteoporosis (principal); M25.552 Pain in left hip; M47.16 Other spondylosis with myelopathy, lumbar region; M85.80 Other specified disorders of bone density and structure, unspecified site; M81.0 Age-related osteoporosis without current pathological fracture
CPT/HCPCS: 77080

== ENCOUNTER 2024-10-28 06:52 | Outpatient (REF) | payer OTHER, SELFPAY ==
--- OUTSIDE RECORDS SUMMARY | 2024-08-26 06:40 | XMS_ITS ---
Author Organization [facility] Address [address] [place] [address] Care Team Providers Care Superintendent Division Name Role Phone Patel Rdz Primary Care Provider Unavailab Chris Wakefield Jr Unavailable [phone] REASON FOR VISIT gerd,rectal bleeding Encounters Encounter Location Date Provider Diagnosis [facility] Outpatient [address] [place] [phone] 08/26/2024 Chris Horner Jr Plan Of Treatment No Information Progress Notes * INDIRA DERASDOB:[birth year] (59 yo F)Acc No.[id number]:08/26/2024 EGD and COL/MAC Patient: INDIRA OBRIEN Provider: Eufemia Horner MD :1965 A ge:59 Y S ex:Female Date:08/26/2024 Address:[address] [place], [place] [phone] Pcp:Patel Rdz Subjective: * Chief Complaints: * 1 . Gerd,rectal bleeding. * Medical History: Objective: * Vitals: Assessment: Plan: * Treatment: * * The named appointment provid er may or may not be the originator of this progress note, and it is not deemed complete until electronically signed by the appointment provider. Sign off status: Pending * Provider: Eufemia Horner MD Date: 08/26/2024 Generated for Felizi ng/Fakayg/eTransmitting on: 0 10/28/2024 06:54 AM EDT
--- NOTE | ~2024-10-28 | FL_ITS ---
EXAMINATION: FL GUIDANCE ONLY HISTORY: M16.12 - Unilateral primary osteoarthritis, left hip COMPARISON: None available. TECHNIQUE: Fluoroscopy time: 0.1 minutes. Cumulative Dose: 6.26 mGy. DAP: 0.0635 mGym2 Images: 1. FINDINGS: A single fluoroscopic spot film of the left hip demonstrates a needle in place and contrast material in the joint space. FL/FL guidance in treatment room IMPRESSION: Fluoroscopy during procedure. Please see procedure report for additional information. Electronically signed by: Vickey Hdez MD 10/28/2024 03:23 PM EDT
--- OUTSIDE RECORDS SUMMARY | 2024-10-28 06:55 | XMS_ITS | Clinical Summary ---
Author Organization [facility] Address [address] [place] [address] Care Team Providers Care Laundry Clerk Name Role Phone Unavailable Primary Care Provider [...] 69 12/18/2015 3:56 PM EDT Temperature 36.3 C (97.3 F) 12/18/2015 3:56 PM EDT Respiratory Rate 17 12/18/2015 3:56 PM EDT Oxygen Saturation 98% 12/18/2015 3:56 PM EDT Inhaled Oxygen Concentration - - Weight 79.4 kg (175 lb) 12/17/2015 7:25 PM EDT Height 170.2 cm (5' 7 ) 12/17/2015 7:25 PM EDT Body Mass Index 27.41 12/17/2015 7:25 PM EDT Plan of Treatment Not on file
--- OUTSIDE RECORDS SUMMARY | 2024-10-28 06:55 | XMS_ITS | Clinical Summary ---
Author Organization [address] [place] [address] Address [address] [place] [address] Phone Care Team Providers Care Assistive Technology Specialist Name Role Phone Patel Rdz Primary Care Provider Medications Silvadene 1 % creamIndication s:Cellulitis of toe of left foot,Ingrown nail Apply topically 1 (one) time each day. 50 g 5 10/15/19 26 Active Encounters Date Type Department Care Team Description 10/14/2024 10:30 AM EDT Consult Orthopedic Surgery - [place] [address] [facility] [address] [place] [phone] Edgar Thacker, DPEmelia Cellulitis of toe of left foot (Primary Dx); Bilateral foot pain; Ingrown nail from Last 3 Months Surgical History Surgery Date Site/Laterality Comments OTHER SURGICAL HISTORY PROCEDURE: ARTHROSCOPY PROCEDURE NEC TONSILLECTOMY ADENOIDECTOMY, BILATERAL MYRINGOTOMY AND TUBES PROCEDURE: [place] TONSILLECTOMY & ADENOIDECTOMY <AGE 12 OTHER SURGICAL HISTORY PROCEDURE: [place] LIG/TRNSXJ FLP TUBE ABDL/VAG APPR UNI/BI Medical History Medical History Date Comments Anemia DX:Anemia Anxiety state DX:Anxiety state Malignant neoplasm of female breast (CMS/HCC V24, CMS/HCC V28) 2013 DX:Malignant neoplasm of fe male breast (HCC); COMMENT: BRCA 1 and 2 negative Smoker 1979 DX:Smoker Family History Medical History Relation Name Comments Breast cancer Mother Colon cancer Other 1 Other: ca uturine Other 2 Other cancer Sister Ovarian cancer Neg Hx Prostate cancer Neg Hx Relation Name Status Comments Father Alive Mother Other 1 Other 2 Sister cervical Social History Tobacco Use Types Packs/Day Years Used Date Smoking Tobacco: Every Day Cigarettes 0.5 43.1 Started: 09/08/1981 Smokeless Tobacco: Never Alcohol Use Standard Drinks/Week Comments Yes 0 (1 standard drink = 0.6 oz pur e alcohol) Comments Unknown Sex and Gender Information Value Date Recorded Sex Assigned at Not on file Legal Sex Female 1:56 PM EST Gender Identity Not on file Sexual Orientation Not on file Obstetrics History Last Filed Vital Signs Vital Sign Reading Time Taken Comments Blood Pressure - - Pulse - - Temperature - - Respiratory Rate - - Oxygen Saturation - - Inhaled Oxygen Concentration - - Weight 77.1 kg (170 lb) 10/14/2024 11:16 AM EDT Height 167.6 cm (5' 6 ) 10/14/2024 11:16 AM EDT Body Mass Index 27.44 10/14/2024 11:16 AM EDT Plan of Treatment Upcoming Encounters Date Type Department Care Team (Late st Contact Info) Description 10/28/2024 10:45 AM EDT Office Visit Orthopedic Surgery - [place] [address] [phone] Edgar Thacker, DPM [address] [address] Health Maintenance Due Date Last Done Comments Breast Cancer Screening 1965 Hepatitis B Vaccines (1 of 3 - 19+ 3-dose series) 02/03/1984 Zoster Vaccines (1 of 2) 02/03/1984 Cervical Cancer Screening: P ap Smear 1986 Pneumococcal Vaccine: 50+ Years (2 of 2 - PCV) 06/21/2022 06/21/2021 Pneumococcal Vaccine: Pediatrics (0 to 5 Years) and At-Risk Patients (6 to 64 Years) (2 of 2 - PCV) 06/21/2022 06/21/2021 COVID-19 Vaccine (2023-2 5 season) 2023 06/17/2021, 10/25/2020, 10/04/2020 Colorectal Cancer Screening: Colonoscopy 10/06/2024 Depression Screening 10/06/2024 HIV Screening 10/06/2024 Hepatitis C Screening 10/06/2024 Medicare Annual Wellness Visit 10/06/2024 Social Influencers of Health Screening 10/06/2024 Influenza Vaccine (Season Ended) 2024 04/19/2021, 07/08/2019, 02/04/2019 DTaP,Tdap,and Td Vaccines (2 - Td or Tdap) 02/04/2029 02/04/2019 RSV Immunization Adult Patients (1 - 1-dose 75+ series) 02/03/2040 HIB Vaccines Aged Out No longer eligi ble based on patient's age to complete this topic HPV Vaccines Aged Out No longer eligi ble based on patient's age to complete this topic Hepatitis A Vaccines Aged Out No long er eligible based on patient's age to complete this topic IPV Vaccines Aged Out No longer eligi ble based on patient's age to complete this topic MMR Vaccines Aged Out No longer eligi ble based on patient's age to complete this topic Meningococcal ACWY Vaccine Aged Out N o longer eligible based on patient's age to complete this topic Meningococcal B Vaccine Aged Out No l onger eligible based on patient's age to complete this topic RSV Immunization Patients Under 20 months Aged Out No longer eligible b ased on patient's age to complete this topic Varicella Vaccines Aged Out No longer eligible based on patient's age to complete this topic Insurance [employer] MEDICARE Member Subscriber Plan / Payer (Ef fective 2020-Present) Name:INDIRA DERAS Relation to Subscriber:Self Name:Indira Deras Payer ID:[id number] Group ID:[id number] Type:Not on file Address: [facility] [address] [address] Care Teams Assistive Technology Specialist Relationship Specialty Start Date End Date Patel Rdz PA [address] [place] [phone] PCP - General Physician Larry Operator 10/06/24
== END 2024-10-28 06:53 | disposition home or self-care (01) ==
LOC: CF 06:52
PROVIDERS: Visit Provider Anesthesiology
DX: M16.12 Unilateral primary osteoarthritis, left hip (principal); Z98.890 Other specified postprocedural states
CPT/HCPCS: 20610; J2003; J2795; J3301; Q9967

== ENCOUNTER 2024-10-28 13:11 | Outpatient (AMB) | payer OTHER, SELFPAY ==
[2024-10-28 13:51] VITALS: BP 115/57; PULSE 74; RESP 20; O2SAT 98
--- NOTE | 2024-10-28 13:51 | A.OFFVIS_ITS ---
Vital Signs 10/28/24 13:51 Weight 170 lb BP 115/57 L Blood Pressure Location Lt brachial Position Sitting Respiration 20 Pulse 74 Pulse Source Pulse Oximeter Pulse Oximetry (%) 98 Oxygen Delivery Method Room Air Intake Visit Reasons: LEFT INTRA-ARTICULAR HIP INJECTION Pantry Worker Required: No Allergies tramadol Adverse Reaction (Intermediate, Verified 10/03/24 09:15) dry mouth trazodone Adverse Reaction (Intermediate, Verified 10/03/24 09:15) Falls PFSH Medical History Chronic pain syndrome History of left breast cancer (~2013) HLD (hyperlipidemia) GERD (gastroesophageal reflux disease) Nicotine dependence, cigarettes, uncomplicated Osteopenia (~2015) Postmenopausal Migraine Post herpetic neuralgia (~2020) Bilateral primary osteoarthritis of knee History of suicide attempt MDD (major depressive disorder) JASSON (generalized anxiety disorder) Surgical History History of lumpectomy of left breast (~2013) History of hip surgery (~1990) History of right knee surgery (~2006) History of ventral hernia repair (~2018) History of thumb surgery (~2016) History of tubal ligation History of tonsillectomy History of colonoscopy History of esophagogastroduodenoscopy (EGD) Family History Father Diabetes Hypertension Prostate cancer Mother Breast cancer Maternal Aunt Uterine cancer Lung cancer Family/Other Substance use disorder Sister Uterine cancer Social History Household Members: Family Housing: House Are you a primary health care social worker to a significant other at home: No Do you presently have visiting nurse or other home services: No Alcohol intake: never Patient Tobacco Use Status: Current everyday Tobacco user (quit 8-9 months ago) Tobacco use type: Cigarette Cigarette Packs Per Day: 0.5 Cigarettes Per Day: 5 Years Smoked: (onset 15, 1/2-3/4ppd x 41yrs, 25pyh) e-Cigarette/Vaping Use: Never Used Second Hand Smoke Exposure: Yes Substance Use Type: Marijuana service: No Current occupational status: disabled 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 Current occupational exposures/hazards: No Cognitive needs: No Hearing needs: Yes Vision needs: Yes Female Reproductive History Menstrual Age of Menarche: 12 Physical Exam Vital Signs: Last Vital Signs Pulse 74 10/28/24 13:51 Resp 20 10/28/24 13:51 BP 115/57 L 10/28/24 13:51 Pulse Ox 98 10/28/24 13:51 Oxygen Delivery Method Room Air 10/28/24 13:51 Assessment & Plan Assessment & Plan (1) History of hip surgery: Onset Date: ~1990 Comment: (Left Hip ORIF/reconstruction [jumped from 3rd story] - 1990) Code(s): Z98.890 - Other specified postprocedural states Category: Surgical (2) History of hip surgery: Onset Date: ~1990 Comment: (Left Hip ORIF/reconstruction [jumped from 3rd story] - 1990) Code(s): Z98.890 - Other specified postprocedural states Category: Surgical (3) Left hip pain: Code(s): M25.552 - Pain in left hip Category: Medical (4) Sacroiliac joint pain: Code(s): M53.3 - Sacrococcygeal disorders, not elsewhere classified Category: Medical (5) Lumbosacral spondylosis: Code(s): M47.817 - Spondylosis without myelopathy or radiculopathy, lumbosacral region Category: Medical Qualifiers: Spinal osteoarthritis complication: with myelopathy Qualified Code(s): M47.16 - Other spondylosis with myelopathy, lumbar region Plan Left intra-articular hip steroid injection. Informed consent was explained to the patient. All questions were explained and? answered.? The patient was taken inside the operating room where she was positioned RIGHT lateral decubitus on the operating table.? Time-out was performed delineating correct site, side, the nature of the procedure, patient's allergy, preoperative antibiotic if needed.? All operating room staff was participating in OR time-out procedure.? The patient stated her name. Non dependent LEFT hip was prepped with ChloraPrep and draped with sterile towels.? The C-arm was brought over the operating field and the picture of bilateral hip joints were obtained on the screen. The hardware in the left pelvic iliac wing was noted, there were no obvious connections in the hardware and the left hip joint.? The left hip joint was chosen as the target for the injection.? The trochanter position was noted on the screen.? The projection of the trochanter to the skin was noted, the direction of the femoral neck was noted.? The skin was anesthetized using 2% lidocaine at the trochanter area.? 22 gauge 5 in needle was inserted through the skin and advanced to the hip joint silhouette on anterior posterior view.? When needle entered the joint the injection of the contrast was performed demonstrating intra-articular spread of the contrast.? After that 5 cc of ropivacaine 0.5% mixed with 40 mg of Kenalog was injected into the area.? The needle was removed sterile dressing was applied. The patient tolerated procedure well. Orders: Orders FL guidance in treatment room Today M16.12 - Unilateral primary osteoarthritis, left hip Coding Level of Care Code Procedure Only Diagnoses History of hip surgery Z98.890 Left hip pain M25.552 Sacroiliac joint pain M53.3 Osteoarthritis of spine with myelopathy, lumbosacral region M47.16 Spinal osteoarthritis complication: with myelopathy
== END 2024-10-28 14:19 | disposition home or self-care (01) ==
LOC: HO.PMCPRC 13:11
PROVIDERS: PCP Physician Assistant; Visit Provider Anesthesiology
DX: Z98.890 Other specified postprocedural states (principal); M25.552 Pain in left hip; M53.3 Sacrococcygeal disorders, not elsewhere classified; M47.16 Other spondylosis with myelopathy, lumbar region
CPT/HCPCS: 20610; 77002

== ENCOUNTER 2024-11-03 16:09 | Outpatient (REF) | payer OTHER, SELFPAY ==
--- OUTSIDE RECORDS SUMMARY | 2024-08-26 06:40 | XMS_ITS ---
Author Organization [facility] Address [address] [place] [address] Care Team Providers Care Spiral Binder Name Role Phone Patel Rdz Primary Care Provider Unavailab Chris Wakefield Jr Unavailable [phone] REASON FOR VISIT gerd,rectal bleeding Encounters Encounter Location Date Provider Diagnosis [facility] Outpatient [address] [place] [phone] 08/26/2024 Chris Horner Jr Plan Of Treatment No Information Progress Notes * INDIRA DERASDOB:[birth year] (59 yo F)Acc No.[id number]:08/26/2024 EGD and COL/MAC Patient: INDIRA OBRIEN Provider: Eufemia Horner MD :1965 A ge:59 Y S ex:Female Date:08/26/2024 Address:[address] [place], [place] [phone] Pcp:Patel Rdz Subjective: * Chief Complaints: * [...] 08/26/2024 Generated for Felizi ng/Fakayg/eTransmitting on: 0 11/03/2024 04:13 PM EDT
--- NOTE | ~2024-11-03 | MR_ITS ---
EXAM: MRI Lumbar Spine without Contrast. TECHNIQUE: Multiplanar multisequence MR imaging was performed through the lumbar spine without contrast. INDICATION: Spondylosis without myelopathy or radiculopathy PRIOR: X-ray on September 22, 2024 FINDINGS: 5 non-rib bearing lumbar segments are present on x-ray Marrow and end-plates: Circumscribed lesion in posterior L2 vertebral body demonstrates increased signal on T1 and T2 sequences consistent with a benign vertebral hemangioma. Alignment: L4-5 demonstrates subtle anterolisthesis. Soft tissues: Small benign simple renal cysts present in the inferior left kidney. Conus: The termination of conus medullaris is within normal limits at the level of T12. T12-L1: Mild broad-based disc bulge does not cause spinal stenosis or foraminal narrowing. L1-L2: There is no disc bulge, herniation, spinal stenosis, or foraminal narrowing. L2-L3: Mild broad-based disc bulge does not cause spinal stenosis or foraminal narrowing. L3-L4: Mild broad-based disc bulge and mild facet arthropathy does not result in spinal stenosis or foraminal narrowing. L4-L5: Circumferential broad-based disc bulge and mild facet hypertrophy results in subtle narrowing of the subarticular zones without causing spinal stenosis or nerve root encroachment. There is mild bilateral foraminal narrowing. L5-S1: Broad-based disc bulge and mild facet arthropathy does not result in spinal stenosis. There is minimal foraminal narrowing. MR/MR lumbar spine wo con IMPRESSION: Mild degenerative changes. Electronically signed by: Real Watson MD 11/03/2024 04:52 PM EDT
--- OUTSIDE RECORDS SUMMARY | 2024-11-03 16:13 | XMS_ITS | Clinical Summary ---
Author Organization [address] [place] [address] Address [address] [place] [address] Phone Care Team Providers Care Agri Business Agent Name Role Phone Patel Rdz Primary Care Provider Allergies No known active allergies Medications Silvadene 1 % creamIndication s:Cellulitis of toe of left foot,Ingrown nail Apply topically 1 (one) time each day. 50 g 5 10/15/19 26 Active Encounters Date Type Department Care Team Description 10/28/2024 10:45 AM EDT Office Visit Orthopedic Surgery [facility] [address] [phone] Edgar Thacker DPM Open wound of left great toe, initial encounter (Primary Dx); Open wound of right great toe, initial encounter 10/14/2024 10:30 AM EDT Consult Orthopedic [facility] [address] [phone] Edgar Thacker DPM Cellulitis of toe of left foot (Primary Dx); Bilateral foot pain; Ingrown nail from Last 3 Months Surgical History Surgery Date Site/Laterality Comments OTHER SURGICAL HISTORY PROCEDURE: ARTHROSCOPY PROCEDURE NEC TONSILLECTOMY ADENOIDECTOMY, BILATERAL MYRINGOTOMY AND TUBES PROCEDURE: [place] TONSILLECTOMY & ADENOIDECTOMY <AGE 12 OTHER SURGICAL HISTORY PROCEDURE: [place] LIG/TRNSXJ FLP TUBE ABDL/VAG APPR UNI/BI Medical [...] Date Smoking Tobacco: Every Day Cigarettes 0.5 43.2 Started: 09/08/1981 Smokeless Tobacco: Never Alcohol Use [...] - - Weight 77.1 kg (170 lb) 10/28/2024 11:14 AM EDT Height 167.6 cm (5' 5.98 ) 10/28/2024 11:14 AM E DT Body Mass Index 27.45 10/28/2024 11:14 AM EDT Plan of Treatment Health Maintenance Due Date Last Done Comments Breast Cancer Screening 1965 Hepatitis B Vaccines (1 of 3 - 19+ 3-dose series) 02/03/1984 Zoster Vaccines (1 of 2) 02/03/1984 Cervical Cancer Screening: P ap Smear 1986 Pneumococcal Vaccine: 50+ Years (2 of 2 - PCV) 06/21/2022 06/21/2021 Pneumococcal Vaccine: Pediatrics (0 to 5 Years) and At-Risk Patients (6 to 49 Years) (2 of 2 - PCV) 06/21/2022 06/21/2021 COVID-19 Vaccine (2023-2 5 season) 2023 06/17/2021, 10/25/2020, 10/04/2020 Colorectal Cancer Screening: Colonoscopy 10/06/2024 Depression Screening 10/06/2024 HIV Screening 10/06/2024 Hepatitis C Screening 10/06/2024 Medicare Annual Wellness Visit 10/06/2024 Social Influencers of Health Screening 10/06/2024 Influenza Vaccine (#1) 2024 , 07/08/2019, 02/04/2019 DTaP,Tdap,and Td Vaccines (2 - [...] ID:[id number] Group ID:[id number] Type:Not on file Address: [address] [address] Care Teams Agri Business Agent Relationship Specialty Start Date End Date Patel Rdz PA [address] [place] [phone] PCP - General Physician Donor Support Technician 10/06/24
--- OUTSIDE RECORDS SUMMARY | 2024-11-03 16:13 | XMS_ITS | Clinical Summary ---
Author Organization [employer] [facility] Address [address] [place] [address] Care Team Providers Care Superintendent Laundry Name Role Phone Unavailable Primary Care Provider [...]
== END 2024-11-03 16:10 | disposition home or self-care (01) ==
LOC: HO.MRI 16:09
PROVIDERS: PCP Physician Assistant; Visit Provider Nurse Practitioner Family
DX: M47.816 Spondylosis without myelopathy or radiculopathy, lumbar region (principal)
CPT/HCPCS: 72148

== ENCOUNTER → 2024-11-03 16:15 | Outpatient (BNV) | payer OTHER, SELFPAY | PROVIDERS: PCP Physician Assistant; Visit Provider Radiology Diagnostic Radiology | DX: M47.816 Spondylosis without myelopathy or radiculopathy, lumbar region (principal) | CPT/HCPCS: 72148 ==

== ENCOUNTER 2024-11-18 13:24 | Outpatient (AMB) | payer OTHER, SELFPAY ==
--- NOTE | 2024-11-18 13:14 | A.OFFVIS_ITS ---
Vital Signs 11/18/24 13:27 Height 5 ft 6 in Weight 162 lb BMI 26.1 BP 122/72 Blood Pressure Location Rt brachial Position Sitting Respiration 16 Pulse 68 Pulse Source Pulse Oximeter Pulse Oximetry (%) 98 Oxygen Delivery Method Room Air Intake Visit Reasons: LEFT INTRA-ARTICULAR HIP INJECTION Environmental Health Technologist Required: No Allergies tramadol Adverse Reaction (Intermediate, Verified 11/18/24 13:30) dry mouth trazodone Adverse Reaction (Intermediate, Verified 11/18/24 13:30) Falls HPI Comments Details: The patient is a 59-year-old female presenting with persistent pain following a left hip intra-articular steroidal injection. She reports approximately 50% relief from the injection, with ongoing pain primarily in the hip and groin area, exacerbated by walking and resulting in limping after five minutes of ambulation. The patient has a history of iliac wing fracture status post open reduction and internal fixation (ORIF) 21 years ago, with metallic hardware in place, which she believes might be contributing to her current symptoms. She also experiences chronic back pain, which is distinct from her hip pain and does not radiate to the back. An MRI of the back showed mild degenerative changes without significant disc herniation or spinal stenosis. The patient has a history of osteoporosis and is currently taking vitamin D but not calcium supplements. She has been advised to engage in weight resistance exercises. Patient reports pain affects her daily activities, spending quality time with her grandchildren, walking, climbing and sleep. Denies any recent cough, cold, infection, fever or any other significant changes in medical history since last office visit. - Onset: Persistent pain following left hip intraarticular steroidal injection - Quality: Aching pain in the hip and groin area - Location: Left hip and groin - Radiation: Does not radiate to the back - Exacerbating factors: Walking, leading to limping after five minutes - Relieving factors: None mentioned - Affect: Pain impacts mobility, causing limping after walking for five minutes - Analgesia: 50% relief from recent steroidal injection - Adverse Effects: None reported - Activities of Daily Living: Pain limits walking ability - Aberrant Drug Related Behaviors: None reported Past Procedures: 10/28/24: Left hip intra-articular steroid injection with fluoro-50% pain relief 09/02/24: Bilateral Diagnostic L3-L4 DR L5 MBB-90% pain relief for 24 hours, ongoing 80% pain relief in low back 11/06/23: Left intra-articular hip steroid injection-100% ongoing pain relief PRIOR: Patient is a pleasant 58 years old with prior history of iliac wing fracture with h/o ORIF with hip reconstruction and multiple screws in 1989 in [place], presents today to discuss treatments for left hip pain and low back pain. Denies any recent trauma, injury or falls. She is currently undergoing physical therapy for back pain which was initiated at [facility]. Reports history of back injections in 2011 and left hip cortisone injections with good results. Left lateral hip pain is reproduced with walking or weight bearing. Reports limping after walking more than 15 minutes. Patient reports groin pain with internal and external hip rotations and also mild left sacroiliac joint pain. Pain affects her daily functioning and mobility. She denies any significant pain with sitting or resting. Denies any fever, abdominal pain, weakness, foot drop, numbness, bladder or bowel dysfunction or saddle anesthesia. Location: Left hip radiates down left leg Duration: Chronic pain for many years Characteristics of symptom or complaint: Sharp, aching, shooting, stabbing, tingling, sore Aggravating or associated factors: Walking, weight bearing, movements Relieving factors: Laying down, rest, pregabalin, NSAIDs, activity modifications Treatment: Injections, PT, h/o left hip reconstruction in 1989 [facility] Medical History Chronic pain syndrome History of left breast cancer (~2013) HLD (hyperlipidemia) GERD (gastroesophageal reflux disease) Nicotine dependence, cigarettes, uncomplicated Osteopenia (~2015) Postmenopausal Migraine Post herpetic neuralgia (~2020) Bilateral primary osteoarthritis of knee History of suicide attempt MDD (major depressive disorder) JASSON (generalized anxiety disorder) Surgical History History of lumpectomy of left breast (~2013) History of hip surgery (~1990) History of right knee surgery (~2006) History of ventral hernia repair (~2018) History of thumb surgery (~2017) History of tubal ligation History of tonsillectomy History of colonoscopy History of esophagogastroduodenoscopy (EGD) Family History Father Diabetes Hypertension Prostate cancer Mother Breast cancer Maternal Aunt Uterine cancer Lung cancer Family/Other Substance use disorder Sister Uterine cancer Social History Household Members: Family Housing: House Are you a primary career services coordinator to a significant other at home: No Do you presently have visiting nurse or other home services: No Alcohol intake: never Patient Tobacco Use Status: Current everyday Tobacco user (quit 8-9 months ago) Tobacco use type: Cigarette Cigarette Packs Per Day: 0.5 Cigarettes Per Day: 5 Years Smoked: (onset 15, 1/2-3/4ppd x 41yrs, 25pyh) e-Cigarette/Vaping Use: Never Used Second Hand Smoke Exposure: Yes Substance Use Type: Marijuana service: No Current occupational status: disabled 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 Denies radiation of pain to the back. - Neurological: Denies numbness or tingling. All systems reviewed & are unremarkable except as noted in HPI and below Physical Exam Vital Signs: Last Vital Signs Pulse 68 11/18/24 13:27 Resp 16 11/18/24 13:27 BP 122/72 11/18/24 13:27 Pulse Ox 98 11/18/24 13:27 Oxygen Delivery Method Room Air 11/18/24 13:27 BMI result Body Mass Index 26.1 General: Appears afebrile. Alert and oriented. Mood and affect appropriate. Follows and participates in conversation appropriately. Respiratory effort is unlabored. No cough. Able to transition from sit to stand unassisted. Ambulates with bilaterally normal heel strike and toe off. General: Yes no CVA tenderness Back/Spine/Pelvis Other: Limited lumbar ROM due to pain. Mild to moderate TTP in the projection of bilateral SIJ areas, right>left. Lumbar extension and flexion forward reproduces mild pain. SI distraction, Camilo?s test, and Stinchfield tests reproduce lateral bilateral hip pain and lower back pain. Moderate groin pain with I/E hip rotations on the left. Back: no CVA tenderness Cervical Spine: cervical ROM normal and No Cervical spine tenderness Thoracic/Lumbar Spine: thoracic and lumbar spine normal to inspection, No Thoracic/lumbar spine scar(s), Lasegue's sign negative, straight leg raise negative bilaterally, pain with thoraco-lumbar ROM (+facet loading bilaterally, right>left), thoraco-lumbar ROM limited, No thoracic spinal tenderness and No lumbar spinal tenderness Sacroiliac joints: bilaterally tender to palpation Extrem General: Yes capillary refill normal, Yes no clubbing, cyanosis or edema and Yes no calf tenderness Results Reviewed Results Reviewed: XR BILATERAL HIPS WITH AP PELVIS 04/26/23 CLINICAL INFORMATION: Reason for Exam M17.0 - Bilateral primary osteoarthritis of hip COMPARISON: Hip and pelvis radiographs 04/26/2020 TECHNIQUE: 2 views of each hip and one view of the pelvis. FINDINGS: No acute fracture or dislocation. Status post plate and screw fixation of the left iliac wing. No evidence of hardware fracture or complication. Mild osteoarthritis of the bilateral hips with small osteophytes. Ossific foci adjacent to the left hip and iliac bone unchanged from prior may reflect sequelae of heterotopic ossification or remote prior trauma. Sacroiliac joint spaces are maintained. Findings are overall unchanged from prior. Calcified phleboliths in the pelvis. IMPRESSION: 1. Status post plate and screw fixation of the left iliac wing. No evidence of hardware fracture or complication. 2. Mild osteoarthritis of the bilateral hips with small osteophytes. 3. Ossific foci adjacent to the left hip and iliac bone unchanged from prior may reflect sequelae of heterotopic ossification or remote prior trauma. XR LUMBOSACRAL SPINE WITH OBLIQUES 08/30/23 CLINICAL INFORMATION: Left low back pain. COMPARISON: Hip and pelvis 04/26/2023. FINDINGS: Mild levoscoliosis of the lumbar spine. Mild degenerative changes of the bilateral sacroiliac joints. Facet arthritis in the ikl-qj-yglpm lumbar spine. Degenerative changes in the imaged lower thoracic spine. Inferior endplate concavity along the anterior aspect of the lower thoracic vertebral body. Moderate multilevel lumbar spondylosis with multilevel loss of disc space height. Redemonstration of surgical hardware incompletely imaged overlying the left iliac wing, better characterized on prior exam. IMPRESSION: 1. Moderate multilevel lumbar spondylosis with multilevel loss of disc space height. 2. Facet arthritis in the zmc-aq-yokym lumbar spine. Assessment & Plan Assessment & Plan (1) History of hip surgery: Onset Date: ~1990 Comment: (Left Hip ORIF/reconstruction [jumped from 3rd story] - 1990) Code(s): Z98.890 - Other specified postprocedural states Category: Surgical (2) Left hip pain: Code(s): M25.552 - Pain in left hip Category: Medical (3) Osteoarthritis of left hip: Code(s): M16.12 - Unilateral primary osteoarthritis, left hip Category: Medical Qualifiers: Osteoarthritis type: primary Qualified Code(s): M16.12 - Unilateral primary osteoarthritis, left hip (4) Left groin pain: Code(s): R10.32 - Left lower quadrant pain Category: Medical (5) Sacroiliac joint pain: Code(s): M53.3 - Sacrococcygeal disorders, not elsewhere classified Category: Medical (6) Lumbosacral spondylosis: Code(s): M47.817 - Spondylosis without myelopathy or radiculopathy, lumbosacral region Category: Medical Qualifiers: Spinal osteoarthritis complication: with myelopathy Qualified Code(s): M47.16 - Other spondylosis with myelopathy, lumbar region Plan The plan includes obtaining an MRI of the left hip to evaluate left hip/groin pain and assess for advancing degenerative changes and hardware status with history of previous ORIF surgery. Patient is taking vitamin D and plans to follow up with PCP and start calcium supplements to address osteoporosis. Weight resistance exercises are recommended to strengthen bones. A referral to physical therapy for hip stabilization exercises will be considered after reviewing the MRI results. All questions and concerns have been answered and patient agreed with the plan. Follow up for MRI results and sooner as needed. Patient was informed and verbally consented to the use of an ambient scribe for clinic note documentation during this visit. Orders: Orders MR hip LT wo con Today M16.12 - Unilateral primary osteoarthritis, left hip, M25.552 - Pain in left hip, R10.32 - Left lower quadrant pain, Z98.890 - Other specified postprocedural states Coding Level of Care Code Est Pt Level 4 (83509) Complex EM visit Add On G2211 Diagnoses History of hip surgery Z98.890 Left hip pain M25.552 Primary osteoarthritis of left hip M16.12 Osteoarthritis type: primary Left groin pain R10.32 Sacroiliac joint pain M53.3 Osteoarthritis of spine with myelopathy, lumbosacral region M47.16 Spinal osteoarthritis complication: with myelopathy
[2024-11-18 13:27] VITALS: BP 122/72; PULSE 68; RESP 16; O2SAT 98; BMI 26.1
--- OUTSIDE RECORDS SUMMARY | 2024-11-18 14:31 | XMS_ITS | Clinical Summary ---
Author Organization [address] [place] [address] Address [address] [place] [address] Phone Care Team Providers Care Third Miller Name Role Phone Patel Rdz Primary Care Provider Allergies No known active allergies Medications Silvadene 1 % creamIndication s:Cellulitis of toe of left foot,Ingrown nail Apply topically 1 (one) time each day. 50 g 5 10/15/19 26 Active Encounters Date Type Department Care Team Description 10/28/2024 10:45 AM EDT Office Visit Orthopedic Surgery [facility] [address] [phone] Edgar Thacker DPM Open wound of left great toe, initial encounter (Primary Dx); Open wound of right great toe, initial encounter 10/14/2024 10:30 AM EDT Consult Orthopedic [facility] [address] [phone] Edgar Thacker DPM Cellulitis of toe of left foot (Primary Dx); Bilateral foot pain; Ingrown nail from Last 3 Months Surgical History Surgery Date Site/Laterality Comments OTHER SURGICAL HISTORY PROCEDURE: ARTHROSCOPY PROCEDURE NEC TONSILLECTOMY ADENOIDECTOMY, BILATERAL MYRINGOTOMY AND TUBES PROCEDURE: [place] TONSILLECTOMY & ADENOIDECTOMY <AGE 12 OTHER SURGICAL HISTORY PROCEDURE: [place] LIG/TRNSXJ FLP TUBE ABDL/VAG APPR UNI/BI Medical [...] (2023-2 5 season) 2023 06/17/2021, 10/25/2020, 10/04/2020 Depression Screening 04/30/2024 Colorectal Cancer Screening: Colonoscopy 10/06/2024 HIV Screening 10/06/2024 Hepatitis C Screening [...] ID:[id number] Group ID:ICO Type:Not on file Address: [place] [address] [address] [id number] Care Teams Third Miller Relationship Specialty Start Date End Date Patel Rdz PA [address] [place] [phone] PCP - General Physician Medical Lab Technician 10/06/24
--- OUTSIDE RECORDS SUMMARY | 2024-11-18 14:32 | XMS_ITS | Clinical Summary ---
Author Organization [facility] Address [address] [place] [address] Care Team Providers Care Linen Room Worker Name Role Phone Unavailable Primary Care Provider [...]
--- OUTSIDE RECORDS SUMMARY | 2024-11-18 14:32 | XMS_ITS | Patient Health Record ---
Author Organization [facility] Address [address] [place] [address] Care Team Providers Care Customer Development Representative Name Role Phone Patel Rdz Primary Care Provider Unavailab Chris Wakefield Jr Unavailable [phone] Allergies No Known Allergies Reason For Referral [...] Problem Status W/U Status Risk Notes Problem [id number] Rectal bleeding (K62.5) Active confirmed Problem [id number] Gastro-esophagea l reflux disease with esophagitis (K21.0) Active confirmed Problem [id number] Irritable bowel syndrome with constipation (K58.1) Active confirmed Problem Gastroesophageal reflux disease with esophagitis (disorder) (853332608) Gastroesophageal reflux disease with esophagitis, unspecified whether hemorrhage (K21.00) Active confirmed Vital Signs Temperature 98.7 degrees Fahrenheit 08/11/2024 Blood pressure diastolic 01 mm Hg 08/11/2024 Height 66.75 in 08/11/2024 Blood pressure systolic 001 mm Hg 08/11/2024 Weight 168.2 lbs 08/11/2024 BMI 26.54 kg/m2 08/11/2024 Encounters Encounter Location Date Provider Diagnosis [facility] [address] [place] [phone] 08/11/2024 Chris Horner Jr Rectal bleeding K62.5 and Gastro-esophageal reflux disease with esophagitis K21.0 [facility] [address] [place] [phone] 08/11/2024 Chris Horner Jr [facility] [address] [place] [phone] 08/25/2024 Chris Horner Jr [facility] [address] [place] [phone] 08/25/2024 Chris Horner Jr [facility] [address] [place] [phone] 08/27/2024 Chris Horner Jr Assessments Encounter Date [...] Insured Coverage Start Date Coverage End Date [facility] [address] Attn Claims [place] [id number] COLONINDIRA Self - patient is the insured MEDICAID OF [facility] [address] [place] [address] [id number] COLONINDIRA Self - patient is the insured MEDICARE OF [place] [address] [place] [address] [id number] COLONINDIRA Self - patient is the insured Medical (General) History Medical History History ICD Code anxiety depression hiatal hernia H. pylori infection EGD/colonoscopy in 07/28/15, no Foster's, no history of adenomas, ten-year colon followup 2025 breast cancer Surgical History Surgery Date(Month/Year) lumpectomy, left breast hernia repair 07/2018 tubal ligation tonsillectomy knee surgery hip surgery
== END 2024-11-18 14:03 | disposition home or self-care (01) ==
LOC: HO.PMC 13:24
PROVIDERS: PCP Physician Assistant; Visit Provider Nurse Practitioner Family
DX: Z98.890 Other specified postprocedural states (principal); M25.552 Pain in left hip; M16.12 Unilateral primary osteoarthritis, left hip; R10.32 Left lower quadrant pain; M53.3 Sacrococcygeal disorders, not elsewhere classified; M47.16 Other spondylosis with myelopathy, lumbar region
CPT/HCPCS: 99214; G2211

== ENCOUNTER → 2024-11-18 13:24 | Outpatient (BNVA) | payer OTHER, SELFPAY | PROVIDERS: PCP Physician Assistant; Visit Provider Nurse Practitioner Family | DX: M16.12 Unilateral primary osteoarthritis, left hip (principal); R10.32 Left lower quadrant pain; M53.3 Sacrococcygeal disorders, not elsewhere classified; Z98.890 Other specified postprocedural states; M47.16 Other spondylosis with myelopathy, lumbar region | CPT/HCPCS: 99212 ==

== ENCOUNTER 2024-12-06 08:28 | Outpatient (REF) | payer OTHER, SELFPAY ==
--- OUTSIDE RECORDS SUMMARY | 2024-08-26 06:40 | XMS_ITS ---
Author Organization [facility] Address [address] [place] [address] Care Team Providers Care General Maintenance Engineer Name Role Phone Patel Rdz Primary Care Provider Unavailab Chris Wakefield Jr Unavailable REASON FOR VISIT gerd,rectal bleeding Encounters Encounter Location Date Provider Diagnosis [facility] Outpatient [address] [place] [phone] 08/26/2024 Chris Horner Jr Plan Of Treatment No Information Progress Notes * INDIRA DERASDOB:[birth year] (59 yo F)Acc No.[id number]:08/26/2024 EGD and COL/MAC Patient: NIDIRA OBRIEN Provider: Eufemia Horner MD :1965 A ge:59 Y S ex:Female Date:08/26/2024 Address:[address] [place], [place] [id number] Pcp:Patel Rdz Subjective: * Chief Complaints: * 1 . Gerd,rectal bleeding. * Medical History: Objective: * Vitals: Assessment: Plan: * Treatment: * * The named appointment provid er may or may not be the originator of this progress note, and it is not deemed complete until electronically signed by the appointment provider. Sign off status: Pending * Provider: Eufemia Horner MD Date: 0 08/26/2024 Generated for Felizi ng/Fakayg/eTransmitting on: 0 12/06/2024 08:31 AM EDT
--- NOTE | ~2024-12-06 | MR_ITS ---
CLINICAL HISTORY: M16.12 - Unilateral primary osteoarthritis, left hip MR pelvis and left hip without gadolinium Comparison: CR/SR - XR HIP LT MIN 2V W/WO PEL - 04/29/24 16:[address]/REG/SC/SR - CT ABDOMEN PELVIS WITHOUT IV CONTRAST - 06/11/22 17:52 EST Findings: Limitations: Only one fluid sensitive fat-suppressed sequence is provided which is a large czvtf-xf-jajt coronal sequence. Mild lumbosacral facet osteoarthritis. The lumbosacral junction is otherwise maintained. The bilateral sacroiliac joints and pubic symphysis are maintained. Metallic susceptibility artifact related to postoperative change at the anterior left iliac bone. Small amount of heterotopic ossification at the anterosuperior left hip. Colonic diverticulosis. No bowel obstruction. Normal appendix. Urinary bladder and uterus are unremarkable. No ascites. Mild bilateral hip osteoarthritis. No evidence of fracture or femoral head avascular necrosis. No significant hip joint effusion. Mild bilateral gluteal insertional tendinopathy. Left worse than right hamstring origin tendinopathy. IMPRESSION: No acute findings. Mild bilateral hip osteoarthritis and other degenerative changes as above. This document has been electronically signed by: Dell oPlanco DO on 12/06/2024 09:59:14
--- OUTSIDE RECORDS SUMMARY | 2024-12-06 08:31 | XMS_ITS | Clinical Summary ---
Author Organization [address] [place] [address] Address [address] [place] [address] Phone Care Team Providers Care Recreation Leader Name Role Phone Patel Rdz Primary Care Provider Allergies No known active allergies Medications Silvadene 1 % creamIndication s:Cellulitis of toe of left foot,Ingrown nail Apply topically 1 (one) time each day. 50 g 5 10/15/19 26 Active Encounters Date Type Department Care Team Description 10/28/2024 10:45 AM EDT Office Visit Orthopedic Surgery [facility] [address] [phone] Edgar Thacker DPM Open wound of left great toe, initial encounter (Primary Dx); Open wound of right great toe, initial encounter 10/14/2024 10:30 AM EDT Consult Orthopedic [facility] [address] [phone] Edgar Thacker DPM Cellulitis of toe of left foot (Primary Dx); Bilateral foot pain; Ingrown nail from Last 3 Months Surgical History Surgery Date Site/Laterality Comments OTHER SURGICAL HISTORY PROCEDURE: ARTHROSCOPY PROCEDURE NEC TONSILLECTOMY ADENOIDECTOMY, BILATERAL MYRINGOTOMY AND TUBES PROCEDURE: [place] TONSILLECTOMY & ADENOIDECTOMY <AGE 12 OTHER SURGICAL HISTORY PROCEDURE: [place] LIG/TRNSXJ FLP TUBE ABDL/VAG APPR UNI/BI Medical [...] ID:[id number] Group ID:ICO Type:Not on file Address: [place] [address] [address] [phone] Care Teams Recreation Leader Relationship Specialty Start Date End Date Patel Rdz PA [address] [place] [phone] PCP - General Physician Manuscripts Archivist 10/06/24
== END 2024-12-06 08:29 | disposition home or self-care (01) ==
LOC: HO.MRI 08:28
PROVIDERS: PCP Physician Assistant; Visit Provider Nurse Practitioner Family
DX: M16.12 Unilateral primary osteoarthritis, left hip (principal); M25.552 Pain in left hip; R10.32 Left lower quadrant pain; Z98.890 Other specified postprocedural states
CPT/HCPCS: 73721

== ENCOUNTER → 2024-12-06 08:33 | Outpatient (BNV) | payer OTHER, SELFPAY | PROVIDERS: PCP Physician Assistant; Visit Provider Radiology Diagnostic Radiology | DX: M16.12 Unilateral primary osteoarthritis, left hip (principal) | CPT/HCPCS: 73721 ==

== ENCOUNTER 2025-02-02 15:53 | Outpatient (REF) | payer OTHER, SELFPAY ==
--- NOTE | ~2025-02-02 | CT_ITS ---
CLINICAL HISTORY: F17.210 - Nicotine dependence, cigarettes, uncomplicated CT lung cancer screening (LDCT) Comparison: CT/OK/SR - CT LUNG SCREENING - 01/29/24 10:56 EDT Technique: Axial CT images of the chest using low-dose technique. Referring provider counseled the patient on shared decision-making for LDCT screening. Additional counseling was provided on smoking cessation. Effective radiation dose total: DLP 34.3 mGycm, CTDIvol 2 mGy. Findings: The thyroid gland appears normal. There is no mediastinal, hilar, or axillary lymphadenopathy. Heart is normal in size. There is no pericardial effusion. Mild paraseptal emphysema is present. No suspicious pulmonary nodule is identified. Limited examination of the upper abdomen demonstrates no significant abnormality. No acute osseous abnormality is identified. Mild degenerative changes are seen in the spine. IMPRESSION: No suspicious pulmonary nodule is identified (Lung RADS 1). Recommend continued annual low-dose screening CT chest in 12 months. This document has been electronically signed by: Kain Pierson on 02/04/2025 07:48:11
--- OUTSIDE RECORDS SUMMARY | 2025-02-02 18:12 | XMS_ITS | Clinical Summary ---
Author Organization [address] [facility] Address [address] [place] [address] Phone Care Team Providers Care Grounds Maintenance Supervisor Name Role Phone Patel Rdz Primary Care Provider Allergies No known active allergies Medications Silvadene 1 % creamIndication s:Cellulitis of toe of left foot,Ingrown nail Apply topically 1 (one) time each day. 50 g 5 10/15/19 26 Active Surgical History Surgery Date Site/Laterality Comments OTHER SURGICAL HISTORY PROCEDURE: ARTHROSCOPY PROCEDURE NEC TONSILLECTOMY ADENOIDECTOMY, BILATERAL MYRINGOTOMY AND TUBES PROCEDURE: [place] TONSILLECTOMY & ADENOIDECTOMY <AGE 12 OTHER SURGICAL HISTORY PROCEDURE: [place] LIG/TRNSXJ FLP TUBE ABDL/VAG APPR UNI/BI Medical [...] Date Smoking Tobacco: Every Day Cigarettes 0.5 43.4 Started: 09/08/1981 Smokeless Tobacco: Never Alcohol Use [...] Last Done Comments Breast Cancer Screening 1965 Colorectal Cancer Screening: Colonoscopy 1965 Hepatitis B Vaccines (1 of 3 - 19+ 3-dose series) 02/03/1984 Zoster Vaccines (1 of 2) 02/03/1984 Cervical Cancer Screening: P ap Smear 1986 Pneumococcal Vaccine: 50+ Years (2 of 2 - PCV) 06/21/2022 06/21/2021 Depression Screening 04/30/2024 HIV Screening 10/06/2024 Hepatitis C Screening 10/06/2024 Medicare Annual Wellness Visit 10/06/2024 Social Influencers of Health Screening 10/06/2024 COVID-19 Vaccine (4 - 2024-2 6 season) 2024 06/17/2021, 10/25/2020, 10/04/2020 Influenza Vaccine (#1) 2024 , 07/08/2019, 02/04/2019 [...] ID:[id number] Group ID:ICO Type:Not on file Address: [place] [address] [address] [phone] Care Teams Grounds Maintenance Supervisor Relationship Specialty Start Date End Date Patel Rdz PA [address] [place] [phone] PCP - General Physician Brush Stainer 10/06/24
--- OUTSIDE RECORDS SUMMARY | 2025-02-02 18:12 | XMS_ITS | Clinical Summary ---
Author Organization [facility] Address [address] [place] [address] Care Team Providers Care Primary Care Pediatrician Name Role Phone Unavailable Primary Care Provider [...]
== END 2025-02-02 15:54 | disposition home or self-care (01) ==
LOC: HO.CT 15:53
PROVIDERS: PCP Physician Assistant; Visit Provider Physician Assistant Medical
DX: Z12.2 Encounter for screening for malignant neoplasm of respiratory organs (principal); F17.210 Nicotine dependence, cigarettes, uncomplicated
CPT/HCPCS: 71271

== ENCOUNTER → 2025-02-02 15:54 | Outpatient (BNV) | payer OTHER, SELFPAY | PROVIDERS: PCP Physician Assistant; Visit Provider Radiology Vascular & Interventional Radiology | DX: F17.210 Nicotine dependence, cigarettes, uncomplicated (principal) | CPT/HCPCS: 71271 ==

== ENCOUNTER 2025-02-17 08:59 | Outpatient (REF) | payer OTHER, SELFPAY ==
--- OUTSIDE RECORDS SUMMARY | 2025-02-17 09:38 | XMS_ITS | Patient Health Record ---
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 Machine Tender Name Role Phone Patel Rdz Primary Care Provider UnavailChris Hansen Jr Unavailable Allergies No Known Allergies Reason For Referral No Information Medications Medication SIG (Take, Route, Frequency, Duration) Notes Start Date End Date Status Gabapentin 300 MG Oral; Duration: 30 Active Albuterol Sulfate HFA 108 (90 Base) MCG/ACT INHALE 1 PUFF FOUR TIMES A DAY FOR SHORTNESS OF BREATH OR WHEEZING Inhalation; Duration: 50 Active D3 Super Strength 50 MCG (2000 UT) TAKE 1 CAPSULE BY MOUTH DAILY Oral; Duration: 90 Active Hydrocortisone 1 % APPLY TOPICALLY THRE E TIMES A DAY NEEDED FOR SKIN IRRITATION External; Duration: 90 Active Atorvastatin Calcium 80 MG TAKE ONE TABL ET BY MOUTH EVERY DAY Oral; Duration: 90 Active Aspirin Low Dose 81 MG TAKE ONE TABLET B Y MOUTH EVERY DAY Oral; Duration: 90 Active SEROquel 100 MG 1 tablet at bedtime Orally Once a day; Duration: 30 day(s) Active Omeprazole 40 MG 1 capsule 30 minutes before morning meal Orally Once a day; Duration: 30 days 02/17/2022 Active Simethicone 125 MG 1 tablet after meals and at bedtime as needed Orally Four times a day 02/14/2023 Active LORazepam 1 MG 1 tablet as needed Orally Once a day Active oxyCODONE HCl 5 MG TAKE ONE TABLET BY M OUTH TWICE A DAY NEEDED FOR PAIN FOR 7 DAYS Oral; Duration: 7 Days Active Lexapro 10 MG 1 tablet Orally Once a day; Duration: 30 day(s) Active Immunizations Vaccine Route Administration [...] Problem Status W/U Status Risk Notes Problem Rectal bleeding (48347729) Rectal bleeding (K62.5) Active confirmed Problem Gastro-esophageal reflux disease with esophagitis (123878843) Gastro-esophageal reflux disease with esophagitis (K21.0) Active confirmed Problem Irritable bowel syndrome characterized by constipation (732412085) Irritable bowel syndrome with constipation (K58.1) Active confirmed Problem Gastroesophageal reflux disease with esophagitis (disorder) (261279215) Gastroesophageal reflux disease with esophagitis, unspecified whether hemorrhage (K21.00) Active confirmed Vital Signs Temperature 98.7 degrees Fahrenheit 08/11/2024 Blood pressure diastolic 01 mm Hg 08/11/2024 Height 66.75 in 08/11/2024 Blood pressure systolic 001 mm Hg 08/11/2024 Weight 168.2 lbs 08/11/2024 BMI 26.54 kg/m2 08/11/2024 Encounters Encounter Location Date Provider Diagnosis [facility] [address] [place] [phone] 08/11/2024 Chris Horner Jr Rectal bleeding K62.5 and Gastro-esophageal reflux disease with esophagitis K21.0 [facility] [address] [place] [phone] 08/11/2024 Chris Horner Jr [facility] [address] [place] [phone] 08/25/2024 Chris Horner Jr [facility] [address] [place] [phone] 08/25/2024 Chris Horner Jr [facility] [address] [place] [phone] 08/27/2024 Chris Horner Jr Assessments Encounter Date [...] Insured Coverage Start Date [facility]age End Date [facility] [address] Attn Claims RAFFY Matos [id number] COLONINDIRA Self - patient is the insured MEDICAID OF [facility] [address] [place] [address] [id number] COLONINDIRA Self - patient is the insured MEDICARE OF [place] [address] [place] [address] [phone] [id number] COLONINDIRA Self - patient is the insured Medical (General) History Medical History History ICD Code anxiety depression hiatal hernia H. pylori infection EGD/colonoscopy in 07/28/15, no Foster's, no history of adenomas, ten-year colon followup 2025 breast cancer Surgical History Surgery Date(Month/Year) lumpectomy, left breast hernia repair 07/2018 tubal ligation tonsillectomy knee surgery hip surgery
--- OUTSIDE RECORDS SUMMARY | 2025-02-17 09:38 | XMS_ITS | Clinical Summary ---
Author Organization [facility] Address [address] [place] [address] Care Team Providers Care Hvac Technician Name Role Phone Unavailable Primary Care Provider [...]
[2025-02-17 09:50] LABS: Hematocrit 38.8 % (37.0-47.0); Hemoglobin 12.4 g/dl (12.0-16.0); Mean Corpuscular HGB Conc 32.0 g/dl (31.0-35.0); Mean Corpuscular Hemoglobin 29.3 pg (27.0-33.0); Mean Corpuscular Volume 91.7 fL (80.0-98.0); NRBC Abs Auto 0.000 X10*3/uL (0.0-0.012); NRBC Pct Auto 0.0 /100WBC (0.0-0.2); Platelet Count 268 X10*3/uL (160-400); Red Blood Count 4.23 X10*6/uL (4.20-5.50); White Blood Count 12.7 X10*3/uL (4.8-10.8)
[2025-02-17 11:24] LABS: Alanine Aminotransferase 16 U/L (0-31); Albumin Level 4.5 g/dL (3.5-5.0); Alkaline Phosphatase 71 U/L (39-117); Anion Gap 11 (12-20); Aspartate Amino Transferase 17 U/L (5-31); Blood Urea Nitrogen 11 mg/dL (9-16); Calcium 10.9 mg/dL (8.4-10.2); Carbon Dioxide 26 mmol/L (22-29); Chloride 106 mmol/L (96-108); Cholesterol 308 mg/dL (<200); Estimated Glomerular Filt Rate > 60; HDL Cholesterol 49 mg/dL (>40); Potassium 3.9 mmol/L (3.3-5.1); Sodium 139 mmol/L (135-145); Total Protein 7.1 g/dL (6.5-8.0); Triglycerides 153 mg/dL (<150)
== END 2025-02-17 09:00 | disposition home or self-care (01) ==
LOC: HO.LAB 08:59
PROVIDERS: PCP Physician Assistant; Visit Provider Physician Assistant
DX: F33.1 Major depressive disorder, recurrent, moderate (principal); E78.00 Pure hypercholesterolemia, unspecified; D50.0 Iron deficiency anemia secondary to blood loss (chronic); F41.1 Generalized anxiety disorder; E78.5 Hyperlipidemia, unspecified; K21.9 Gastro-esophageal reflux disease without esophagitis; D72.829 Elevated white blood cell count, unspecified; G89.29 Other chronic pain; F17.210 Nicotine dependence, cigarettes, uncomplicated; J43.2 Centrilobular emphysema; M47.16 Other spondylosis with myelopathy, lumbar region; M81.0 Age-related osteoporosis without current pathological fracture; M54.14 Radiculopathy, thoracic region; M16.12 Unilateral primary osteoarthritis, left hip
CPT/HCPCS: 36415; 80053; 80061; 85027; 99212

== ENCOUNTER 2025-02-17 11:30 | Outpatient (AMB) | payer OTHER, SELFPAY ==
[2025-02-17 11:41] VITALS: BP 118/62; PULSE 84; RESP 18; TEMP 36.2; O2SAT 97; BMI 24.7
--- NOTE | 2025-02-17 11:41 | MHC.PC.OV ---
Vital Signs 02/17/25 11:41 Height 5 ft 6 in Weight 153 lb BMI 24.7 BP 118/62 Blood Pressure Location Rt brachial Position Sitting Respiration 18 Pulse 84 Pulse Source Pulse Oximeter Temp 97.1 F Temp Source Temporal Artery Scan Pulse Oximetry (%) 97 Oxygen Delivery Method Room Air Intake Visit Reasons: f/u HLD Planimeter Operator Required: No Accompanied by: Self / Same As Patient Allergies tramadol Adverse Reaction (Intermediate, Verified 02/17/25 11:52) dry mouth trazodone Adverse Reaction (Intermediate, Verified 02/17/25 11:52) Falls Medication List - Last Reconciled 02/17/25 by Patel Rdz PA-C acetaminophen (Tylenol) 650 mg (2 x 325 mg) PO Q6H PRN albuterol sulfate 90 mcg/actuation 1 inh inhalation QID 30 days atorvastatin 80 mg PO DAILY betamethasone dipropionate 0.05% 1 appl topical DAILY PRN 30 days cholecalciferol (vitamin D3) 50 mcg PO DAILY 90 days gabapentin 300 mg PO BID 30 days hydrocortisone 1% (Anti-Itch (hydrocortisone)) 1 appl topical TID PRN 90 days lidocaine 5% 1 patch topical DAILY 30 days lorazepam 1 mg PO BID-TID 30 days meclizine 25 mg PO TID 7 days meloxicam 15 mg PO DAILY methocarbamol 1,500 mg (2 x 750 mg) PO Q8H PRN naloxone 4 mg/actuation (Narcan) 4 mg intranasal Q2M PRN nicotine 1 patch transdermal DAILY 14 days nicotine 1 patch transdermal DAILY 14 days omeprazole 20 mg PO DAILY oxycodone 5 mg PO BID PRN 7 days pregabalin 75 mg PO BID quetiapine (Seroquel) 100 mg PO DAILY 90 days Tobacco use date assessed: 02/17/25 Dental Screening Dental Screen Date: 02/17/25 Did you have a dental visit in the last 12 months?: Yes Did you have a dental problem in the last 6 months where you did not have access to dental care?: No Was dental information given to patient?: Patient has dentist HPI f/u HLD HPI Details Patient is a 60-year-old female here today for a follow-up visit.? Patient has a past medical history significant generalized anxiety disorder , hyperlipidemia , major depressive disorder, GERD. Anxiety : She reports she has been under lot of stress due to family issues, having difficulty with sleep, currently taking care of her father whom has dementia. A son who gets caught up with drugs and is in care home. She is very amish woman and prays a lot. She continues with the use of lorazepam t.i.d. p.r.n. and Lexapro.? She is now interested in seeing a mental health therapist that she feels he needs it at this time. .. Leukocytosis: Likely related to her increased stress and continued smoking. Patient has not had any recent illnesses. Will continue to follow .. Chronic Lumbar spine pain: Patient was followed by pain management though was interested in trying chiropractic. She continues with p.r.n. use of gabapentin, methocarbamol and acetaminophen. She does use oxycodone low dose on an as needed basis for pain scales of 10. .. Smoker:? Unfortunately continues to smoke though much less. Reports having a few cigarettes per day.. She reports she continues to smoke and has been smoking a little bit more due to her increased anxiety.? She has been trying the nicotine patches which has been a bit helpful. She will need a new script for 21 mg patches Of note was found to have emphysema and informed patient of this.? . .. Hyperlipidemia:? Most recent fasting lipid panel showing very elevated total cholesterol and LDL. She has been apprehensive on taking atorvastatin 80 mg.. PLAN: Patient willing to take atorvastatin 80 mg daily to help reduce her cardiovascular risk as she is still smoking Laboratory Tests 01/10/24 06/27/24 08/13/24 08:59 11:44 09:15 WBC 6.2 RBC 4.08 L D Hgb 11.8 L Creatinine Calcium 10.1 D 10.7 H Cholesterol 280 H 263 H LDL Cholesterol, C alc 212 H 191 H 02/17/25 09:13 WBC 12.7 H RBC Hgb Creatinine 0.70 Calcium Cholesterol 308 H LDL Cholesterol, C alc 229 H [facility] Medical History Chronic pain syndrome History of left breast cancer (~2013) HLD (hyperlipidemia) GERD (gastroesophageal reflux disease) Nicotine dependence, cigarettes, uncomplicated Osteopenia (~2015) Postmenopausal Migraine Post herpetic neuralgia (~2020) Bilateral primary osteoarthritis of knee History of suicide attempt MDD (major depressive disorder) JASSON (generalized anxiety disorder) Surgical History History of hip surgery (~1990) History of lumpectomy of left breast (~2013) History of right knee surgery (~2006) History of ventral hernia repair (~2019) History of thumb surgery (~2017) History of tubal ligation History of tonsillectomy History of colonoscopy History of esophagogastroduodenoscopy (EGD) Family History Father Diabetes Hypertension Prostate cancer Mother Breast cancer Maternal Aunt Uterine cancer Lung cancer Family/Other Substance use disorder Sister Uterine cancer Social History Household Members: Family Housing: House Are you a primary healthcare consultant to a significant other at home: No Do you presently have visiting nurse or other home services: No Alcohol intake: never Patient Tobacco Use Status: Current everyday Tobacco user (quit 8-9 months ago) Tobacco use type: Cigarette Cigarette Packs Per Day: 0.5 Cigarettes Per Day: 5 Years Smoked: (onset 15, 1/2-3/4ppd x 41yrs, 25pyh) e-Cigarette/Vaping Use: Never Used Second Hand Smoke Exposure: Yes Substance Use Type: Marijuana service: No Current occupational status: disabled 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[employer] Current occupational exposures/hazards: No Cognitive needs: No Hearing needs: Yes Vision needs: Yes Female Reproductive History Menstrual Age of Menarche: 12 Questionnaire Thrive Questionnaire Date Thrive assessed: 08/13/24 I am a: Patient What is your living situation today?: I have a steady place to live Within the past 12 months, did the food you bought not last and you didn't have the money to get more?: Never true Within the past 12 months, did you worry whether your food would run out before you got money to buy more?: Never true Do you have trouble paying for medicines?: No Do you have trouble getting transportation to medical appointments?: No Do you have trouble paying your heating and electricity bill?: No Do you have trouble taking care of your child, family member or friend?: No Do you have trouble with day-to-day activities such as bathing, preparing meals, shopping, managing finances, etc.?: No Are you currently unemployed and looking for a job?: No Are you interested in more education?: No Please select the resources that you would like help with: None Currently or been in a relationship where the following occur: No concerns reported THRIVE Score: 0 JASSON-7 AMB Questionnaire JASSON-7 Date JASSON - 7 assessed: 08/13/24 (Patient states they are being treated for anxiety and depression, which are well controlled.) Source: Developed by Drs. Vickey Catalan, Gina Dawson, Henrique Curran and colleagues, with an educational shiv from [employer]. Review of Systems Const Denies headache(s) Eyes Denies loss of vision ENT Denies vertigo, Denies dizziness, Denies headache(s) and Denies sore throat Card Denies chest pain, Denies leg edema and Denies lightheadedness Resp Denies cough, Denies hemoptysis and Denies wheezing GI Denies abdominal pain, Denies melena, Denies constipation, Denies diarrhea and Denies vomiting Denies urinary frequency, Denies dysuria and Denies urinary urgency Musc Denies arthralgias, Denies joint swelling, Denies numbness and Denies tingling Neuro Denies Abnormal speech present, Denies behavioral changes, Denies vertigo, Denies dizziness, Denies headache(s), Denies loss of vision, Denies memory loss, Denies numbness and Denies tingling Psych Denies anxiety, Denies behavioral changes, Denies depression, Denies memory loss and Denies panic attacks Angel/Lymph Denies easy bleeding and Denies easy bruising Aller/Immun Denies wheezing Physical exam (Primary Care) Vital Signs: Last Vital Signs Temp 97.1 F 02/17/25 11:41 Pulse 84 02/17/25 11:41 Resp 18 02/17/25 11:41 BP 118/62 02/17/25 11:41 Pulse Ox 97 02/17/25 11:41 Oxygen Delivery Method Room Air 02/17/25 11:41 BMI result Body Mass Index 24.7 Tobacco/Smoking Status: Tobacco use Status Tobacco use date assessed 02/17/25 02/17/25 11:44 Patient Tobacco Use Status Current everyday Tobacco ( 02/17/25 11:44 quit 8-9 months ago) Tobacco use type Cigarette 02/17/25 11:44 e-Cigarette/Vaping Use Never Used 02/17/25 11:44 Are you ready to quit: Yes Tobacco cessation counseling provided: Yes Items discussed: Nicotine replacement Relapse Prevention: discussed the importance of a supportive environment, discussed negative mood or depression after quitting, weight gain after smoking is common and discussed dietary, exercise and/or lifestyle changes Number of minutes spent counselin CPT code: 89150 - 4-10 Minutes Thrive Assessment: Date of Thrive Assessment Date Thrive assessed 08/13/24 02/17/25 11:44 Currently or been in a relationship where the following occur: No concerns reported Const General: healthy appearing, no acute distress, alert and awake Nutritional Appearance: well nourished Orientation/consciousness: oriented to person, oriented to place and oriented to time HENMT Ears: TM's normal bilaterally General nose exam: Normal nasal mucous membranes and turbinates present Eyes Conjunctivae: conjunctivae normal Sclerae: sclerae normal Pupils: Equal, round and reactive pupils present Neck Neck: Yes no lymphadenopathy and Yes no JVD Thyroid: Thyroid normal Carotids: no bruits Resp Effort & Inspection: normal respiratory effort and not tachypneic Auscultation: no crackles, no rales, no rhonchi and no wheezes Cardio Rate: regular rate Rhythm: regular rhythm Heart sounds: no murmurs and normal S1 and S2 GI Palpation (GI): Soft to palpation, nontender, no hepatomegaly and no splenomegaly Auscultation: normal bowel sounds Skin General skin exam: no rashes or lesions noted and dry skin Neuro General: oriented to person, oriented to place and oriented to time Cranial nerves: Yes Equal, round and reactive pupils present Speech: No Abnormal speech present Gait exam (Neuro): Normal gait present Motor exam (neuro): no tremor noted Extrem Right upper extremity: full ROM Left upper extremity: full ROM Right lower extremity: full ROM; no edema Left lower extremity: full ROM; no edema Psych Mental Status: mental status grossly normal Speech and movement: Normal speech and movement present Affect: normal affect Attitude: cooperative Thought process: Normal thought process present Coding Level of Care Code Est Pt Level 4 (77214) Diagnoses Pure hypercholesterolemia E78.00 Hyperlipidemia type: pure hypercholesterolemia Tobacco dependency F17.200 Centrilobular emphysema J43.2 Emphysema type: centrilobular Osteoarthritis of spine with myelopathy, lumbosacral region M47.16 Spinal osteoarthritis complication: with myelopathy JASSON (generalized anxiety disorder) F41.1 Moderate episode of recurrent major depressive disorder F33.1 Active/Remission status: currently active Major depression episode severity: moderate Major depression recurrence: recurrent Age-related osteoporosis without current pathological fracture M81.0 Osteoporosis type: age-related Presence of current pathological fracture: without current pathological fracture Additional Codes Vital Signs *Quality* - CPT code: 30396 - 4-10 Minutes ([id number]) Assessment & Plan Assessment & Plan (1) HLD (hyperlipidemia): Code(s): E78.5 - Hyperlipidemia, unspecified Category: Medical Qualifiers: Hyperlipidemia type: pure hypercholesterolemia Qualified Code(s): E78.00 - Pure hypercholesterolemia, unspecified Plan: Patient's most recent lipid panel showing very elevated total cholesterol and LDL. She has not been taking statin therapy due to fears of side effects on organs. We did discuss the high risk of cardiovascular disease with her cholesterol as elevated as it is. She does understand and agree to start taking atorvastatin 80 mg daily and recheck her cholesterol for once. Will recheck her lipid panel in the next 6 months LDL to be below 130 (2) Tobacco dependency: Code(s): F17.200 - Nicotine dependence, unspecified, uncomplicated Category: Medical Plan: Emphasize cessation strategies and explore supportive programs due to smoking history and exacerbating lung conditions. (3) Emphysema of lung: Code(s): J43.9 - Emphysema, unspecified Category: Medical Qualifiers: Emphysema type: centrilobular Qualified Code(s): J43.2 - Centrilobular emphysema Plan: Patient reports no pulmonary issues. Emphysema was found on CT lung screening. Does have an albuterol inhaler available to her. (4) Lumbosacral spondylosis: Code(s): M47.817 - Spondylosis without myelopathy or radiculopathy, lumbosacral region Category: Medical Qualifiers: Spinal osteoarthritis complication: with myelopathy Qualified Code(s): M47.16 - Other spondylosis with myelopathy, lumbar region Plan: Patient followed by [facility] management, she is anticipating getting injections to help reduce her pain. She is using gabapentin and oxycodone on an as needed basis. We did discuss her pregabalin and advised on stopping the use of pregabalin as it is polypharmacy with his use of gabapentin as well. Interested in going to see a chiropractor to help her with her back. (5) JASSON (generalized anxiety disorder): Code(s): F41.1 - Generalized anxiety disorder Category: Medical Plan: Patient's has been having increased anxiety due to personal issues and the failing health of her father whom recently moved from [place]. She is interested in a mental health therapist to work with her on talk therapy. (6) MDD (major depressive disorder): Code(s): F32.9 - Major depressive disorder, single episode, unspecified Category: Medical Qualifiers: Active/Remission status: currently active Major depression episode severity: moderate Major depression recurrence: recurrent Qualified Code(s): F33.1 - Major depressive disorder, recurrent, moderate Plan: Patient interested in mental health therapy (7) Osteoporosis: Code(s): M81.0 - Age-related osteoporosis without current pathological fracture Category: Medical Qualifiers: Osteoporosis type: age-related Presence of current pathological fracture: without current pathological fracture Qualified Code(s): M81.0 - Age-related osteoporosis without current pathological fracture Plan: Patient noted to have osteoporosis on most recent bone density screening. Will supply patient with Fosamax to use daily. Advised on smoking cessation to which she will use nicotine patches. Orders: Orders Complete Blood Count no Diff 3 Months E78.00 - Pure hypercholesterolemia, unspecified Lipid Panel 3 Months E78.00 - Pure hypercholesterolemia, unspecified Comprehensive [place]. Panel Fast 3 Months E78.00 - Pure hypercholesterolemia, unspecified Referrals Counseling Referral F33.1 - Major depressive disorder, recurrent, moderate Medications: New alendronate (Fosamax) 70 mg PO QWEEK 12 tabs 2RF 12 weeks M81.0 - Age-related osteoporosis without current pathological fracture Refilled methocarbamol 1,500 mg (2 x 750 mg) PO Q8H PRN 20 tabs 3RF pain, moderate M54.14 - Radiculopathy, thoracic region oxycodone Partial Fill upon patient request. 5 mg PO BID PRN 14 tabs 0RF pain 7 days M16.12 - Unilateral primary osteoarthritis, left hip nicotine 1 patch transdermal DAILY 14 ea 0RF 14 days F17.200 - Nicotine dependence, unspecified, uncomplicated Patient Instructions: Goal: LDL to be below 130 Barriers: Adherence to physical activity and healthy eating habits
== END 2025-02-17 12:19 | disposition home or self-care (01) ==
LOC: HO.HMCH 11:31
PROVIDERS: PCP Physician Assistant; Visit Provider Physician Assistant
DX: J43.2 Centrilobular emphysema (principal); F33.1 Major depressive disorder, recurrent, moderate; E78.00 Pure hypercholesterolemia, unspecified; F17.210 Nicotine dependence, cigarettes, uncomplicated; M47.16 Other spondylosis with myelopathy, lumbar region; F41.1 Generalized anxiety disorder; M81.0 Age-related osteoporosis without current pathological fracture

== ENCOUNTER 2025-04-01 09:07 | Outpatient (REF) | payer OTHER, SELFPAY ==
--- OUTSIDE RECORDS SUMMARY | 2025-04-01 11:39 | XMS_ITS | Patient Health Record ---
Author Organization [facility] Address [address] [place] [address] Care Team Providers Care Health Center Associate Name Role Phone Patel Rdz Primary Care Provider Unavailab Chris Wakefield Jr Unavailable Allergies No Known Allergies Reason For Referral No Information Medications Medication SIG (Take, Route, Frequency, Duration) Notes Start Date End Date Status Gabapentin 300 MG Capsule Oral; Duration: 30 Active Albuterol Sulfate HFA 108 (90 Base) MCG/ACT Aerosol Solution INHALE 1 PUFF FOUR TIMES A DAY FOR SHORTNESS OF BREATH OR WHEEZING Inhalation; Duration: 50 Active D3 Super Strength 50 MCG (2000 UT) Capsule TAKE 1 CAPSULE BY MOUTH DAILY Oral; Duration: 90 Active Hydrocortisone 1 % Cream APPLY TOPICALLY THREE TIMES A DAY NEEDED FOR SKIN IRRITATION External; Duration: 90 Active Atorvastatin Calcium 80 MG Tablet TAKE ONE TABLET BY MOUTH EVERY DAY Oral; Duration: 90 Active Aspirin Low Dose 81 MG Tablet Delayed Release TAKE ONE TABLET BY MOUTH EVERY DAY Oral; Duration: 90 Active SEROquel 100 MG Tablet 1 tablet at bedti me Orally Once a day; Duration: 30 day(s) Active Omeprazole 40 MG Capsule Delayed Release 1 capsule 30 minutes before morning meal Orally Once a day; Duration: 30 days 02/17/2022 Active Simethicone 125 MG Tablet Chewable 1 tablet after meals and at bedtime as needed Orally Four times a day 02/14/2023 Active LORazepam 1 MG Tablet 1 tablet as needed Orally Once a day Active oxyCODONE HCl 5 MG Tablet TAKE ONE TABLE T BY MOUTH TWICE A DAY NEEDED FOR PAIN FOR 7 DAYS Oral; Duration: 7 Days Active Lexapro 10 MG Tablet 1 tablet Orally Onc e a day; Duration: 30 day(s) Active Immunizations Vaccine Route Administration Date Status Comme nts Influenza Unknown 01/01/2019 Refused Influenza Unknown 02/17/2022 Refused Influenza Unknown 02/14/2023 Refused Influenza Unknown 08/11/2024 Refused Social History Tobacco Use: Social History Observation Description Date Details (start date - stop date) Former Smoker NA - NA Social History Tobacco Use: Social Info Question Answer Notes Tobacco Control (Standard) Tobacco use: Former smoker Additional Details Category Social Info Options Details Miscellaneous: Marital status: 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 Problems Problem Type SNOMED Code ICD Code Onset Dates Problem Status W/U Status Risk Notes Problem Rectal bleeding (49622248) Rectal bleeding (K62.5) Active confirmed Problem Gastro-esophageal reflux disease with esophagitis (911903042) Gastro-esophageal reflux disease with esophagitis (K21.0) Active confirmed Problem Irritable bowel syndrome characterized by constipation (418111609) Irritable bowel syndrome with constipation (K58.1) Active confirmed Problem Gastroesophageal reflux disease with esophagitis (disorder) (120911938) Gastroesophageal reflux disease with esophagitis, unspecified whether hemorrhage (K21.00) Active confirmed Vital Signs Temperature 98.7 degrees Fahrenheit 08/11/2024 Blood pressure diastolic 01 mm Hg 08/11/2024 Height 66.75 in 08/11/2024 Blood pressure systolic 001 mm Hg 08/11/2024 Weight 168.2 lbs 08/11/2024 BMI 26.54 kg/m2 08/11/2024 Encounters Encounter Location Date Provider Diagnosis [facility] [address] [place] [phone] 08/11/2024 Chris Horner Jr Rectal bleeding K62.5 and Gastro-esophageal reflux disease with esophagitis K21.0 [facility] [address] [place] [phone] 08/11/2024 Chris Horner Jr [facility] [address] [place] [phone] 08/25/2024 Chris Horner Jr [facility] [address] [place] [phone] 08/25/2024 Chris Horner Jr [facility] [address] [place] [phone] 08/27/2024 Chris Horner Jr Assessments Encounter Date [...] Coverage Start Date Coverage End Date [facility] [address] Attn Claims [place] [id number] COLONINDIRA Self - patient is the insured MEDICAID OF [facility] [address] [place] [address] [id number] COLONINDIRA Self - patient is the insured MEDICARE OF [place] [address] [place] [address] [id number] COLONINDIRA Self - patient is the insured Medical (General) History Medical History History ICD Code anxiety depression hiatal hernia H. pylori infection EGD/colonoscopy in 07/28/15, no Foster's, no history of adenomas, ten-year colon followup 2025 breast cancer Surgical History Surgery Date(Month/Year) hip surgery knee surgery tonsillectomy tubal ligation hernia repair 07/2018 lumpectomy, left breast
== END 2025-04-01 09:08 | disposition home or self-care (01) ==
LOC: HO.LNP 09:07
PROVIDERS: PCP Physician Assistant; Visit Provider Obstetrics & Gynecology
DX: Z01.419 Encounter for gynecological examination (general) (routine) without abnormal findings (principal); Z98.51 Tubal ligation status
CPT/HCPCS: 87626; 88175

== ENCOUNTER 2025-04-01 09:07 | Outpatient (AMB) | payer OTHER, SELFPAY ==
--- NOTE | 2025-04-01 09:11 | MHC.OFFVIS ---
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 No complaints. Last Pap/HPV was in 03/20 Last Mammogram was BI-RADS 2 in 09/21 Last Colonoscopy was done in 2015, the recommendation was to repeat in 10 years [facility] Medical History Chronic pain syndrome History of left breast cancer (~2013) HLD (hyperlipidemia) GERD (gastroesophageal reflux disease) Nicotine dependence, cigarettes, uncomplicated Osteopenia (~2015) Postmenopausal Migraine Post herpetic neuralgia (~2020) Bilateral primary osteoarthritis of knee History of suicide attempt MDD (major depressive disorder) JASSON (generalized anxiety disorder) Surgical History History of hip surgery (~1990) History of lumpectomy of left breast (~2013) History of right knee surgery (~2006) History of ventral hernia repair (~2018) History of thumb surgery (~2016) History of tubal ligation History of tonsillectomy History of colonoscopy History of esophagogastroduodenoscopy (EGD) Family History Father Diabetes Hypertension Prostate cancer Mother Breast cancer Maternal Aunt Uterine cancer Lung cancer Family/Other Substance use disorder Sister Uterine cancer Social History Household Members: Family Housing: House Are you a primary hourly caregiver to a significant other at home: No Do you presently have visiting nurse or other home services: No Alcohol intake: never Patient Tobacco Use Status: Current everyday Tobacco user (quit 8-9 months ago) Tobacco use type: Cigarette Cigarette Packs Per Day: 0.5 Cigarettes Per Day: 5 Years Smoked: (onset 15, 1/2-3/4ppd x 41yrs, 25pyh) e-Cigarette/Vaping Use: Never Used Second Hand Smoke Exposure: Yes Substance Use Type: Marijuana service: No Current occupational status: disabled 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-[employer] Current occupational exposures/hazards: No Cognitive needs: No Hearing needs: Yes Vision needs: Yes Female Reproductive History Menstrual Age of Menarche: 12 Date of last pap smear: 03/28/21 Date of Mammogram: 09/04/24 Date of last Bone Density Screenin10/16/24 Review of Systems Const All systems reviewed & are unremarkable except as noted in HPI and below Card Reports as per HPI Resp Reports as per HPI GI Reports as per HPI and Reports no additional complaints Reports as per HPI Physical Exam Vital Signs: Last Vital Signs BP 142/80 H 04/01/25 09:14 BMI result Body Mass Index 23.4 Const General: cooperative, healthy appearing and comfortable Chest Chest palpation & inspection: normal inspection of the chest and normal palpation of entire chest wall Breast/axilla inspection: normal inspection of the breasts and normal inspection of the axillae Breast/axilla palpation: normal palpation of the breasts, normal palpation of the axillae and no axillary lymphadenopathy Resp Effort & Inspection: normal respiratory effort Auscultation: clear to auscultation bilaterally Percussion: percussion normal Cardio Palpation: normal PMI Rate: regular rate Rhythm: regular rhythm Heart sounds: no murmurs and no rubs Peripheral pulses: Peripheral pulses 2+ throughout GI Inspection: Yes normal to inspection Palpation (GI): Soft to palpation, nontender, no guarding, not rigid and No hepatosplenomegaly present Percussion: Yes normal to percussion Auscultation: normal bowel sounds Rectal Exam - Female: deferred General: Yes bladder normal to palpation External Female Exam: No lesion Speculum Exam - Vagina: normal appearance of the vagina, normal palpation, normal vaginal discharge and not erythematous Speculum Exam - Cervix: normal appearance of the cervix and normal palpation Bimanual exam- vagina & uterus: normal bimanual exam, normal palpation, uterine size normal, bladder normal to palpation, consistency normal and normal palpation Bimanual Exam- Adnexa, other: normal adnexae, no masses and no tenderness Assessment & Plan Assessment & Plan (1) Well woman exam: Code(s): Z01.419 - Encounter for gynecological examination (general) (routine) without abnormal findings Category: Medical Plan: Co testing done. Counseled the patient about the recommended dietary allowance of 1200 mg of Calcium & 600 IU of vitamin D. Instructions given the patient to schedule next screening Mammogram in 09/22. The patient is in the process of scheduling with GI her screening colonoscopy . The patient was instructed to perform monthly self-breast exams and schedule annual exam in a year. All questions answered and the patient verbalized understanding. Coding Level of Care Code Est Pt Prev Care 40-64y(19486) Diagnoses Well woman exam Z01.419
[2025-04-01 09:14] VITALS: BP 142/80; BMI 23.4
--- OUTSIDE RECORDS SUMMARY | 2025-04-01 09:45 | XMS_ITS | Clinical Summary ---
Author Organization [facility] Address [address] [place] [address] Care Team Providers Care Charter And Tour Bus Driver Name Role Phone Unavailable Primary Care Provider [...]
--- OUTSIDE RECORDS SUMMARY | 2025-04-01 09:46 | XMS_ITS | Clinical Summary ---
Author Organization [facility] Address [address] [place] [address] Phone Care Team Providers Care Life Skills Specialist Name Role Phone Patel Rdz Primary Care Provider Allergies No known active allergies Medications Silvadene 1 % creamIndication s:Cellulitis of toe of left foot,Ingrown nail Apply topically 1 (one) time each day. 50 g 5 10/15/19 26 Active Surgical History Surgery Date Site/Laterality Comments OTHER SURGICAL HISTORY PROCEDURE: ARTHROSCOPY PROCEDURE NEC TONSILLECTOMY ADENOIDECTOMY, BILATERAL MYRINGOTOMY AND TUBES PROCEDURE: [place] TONSILLECTOMY & ADENOIDECTOMY <AGE 12 OTHER SURGICAL HISTORY PROCEDURE: [place] LIG/TRNSXJ FLP TUBE ABDL/VAG APPR UNI/BI Medical [...] Date Smoking Tobacco: Every Day Cigarettes 0.5 43.6 Started: 09/08/1981 Smokeless Tobacco: Never Alcohol Use [...] Screening 1965 Colorectal Cancer Screening: Colonoscopy 1965 Zoster Vaccines (1 of 2) 02/03/1984 Cervical [...] patient's age to complete this topic Hepatitis B Vaccines Aged Out No long er eligible [...] ID:[id number] Group ID:[id number] Type:Not on file Address: [place] [address] [address] [id number] Care Teams Life Skills Specialist Relationship Specialty Start Date End Date Patel Rdz PA [address] [place] [address] PCP - General Physician Director [facility] 10/06/24
== END 2025-04-01 09:38 | disposition home or self-care (01) ==
LOC: HO.HWS 09:07
PROVIDERS: PCP Physician Assistant; Visit Provider Obstetrics & Gynecology
DX: Z01.419 Encounter for gynecological examination (general) (routine) without abnormal findings (principal)
CPT/HCPCS: 99396; 99459